=== PATIENT | male | born 1950 | race Caucasian/White ===

== ENCOUNTER → 2019-09-14 | Outpatient (CLI) | payer MEDICARE, OTHER ==
--- NOTE | 2019-09-16 21:44 | PE ---
EXAMINATION TYPE: PET CT fusion skull to thigh DATE OF EXAM: 09/14/2019 COMPARISON: Outside chest CT September 04, 2019. HISTORY: Solitary pulmonary nodule, abnormal CT. TECHNIQUE: Following the intravenous administration of 10.38 mCi of F-18 FDG, whole body images are performed from the skull base to the midthigh. Images are reviewed on the computer in the coronal, a xial, and sagittal planes. Reconstructed rotating images are created on independent workstation and reviewed on the computer. A noncontrast CT is performed in conjunction with the PET scan. SCAN: Initial Scan FINDINGS: SKULL BASE AND NECK: No areas of suspicious hypermetabolic uptake. CHEST, MEDIASTINUM, AND HILAR REGION: Background moderate emphysematous change with moderate biapical pleural/parenchymal scarring is redemonstrated. Mild to moderate left greater than right bibasilar a telectasis and/or scarring. Slightly more nodular appearance right lung base axial image 115 is less prominent versus outside CT. No areas of hypermetabolic uptake are noted. Prominent mediastinal lymph nodes including the largest anterior to ascending aorta axial image 85 measuring 14 x 8 mm are all r edemonstrated. No hypermetabolic adenopathy clearly seen. ABDOMEN AND PELVIS: Normal excretion. No adrenal masses. No suspicious hypermetabolic uptake. OSSEOUS STRUCTURES: No suspicious hypermetabolic uptake. OTHER CT: Mild calcified plaque bilateral carotid bulb level. Coronary artery calcifications redemonstrated. Some calcified thoracic lymph nodes again seen. Small degree of subareolar gynecomastia redemonstrated. Mild/moderate calcified plaque abdominal aorta extending into iliac branch vessels. Enlarged prostate gland consistent with BPH. Left-sided inguinal hernia. Moderate narrowing of both hip joints. Facet arthropathy lower lumbar levels. IMPRESSION: No areas of suspicious hypermetabolic uptake to suggest malignancy.
== END | disposition home or self-care (01) ==
LOC: RADPETMAIN 14:54
PROVIDERS: ATTEND Family Medicine
DX: R91.8 Other nonspecific abnormal finding of lung field (principal)
CPT/HCPCS: 78815; A9552

== ENCOUNTER 2023-12-22 11:13 | Inpatient (IN) | payer MEDICARE, OTHER ==
[2023-12-22] MEDS: ONDANSETRON 4 MG/2 ML VIAL IVP STA (12:22)
[2023-12-22] MEDS: SODIUM CHLORIDE 0.9% 1,000 ML IV STA ×3 (12:23→14:44)
[2023-12-22 12:40] LABS: Anisocytosis Slight; HCT 33.5 % (39.0-53.0); HGB 10.3 gm/dL (13.0-17.5); Hypochromasia Slight; MCH 25.6 pg (25.0-35.0); MCHC 30.7 g/dL (31.0-37.0); MCV 83.5 fL (80.0-100.0); Mean Platelet Volume 7.8; Platelet Count 222 k/uL (150-450); RBC 4.01 m/uL (4.30-5.90); RDW 19.2 % (11.5-15.5); WBC 11.6 k/uL (3.8-10.6)
--- NOTE | 2023-12-22 12:41 | XR ---
EXAMINATION TYPE: XR chest 2V DATE OF EXAM: 12/22/2023 COMPARISON: 12/03/2023 HISTORY: 73-year-old male with weakness TECHNIQUE: PA and lateral views FINDINGS: Left heart margin obscured by adjacent pleural parenchymal opacity. Moderate left pleural effusion barnett s developed. Right apical pleural-parenchymal scarring. Trace effusion on the right on the lateral vi ew. Mild interstitial prominence persists. IMPRESSION: Development of a moderate left pleural effusion with adjacent atelectasis and/or consolidation. Trace effusion on the right. Right apical pleural parenchymal scarring. Refer to recommendation on CT 12/06/2023. Known underlying adenopathy not well appreciated radiographically.
--- NOTE | 2023-12-22 12:50 | ED ---
Weakness HPI - General Chief complaint: Weakness Stated complaint: Weakness Time Seen by Provider: 12/22/23 11:26 Source: patient, RN notes reviewed Mode of arrival: wheelchair Limitations: no limitations - History of Present Illness Initial comments: This is a 73-year-old male who presents to the emergency department for generalized weakness. Patient was discharged from the hospital 2 weeks ago, during which time he was diagnosed with lymphoma. He did well at the point of discharge, however over the last week his states that he has been going downhill. He has been very weak and struggling to get around. He has also had nausea and is not wanting to eat. Patient reports minor shortness of breath. Denies any chest pain. He does have a prescription for Zofran, which has helped occasionally with the nausea. He has an appointment with Dr. Candelario next month to discuss treatment options. MD Complaint: generalized weakness - Related Data Home Medications Medication Instructions Recorded Confirmed Cetirizine HCl [Zyrtec] 10 mg PO DAILY 12/02/23 12/22/23 Cholecalciferol (Vitamin D3) 125 mcg PO DAILY@1200 12/02/23 12/22/23 [Vitamin D3 (125 MCG = 5,000 IU)] Enalapril [Vasotec] 10 mg PO DAILY@1200 PRN 12/02/23 12/22/23 Multivitamins, Thera [Multivitamin 1 tab PO DAILY@1200 12/02/23 12/22/23 (formulary)] Simvastatin [Zocor] 20 mg PO DAILY@1200 12/02/23 12/22/23 Aspirin EC [Ecotrin Low Dose] 81 mg PO DAILY 12/22/23 12/22/23 Ondansetron Odt [Zofran Odt] 4 mg PO Q6H PRN 12/22/23 12/22/23 Allergies Allergy/AdvReac Type Severity Reaction Status Date / Time No Known Allergies Allergy Verified 12/22/23 13:37 Review of Systems ROS Statement: Those systems with pertinent positive or pertinent negative responses have been documented in the HPI. ROS Other: All systems not noted in ROS Statement are negative. Past Medical History Past Medical History: Cancer, Hyperlipidemia, Hypertension History of Any Multi-Drug Resistant Organisms: None Reported Past Surgical History: Hernia Repair Past Psychological History: No Psychological Hx Reported Smoking Status: Current every day smoker Past Alcohol Use History: Occasional Past Drug Use History: None Reported General Exam Limitations: no limitations General appearance: alert, in no apparent distress Head exam: Present: atraumatic, normocephalic, normal inspection Respiratory exam: Present: normal lung sounds bilaterally. Absent: respiratory distress, wheezes, rales, rhonchi, stridor Cardiovascular Exam: Present: regular rate, normal rhythm, normal heart sounds. Absent: systolic murmur, diastolic murmur, rubs, gallop, clicks GI/Abdominal exam: Present: soft, normal bowel sounds. Absent: distended, tenderness, guarding, rebound, rigid Neurological exam: Present: alert, oriented X3, CN II-XII intact Psychiatric exam: Present: normal affect, normal mood Skin exam: Present: warm, dry, intact, normal color. Absent: rash Course Vital Signs 12/22/23 12/22/23 12/22/23 11:19 12:16 14:44 Temperature 97.4 F L Pulse Rate 93 96 94 Respiratory 16 18 22 Rate Blood Pressure 106/75 91/69 88/71 O2 Sat by Pulse 95 95 94 L Oximetry Medical Decision Making - Medical Decision Making This is a 73 year old male who presents to the emergency department for weakness. Was pt. sent in by a medical professional or institution? @ -No Did you speak to anyone other than the patient for history? @ -His provided the majority of the information. Did you review nursing and triage notes? @ -Yes, and I agree, it is accurate with regards to the patient's symptoms. Were old charts reviewed? @ -No Differential Diagnosis? @ -Differential Weakness: Hypoglycemia, shock, sepsis, hyponatremia, anemia, infection, HI, ETOH, adverse medicine reaction, overdose, stroke, this is not meant to be an all-inclusive list. EKG interpreted by me (3pts min.)? @ -EKG interpreted by me demonstrating the following: Sinus rhythm. Ventricular rate 93 bpm, PA interval 152 ms, QRS duration 77 ms, QTc 370 ms. X-rays interpreted by me (1pt min.)? @ -Chest x-ray obtained. My interpretation identifies a left-sided pleural effusion. CT interpreted by me (1pt min.)? @ -Not obtained U/S interpreted by me (1pt. min.)? @ -Not obtained What testing was considered but not performed? (CT, X-rays, U/S, labs)? Why? @ -None What meds were considered but not given? Why? @ -None Did you discuss the management of the patient with other professionals? @ -Yes, Dr. Kerr, who accepts the patient for admission. Did you reconcile home meds? @ -Yes Was smoking cessation discussed for >3mins.? @ -No Was critical care preformed (if so, how long)? @ -No Were there social determinants of health that impacted care today? How? (Homelessness, low income, unemployed, alcoholism, drug addiction, transportation, low edu. Level, literacy, decrease access to med. care, intermediate, rehab)? @ -No Was there de-escalation of care discussed even if they declined? (Discuss DNR or withdrawal of care, Hospice)? @ -No What co-morbidities impacted this encounter? (DM, HTN, Smoking, COPD, CAD, Cancer, CVA, Hep., AIDS, mental health diagnosis, sleep apnea, morbid obesity)? @ -Lymphoma, HTN, HLD Was patient admitted / discharged? @ -Admitted. Lab work demonstrates leukocytosis with a white blood cell count of 11.6. Patient is hyponatremic with a sodium of 129. Patient is also in acute renal failure with a creatinine of 3.62 and GFR of 16. Potassium elevated at 6.4 without hemolysis. Chest x-ray demonstrates development of a moderate left pleural effusion with adjacent atelectasis and/or consolidation. There is a trace effusion on the right. Hyperkalemia cocktail administered consisting of calcium gluconate, Lokelma, and insulin. It is not entirely clear if there are signs of pneumonia on the chest x-ray. Procalcitonin ordered with results pending at time of admission. Patient admitted to medicine for hyperkalemia, acute renal failure, and weakness. Consult placed for nephrology. Undiagnosed new problem with uncertain prognosis? @ -None Drug Therapy requiring intensive monitoring for toxicity (Heparin, Nitro, Insulin, Cardizem)? @ -None Were any procedures done? @ -None Diagnosis/symptom? @ -Acute renal failure, hyperkalemia, weakness Acute, or Chronic, or Acute on Chronic? @ -Acute Uncomplicated (without systemic symptoms) or Complicated (systemic symptoms)? @ -Complicated Side effects of treatment? @ -None Exacerbation, Progression, or Severe Exacerbation] @ -Not applicable Poses a threat to life or bodily function? @ Yes This case was discussed in detail with the attending ED physician, Dr. Davila. Presentation, findings, and treatment plan discussed in detail as well. - Lab Data Result diagrams: 12/22/23 12:27 12/22/23 12:27 Lab Results 12/22/23 12/22/23 12/22/23 Range/Units 12:27 12:27 12:27 WBC 11.6 H (3.8-10.6) k/uL RBC 4.01 L (4.30-5.90) m/uL Hgb 10.3 L (13.0-17.5) gm/dL Hct 33.5 L (39.0-53.0) % MCV 83.5 (80.0-100.0) fL MCH 25.6 (25.0-35.0) pg MCHC 30.7 L (31.0-37.0) g/dL RDW 19.2 H (11.5-15.5) % Plt Count 222 (150-450) k/uL MPV 7.8 Neutrophils % (Manual) 67 % Lymphocytes % (Manual) 20 % Monocytes % (Manual) 13 % Eosinophils % (Manual) 1 % Neutrophils # (Manual) 7.77 H (1.3-7.7) k/uL Lymphocytes # (Manual) 2.32 (1.0-4.8) k/uL Monocytes # (Manual) 1.51 H (0-1.0) k/uL Eosinophils # (Manual) 0.12 (0-0.7) k/uL Nucleated RBCs 0 (0-0) /100 WBC Manual Slide Review Performed Hypochromasia Slight Anisocytosis Slight PT 11.5 (10.0-12.5) sec INR 1.1 (<1.2) APTT 23.3 (22.0-30.0) sec Sodium 129 L (137-145) mmol/L Potassium 6.4 H* (3.5-5.1) mmol/L Chloride 101 (98-107) mmol/L Carbon Dioxide 20 L (22-30) mmol/L Anion Gap 8 mmol/L BUN 90 H (9-20) mg/dL Creatinine 3.62 H (0.66-1.25) mg/dL Est GFR (CKD-EPI)AfAm 18 (>60 ml/min/1.73 sqM) Est GFR (CKD-EPI)NonAf 16 (>60 ml/min/1.73 sqM) Glucose 110 H (74-99) mg/dL Plasma Lactic Acid Curtis (0.7-2.0) mmol/L Calcium 10.0 (8.4-10.2) mg/dL Phosphorus 6.7 H (2.5-4.5) mg/dL Magnesium 2.8 H (1.6-2.3) mg/dL Total Bilirubin 0.4 (0.2-1.3) mg/dL AST 23 (17-59) U/L ALT 17 (4-49) U/L Alkaline Phosphatase 113 (38-126) U/L Troponin I (0.000-0.034) ng/mL NT-Pro-B Natriuret Pep pg/mL Total Protein 6.2 L (6.3-8.2) g/dL Albumin 3.8 (3.5-5.0) g/dL Influenza Type A (PCR) (Not Detectd) Influenza Type B (PCR) (Not Detectd) RSV (PCR) (Not Detectd) SARS-CoV-2 (PCR) (Not Detectd) 12/22/23 12/22/23 12/22/23 Range/Units 12:27 12:27 12:27 WBC (3.8-10.6) k/uL RBC (4.30-5.90) m/uL Hgb (13.0-17.5) gm/dL Hct (39.0-53.0) % MCV (80.0-100.0) fL MCH (25.0-35.0) pg MCHC (31.0-37.0) g/dL RDW (11.5-15.5) % Plt Count (150-450) k/uL MPV Neutrophils % (Manual) % Lymphocytes % (Manual) % Monocytes % (Manual) % Eosinophils % (Manual) % Neutrophils # (Manual) (1.3-7.7) k/uL Lymphocytes # (Manual) (1.0-4.8) k/uL Monocytes # (Manual) (0-1.0) k/uL Eosinophils # (Manual) (0-0.7) k/uL Nucleated RBCs (0-0) /100 WBC Manual Slide Review Hypochromasia Anisocytosis PT (10.0-12.5) sec INR (<1.2) APTT (22.0-30.0) sec Sodium (137-145) mmol/L Potassium (3.5-5.1) mmol/L Chloride (98-107) mmol/L Carbon Dioxide (22-30) mmol/L Anion Gap mmol/L BUN (9-20) mg/dL Creatinine (0.66-1.25) mg/dL Est GFR (CKD-EPI)AfAm (>60 ml/min/1.73 sqM) Est GFR (CKD-EPI)NonAf (>60 ml/min/1.73 sqM) Glucose (74-99) mg/dL Plasma Lactic Acid Curtis 1.7 (0.7-2.0) mmol/L Calcium (8.4-10.2) mg/dL Phosphorus (2.5-4.5) mg/dL Magnesium (1.6-2.3) mg/dL Total Bilirubin (0.2-1.3) mg/dL AST (17-59) U/L ALT (4-49) U/L Alkaline Phosphatase (38-126) U/L Troponin I <0.012 (0.000-0.034) ng/mL NT-Pro-B Natriuret Pep pg/mL Total Protein (6.3-8.2) g/dL Albumin (3.5-5.0) g/dL Influenza Type A (PCR) Not Detected (Not Detectd) Influenza Type B (PCR) Not Detected (Not Detectd) RSV (PCR) Not Detected (Not Detectd) SARS-CoV-2 (PCR) Not Detected (Not Detectd) 12/22/23 Range/Units 13:11 WBC (3.8-10.6) k/uL RBC (4.30-5.90) m/uL Hgb (13.0-17.5) gm/dL Hct (39.0-53.0) % MCV (80.0-100.0) fL MCH (25.0-35.0) pg MCHC (31.0-37.0) g/dL RDW (11.5-15.5) % Plt Count (150-450) k/uL MPV Neutrophils % (Manual) % Lymphocytes % (Manual) % Monocytes % (Manual) % Eosinophils % (Manual) % Neutrophils # (Manual) (1.3-7.7) k/uL Lymphocytes # (Manual) (1.0-4.8) k/uL Monocytes # (Manual) (0-1.0) k/uL Eosinophils # (Manual) (0-0.7) k/uL Nucleated RBCs (0-0) /100 WBC Manual Slide Review Hypochromasia Anisocytosis PT (10.0-12.5) sec INR (<1.2) APTT (22.0-30.0) sec Sodium (137-145) mmol/L Potassium (3.5-5.1) mmol/L Chloride (98-107) mmol/L Carbon Dioxide (22-30) mmol/L Anion Gap mmol/L BUN (9-20) mg/dL Creatinine (0.66-1.25) mg/dL Est GFR (CKD-EPI)AfAm (>60 ml/min/1.73 sqM) Est GFR (CKD-EPI)NonAf (>60 ml/min/1.73 sqM) Glucose (74-99) mg/dL Plasma Lactic Acid Curtis (0.7-2.0) mmol/L Calcium (8.4-10.2) mg/dL Phosphorus (2.5-4.5) mg/dL Magnesium (1.6-2.3) mg/dL Total Bilirubin (0.2-1.3) mg/dL AST (17-59) U/L ALT (4-49) U/L Alkaline Phosphatase (38-126) U/L Troponin I (0.000-0.034) ng/mL NT-Pro-B Natriuret Pep 937 pg/mL Total Protein (6.3-8.2) g/dL Albumin (3.5-5.0) g/dL Influenza Type A (PCR) (Not Detectd) Influenza Type B (PCR) (Not Detectd) RSV (PCR) (Not Detectd) SARS-CoV-2 (PCR) (Not Detectd) - Radiology Data Radiology results: report reviewed, image reviewed Disposition Clinical Impression: Hyperkalemia, Renal failure, Weakness Disposition: ADMITTED IP TO THIS HOSP
[2023-12-22 12:51] LABS: INR 1.1 (<1.2); Partial Thromboplastin Time 23.3 sec (22.0-30.0); Prothrombin Time 11.5 sec (10.0-12.5)
[2023-12-22 13:02] LABS: ALT 17 U/L (4-49); AST 23 U/L (17-59); African American GFR (CKD) 18 (>60 ml/min/1.73 sqM); Albumin 3.8 g/dL (3.5-5.0); Alkaline Phosphatase 113 U/L (38-126); Anion Gap 8 mmol/L; Blood Urea Nitrogen 90 mg/dL (9-20); Carbon Dioxide 20 mmol/L (22-30); Chloride 101 mmol/L (98-107); Glucose 110 mg/dL (74-99); Magnesium 2.8 mg/dL (1.6-2.3); Non-African American GFR(CKD) 16 (>60 ml/min/1.73 sqM); Phosphorus 6.7 mg/dL (2.5-4.5); Sodium 129 mmol/L (137-145); Total Bilirubin 0.4 mg/dL (0.2-1.3); Total Protein 6.2 g/dL (6.3-8.2)
[2023-12-22 13:06] LABS: Potassium 6.4 mmol/L (3.5-5.1)
[2023-12-22] MEDS ORDERED: NALOXONE 0.4 MG/ML 1 ML VIAL IV PRN (13:30)
[2023-12-22] MEDS ORDERED: MORPHINE SULFATE 4 MG/ML SYRINGE IV PRN (13:30)
[2023-12-22 13:33] LABS: Eosinophils # (M) 0.12 k/uL (0-0.7); Lymphocytes # (M) 2.32 k/uL (1.0-4.8); Monocytes # (M) 1.51 k/uL (0-1.0); Neutrophils # (M) 7.77 k/uL (1.3-7.7); Neutrophils % (M) 67 %; Nucleated Red Blood Cells 0 /100 WBC (0-0); Total Cells Counted 200
[2023-12-22] MEDS: DEXTROSE 50% SYRINGE 50 ML IVP ONE (14:31)
[2023-12-22] MEDS: INSULIN REGULAR 100 UNIT/ML VIAL (IV) IV ONE (14:35)
[2023-12-22] MEDS: SODIUM ZIRCONIUM CYCLOSILICATE 10 GM PACKET PO ONE (14:46)
[2023-12-22] MEDS: CALCIUM GLUCONATE IN NACL 1 GM in SALINE 1 100ML.BAG IVPB ONE (14:48)
--- NOTE | 2023-12-22 16:55 | US ---
EXAMINATION TYPE: US kidneys/renal and bladder DATE OF EXAM: 12/22/2023 COMPARISON: NONE CLINICAL INDICATION: Male, 73 years old with history of acute renal failure; EXAM MEASUREMENTS: Right Kidney: 9.2 x 4.6 x 4.8 cm Left Kidney: 10.1 x 5.1 x 4.5 cm Right Kidney: wnl Left Kidney: wnl Bladder: wnl Bilateral Jets seen: right jet seen, left jet not seen Abdominal ascites Spleen: 20.2cm, enlarged Bilateral pleural effusion IMPRESSION: 1. No suspicious ultrasound abnormality of the kidneys. 2. Marked Splenomegaly. 3. Some mild ascites is present. Small bilateral pleural effusions are present
[2023-12-22 17:29] LABS: Appearance,Urine Clear (Clear); Bilirubin,Urine Negative (Negative); Blood,Urine Negative (Negative); Color,Urine Yellow; Glucose,Urine (UA) Negative (Negative); Ketones,Urine Negative (Negative); Leukocyte Esterase,Urine Negative (Negative); Nitrite,Urine Negative (Negative); Protein,Urine Trace (Negative); Urobilinogen,Urine <2.0 mg/dL (<2.0)
[2023-12-23] MEDS: ONDANSETRON 4 MG/2 ML VIAL IVP PRN (03:22)
[2023-12-23] MEDS: ENOXAPARIN 30 MG/0.3 ML SYRINGE SQ SCH (07:53)
[2023-12-23] MEDS: ASPIRIN 81 MG PO SCH (07:53)
[2023-12-23] MEDS: LORATADINE 10 MG TAB PO SCH (07:53)
--- NOTE | 2023-12-23 10:09 | P.HPIM ---
History of Present Illness H&P Date: 12/22/23 Rahul Cruz, Is a 57-year-old male patient who presented to the ER with concerns of increased weakness over the past few days. Patient was discharged from the hospital 2 weeks ago after diagnosed with lymphoma patient reports that he was doing well for couple days but then began not feeling well not wanting to eat over the past few days patient has past medical history of hyperlipidemia hypertension and nicotine dependence.Chest x-ray completed showing development of a moderate left pleural effusion with adjacent atelectasis or consolidation trace effusion on the right. Abdominal ultrasound completed showing no suspicious ultrasound abnormality some mild ascites is present marked splen omegaly small bilateral pleural effusions are present.Patient white blood cell elevated at 11.6, hemoglobin 10.3, sodium 129, potassium 6.4, creatinine 3.6-190 magnesium 2.8 ALT 17 AST 23. Troponin negative. UA negative. Influenza RSV and COVID-19 negative.At this time patient has been started on IV fluid nephrology and cardiology services have been consulted. Repeat labs have been ordered. Current vital signs temp 97.5, heart rate 100, respiratory rate 18, blood pressure 115/78 with a pulse ox of 95% on 2 L Review of Systems Please refer to HPI otherwise unremarkable Past Medical History Past Medical History: Cancer, Hyperlipidemia, Hypertension History of Any Multi-Drug Resistant Organisms: None Reported Past Surgical History: Hernia Repair Past Psychological History: No Psychological Hx Reported Smoking Status: Current every day smoker Past Alcohol Use History: Occasional Past Drug Use History: None Reported Medications and Allergies Home Medications Medication Instructions Recorded Confirmed Type Cetirizine HCl [Zyrtec] 10 mg PO DAILY 12/02/23 12/22/23 History Cholecalciferol (Vitamin D3) 125 mcg PO DAILY@1200 12/02/23 12/22/23 History [Vitamin D3 (125 MCG = 5,000 IU)] Enalapril [Vasotec] 10 mg PO DAILY@1200 PRN 12/02/23 12/22/23 History Multivitamins, Thera [Multivitamin 1 tab PO DAILY@1200 12/02/23 12/22/23 History (formulary)] Simvastatin [Zocor] 20 mg PO DAILY@1200 12/02/23 12/22/23 History Aspirin EC [Ecotrin Low Dose] 81 mg PO DAILY 05/30/24 05/30/24 History Ondansetron Odt [Zofran Odt] 4 mg PO Q6H PRN 12/22/23 12/22/23 History Allergies Allergy/AdvReac Type Severity Reaction Status Date / Time No Known Allergies Allergy Verified 12/22/23 13:37 Physical Exam Vitals: Vital Signs Temp Pulse Resp BP Pulse Ox 12/22/23 15:27 98 18 116/97 96 12/22/23 14:44 94 22 88/71 94 L 12/22/23 12:16 96 18 91/69 95 12/22/23 11:19 97.4 F L 93 16 106/75 95 Intake and Output 12/22/23 12/22/23 12/22/23 06:59 14:59 22:59 Other: Weight 70.307 kg Head normocephalic Neck supple Lungs clear to auscultation bilaterally no wheezing or crackles Heart regular rate and rhythm S1-S2, no rub or gallop Abdomen is soft nontender nondistended positive bowel sounds no hepatosplenomegaly Extremities no edema Neuro alert and orientated to 3 Results CBC & Chem 7: 12/22/23 12:27 12/22/23 16:53 Labs: Abnormal Lab Results - Last 24 Hours (Table) 12/22/23 12/22/23 Range/Units 12:27 12:27 WBC 11.6 H (3.8-10.6) k/uL RBC 4.01 L (4.30-5.90) m/uL Hgb 10.3 L (13.0-17.5) gm/dL Hct 33.5 L (39.0-53.0) % MCHC 30.7 L (31.0-37.0) g/dL RDW 19.2 H (11.5-15.5) % Neutrophils # (Manual) 7.77 H (1.3-7.7) k/uL Monocytes # (Manual) 1.51 H (0-1.0) k/uL Sodium 129 L (137-145) mmol/L Potassium 6.4 H* (3.5-5.1) mmol/L Carbon Dioxide 20 L (22-30) mmol/L BUN 90 H (9-20) mg/dL Creatinine 3.62 H (0.66-1.25) mg/dL Glucose 110 H (74-99) mg/dL Phosphorus 6.7 H (2.5-4.5) mg/dL Magnesium 2.8 H (1.6-2.3) mg/dL Total Protein 6.2 L (6.3-8.2) g/dL Assessment and Plan Assessment: 1. Increased weakness and general malaise. 2. Recent diagnosis of lymphoma with splenomegaly and extensive lymphadenopathy 3. History of essential hypertension 4. History of hyperlipidemia DVT prophylaxis Lovenox. GI prophylaxis Protonix Patient maintained on IV fluid Nephrology and oncology service is consulted Repeat labs ordered Time with Patient: Greater than 30 (Greater than 60% of the total time spent in counseling and coordination of care)
--- NOTE | 2023-12-23 10:10 | P.PN ---
Subjective Progress Note Date: 12/23/23 Rahul Cruz, Is a 57-year-old male patient who presented to the ER with concerns of increased weakness over the past few days. Patient was discharged from the hospital 2 weeks ago after diagnosed with lymphoma patient reports that he was doing well for couple days but then began not feeling well not wanting to eat over the past few days patient has past medical history of hyperlipidemia hypertension and nicotine dependence.Chest x-ray completed showing development of a moderate left pleural effusion with adjacent atelectasis or consolidation trace effusion on the right. Abdominal ultrasound completed showing no suspicious ultrasound abnormality some mild ascites is present marked splenomegaly small bilateral pleural effusions are present.Patient white blood cell elevated at 11.6, hemoglobin 10.3, sodium 129, potassium 6.4, creatinine 3.6-190 magnesium 2.8 ALT 17 AST 23. Troponin negative. UA negative. Influenza RSV and COVID-19 negative.At this time patient has been started on IV fluid nephrology and cardiology services have been consulted. Repeat labs have been ordered. Current vital signs temp 97.5, heart rate 100, respiratory rate 18, blood pressure 115/78 with a pulse ox of 95% on 2 L On 12/23/2023 patient is alert and oriented 3. Patient reports slight improvement. Family at bedside. Awaiting nephrology and oncology input. Patient denies chest pain or shortness of breath. Patient denies any urinary burning or frequency. Repeat labs pending Objective - Vital Signs Vital signs: Vital Signs Temp 97.5 F L 12/23/23 08:00 Pulse 100 12/23/23 08:00 Resp 18 12/23/23 08:00 BP 115/78 12/23/23 08:00 Pulse Ox 95 12/23/23 08:00 FiO2 Intake & Output 12/22/23 12/23/23 12/23/23 18:59 06:59 18:59 Intake Total 930 Balance 930 Weight 70.307 kg Intake: Intake, IV Titration 900 Amount Sodium Chloride 0.9% 1, 900 000 ml @ 75 mls/hr IV . [id number] STA Rx#:[id number] Oral 30 Other: Voiding Method Toilet # Voids 3 # Bowel Movements 1 - Exam Head normocephalic Neck supple Lungs clear to auscultation bilaterally no wheezing or crackles Heart regular rate and rhythm S1-S2, no rub or gallop Abdomen is soft nontender nondistended positive bowel sounds no he patosplenomegaly Extremities no edema Neuro alert and orientated to 3 - Labs CBC & Chem 7: 12/22/23 12:27 12/22/23 16:53 Labs: Abnormal Lab Results - Last 24 Hours (Table) 12/22/23 12/22/23 12/22/23 Range/Units 12:27 12:27 12:27 WBC 11.6 H (3.8-10.6) k/uL RBC 4.01 L (4.30-5.90) m/uL Hgb 10.3 L (13.0-17.5) gm/dL Hct 33.5 L (39.0-53.0) % MCHC 30.7 L (31.0-37.0) g/dL RDW 19.2 H (11.5-15.5) % Neutrophils # (Manual) 7.77 H (1.3-7.7) k/uL Monocytes # (Manual) 1.51 H (0-1.0) k/uL Sodium 129 L (137-145) mmol/L Potassium 6.4 H* (3.5-5.1) mmol/L Carbon Dioxide 20 L (22-30) mmol/L BUN 90 H (9-20) mg/dL Creatinine 3.62 H (0.66-1.25) mg/dL Glucose 110 H (74-99) mg/dL Phosphorus 6.7 H (2.5-4.5) mg/dL Magnesium 2.8 H (1.6-2.3) mg/dL Total Protein 6.2 L (6.3-8.2) g/dL Procalcitonin 0.19 H (0.02-0.09) ng/mL Urine Protein (Negative) 12/22/23 12/22/23 Range/Units 16:53 17:20 WBC (3.8-10.6) k/uL RBC (4.30-5.90) m/uL Hgb (13.0-17.5) gm/dL Hct (39.0-53.0) % MCHC (31.0-37.0) g/dL RDW (11.5-15.5) % Neutrophils # (Manual) (1.3-7.7) k/uL Monocytes # (Manual) (0-1.0) k/uL Sodium (137-145) mmol/L Potassium 5.6 H (3.5-5.1) mmol/L Carbon Dioxide (22-30) mmol/L BUN (9-20) mg/dL Creatinine (0.66-1.25) mg/dL Glucose (74-99) mg/dL Phosphorus (2.5-4.5) mg/dL Magnesium (1.6-2.3) mg/dL Total Protein (6.3-8.2) g/dL Procalcitonin (0.02-0.09) ng/mL Urine Protein Trace H (Negative) Assessment and Plan Assessment: 1. Increased weakness and general malaise. 2. Recent diagnosis of lymphoma with splenomegaly and extensive lymphadenopathy 3. History of essential hypertension 4. History of hyperlipidemia DVT prophylaxis Lovenox. GI prophylaxis Protonix Patient maintained on IV fluid Nephrology and oncology service is consulted Repeat labs ordered
--- NOTE | 2023-12-23 10:11 | P.NPCON ---
History of Present Illness - Reason for Consult acute renal failure - History of Present Illness patient is a 73-year-old male with history of hypertension, hyperlipidemia and recent diagnosis of Mantle cell lymphoma. Patient is admitted to the hospital with complaints of increased shortness of breath and leg swelling over the past 2-3 days. labs reveals serum creatinine at 3.6 mg/dL. previous creatinine was 0.9 on 12/08/2023. Patient admits to taking Motrin 2 tablets 3-4 times a day for about 2 weeks now due to back pain. Patient was also maintained on HOWARD inhibitor's. Blood pressure has been low with systolic noted in the 80s. patient has been voiding. Review of Systems as per HPI Past Medical History Past Medical History: Cancer, Hyperlipidemia, Hypertension History of Any Multi-Drug Resistant Organisms: None Reported Past Surgical History: Hernia Repair Past Psychological History: No Psychological Hx Reported Smoking Status: Current every day smoker Past Alcohol Use History: Occasional Past Drug Use History: None Reported Medications and Allergies Home Medications Medication Instructions Recorded Confirmed Type Cetirizine HCl [Zyrtec] 10 mg PO DAILY 12/02/23 12/22/23 History Cholecalciferol (Vitamin D3) 125 mcg PO DAILY@1200 12/02/23 12/22/23 History [Vitamin D3 (125 MCG = 5,000 IU)] Enalapril [Vasotec] 10 mg PO DAILY@1200 PRN 12/02/23 12/22/23 History Multivitamins, Thera [Multivitamin 1 tab PO DAILY@1200 12/02/23 12/22/23 History (formulary)] Simvastatin [Zocor] 20 mg PO DAILY@1200 12/02/23 12/22/23 History Aspirin EC [Ecotrin Low Dose] 81 mg PO DAILY 12/22/23 12/22/23 History Ondansetron Odt [Zofran Odt] 4 mg PO Q6H PRN 12/22/23 12/22/23 History Allergies Allergy/AdvReac Type Severity Reaction Status Date / Time No Known Allergies Allergy Verified 12/22/23 13:37 Physical Exam Vitals: Vital Signs Temp Pulse Pulse Resp BP BP Pulse Ox 12/23/23 08:00 97.5 F L 100 18 115/78 95 12/23/23 02:00 98 F 101 H 16 118/80 97 12/22/23 21:00 97.4 F L 103 H 16 114/77 96 12/22/23 20:10 101 H 18 108/88 94 L 12/22/23 15:27 98 18 116/97 96 12/22/23 14:44 94 22 88/71 94 L 12/22/23 12:16 96 18 91/69 95 12/22/23 11:19 97.4 F L 93 16 106/75 95 Intake and Output 12/22/23 12/23/23 12/23/23 22:59 06:59 14:59 Intake Total 30 900 Balance 30 900 Intake: Intake, IV Titration 900 Amount Sodium Chloride 0.9% 1, 900 000 ml @ 75 mls/hr IV . [id number] STA Rx#:[id number] Oral 30 Other: Voiding Method Toilet # Voids 3 # Bowel Movements 1 Weight 70.307 kg patient is awake, comfortable, no acute distress. Alert oriented 3 Examination of the heart S1 and S2 Examination of the lungs bilateral breath sounds are heard Abdomen is soft nontender Examination of lower extremity shows edema 2+ bilaterally [facility] exam grossly intact Results - Lab Results Most recent lab results Calcium 10.0 mg/dL (8.4-10.2) 12/22/23 12:27 Phosphorus 6.7 mg/dL (2.5-4.5) H 12/22/23 12:27 Magnesium 2.8 mg/dL (1.6-2.3) H 12/22/23 12:27 12/22/23 12:27 12/22/23 16:53 Assessment and Plan Assessment: 1. Acute kidney injury, ATN currently nonoliguric secondary to hypotension and the setting of use of howard inhibitors and NSAIDs. No evidence of obstruction noted on ultrasound. UA is quite benign. Currently maintained on IV fluids. 2. Volume overload and lower extremity edema most likely associated with recent use of NSAIDs. No significant proteinuria noted to account for the edema. 3. Recent diagnosis of mantle cell lymphoma 4. hyperkalemia associated with acute kidney injury and use of NSAIDs and HOWARD inhibitor's Plan: hold IV fluids as patient is hypervolemic. IV Lasix 1 Check accurate I's and O's Avoid any further use of NSAIDs Continue to hold HOWARD inhibitor's Repeat labs today and in a.m. thank you for the consultation. We will continue to follow the patient with you during his hospitalization.
[2023-12-23] MEDS: MULTIVITAMINS, THERA 1 EACH TAB PO SCH (11:22)
[2023-12-23] MEDS: ATORVASTATIN 10 MG TAB PO SCH (11:22)
[2023-12-23] MEDS: CHOLECALCIFEROL 125 MCG (5000 IU) TABLET PO SCH (11:22)
[2023-12-23 11:28] LABS: ALT 15 U/L (10-49); AST 18 U/L (14-35); Albumin 3.4 g/dL (3.8-4.9); Alkaline Phosphatase 98 U/L (41-126); BUN/Creat Ratio 23.74 Ratio (12.00-20.00); Blood Urea Nitrogen 80.7 mg/dL (9.0-27.0); Calcium 8.6 mg/dL (8.7-10.3); Carbon Dioxide 14.7 mmol/L (21.6-31.8); Chloride 102 mmol/L (96-109); Glucose 103 mg/dL (70-110); Potassium 5.8 mmol/L (3.5-5.5); Sodium 132 mmol/L (135-145); Total Bilirubin 0.3 mg/dL (0.3-1.2); Total Protein 5.4 g/dL (6.2-8.2)
[2023-12-23 11:53] LABS: Basophils # (M) 0 X 10*3/uL (0.00-0.10); Eosinophils # (M) 0.14 X 10*3/uL (0.04-0.35); HCT 31.1 % (39.6-50.0); HGB 9.5 g/dL (13.0-17.0); MCH 26.1 pg (27.0-32.0); MCHC 30.5 g/dL (32.0-37.0); MCV 85.4 FL (80.0-97.0); Mean Platelet Volume 10.8 FL (9.5-12.2); Monocytes # (M) 1.52 X 10*3/uL (0.20-1.00); NRBC Per 100 WBC 0.02 X 10*3/uL (0.00-0.01); Neutrophils # (M) 8.14 X 10*3/uL (1.80-7.70); Neutrophils % (M) 59 %; Platelet Count 224 X 10*3/uL (140-440); RBC 3.64 X 10*6/uL (4.40-5.60); RDW 21.1 % (11.5-14.5)
[2023-12-23] MEDS: ALPRAZolam 0.25 MG TAB PO PRN (13:26)
[2023-12-23 16:09] LABS: Phosphorus 6.2 mg/dL (2.4-5.1); Uric Acid 12.6 mg/dL (3.7-8.7)
[2023-12-23] MEDS: SODIUM POLYSTYRENE SULFONATE 15 GM/60 ML BOTTLE PO ONE (16:49)
[2023-12-23] MEDS: RASBURICASE 6 MG in SODIUM CHLORIDE 0.9% 46 ML IV ONE (17:39)
[2023-12-23] MEDS: ACETAMINOPHEN TAB 325 MG TAB PO PRN (20:12)
--- NOTE | 2023-12-24 00:04 | P.CONS ---
History of Present Illness - Reason for Consult Consult date: 12/23/23 hx lymphoma Requesting physician: Maribel Castillo - Chief Complaint weakness - History of Present Illness Patient is a 73-year-old male witha history of recently diganosed mantle cell lymphoma. He initially presented to [facility] with complaints of persisting abdominal pain, he was subsequently transferred to [facility] for further management, after abnormal CT findings. Consult was placed for CT findings of extensive intra abdominal/pelvic lymphadenopathy. Patient reports he began having left lower back pain approximately 1 month ago that began to radiate to l eft lower quadrant and midline and to left groin. Also reports intermittent nausea and constipation. Denies diarrhea and vomiting. He states for the the week prior he had been noticing black stools. Of note patient had tooth extraction 1 month ago and was using Motrin frequently for 10 days. Patient is on no blood thinners. He denies personal and family history of cancer. Has had a approximate 15 pound weight loss over the last [address] abdomen pelvis with oral and IV contrast was obtained at [facility], scan revealed extensive intra-abdominal/pelvic lymphadenopathy. Massive splenomegaly measuring 20 cm. With small perisplenic fluid collection. May be subcapsular or related to splenic injury or infarction measuring 3.2 cm. Small pericardial and left pleural effusion. Diverticulosis with wall thickening, underlying mucosal lesion not excluded. Bladder wall enhances and is thickened, correlate for cystitis. Prostate gland enlarged. Patient underwent biopsy of right axillary lymph node and was subsequently discharged home. 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 PET/CT was scheduled for 12/23 with clinic follow-up with Dr. Adam Candelario on 01/02. Patient presented to the emergency room with progressing weakness and decreased oral intake over the last 2 to 3 days. On admission chest x-ray revealed development of moderate left pleural effusion with adjacent atelectasis and or consolidation and trace effusion on the right. Patient was also noted to be in acute renal failure with creatinine 3.6, GFR 16. Potassium 6.4, sodium 129. Calcium 10.0, phosphorus 6.7. Troponin was negative. BNP 937. CBC revealed WBC 13.8, hemoglobin 9.5, platelets 224,000. Coags WNL. Bilirubin and LFTs WNL. Patient did receive 2 L normal saline bolus upon admission. Nephrology consulted. US KUB obtained showing no abnormality of the kidneys, marked splenomegaly and mild ascites. At today's visit patient is reporting persisting weakness. Denies nausea vomiting diarrhea and abdominal pain. Denies fever and chills. Review of Systems 10 point ROS is negative except as stated in the HPI Past Medical History Past Medical History: Cancer, Hyperlipidemia, Hypertension History of Any Multi-Drug Resistant Organisms: None Reported Past Surgical History: Hernia Repair Past Psychological History: No Psychological Hx Reported Smoking Status: Current every day smoker Past Alcohol Use History: Occasional Past Drug Use History: None Reported Medications and Allergies Home Medications Medication Instructions Recorded Confirmed Type Cetirizine HCl [Zyrtec] 10 mg PO DAILY 12/02/23 12/22/23 History Cholecalciferol (Vitamin D3) 125 mcg PO DAILY@1200 12/02/23 12/22/23 History [Vitamin D3 (125 MCG = 5,000 IU)] Enalapril [Vasotec] 10 mg PO DAILY@1200 PRN 12/02/23 12/22/23 History Multivitamins, Thera [Multivitamin 1 tab PO DAILY@1200 12/02/23 12/22/23 History (formulary)] Simvastatin [Zocor] 20 mg PO DAILY@1200 12/02/23 12/22/23 History Aspirin EC [Ecotrin Low Dose] 81 mg PO DAILY 12/22/23 12/22/23 History Ondansetron Odt [Zofran Odt] 4 mg PO Q6H PRN 12/22/23 12/22/23 History Allergies Allergy/AdvReac Type Severity Reaction Status Date / Time No Known Allergies Allergy Verified 12/22/23 13:37 Physical Exam Vitals: Vital Signs Temp Pulse Pulse Resp BP BP Pulse Ox 12/23/23 08:00 97.5 F L 100 18 115/78 95 12/23/23 02:00 98 F 101 H 16 118/80 97 12/22/23 21:00 97.4 F L 103 H 16 114/77 96 12/22/23 20:10 101 H 18 108/88 94 L 12/22/23 15:27 98 18 116/97 96 12/22/23 14:44 94 22 88/71 94 L Intake and Output 12/22/23 12/23/23 12/23/23 22:59 06:59 14:59 Intake Total 30 900 Balance 30 900 Intake: Intake, IV Titration 900 Amount Sodium Chloride 0.9% 1, 900 000 ml @ 75 mls/hr IV . [id number] STA Rx#:[id number] Oral 30 Other: Voiding Method Toilet # Voids 3 # Bowel Movements 1 Weight 70.307 kg 70.307 kg - Constitutional General appearance: average body habitus, no acute distress - EENT Eyes: anicteric sclerae, EOMI ENT: hearing grossly normal - Respiratory Respiratory: bilateral: CTA - Cardiovascular Rhythm: regular Heart sounds: normal: S1, S2 - Gastrointestinal General gastrointestinal: soft, no tenderness - Integumentary Integumentary: no cyanotic - Musculoskeletal Musculoskeletal: generalized weakness - Psychiatric Psychiatric: A&O x's 3 Results CBC & Chem 7: 12/23/23 06:47 12/23/23 06:47 Labs: Abnormal Lab Results - Last 24 Hours (Table) 12/22/23 12/22/23 12/22/23 Range/Units 12:27 12:27 12:27 WBC 11.6 H (3.8-10.6) k/uL RBC 4.01 L (4.30-5.90) m/uL Hgb 10.3 L (13.0-17.5) gm/dL Hct 33.5 L (39.0-53.0) % MCH (27.0-32.0) pg MCHC 30.7 L (31.0-37.0) g/dL RDW 19.2 H (11.5-15.5) % Neutrophils # (Manual) 7.77 H (1.3-7.7) k/uL Monocytes # (Manual) 1.51 H (0-1.0) k/uL NRBC/100 WBC Diff (0.00-0.01) X 10*3/uL Sodium 129 L (137-145) mmol/L Potassium 6.4 H* (3.5-5.1) mmol/L Carbon Dioxide 20 L (22-30) mmol/L Anion Gap (4.00-12.00) mmol/L BUN 90 H (9-20) mg/dL Creatinine 3.62 H (0.66-1.25) mg/dL Est GFR (CKD-EPI) (>=60) BUN/Creatinine Ratio (12.00-20.00) Ratio Glucose 110 H (74-99) mg/dL Calcium (8.7-10.3) mg/dL Phosphorus 6.7 H (2.5-4.5) mg/dL Magnesium 2.8 H (1.6-2.3) mg/dL Total Protein 6.2 L (6.3-8.2) g/dL Albumin (3.8-4.9) g/dL Procalcitonin 0.19 H (0.02-0.09) ng/mL Urine Protein (Negative) 12/22/23 12/22/23 12/23/23 Range/Units 16:53 17:20 06:47 WBC 13.80 H (3.8-10.6) k/uL RBC 3.64 L (4.30-5.90) m/uL Hgb 9.5 L (13.0-17.5) gm/dL Hct 31.1 L (39.0-53.0) % MCH 26.1 L (27.0-32.0) pg MCHC 30.5 L (31.0-37.0) g/dL RDW 21.1 H (11.5-15.5) % Neutrophils # (Manual) 8.14 H (1.3-7.7) k/uL Monocytes # (Manual) 1.52 H (0-1.0) k/uL NRBC/100 WBC Diff 0.02 H (0.00-0.01) X 10*3/uL Sodium (137-145) mmol/L Potassium 5.6 H (3.5-5.1) mmol/L Carbon Dioxide (22-30) mmol/L Anion Gap (4.00-12.00) mmol/L BUN (9-20) mg/dL Creatinine (0.66-1.25) mg/dL Est GFR (CKD-EPI) (>=60) BUN/Creatinine Ratio (12.00-20.00) Ratio Glucose (74-99) mg/dL Calcium (8.7-10.3) mg/dL Phosphorus (2.5-4.5) mg/dL Magnesium (1.6-2.3) mg/dL Total Protein (6.3-8.2) g/dL Albumin (3.8-4.9) g/dL Procalcitonin (0.02-0.09) ng/mL Urine Protein Trace H (Negative) 12/23/23 Range/Units 06:47 WBC (3.8-10.6) k/uL RBC (4.30-5.90) m/uL Hgb (13.0-17.5) gm/dL Hct (39.0-53.0) % MCH (27.0-32.0) pg MCHC (31.0-37.0) g/dL RDW (11.5-15.5) % Neutrophils # (Manual) (1.3-7.7) k/uL Monocytes # (Manual) (0-1.0) k/uL NRBC/100 WBC Diff (0.00-0.01) X 10*3/uL Sodium 132 L (137-145) mmol/L Potassium 5.8 H (3.5-5.1) mmol/L Carbon Dioxide 14.7 L (22-30) mmol/L Anion Gap 15.30 H (4.00-12.00) mmol/L BUN 80.7 H (9-20) mg/dL Creatinine 3.4 H (0.66-1.25) mg/dL Est GFR (CKD-EPI) 18 L (>=60) BUN/Creatinine Ratio 23.74 H (12.00-20.00) Ratio Glucose (74-99) mg/dL Calcium 8.6 L (8.7-10.3) mg/dL Phosphorus (2.5-4.5) mg/dL Magnesium (1.6-2.3) mg/dL Total Protein 5.4 L (6.3-8.2) g/dL Albumin 3.4 L (3.8-4.9) g/dL Procalcitonin (0.02-0.09) ng/mL Urine Protein (Negative) US - abdomen: report reviewed Assessment and Plan (1) Mantle cell lymphoma Current Visit: Yes Status: Acute Priority: High Code(s): C83.10 - MANTLE CELL LYMPHOMA, UNSPECIFIED SITE SNOMED Code(s): 873554478 (2) Hyperkalemia Current Visit: Yes Status: Acute Priority: High Code(s): E87.5 - HYPER KALEMIA SNOMED Code(s): 63017647 (3) Renal failure Current Visit: Yes Status: Acute Priority: High Code(s): N19 - UNSPECIFIED KIDNEY FAILURE SNOMED Code(s): 50611522 (4) Weakness Current Visit: Yes Status: Acute Priority: High Code(s): R53.1 - WEAKNESS SNOMED Code(s): 87502951 Plan: Weakness, ARF: Presented with progressing weakness and decreased oral intake over the last 3 days -On admission chest x-ray revealed development of moderate left pleural effusion with adjacent atelectasis and or consolidation and trace effusion on the right. -Patient was also noted to be in acute renal failure with creatinine 3.6, GFR 16. Potassium 6.4, sodium 129. Calcium 10.0, phosphorus 6.7. Troponin was negative. BNP 937. CBC revealed WBC 13.8, hemoglobin 9.5, platelets 224,000. Bilirubin and LFTs WNL. Patient did receive 2 L normal saline bolus upon admission. -Nephrology consulted. US KUB obtained showing no abnormality of the kidneys, marked splenomegaly and mild ascites. -Concern for TLS. STAT uric acid and phospurus ordered. If uric acid greater than 8 will give dose of Elitek. -Continue to closely monitor CBC and TLS labs Mantle cell lymphoma: -Full history in HPI -Recently diagnosed with mantle cell lymphoma, has not started systemic treatment yet -PET CT scheduled for 12/23, with subsequent clinic f/u on 01/02 -Will reschedule PET CT upon discharge -If pt remains symptomatic will consider starting pulse dose dexamethsone Doctor attests: I performed a history and physical examination of this patient, developed impression and plan of care. Discussed with dictator. I agree with dictators note, documented as a scribe.
[2023-12-24] MEDS: PANTOPRAZOLE 40 MG TABLET PO SCH (08:21)
[2023-12-24 09:36] LABS: Phosphorus 7.6 mg/dL (2.4-5.1)
[2023-12-24 10:44] LABS: ALT 21 U/L (10-49); AST 22 U/L (14-35); Albumin 3.6 g/dL (3.8-4.9); Alkaline Phosphatase 117 U/L (41-126); BUN/Creat Ratio 24.92 Ratio (12.00-20.00); Blood Urea Nitrogen 92.2 mg/dL (9.0-27.0); Calcium 8.7 mg/dL (8.7-10.3); Carbon Dioxide 14.8 mmol/L (21.6-31.8); Chloride 99 mmol/L (96-109); Glucose 110 mg/dL (70-110); Potassium 6.3 mmol/L (3.5-5.5); Sodium 131 mmol/L (135-145); Total Bilirubin 0.3 mg/dL (0.3-1.2); Total Protein 5.6 g/dL (6.2-8.2); Uric Acid 5.5 mg/dL (3.7-8.7)
[2023-12-24 10:45] LABS: Basophils # (A) 0.04 X 10*3/uL (0.00-0.10); Basophils % (A) 0.3 %; Eosinophils # (A) 0.04 X 10*3/uL (0.04-0.35); Eosinophils % (A) 0.3 %; HCT 30.1 % (39.6-50.0); HGB 8.9 g/dL (13.0-17.0); Lymphocytes # (A) 4.54 X 10*3/uL (0.90-5.00); Lymphocytes % (A) 35.1 %; MCH 25.4 pg (27.0-32.0); MCHC 29.6 g/dL (32.0-37.0); MCV 85.8 FL (80.0-97.0); Mean Platelet Volume 10.5 FL (9.5-12.2); Monocytes # (A) 1.47 X 10*3/uL (0.20-1.00); Monocytes % (A) 11.4 %; NRBC Per 100 WBC 0.04 X 10*3/uL (0.00-0.01); Neutrophils # (A) 6.79 X 10*3/uL (1.80-7.70); Neutrophils % (A) 52.4 %; Platelet Count 210 X 10*3/uL (140-440); RBC 3.51 X 10*6/uL (4.40-5.60); RDW 21.5 % (11.5-14.5); WBC 12.95 X 10*3/uL (4.50-10.00)
--- NOTE | 2023-12-24 11:36 | P.PN ---
Subjective Progress Note Date: 12/24/23 Rahul Cruz, Is a 57-year-old male patient who presented to the ER with concerns of increased weakness over the past few days. Patient was discharged from the hospital 2 weeks ago after diagnosed with lymphoma patient reports that he was doing well for couple days but then began not feeling well not wanting to eat over the past few days patient has past medical history of hyperlipidemia hypertension and nicotine dependence.Chest x-ray completed showing development of a moderate left pleural effusion with adjacent atelectasis or consolidation trace effusion on the right. Abdominal ultrasound completed showing no suspicious ultrasound abnormality some mild ascites is present marked splenomegaly small bilateral pleural effusions are present.Patient white blood cell elevated at 11.6, hemoglobin 10.3, sodium 129, potassium 6.4, creatinine 3.6-190 magnesium 2.8 ALT 17 AST 23. Troponin negative. UA negative. Influenza RSV and COVID-19 negative.At this time patient has been started on IV fluid nephrology and cardiology services have been consulted. Repeat labs have been ordered. Current vital signs temp 97.5, heart rate 100, respiratory rate 18, blood pressure 115/78 with a pulse ox of 95% on 2 L On 12/23/2023 patient is alert and oriented 3. Patient reports slight improvement. Family at bedside. Awaiting nephrology and oncology input. Patient denies chest pain or shortness of breath. Patient denies any urinary burning or frequency. Repeat labs pending On 12/24/2023 patient was seen and examined on the medical floor with, he is alert and oriented x 3 in no apparent distress, he is complaining of generalized fatigue and weakness, otherwise he denies any complaints, there is no fever or chills no headache or dizziness no chest pain, no shortness of breath no cough no nausea or vomiting no abdominal pain no diarrhea and no urinary symptoms. Potassium is elevated today at 6.3, he will be given Kayexalate BUN is 92.2 creatinine 3.7 Objective - Vital Signs Vital signs: Vital Signs Temp 96.1 F L 12/24/23 07:01 Pulse 96 12/24/23 07:01 Resp 17 12/24/23 07:01 BP 132/84 12/24/23 07:01 Pulse Ox 96 12/24/23 07:01 FiO2 Intake & Output 12/23/23 12/24/23 12/24/23 18:59 06:59 18:59 Intake Total 900 Output Total 170 125 150 Balance 730 -125 -150 Weight 70.307 kg Intake: Intake, IV Titration 900 Amount Sodium Chloride 0.9% 1, 900 000 ml @ 75 mls/hr IV . [id number] STA Rx#:[id number] Output: Urine 170 125 150 Other: Voiding Method Toilet Toilet # Voids 1 - Exam Head normocephalic Neck supple Lungs clear to auscultation bilaterally no wheezing or crackles Heart regular rate and rhythm S1-S2, no rub or gallop Abdomen is soft nontender nondistended positive bowel sounds no hepatosplenomegaly Extremities no edema Neuro alert and orientated to 3 - Labs CBC & Chem 7: 12/24/23 04:05 12/24/23 04:05 Labs: Abnormal Lab Results - Last 24 Hours (Table) 12/23/23 12/23/23 12/23/23 Range/Units 06:47 06:47 06:47 WBC 13.80 H (4.50-10.00) X 10*3/uL RBC 3.64 L (4.40-5.60) X 10*6/uL Hgb 9.5 L (13.0-17.0) g/dL Hct 31.1 L (39.6-50.0) % MCH 26.1 L (27.0-32.0) pg MCHC 30.5 L (32.0-37.0) g/dL RDW 21.1 H (11.5-14.5) % Immature Gran # (0.00-0.04) X 10*3/uL Neutrophils # (Manual) 8.14 H (1.80-7.70) X 10*3/uL Monocytes # (0.20-1.00) X 10*3/uL Monocytes # (Manual) 1.52 H (0.20-1.00) X 10*3/uL NRBC/100 WBC Diff 0.02 H (0.00-0.01) X 10*3/uL Sodium 132 L (135-145) mmol/L Potassium 5.8 H (3.5-5.5) mmol/L Carbon Dioxide 14.7 L (21.6-31.8) mmol/L Anion Gap 15.30 H (4.00-12.00) mmol/L BUN 80.7 H (9.0-27.0) mg/dL Creatinine 3.4 H (0.6-1.5) mg/dL Est GFR (CKD-EPI) 18 L (>=60) BUN/Creatinine Ratio 23.74 H (12.00-20.00) Ratio Uric Acid 12.6 H (3.7-8.7) mg/dL Calcium 8.6 L (8.7-10.3) mg/dL Phosphorus 6.2 H (2.4-5.1) mg/dL Lactate Dehydrogenase 266 H (120-246) U/L Total Protein 5.4 L (6.2-8.2) g/dL Albumin 3.4 L (3.8-4.9) g/dL 12/24/23 12/24/23 Range/Units 04:05 04:05 WBC 12.95 H (4.50-10.00) X 10*3/uL RBC 3.51 L (4.40-5.60) X 10*6/uL Hgb 8.9 L (13.0-17.0) g/dL Hct 30.1 L (39.6-50.0) % MCH 25.4 L (27.0-32.0) pg MCHC 29.6 L (32.0-37.0) g/dL RDW 21.5 H (11.5-14.5) % Immature Gran # 0.07 H (0.00-0.04) X 10*3/uL Neutrophils # (Manual) (1.80-7.70) X 10*3/uL Monocytes # 1.47 H (0.20-1.00) X 10*3/uL Monocytes # (Manual) (0.20-1.00) X 10*3/uL NRBC/100 WBC Diff 0.04 H (0.00-0.01) X 10*3/uL Sodium 131 L (135-145) mmol/L Potassium 6.3 A* (3.5-5.5) mmol/L Carbon Dioxide 14.8 L (21.6-31.8) mmol/L Anion Gap 17.20 H (4.00-12.00) mmol/L BUN 92.2 H (9.0-27.0) mg/dL Creatinine 3.7 H (0.6-1.5) mg/dL Est GFR (CKD-EPI) 17 L (>=60) BUN/Creatinine Ratio 24.92 H (12.00-20.00) Ratio Uric Acid (3.7-8.7) mg/dL Calcium (8.7-10.3) mg/dL Phosphorus 7.6 H (2.4-5.1) mg/dL Lactate Dehydrogenase (120-246) U/L Total Protein 5.6 L (6.2-8.2) g/dL Albumin 3.6 L (3.8-4.9) g/dL Assessment and Plan Assessment: 1. Acute kidney failure 2. Recent diagnosis of lymphoma with splenomegaly and extensive lymphadenopathy 3. History of essential hypertension 4. History of hyperlipidemia 5. Increased weakness and general malaise. 6. Electrolyte imbalance with hyperkalemia DVT prophylaxis Lovenox. GI prophylaxis Protonix Patient maintained on IV fluid Nephrology and oncology service is consulted Repeat labs ordered
[2023-12-24] MEDS: DEXTROSE 50% SYRINGE 50 ML IVP ONE (12:25)
[2023-12-24] MEDS: SODIUM ZIRCONIUM CYCLOSILICATE 10 GM PACKET PO ONE (12:26)
[2023-12-24] MEDS: INSULIN REGULAR 100 UNIT/ML VIAL (IV) IV ONE (12:26)
[2023-12-24] MEDS: SODIUM BICARB 8.4% 50 ML SYR (1 MEQ/ML) IV ONE (12:26)
[2023-12-24] MEDS: SODIUM POLYSTYRENE SULFONATE 15 GM/60 ML BOTTLE PO STA (12:52)
[2023-12-24] MEDS: SODIUM CHLORIDE 0.9% 1,000 ML IV STA (12:53)
--- NOTE | 2023-12-24 13:52 | P.PN ---
Subjective patient is seen for follow-up for acute kidney injury. serum creatinine has increased to 3.7 today. Patient has been voiding. Potassium was also elevated at 6.3 today. There is concern for possible tumor lysis syndrome. uricase has been started by oncology. Serum uric acid is pending. Objective - Vital Signs Vital signs: Vital Signs Temp 97.4 F L 12/24/23 12:46 Pulse 107 H 12/24/23 12:46 Resp 24 12/24/23 12:46 BP 129/69 12/24/23 12:46 Pulse Ox 94 L 12/24/23 12:46 FiO2 Intake & Output 12/23/23 12/24/23 12/24/23 18:59 06:59 18:59 Intake Total 900 Output Total 170 125 150 Balance 730 -125 -150 Weight 70.307 kg Intake: Intake, IV Titration 900 Amount Sodium Chloride 0.9% 1, 900 000 ml @ 75 mls/hr IV . [id number] STA Rx#:[id number] Output: Urine 170 125 150 Other: Voiding Method Toilet Toilet # Voids 1 - Exam patient is awake, comfortable, no acute distress. Alert oriented 3 Examination of the heart S1 and S2 Examination of the lungs bilateral breath sounds are heard Abdomen is soft nontender Examination of lower extremity shows edema 2+ bilaterally [employer] exam grossly intact - Labs CBC & Chem 7: 12/24/23 04:05 12/24/23 04:05 Labs: Abnormal Lab Results - Last 24 Hours (Table) 12/23/23 12/24/23 12/24/23 Range/Units 06:47 04:05 04:05 WBC 12.95 H (4.50-10.00) X 10*3/uL RBC 3.51 L (4.40-5.60) X 10*6/uL Hgb 8.9 L (13.0-17.0) g/dL Hct 30.1 L (39.6-50.0) % MCH 25.4 L (27.0-32.0) pg MCHC 29.6 L (32.0-37.0) g/dL RDW 21.5 H (11.5-14.5) % Immature Gran # 0.07 H (0.00-0.04) X 10*3/uL Monocytes # 1.47 H (0.20-1.00) X 10*3/uL NRBC/100 WBC Diff 0.04 H (0.00-0.01) X 10*3/uL Sodium 131 L (135-145) mmol/L Potassium 6.3 A* (3.5-5.5) mmol/L Carbon Dioxide 14.8 L (21.6-31.8) mmol/L Anion Gap 17.20 H (4.00-12.00) mmol/L BUN 92.2 H (9.0-27.0) mg/dL Creatinine 3.7 H (0.6-1.5) mg/dL Est GFR (CKD-EPI) 17 L (>=60) BUN/Creatinine Ratio 24.92 H (12.00-20.00) Ratio Uric Acid 12.6 H (3.7-8.7) mg/dL Phosphorus 6.2 H 7.6 H (2.4-5.1) mg/dL Lactate Dehydrogenase 266 H (120-246) U/L Total Protein 5.6 L (6.2-8.2) g/dL Albumin 3.6 L (3.8-4.9) g/dL Assessment and Plan Assessment: 1. Acute kidney injury, ATN currently nonoliguric secondary to hypotension and the setting of use of howard inhibitors and NSAIDs. Rule out tumor lysis syndrome. No evidence of obstruction noted on ultrasound. UA is quite benign. Currently maintained on IV fluids. 2. Volume overload and lower extremity edema most likely associated with recent use of NSAIDs. No significant proteinuria noted to account for the edema. 3. Recent diagnosis of mantle cell lymphoma 4. hyperkalemia associated with acute kidney injury and use of NSAIDs and HOWARD inhibitor's 5. anion gap metabolic acidosis associated with acute kidney injury and possibly related to tumor lysis syndrome is present 6. Hyperphosphatemia associated with acute kidney injury and secondary to tumor lysis syndrome if present. Uric acid level is pending Plan: add IV bicarb IV treatment for hyperkalemia Check bladder scan rule out urine retention Follow-up on uric acid levels Add phosphate binders Repeat labs in a.m.
--- NOTE | 2023-12-24 14:10 | P.PN ---
Subjective Progress Note Date: 12/24/23 The patient continues to complain of generalized weakness, decreased appetite, and poor endurance. Objective - Vital Signs Vital signs: Vital Signs Temp 97.4 F L 12/24/23 12:46 Pulse 107 H 12/24/23 12:46 Resp 24 12/24/23 12:46 BP 129/69 12/24/23 12:46 Pulse Ox 94 L 12/24/23 12:46 FiO2 Intake & Output 12/23/23 12/24/23 12/24/23 18:59 06:59 18:59 Intake Total 900 Output Total 170 125 150 Balance 730 -125 -150 Weight 70.307 kg Intake: Intake, IV Titration 900 Amount Sodium Chloride 0.9% 1, 900 000 ml @ 75 mls/hr IV . [id number] Rx#:[id number] Output: Urine 170 125 150 Other: Voiding Method Toilet Toilet # Voids 1 - Constitutional General appearance: Present: no acute distress - EENT Eyes: Present: EOMI ENT: Present: hearing grossly normal, normal oropharynx - Respiratory Respiratory: bilateral: diminished - Cardiovascular Rhythm: regular Heart sounds: normal: S1, S2 - Gastrointestinal General gastrointestinal: Present: distended - Integumentary Integumentary: Present: normal - Neurologic Neurologic: Present: CNII-XII intact - Musculoskeletal Musculoskeletal Comment(s): Bilateral 2+ lower extremity edema Musculoskeletal: Present: generalized weakness, strength equal bilaterally - Psychiatric Psychiatric: Present: A&O x's 3, appropriate affect - Labs CBC & Chem 7: 12/24/23 04:05 12/24/23 04:05 Labs: Abnormal Lab Results - Last 24 Hours (Table) 12/23/23 12/24/23 12/24/23 Range/Units 06:47 04:05 04:05 WBC 12.95 H (4.50-10.00) X 10*3/uL RBC 3.51 L (4.40-5.60) X 10*6/uL Hgb 8.9 L (13.0-17.0) g/dL Hct 30.1 L (39.6-50.0) % MCH 25.4 L (27.0-32.0) pg MCHC 29.6 L (32.0-37.0) g/dL RDW 21.5 H (11.5-14.5) % Immature Gran # 0.07 H (0.00-0.04) X 10*3/uL Monocytes # 1.47 H (0.20-1.00) X 10*3/uL NRBC/100 WBC Diff 0.04 H (0.00-0.01) X 10*3/uL Sodium 131 L (135-145) mmol/L Potassium 6.3 A* (3.5-5.5) mmol/L Carbon Dioxide 14.8 L (21.6-31.8) mmol/L Anion Gap 17.20 H (4.00-12.00) mmol/L BUN 92.2 H (9.0-27.0) mg/dL Creatinine 3.7 H (0.6-1.5) mg/dL Est GFR (CKD-EPI) 17 L (>=60) BUN/Creatinine Ratio 24.92 H (12.00-20.00) Ratio Uric Acid 12.6 H (3.7-8.7) mg/dL Phosphorus 6.2 H 7.6 H (2.4-5.1) mg/dL Lactate Dehydrogenase 266 H (120-246) U/L Total Protein 5.6 L (6.2-8.2) g/dL Albumin 3.6 L (3.8-4.9) g/dL Assessment and Plan (1) Renal failure Narrative/Plan: The etiology include spontaneous tumor lysis and/or CLINTON due to medication effect. The patient's uric acid was elevated, due to which rasburicase was given for possible tumor lysis. Uric acid is improved to 5.5. However cr eatinine was 3.7 was 3.47 and potassium and phosphorus remained elevated. -Uric acid level is less than 8, which is the threshold per hospital guidelines for rasburicase dosing -Management for other causes of CLINTON ongoing per nephrology. Current Visit: Yes Status: Acute Priority: High Code(s): N19 - UNSPECIFIED KIDNEY FAILURE SNOMED Code(s): 53998135 (2) Mantle cell lymphoma Narrative/Plan: As noted previously, there is a definite possibility of spontaneous tumor lysis, due to progression of his underlying lymphoma. The patient has not yet had his PET scan. Ideally we would like to begin any treatment after the PET scan is completed, since even short-term and lower intensity treatment can affect the results. His uric acid was improved. Creatinine was mildly higher than yesterday, but overall in the same range compared to 2 days ago. Therefore at this time we will continue to monitor closely, with ongoing additional management with nephrology. If there is further worsening of his biochemical parameters and/or symptoms, despite ongoing aggressive management, then he would definitely need to consider starting some treatment for the mantle cell lymphoma. It was discussed with the patient and his family however, that treatment for the same does have the potential to worsen tumor lysis, at least temporarily. Prognosis is therefore guarded Current Visit: Yes Status: Acute Priority: High Code(s): C83.10 - MANTLE CELL LYMPHOMA, UNSPECIFIED SITE SNOMED Code(s): 245453122 Plan: D/W Nephrology
[2023-12-24] MEDS: DEXTROSE 5% IN WATER 1,000 ML with SODIUM BICARB (1 MEQ/ML) 150 ML IV SCH (14:49)
[2023-12-24] MEDS: CALCIUM ACETATE 667 MG TAB PO SCH (17:50)
[2023-12-24] MEDS: ALBUTEROL NEBULIZED 2.5 MG/3 ML INHALATION PRN (18:14)
[2023-12-25 08:57] LABS: Anisocytosis Moderate; HCT 30.9 % (39.0-53.0); HGB 9.6 gm/dL (13.0-17.5); Hypochromasia Slight; MCH 25.8 pg (25.0-35.0); MCHC 31.1 g/dL (31.0-37.0); Mean Platelet Volume 8.1; Platelet Count 237 k/uL (150-450); Poikilocytosis Slight; RBC 3.72 m/uL (4.30-5.90); RDW 20.1 % (11.5-15.5)
[2023-12-25 09:10] LABS: ALT 62 U/L (4-49); AST 81 U/L (17-59); African American GFR (CKD) 17 (>60 ml/min/1.73 sqM); Albumin 3.3 g/dL (3.5-5.0); Albumin/Globulin Ratio 1.5; Alkaline Phosphatase 142 U/L (38-126); Anion Gap 11 mmol/L; Calcium 8.6 mg/dL (8.4-10.2); Carbon Dioxide 17 mmol/L (22-30); Chloride 99 mmol/L (98-107); Globulin 2.2 g/dL; Glucose 118 mg/dL (74-99); Non-African American GFR(CKD) 15 (>60 ml/min/1.73 sqM); Phosphorus 8.1 mg/dL (2.5-4.5); Potassium 5.6 mmol/L (3.5-5.1); Sodium 127 mmol/L (137-145); Total Bilirubin 0.9 mg/dL (0.2-1.3); Total Protein 5.5 g/dL (6.3-8.2); Uric Acid 4.6 mg/dL (3.5-8.5)
[2023-12-25 09:24] LABS: Blood Urea Nitrogen 105 mg/dL (9-20)
[2023-12-25 09:32] LABS: Lymphocytes # (M) 3.77 k/uL (1.0-4.8); Monocytes # (M) 1.56 k/uL (0-1.0); Neutrophils % (M) 60 %; Nucleated Red Blood Cells 0 /100 WBC (0-0); Total Cells Counted 200
--- NOTE | 2023-12-25 09:52 | P.PN ---
Subjective Progress Note Date: 12/25/23 Rahul Cruz, Is a 57-year-old male patient who presented to the ER with concerns of increased weakness over the past few days. Patient was discharged from the hospital 2 weeks ago after diagnosed with lymphoma patient reports that he was doing well for couple days but then began not feeling well not wanting to eat over the past few days patient has past medical history of hyperlipidemia hypertension and nicotine dependence.Chest x-ray completed showing development of a moderate left pleural effusion with adjacent atelectasis or consolidation trace effusion on the right. Abdominal ultrasound completed showing no suspicious ultrasound abnormality some mild ascites is present marked splenomegaly small bilateral pleural effusions are present.Patient white blood cell elevated at 11.6, hemoglobin 10.3, sodium 129, potassium 6.4, creatinine 3.6-190 magnesium 2.8 ALT 17 AST 23. Troponin negative. UA negative. Influenza RSV and COVID-19 negative.At this time patient has been started on IV fluid nephrology and cardiology services have been consulted. Repeat labs have been ordered. Current vital signs temp 97.5, heart rate 100, respiratory rate 18, blood pressure 115/78 with a pulse ox of 95% on 2 L On 12/23/2023 patient is alert and oriented 3. Patient reports slight improvement. Family at bedside. Awaiting nephrology and oncology input. Patient denies chest pain or shortness of breath. Patient denies any urinary burning or frequency. Repeat labs pending On 12/24/2023 patient was seen and examined on the medical floor with, he is alert and oriented x 3 in no apparent distress, he is complaining of generalized fatigue and weakness, otherwise he denies any complaints, there is no fever or chills no headache or dizziness no chest pain, no shortness of breath no cough no nausea or vomiting no abdominal pain no diarrhea and no urinary symptoms. Potassium is elevated today at 6.3, he will be given Kayexalate BUN is 92.2 creatinine 3.7 on 62 slides 54 patient's alert and oriented 3. Patient still complain of generalized fatigue and weakness. Per oncology services possible tumor lysis syndrome awaiting repeat labs today for further plan. Nephrology services [facility] [place]. Current vital signs temp 97.4, heart rate 103, respiratory rate 16, blood pressure 121/82 with a pulse ox of 97% on 2 L. Patient remains on sodium bicarbonate drip Objective - Vital Signs Vital signs: Vital Signs Temp 97.4 F L 12/25/23 07:35 Pulse 103 H 12/25/23 07:35 Resp 16 12/25/23 07:35 BP 121/82 12/25/23 07:35 Pulse Ox 97 12/25/23 07:35 FiO2 Intake & Output 12/24/23 12/25/23 12/25/23 18:59 06:59 18:59 Intake Total 800 Output Total 552 350 50 Balance -552 450 -50 Intake: Intake, IV Titration 600 Amount Dextrose 5% in Water 1, 600 000 ml @ 60 mls/hr IV . [id number] MIKAELA with Sodium Bicarb (1 Meq/ml) 150 ml Rx#:[id number] Oral 200 Output: Urine 250 350 50 Post Void Residual 302 Other: Voiding Method Toilet # Voids 1 - Exam Head normocephalic Neck supple Lungs clear to auscultation bilaterally no wheezing or crackles Heart regular rate and rhythm S1-S2, no rub or gallop Abdomen is soft nontender nondistended positive bowel sounds no hepato splenomegaly Extremities no edema Neuro alert and orientated to 3 - Labs CBC & Chem 7: 12/25/23 08:43 12/25/23 08:43 Labs: Abnormal Lab Results - Last 24 Hours (Table) 12/24/23 12/24/23 12/24/23 Range/Units 04:05 04:05 17:58 WBC 12.95 H (4.50-10.00) X 10*3/uL RBC 3.51 L (4.40-5.60) X 10*6/uL Hgb 8.9 L (13.0-17.0) g/dL Hct 30.1 L (39.6-50.0) % MCH 25.4 L (27.0-32.0) pg MCHC 29.6 L (32.0-37.0) g/dL RDW 21.5 H (11.5-14.5) % Immature Gran # 0.07 H (0.00-0.04) X 10*3/uL Neutrophils # (Manual) (1.3-7.7) k/uL Monocytes # 1.47 H (0.20-1.00) X 10*3/uL Monocytes # (Manual) (0-1.0) k/uL NRBC/100 WBC Diff 0.04 H (0.00-0.01) X 10*3/uL Sodium 131 L (135-145) mmol/L Potassium 6.3 A* 5.5 H (3.5-5.5) mmol/L Carbon Dioxide 14.8 L (21.6-31.8) mmol/L Anion Gap 17.20 H (4.00-12.00) mmol/L BUN 92.2 H (9.0-27.0) mg/dL Creatinine 3.7 H (0.6-1.5) mg/dL Est GFR (CKD-EPI) 17 L (>=60) BUN/Creatinine Ratio 24.92 H (12.00-20.00) Ratio Glucose (74-99) mg/dL Phosphorus (2.5-4.5) mg/dL AST (17-59) U/L ALT (4-49) U/L Alkaline Phosphatase (38-126) U/L Total Protein 5.6 L (6.2-8.2) g/dL Albumin 3.6 L (3.8-4.9) g/dL 12/25/23 12/25/23 Range/Units 08:43 08:43 WBC 13.0 H (4.50-10.00) X 10*3/uL RBC 3.72 L (4.40-5.60) X 10*6/uL Hgb 9.6 L (13.0-17.0) g/dL Hct 30.9 L (39.6-50.0) % MCH (27.0-32.0) pg MCHC (32.0-37.0) g/dL RDW 20.1 H (11.5-14.5) % Immature Gran # (0.00-0.04) X 10*3/uL Neutrophils # (Manual) 7.80 H (1.3-7.7) k/uL Monocytes # (0.20-1.00) X 10*3/uL Monocytes # (Manual) 1.56 H (0-1.0) k/uL NRBC/100 WBC Diff (0.00-0.01) X 10*3/uL Sodium 127 L (135-145) mmol/L Potassium 5.6 H (3.5-5.5) mmol/L Carbon Dioxide 17 L (21.6-31.8) mmol/L Anion Gap (4.00-12.00) mmol/L BUN 105 H* (9.0-27.0) mg/dL Creatinine 3.77 H (0.6-1.5) mg/dL Est GFR (CKD-EPI) (>=60) BUN/Creatinine Ratio (12.00-20.00) Ratio Glucose 118 H (74-99) mg/dL Phosphorus 8.1 H (2.5-4.5) mg/dL AST 81 H (17-59) U/L ALT 62 H (4-49) U/L Alkaline Phosphatase 142 H (38-126) U/L Total Protein 5.5 L (6.2-8.2) g/dL Albumin 3.3 L (3.8-4.9) g/dL Assessment and Plan Assessment: 1. Acute kidney failure 2. Recent diagnosis of lymphoma with splenomegaly and extensive lymphadenopathy 3. History of essential hypertension 4. History of hyperlipidemia 5. Increased weakness and general malaise. 6. Electrolyte imbalance with hyperkalemia DVT prophylaxis Lovenox. GI prophylaxis Protonix Patient maintained on IV fluid Nephrology and oncology service is consulted Repeat labs ordered
--- NOTE | 2023-12-25 14:27 | P.PN ---
Subjective Progress Note Date: 12/25/23 The patient continues to have persistent symptoms of mild generalized weakness, poor appetite, and lethargy. He is somewhat short of breath at rest, although stable on 2 L of oxygen. He is not an uric, and urine output is stable. Objective - Vital Signs Vital signs: Vital Signs Temp 97.4 F L 12/25/23 07:35 Pulse 103 H 12/25/23 07:35 Resp 16 12/25/23 07:35 BP 121/82 12/25/23 07:35 Pulse Ox 97 12/25/23 07:35 FiO2 Intake & Output 12/24/23 12/25/23 12/25/23 18:59 06:59 18:59 Intake Total 800 Output Total 552 350 50 Balance -552 450 -50 Intake: Intake, IV Titration 600 Amount Dextrose 5% in Water 1, 600 000 ml @ 60 mls/hr IV . [id number] MIKAELA with Sodium Bicarb (1 Meq/ml) 150 ml Rx#:[id number] Oral 200 Output: Urine 250 350 50 Post Void Residual 302 Other: Voiding Method Toilet Toilet # Voids 1 - Constitutional Constitutional Comment(s): Marked generalized weakness, and lethargy - EENT Eyes: Present: EOMI ENT: Present: hearing grossly normal, normal oropharynx - Respiratory Respiratory: bilateral: diminished - Cardiovascular Rhythm: regular Heart sounds: normal: S1, S2 - Gastrointestinal General gastrointestinal: Present: decreased bowel sounds, distended - Integumentary Integumentary: Present: normal - Neurologic Neurologic: Present: CNII-XII intact - Musculoskeletal Musculoskeletal Comment(s): Bilateral 2+ lower extremity edema Musculoskeletal: Present: generalized weakness, strength equal bilaterally - Psychiatric Psychiatric: Present: A&O x's 3 - Labs CBC & Chem 7: 12/25/23 08:43 12/25/23 08:43 Labs: Abnormal Lab Results - Last 24 Hours (Table) 12/24/23 12/25/23 12/25/23 Range/Units 17:58 08:43 08:43 WBC 13.0 H (3.8-10.6) k/uL RBC 3.72 L (4.30-5.90) m/uL Hgb 9.6 L (13.0-17.5) gm/dL Hct 30.9 L (39.0-53.0) % RDW 20.1 H (11.5-15.5) % Neutrophils # (Manual) 7.80 H (1.3-7.7) k/uL Monocytes # (Manual) 1.56 H (0-1.0) k/uL Sodium 127 L (137-145) mmol/L Potassium 5.5 H 5.6 H (3.5-5.1) mmol/L Carbon Dioxide 17 L (22-30) mmol/L BUN 105 H* (9-20) mg/dL Creatinine 3.77 H (0.66-1.25) mg/dL Glucose 118 H (74-99) mg/dL Phosphorus 8.1 H (2.5-4.5) mg/dL AST 81 H (17-59) U/L ALT 62 H (4-49) U/L Alkaline Phosphatase 142 H (38-126) U/L Total Protein 5.5 L (6.3-8.2) g/dL Albumin 3.3 L (3.5-5.0) g/dL Assessment and Plan (1) Renal failure Narrative/Plan: Creatinine was 3.77 today, versus 3.7. Urine output is stable. He continues to have lower extremity edema, as well as some neck vein congestion, although no crackles on exam. Potassium is improved with treatment. Uric acid is further diminished, but phosphorus level has increased. - Therefore there does not appear to be any significant improvement so far. Case was discussed in detail with nephrology. At this time it was decided that if renal issues worsen, then dialysis may need to be considered. From the oncology standpoint, he would be appropriate for the same given that his underlying condition is expected to be treatable and responsive. Current Visit: Yes Status: Acute Priority: High Code(s): N19 - UNSPECIFIED KIDNEY FAILURE SNOMED Code(s): 91586668 (2) Mantle cell lymphoma Narrative/Plan: His current clinical situation was discussed in detail with him and his . They were advised that the patient does not appear to be showing clinical improvement. there is likely some worsening in terms of weakness and lethargy. As noted above, there is no improvement in his renal parameters, despite aggressive supportive treatment. Therefore, at this time, in my opinion, the patient is unlikely to improve without treatment of the underlying mantle cell lymphoma. There were advised that starting treatment at this time is not ideal, given that his staging workup is not complete in the desired manner. A PET scan cannot be done while the patient is inpatient, and it does not appear to be likely that his condition will improve without treating the underlying lymphoma, where he can be discharged and have the PET scan subsequently. We also discussed that treatment will carry increased risk of complications, such as progressive tumor lysis, infection etc. at least in the short-term even if it is effective, that could definitely compromise the patient's prognosis. They expressed understanding of the same, and the rationale for starting provisional treatment with high-dose steroids at this time. They were agreeable to proceed. -CT with oral contrast will be ordered for abdominal staging -Start high-dose bolus Decadron, with plan to transition to more specific regimen subsequently. -Continue to monitor closely for worsening of tumor lysis with additional treatment as needed. The patient is already on aggressive fluids, and bicarb drip per nephrology. Rasburicase will be repeated if uric acid increases again to greater than 8 Current Visit: Yes Status: Acute Priority: High Code(s): C83.10 - MANTLE CELL LYMPHOMA, UNSPECIFIED SITE SNOMED Code(s): 881000492
[2023-12-25] MEDS: IOPAMIDOL CONTRAST (ORAL USE) VIAL PO PRN (14:31)
[2023-12-25] MEDS: DEXAMETHASONE SOD PHOS (MDV) 40 MG in DEXTROSE 5% IN WATER 50 ML IVPB SCH (15:32)
--- NOTE | 2023-12-25 16:39 | CT ---
EXAMINATION TYPE: CT abdomen pelvis wo con CT DLP: 645.9 mGycm, Automated exposure control for dose reduction was used. DATE OF EXAM: 12/25/2023 4:09 PM COMPARISON: CT abdomen pelvis most recent from 12/02/2023. CLINICAL INDICATION:Male, 73 years old with history of abd adenopathy, lymphoma, CLINTON; abd adenopathy, lymphoma, CLINTON TECHNIQUE: Axial CT abdomen pelvis wo con;Sagittal and coronal reformats were created on a separate workstation. Contrast used: mL of , (none if empty) Oral contrast used: with Oral Contrast (none if empty) FINDINGS: LOWER CHEST: Moderate left and small right pleural effusion. There is pericardial effusion present. ABDOMEN LIVER: Unremarkable GALLBLADDER AND BILE DUCTS: Unremarkable. PANCREAS: Unremarkable. SPLEEN: Wedge-shaped areas of decreased attenuation within the spleen.. ADRENAL GLANDS: Unremarkable. KIDNEYS AND URETERS: Nonobstructing right 2 mm calculus. No left renal calculi. There is mild dilatio n of the left collecting system possibly due to lymphadenopathy in the retroperitoneum. PELVIS BLADDER: Unremarkable REPRODUCTIVE: Hydroceles bilaterally. ABDOMEN & PELVIS STOMACH AND BOWEL: No evidence of bowel obstruction. Scattered colonic diverticula. PERITONEUM/RETROPERITONEUM: No evidence of pneumoperitoneum, ,small to moderate amount of free fluid in the abdomen. VASCULATURE: Mild atherosclerotic calcifications are present throughout the abdominal aorta and its b ranches. No evidence of aortic aneurysm. MUSCULOSKELETAL: No acute osseous abnormalities LYMPH NODES: Retroperitoneal lymph nodes present. The largest measuring up to 53 x 40 mm extending up to 9.2 cm in length. Gastrohepatic ligament lymph nodes are also present measuring up to 19 mm in sh ort axis.e external iliac lymph nodes on the left measuring up to 14 mm in short axis. SOFT TISSUE/ABDOMINAL WALL: Diffuse anasarca of the soft tissues. IMPRESSION: 1. Moderate pericardial effusion. Correlate for signs and symptoms of cardiac tamponade. 2. Mild left hydronephrosis possibly from mass effect from the retroperitoneal lymphadenopathy. 3. Abdominal lymphadenopathy compatible with history of lymphoma. 4. Low-density areas within the spleen some of them might be wedge-shaped. Could represent lymphoma versus infarct change. 5. Third spacing of fluid with Moderate left and small right pleural fusion, Small to moderate ascit es. And Diffuse anasarca of the soft tissues. 6. Colonic diverticulosis. 7. Bilateral hydroceles.
--- NOTE | 2023-12-25 18:34 | P.PN ---
Subjective patient is seen for follow-up for acute kidney injury. Recently diagnosed with mantle cell lymphoma. Has not had chemotherapy yet. serum creatinine at 3.7 today. Patient has been voiding. No urine retention. Potassium improved to 5.6 There is concern for possible tumor lysis syndrome. Patient is maintained on uricase. Objective - Vital Signs Vital signs: Vital Signs Temp 97.6 F 12/25/23 14:05 Pulse 103 H 12/25/23 17:50 Resp 18 12/25/23 14:05 BP 116/87 12/25/23 17:50 Pulse Ox 94 L 12/25/23 17:50 FiO2 Intake & Output 12/24/23 12/25/23 12/25/23 18:59 06:59 18:59 Intake Total 800 Output Total 552 350 50 Balance -552 450 -50 Intake: Intake, IV Titration 600 Amount Dextrose 5% in Water 1, 600 000 ml @ 60 mls/hr IV . [id number] MIKAELA with Sodium Bicarb (1 Meq/ml) 150 ml Rx#:[id number] Oral 200 Output: Urine 250 350 50 Post Void Residual 302 Other: Voiding Method Toilet Toilet # Voids 1 - Exam patient is awake, comfortable, no acute distress. Alert oriented 3 Examination of the heart S1 and S2 Examination of the lungs bilateral breath sounds are heard Abdomen is soft nontender Examination of lower extremity shows edema 2+ bilaterally HANGAR [employer]ENDANT exam grossly intact - Labs CBC & Chem 7: 12/25/23 08:43 12/25/23 08:43 Labs: Abnormal Lab Results - Last 24 Hours (Table) 12/24/23 12/25/23 12/25/23 Range/Units 17:58 08:43 08:43 WBC 13.0 H (3.8-10.6) k/uL RBC 3.72 L (4.30-5.90) m/uL Hgb 9.6 L (13.0-17.5) gm/dL Hct 30.9 L (39.0-53.0) % RDW 20.1 H (11.5-15.5) % Neutrophils # (Manual) 7.80 H (1.3-7.7) k/uL Monocytes # (Manual) 1.56 H (0-1.0) k/uL Sodium 127 L (137-145) mmol/L Potassium 5.5 H 5.6 H (3.5-5.1) mmol/L Carbon Dioxide 17 L (22-30) mmol/L BUN 105 H* (9-20) mg/dL Creatinine 3.77 H (0.66-1.25) mg/dL Glucose 118 H (74-99) mg/dL Phosphorus 8.1 H (2.5-4.5) mg/dL AST 81 H (17-59) U/L ALT 62 H (4-49) U/L Alkaline Phosphatase 142 H (38-126) U/L Total Protein 5.5 L (6.3-8.2) g/dL Albumin 3.3 L (3.5-5.0) g/dL Assessment and Plan Assessment: 1. Acute kidney injury, ATN currently nonoliguric secondary to hypotension and the setting of use of howard inhibitors and NSAIDs. Rule out tumor lysis syndrome. No evidence of obstruction noted on ultrasound. UA is quite benign. Currently maintained on IV fluids. 2. Volume overload and lower extremity edema most likely associated with recent use of NSAIDs. Respiratory status is stable. No significant proteinuria noted to account for the edema. 3. Recent diagnosis of mantle cell lymphoma 4. hyperkalemia associated with acute kidney injury and use of NSAIDs and HOWARD inhibitor's 5. anion gap metabolic acidosis associated with acute kidney injury and possibly related to tumor lysis syndrome if present 6. Hyperphosphatemia associated with acute kidney injury and secondary to tumor lysis syndrome if present. Plan: Continue IV bicarb Continue with phosphate binder Discussed with patient's regarding need for renal replacement therapy if renal function continues to deteriorate. No indication for hemodialysis at this time. We will reevaluate in a.m. Repeat labs in a.m.
[2023-12-25] MEDS: FUROSEMIDE 10 MG/ML 4 ML VIAL IV STA (19:43)
[2023-12-25] MEDS: SODIUM BICARBONATE TAB 650 MG TAB PO SCH (20:34)
[2023-12-26] MEDS: ONDANSETRON ODT 4 MG TAB PO PRN (07:55)
[2023-12-26 09:26] LABS: ALT 93 U/L (4-49); AST 82 U/L (17-59); African American GFR (CKD) 15 (>60 ml/min/1.73 sqM); Albumin 3.4 g/dL (3.5-5.0); Albumin/Globulin Ratio 1.6; Alkaline Phosphatase 169 U/L (38-126); Anion Gap 13 mmol/L; Calcium 8.4 mg/dL (8.4-10.2); Carbon Dioxide 16 mmol/L (22-30); Chloride 97 mmol/L (98-107); Globulin 2.1 g/dL; Glucose 141 mg/dL (74-99); Non-African American GFR(CKD) 13 (>60 ml/min/1.73 sqM); Sodium 126 mmol/L (137-145); Total Bilirubin 0.8 mg/dL (0.2-1.3); Total Protein 5.5 g/dL (6.3-8.2); Uric Acid 9.7 mg/dL (3.5-8.5)
[2023-12-26 09:49] LABS: Blood Urea Nitrogen 117 mg/dL (9-20); Phosphorus 11.6 mg/dL (2.5-4.5)
[2023-12-26 09:50] LABS: Potassium 6.6 mmol/L (3.5-5.1)
[2023-12-26] MEDS: SODIUM POLYSTYRENE SULFONATE 15 GM/60 ML BOTTLE PO STA (10:32)
[2023-12-26] MEDS: SODIUM ZIRCONIUM CYCLOSILICATE 10 GM PACKET PO ONE ×2 (10:42→14:26)
[2023-12-26] MEDS: DEXTROSE 50% SYRINGE 50 ML IVP STA (10:43)
[2023-12-26] MEDS: CALCIUM GLUCONATE IN NACL 1 GM in SALINE 1 100ML.BAG IVPB ONE ×2 (10:43→14:26)
[2023-12-26] MEDS: INSULIN REGULAR 100 UNIT/ML VIAL (IV) IV ONE ×2 (10:43→14:27)
[2023-12-26] MEDS: SODIUM BICARB 8.4% 50 ML SYR (1 MEQ/ML) IV STA (10:43)
--- NOTE | 2023-12-26 10:47 | P.PN ---
Subjective Progress Note Date: 12/26/23 Rahul Cruz, Is a 57-year-old male patient who presented to the ER with concerns of increased weakness over the past few days. Patient was discharged from the hospital 2 weeks ago after diagnosed with lymphoma patient reports that he was doing well for couple days but then began not feeling well not wanting to eat over the past few days patient has past medical history of hyperlipidemia hypertension and nicotine dependence.Chest x-ray completed showing development of a moderate left pleural effusion with adjacent atelectasis or consolidation trace effusion on the right. Abdominal ultrasound completed showing no suspicious ultrasound abnormality some mild ascites is present marked splenomegaly small bilateral pleural effusions are present.Patient white blood cell elevated at 11.6, hemoglobin 10.3, sodium 129, potassium 6.4, creatinine 3.6-190 magnesium 2.8 ALT 17 AST 23. Troponin negative. UA negative. Influenza RSV and COVID-19 negative.At this time patient has been started on IV fluid nephrology and cardiology services have been consulted. Repeat labs have been ordered. Current vital signs temp 97.5, heart rate 100, respiratory rate 18, blood pressure 115/78 with a pulse ox of 95% on 2 L On 12/23/2023 patient is alert and oriented 3. Patient reports slight improvement. Family at bedside. Awaiting nephrology and oncology input. Patient denies chest pain or shortness of breath. Patient denies any urinary burning or frequency. Repeat labs pending On 12/24/2023 patient was seen and examined on the medical floor with, he is alert and oriented x 3 in no apparent distress, he is complaining of generalized fatigue and weakness, otherwise he denies any complaints, there is no fever or chills no headache or dizziness no chest pain, no shortness of breath no cough no nausea or vomiting no abdominal pain no diarrhea and no urinary symptoms. Potassium is elevated today at 6.3, he will be given Kayexalate BUN is 92.2 creatinine 3.7 on 12/25/2023 patient's alert and oriented 3. Patient still complain of generalized fatigue and weakness. Per oncology services possible tumor lysis syndrome awaiting repeat labs today for further plan. Nephrology services following. Current vital signs temp 97.4, heart rate 103, respiratory rate 16, blood pressure 121/82 with a pulse ox of 97% on 2 L. Patient remains on sodium bicarbonate drip On 12/26/2023 patient was seen and examined on the telemetry floor, he is alert and oriented x 3 in no apparent distress, he is complaining of generalized weakness, otherwise he denies any complaints at this time, there is no fever or chills no headache or dizziness no chest pain no shortness of breath, no cough no nausea or vomiting no abdominal pain no diarrhea no urinary symptoms. CT scan yesterday revealed evidence of pericardial effusion, patient was transferred to telemetry floor, echocardiogram ordered and cardiology consult requested. Potassium is elevated Kayexalate was ordered. Objective - Vital Signs Vital signs: Vital Signs Temp 97.9 F 12/26/23 08:00 Pulse 94 12/26/23 08:05 Resp 18 12/26/23 08:05 BP 119/65 12/26/23 08:00 Pulse Ox 96 12/26/23 08:00 FiO2 Intake & Output 12/25/23 12/26/23 12/26/23 18:59 06:59 18:59 Intake Total 100 Output Total 150 100 Balance -150 0 Intake: Oral 100 Output: Urine 150 100 Other: Voiding Method Toilet Toilet Toilet # Voids 1 # Bowel Movements 1 - Exam Head normocephalic Neck supple Lungs clear to auscultation bilaterally no wheezing or crackles Heart regular rate and rhythm S1-S2, no rub or gallop Abdomen is soft nontender nondistended positive bowel sounds no hepatosplenomega ly Extremities no edema Neuro alert and orientated to 3 - Labs CBC & Chem 7: 12/25/23 08:43 12/26/23 08:46 Labs: Abnormal Lab Results - Last 24 Hours (Table) 12/26/23 Range/Units 08:46 Sodium 126 L (137-145) mmol/L Potassium 6.6 H* (3.5-5.1) mmol/L Chloride 97 L (98-107) mmol/L Carbon Dioxide 16 L (22-30) mmol/L BUN 117 H* (9-20) mg/dL Creatinine 4.27 H (0.66-1.25) mg/dL Glucose 141 H (74-99) mg/dL Uric Acid 9.7 H (3.5-8.5) mg/dL Phosphorus 11.6 H* (2.5-4.5) mg/dL AST 82 H (17-59) U/L ALT 93 H (4-49) U/L Alkaline Phosphatase 169 H (38-126) U/L Total Protein 5.5 L (6.3-8.2) g/dL Albumin 3.4 L (3.5-5.0) g/dL Assessment and Plan Assessment: 1. Acute kidney failure 2. Recent diagnosis of lymphoma with splenomegaly and extensive lymphadenopathy 3. History of essential hypertension 4. History of hyperlipidemia 5. Increased weakness and general malaise. 6. Electrolyte imbalance with hyperkalemia DVT prophylaxis Lovenox. GI prophylaxis Protonix Patient maintained on IV fluid Nephrology and oncology service is consulted Repeat labs ordered
[2023-12-26] MEDS: SODIUM BICARB 8.4% 50 ML SYR (1 MEQ/ML) ONE ×2 (10:58→15:02)
--- NOTE | 2023-12-26 11:14 | P.PN ---
Subjective Patient is seen in follow-up for acute kidney injury. Renal function worsening. Creatinine 4.27 and potassium level 6.6 this morning. Has been voiding. Denies chest pain or shortness of breath. present at bedside. Vital signs are stable. General: No acute distress. HEENT: Head exam is unremarkable. On nasal cannula. LUNGS: No audible rhonchi or wheezes. HEART: Rate and Rhythm are regular. ABDOMEN: Nontender. EXTREMITITES: 2+ edema. Objective - Vital Signs Vital signs: Vital Signs Temp 97.9 F 12/26/23 08:00 Pulse 94 12/26/23 08:05 Resp 18 12/26/23 08:05 BP 119/65 12/26/23 08:00 Pulse Ox 96 12/26/23 08:00 FiO2 Intake & Output 12/25/23 12/26/23 12/26/23 18:59 06:59 18:59 Intake Total 100 360 Output Total 150 100 Balance -150 0 360 Intake: Oral 100 360 Output: Urine 150 100 Other: Voiding Method Toilet Toilet Toilet # Voids 1 # Bowel Movements 1 - Labs CBC & Chem 7: 12/25/23 08:43 12/26/23 08:46 Labs: Abnormal Lab Results - Last 24 Hours (Table) 12/26/23 Range/Units 08:46 Sodium 126 L (137-145) mmol/L Potassium 6.6 H* (3.5-5.1) mmol/L Chloride 97 L (98-107) mmol/L Carbon Dioxide 16 L (22-30) mmol/L BUN 117 H* (9-20) mg/dL Creatinine 4.27 H (0.66-1.25) mg/dL Glucose 141 H (74-99) mg/dL Uric Acid 9.7 H (3.5-8.5) mg/dL Phosphorus 11.6 H* (2.5-4.5) mg/dL AST 82 H (17-59) U/L ALT 93 H (4-49) U/L Alkaline Phosphatase 169 H (38-126) U/L Total Protein 5.5 L (6.3-8.2) g/dL Albumin 3.4 L (3.5-5.0) g/dL Assessment and Plan Plan: Assessment: 1. Acute kidney injury secondary to ATN secondary to tumor lysis syndrome. Baseline creatinine near 1 and up to 4.27 today. Mild left hydronephrosis noted on kidney ultrasound. 2. Volume overload. 3. Pericardial effusion. 4. Mantle cell lymphoma. Oncology following. Started on Decadron. 5. Hyperkalemia secondary to acute kidney injury, acidosis and tumor lysis. 6. Hypervolemic hyponatremia. 7. Metabolic acidosis secondary to acute kidney injury. 8. Hyperphosphatemia secondary to acute kidney injury and tumor lysis. 9. Hyperuricemia secondary to tumor lysis status post rasburicase. Plan: Add IV Lasix 80 mg twice daily. 1 g IV calcium gluconate, 10 units IV regular insulin with amp of D50, 2 A of sodium bicarb IV push and 10 g Lokelma given once. Consult vascular surgery for temporary dialysis catheter placement. Plan for first treatment of hemodialysis today and second treatment tomorrow. Follow-up echocardiogram. Follow-up repeat potassium level. Case discussed with patient and his present at bedside. Both in agreement.
[2023-12-26 12:48] LABS: Anisocytosis Moderate; HCT 30.2 % (39.0-53.0); HGB 9.6 gm/dL (13.0-17.5); Hypochromasia Slight; MCH 26.2 pg (25.0-35.0); MCHC 31.9 g/dL (31.0-37.0); MCV 82.1 fL (80.0-100.0); Microcytosis Slight; Platelet Count 241 k/uL (150-450); Poikilocytosis Slight; RBC 3.67 m/uL (4.30-5.90); RDW 20.4 % (11.5-15.5); WBC 17.2 k/uL (3.8-10.6)
[2023-12-26] MEDS ORDERED: SODIUM BICARB 8.4% 50 ML SYR (1 MEQ/ML) ONE (13:00)
[2023-12-26] MEDS ORDERED: FUROSEMIDE 10 MG/ML 10 ML VIAL ONE (13:00)
[2023-12-26] MEDS ORDERED: SODIUM ZIRCONIUM CYCLOSILICATE 10 GM PACKET ONE (13:00)
[2023-12-26] MEDS ORDERED: DEXTROSE 50% SYRINGE 50 ML IVP ONE (13:00)
[2023-12-26] MEDS: RASBURICASE 6 MG in SODIUM CHLORIDE 0.9% 46 ML IV ONE (13:00)
[2023-12-26 13:49] LABS: Nucleated Red Blood Cells 0 /100 WBC (0-0)
--- NOTE | 2023-12-26 14:24 | P.PN ---
Subjective Progress Note Date: 12/26/23 The patient continues to have persistent symptoms of generalized weakness, poor appetite, and lethargy. Pulse dose dex started. He is still voiding. Creatinine worsening today, 4.27. Nephrology plans to start dialysis today. Uric acid 9.7, K 6.6, phosphorus 11.6, will order additional dose Elitek Objective - Vital Signs Vital signs: Vital Signs Temp 97.9 F 12/26/23 08:00 Pulse 94 12/26/23 08:05 Resp 18 12/26/23 08:05 BP 119/65 12/26/23 08:00 Pulse Ox 96 12/26/23 08:00 FiO2 Intake & Output 12/25/23 12/26/23 12/26/23 18:59 06:59 18:59 Intake Total 100 360 Output Total 150 100 Balance -150 0 360 Intake: Oral 100 360 Output: Urine 150 100 Other: Voiding Method Toilet Toilet Toilet # Voids 1 # Bowel Movements 1 - Constitutional General appearance: Present: average body habitus, no acute distress - EENT Eyes: Present: anicteric sclerae, EOMI ENT: Present: hearing grossly normal - Respiratory Details: breathing even and unlabored - Cardiovascular Details: skin warm and dry - Integumentary Integumentary: Absent: cyanotic - Neurologic Neurologic Comment(s): no focal deficits - Musculoskeletal Musculoskeletal: Present: generalized weakness - Psychiatric Psychiatric: Present: A&O x's 3 - Labs CBC & Chem 7: 12/26/23 12:22 12/26/23 12:22 Labs: Abnormal Lab Results - Last 24 Hours (Table) 12/26/23 Range/Units 08:46 Sodium 126 L (137-145) mmol/L Potassium 6.6 H* (3.5-5.1) mmol/L Chloride 97 L (98-107) mmol/L Carbon Dioxide 16 L (22-30) mmol/L BUN 117 H* (9-20) mg/dL Creatinine 4.27 H (0.66-1.25) mg/dL Glucose 141 H (74-99) mg/dL Uric Acid 9.7 H (3.5-8.5) mg/dL Phosphorus 11.6 H* (2.5-4.5) mg/dL AST 82 H (17-59) U/L ALT 93 H (4-49) U/L Alkaline Phosphatase 169 H (38-126) U/L Total Protein 5.5 L (6.3-8.2) g/dL Albumin 3.4 L (3.5-5.0) g/dL - Imaging and Cardiology CT scan - abdomen: report reviewed CT scan - pelvis: report reviewed Assessment and Plan (1) Mantle cell lymphoma Current Visit: Yes Status: Acute Priority: High Code(s): C83.10 - MANTLE CELL LYMPHOMA, UNSPECIFIED SITE SNOMED Code(s): 068078956 (2) Hyperkalemia Current Visit: Yes Status: Acute Priority: High Code(s): E87.5 - HYPERKALEMIA SNOMED Code(s): 68903364 (3) Renal failure Current Visit: Yes Status: Acute Priority: High Code(s): N19 - UNSPECIFIED KIDNEY FAILURE SNOMED Code(s): 44513030 (4) Weakness Current Visit: Yes Status: Acute Priority: High Code(s): R53.1 - WEAKNESS SNOMED Code(s): 70153639 Plan: Renal failure: -Creatinine increasing, 4.27 today. Nephrology plans to start dialysis today. Vascular consulted for dialysis port placement -Uric acid increased today at 9.7, K 6.6, phosphorus 11.6. Will order additional dose Elitek -Continue to monitor TLS labs daily Mantle cell lymphoma: His current clinical situation was discussed in detail with him and his . They were advised that the patient does not appear to be showing clinical improvement. there is likely some worsening in terms of weakness and lethargy. As noted above, there is no improvement in his renal parameters, despite aggressive supportive treatment. Therefore, at this time, in my opinion, the patient is unlikely to improve without treatment of the underlying mantle cell lymphoma. There were advised that starting treatment at this time is not ideal, given that his staging workup is not complete in the desired manner. A PET scan cannot be done while the patient is inpatient, and it does not appear to be likely that his condition will improve without treating the underlying lymphoma, where he can be discharged and have the PET scan subsequently. We also discussed that treatment will carry increased risk of complications, such as progressive tumor lysis, infection etc. at least in the short-term even if it is effective, that could definitely compromise the patient's prognosis. They expressed understanding of the same, and the rationale for starting provisional treatment with high-dose steroids at this time. They were agreeable to proceed. -CT AP with oral contrast ordered for abdominal staging, revealing moderate pericardial effusion. Mild left hydronephrosis. Abdominal lymphadenopathy. Low-density areas within the spleen, could represent lymphoma versus infarct change. Third spacing of fluid with moderate left and small right pleural effusion and small to moderate ascites with diffuse anasarca of the soft tissues. -Cardiology consulted for noted pericardial effusion, echocardiogram ordered -High-dose bolus Decadron started, with plan to transition to more specific regimen subsequently. -Continue to monitor closely for worsening of tumor lysis with additional treatment as needed. The patient is already on aggressive fluids, and bicarb drip per nephrology.
--- NOTE | 2023-12-26 14:24 | P.GSCN ---
History of Present Illness History of present illness: 73-year-old gentleman consulted for placement of a dialysis catheter. Patient creatinine is 4.7 potassium is 6.6 patient has history of mental cell lymphoma under care of oncology discussed with the patient and the family will place dialysis catheter Patient was seen in his room patient on nasal cannula chest had crackles bilateral. Second sound present Abdomen nontender Femoral 1+ Femoral is 6.6 creatinine is 4.[address] dialysis catheter risk and complication discussed Past Medical History Past Medical History: Cancer, Hyperlipidemia, Hypertension History of Any Multi-Drug Resistant Organisms: None Reported Past Surgical History: Hernia Repair Past Psychological History: No Psychological Hx Reported Smoking Status: Current every day smoker Past Alcohol Use History: Occasional Past Drug Use History: None Reported Medications and Allergies Home Medications Medication Instructions Recorded Confirmed Type Cetirizine HCl [Zyrtec] 10 mg PO DAILY 12/02/23 12/22/23 History Cholecalciferol (Vitamin D3) 125 mcg PO DAILY@1200 12/02/23 12/22/23 History [Vitamin D3 (125 MCG = 5,000 IU)] Enalapril [Vasotec] 10 mg PO DAILY@1200 PRN 12/02/23 12/22/23 History Multivitamins, Thera [Multivitamin 1 tab PO DAILY@1200 12/02/23 12/22/23 History (formulary)] Simvastatin [Zocor] 20 mg PO DAILY@1200 12/02/23 12/22/23 History Aspirin EC [Ecotrin Low Dose] 81 mg PO DAILY 12/22/23 12/22/23 History Ondansetron Odt [Zofran Odt] 4 mg PO Q6H PRN 12/22/23 12/22/23 History Allergies Allergy/AdvReac Type Severity Reaction Status Date / Time No Known Allergies Allergy Verified 12/22/23 13:37 Surgical - Exam Vital Signs Temp Pulse Resp BP Pulse Ox 97.4 F L 93 16 106/75 95 12/22/23 11:19 12/22/23 11:19 12/22/23 11:19 12/22/23 11:19 12/22/23 11:19 Results - Labs 12/26/23 12:22 12/26/23 12:22 Abnormal Lab Results - Last 24 Hours (Table) 06/03/24 06/03/24 06/03/24 Range/Units 08:46 12:22 12:22 WBC 17.2 H (3.8-10.6) k/uL RBC 3.67 L (4.30-5.90) m/uL Hgb 9.6 L (13.0-17.5) gm/dL Hct 30.2 L (39.0-53.0) % RDW 20.4 H (11.5-15.5) % Sodium 126 L (137-145) mmol/L Potassium 6.6 H* 6.4 H* (3.5-5.1) mmol/L Chloride 97 L (98-107) mmol/L Carbon Dioxide 16 L (22-30) mmol/L BUN 117 H* (9-20) mg/dL Creatinine 4.27 H (0.66-1.25) mg/dL Glucose 141 H (74-99) mg/dL Uric Acid 9.7 H (3.5-8.5) mg/dL Phosphorus 11.6 H* (2.5-4.5) mg/dL AST 82 H (17-59) U/L ALT 93 H (4-49) U/L Alkaline Phosphatase 169 H (38-126) U/L Total Protein 5.5 L (6.3-8.2) g/dL Albumin 3.4 L (3.5-5.0) g/dL Diabetes panel 12/26/23 12/26/23 Range/Units 08:46 12:22 Sodium 126 L (137-145) mmol/L Potassium 6.6 H* 6.4 H* (3.5-5.1) mmol/L Chloride 97 L (98-107) mmol/L Carbon Dioxide 16 L (22-30) mmol/L BUN 117 H* (9-20) mg/dL Creatinine 4.27 H (0.66-1.25) mg/dL Glucose 141 H (74-99) mg/dL Calcium 8.4 (8.4-10.2) mg/dL AST 82 H (17-59) U/L ALT 93 H (4-49) U/L Alkaline Phosphatase 169 H (38-126) U/L Total Protein 5.5 L (6.3-8.2) g/dL Albumin 3.4 L (3.5-5.0) g/dL Calcium panel 12/26/23 Range/Units 08:46 Calcium 8.4 (8.4-10.2) mg/dL Phosphorus 11.6 H* (2.5-4.5) mg/dL Albumin 3.4 L (3.5-5.0) g/dL Pituitary panel 12/26/23 12/26/23 Range/Units 08:46 12:22 Sodium 126 L (137-145) mmol/L Potassium 6.6 H* 6.4 H* (3.5-5.1) mmol/L Chloride 97 L (98-107) mmol/L Carbon Dioxide 16 L (22-30) mmol/L BUN 117 H* (9-20) mg/dL Creatinine 4.27 H (0.66-1.25) mg/dL Glucose 141 H (74-99) mg/dL Calcium 8.4 (8.4-10.2) mg/dL Adrenal panel 12/26/23 12/26/23 Range/Units 08:46 12:22 Sodium 126 L (137-145) mmol/L Potassium 6.6 H* 6.4 H* (3.5-5.1) mmol/L Chloride 97 L (98-107) mmol/L Carbon Dioxide 16 L (22-30) mmol/L BUN 117 H* (9-20) mg/dL Creatinine 4.27 H (0.66-1.25) mg/dL Glucose 141 H (74-99) mg/dL Calcium 8.4 (8.4-10.2) mg/dL Total Bilirubin 0.8 (0.2-1.3) mg/dL AST 82 H (17-59) U/L ALT 93 H (4-49) U/L Alkaline Phosphatase 169 H (38-126) U/L Total Protein 5.5 L (6.3-8.2) g/dL Albumin 3.4 L (3.5-5.0) g/dL
[2023-12-26] MEDS: SODIUM BICARB 8.4% 50 ML SYR (1 MEQ/ML) IV ONE (14:27)
[2023-12-26] MEDS: DEXTROSE 50% SYRINGE 50 ML IVP ONE ×2 (14:27→15:01)
[2023-12-26] MEDS: FUROSEMIDE 10 MG/ML 10 ML VIAL IV SCH (14:27)
[2023-12-26 14:54] LABS: Lymphocytes # (M) 3.78 k/uL (1.0-4.8); Monocytes # (M) 0.52 k/uL (0-1.0); Neutrophils # (M) 13.07 k/uL (1.3-7.7); Neutrophils % (M) 76 %; Total Cells Counted 200
[2023-12-26] MEDS: SODIUM CHLORIDE 0.9% 250 ML IV ONE (15:00)
[2023-12-26] MEDS: MIDAZOLAM 2 MG/2 ML VIAL IVP ONE (15:01)
[2023-12-26] MEDS: LIDOCAINE 1% INJ 10MG/ML (20 ML MDV) SQ ONE (15:02)
[2023-12-26] MEDS: FUROSEMIDE 10 MG/ML 10 ML VIAL ONE (15:02)
--- NOTE | 2023-12-26 15:27 | P.PCN ---
Description of Procedure: Preop diagnosis is acute kidney injury with a high potassium Postop same Procedure ultrasound-guided 20 cm dialysis catheter placed right femoral approach patient was brought to the Social Welfare Administrator right groin was prepped and draped in Prestel manner. 1% lidocaine were in for infected right groin area. Ultrasound-guided micropuncture introduced right femoral vein micropuncture guide was passed. 4 point dilator advanced over the guidewire. Then we passed the regular guidewire and then we passed the dilator on the top of guidewire t hen we placed 20 cm dialysis catheter on the top of the guidewire guidewire was removed flushed with heparin saline hep-locked secured with 3-0 nylon patient tarted the procedure well
--- NOTE | 2023-12-26 16:02 | IR ---
EXAMINATION TYPE: IR cvc insert non tunneled Intraoperative/procedural fluoroscopic services were pro vided. CLINICAL INDICATION:Male, 73 years old with history of hemodialysis catheter insertion, 0.2min fluoro , [id number]; , [facility] Total fluoroscopy time is 0.2 min. DAP: 40.9 uGym2 Please see the operative/procedural note for further details.
--- NOTE | 2023-12-26 17:51 | P.CRDCN ---
History of Present Illness Consult date: 12/26/23 Chief complaint: Shortness of breath History of present illness: The patient is a 73-year-old gentleman who never seen by the cardiology service before with a past medical history significant for hypertension and dyslipidemia and presented diagnosis of mantle cell lymphoma presented to the hospital not feeling well. He presented with progressive generalized weakness over the last several days. Beside that and according to his family he has been experiencing progressive shortness of breath with exertion and progressive bilateral lower extremities edema. He underwent further investigation including blood work and that showed renal failure. Beside that his potassium has been severely elevated. His hemoglobin was also low. The patient underwent a CT scan of the abdomen and pelvis and that showed moderate pericardial effusion. Subsequently he underwent an echocardiogram earlier today and that showed large pericardial effusion with concerning tamponade physiology. His pressure has been marginal. Currently he is on Lasix. I am going to stop the Lasix. He underwent a dialysis catheter. He is in process of having dialysis later on today. I had a discussion about his case with the nephrology service and the plan to undergo gentle dialysis later on today with no significant amount of fluid to be taken out and he is also in agreement about stopping the Lasix at this point. He is not on any blood pressure medications at this point. The patient will be transferred to the intensive care unit. He would be seen by the surgical team for the evaluation of pericardial window. The patient currently is not having any chest pain or chest discomfort but on examination he does have severe bilateral lower extremities edema. He does not have any symptoms of any fever or chills or any other cardiac symptoms beside the shortness of breath and the progressive lower extremities edema. No dizziness or lightheadedness and no presyncope or syncope. The examination is remarkable for relatively stable vital signs with marginally low blood pressure and regular rate and rhythm with a soft systolic murmur and diminished breathing sounds bilaterally and severe bilateral lower extremities edema Assessment Recent diagnosis of mantle cell lymphoma Renal failure Heart failure Multiple comorbid conditions including hypertension and dyslipidemia Electrolytes imbalance Anemia Plan DC Lasix The patient will be transferred to the intensive care unit Dialysis to be addressed by the nephrology service Avoid aggressive blood pressure lowering Consult surgery for the evaluation of pericardial window Follow-up with the patient Past Medical History Past Medical History: Cancer, Hyperlipidemia, Hypertension History of Any Multi-Drug Resistant Organisms: None Reported Past Surgical History: Hernia Repair Past Psychological History: No Psychological Hx Reported Smoking Status: Current every day smoker Past Alcohol Use History: Occasional Past Drug Use History: None Reported Medications and Allergies Home Medications Medication Instructions Recorded Confirmed Type Cetirizine HCl [Zyrtec] 10 mg PO DAILY 12/02/23 12/22/23 History Cholecalciferol (Vitamin D3) 125 mcg PO DAILY@1200 12/02/23 12/22/23 History [Vitamin D3 (125 MCG = 5,000 IU)] Enalapril [Vasotec] 10 mg PO DAILY@1200 PRN 12/02/23 12/22/23 History Multivitamins, Thera [Multivitamin 1 tab PO DAILY@1200 12/02/23 12/22/23 History (formulary)] Simvastatin [Zocor] 20 mg PO DAILY@1200 12/02/23 12/22/23 History Aspirin EC [Ecotrin Low Dose] 81 mg PO DAILY 12/22/23 12/22/23 History Ondansetron Odt [Zofran Odt] 4 mg PO Q6H PRN 12/22/23 12/22/23 History Allergies Allergy/AdvReac Type Severity Reaction Status Date / Time No Known Allergies Allergy Verified 12/22/23 13:37 Physical Exam Vitals: Vital Signs Temp Pulse Pulse Resp BP Pulse Ox 12/26/23 15:58 98.1 F 93 18 119/80 93 L 12/26/23 12:00 98 18 116/63 95 12/26/23 08:05 94 18 12/26/23 08:00 97.9 F 90 20 119/65 96 12/26/23 07:57 96 18 95 12/26/23 03:38 97.1 F L 91 18 123/75 12/26/23 00:04 98.3 F 90 18 123/68 94 L 12/25/23 20:53 103 H 12/25/23 20:42 100 12/25/23 20:00 18 12/25/23 18:50 97.6 F 101 H 18 111/72 92 L 12/25/23 17:50 103 H 116/87 94 L Intake and Output 12/26/23 12/26/23 12/26/23 06:59 14:59 22:59 Intake Total 100 900 590 Output Total 100 275 325 Balance 0 625 265 Intake: IV 50 Oral 100 900 540 Output: Urine 100 275 325 Other: Voiding Method Indwelling Catheter # Voids 1 # Bowel Movements 1 1 Results 12/26/23 12:22 12/26/23 12:22 Cardiac Enzymes 12/26/23 Range/Units 08:46 AST 82 H (17-59) U/L CBC 12/26/23 Range/Units 12:22 WBC 17.2 H (3.8-10.6) k/uL RBC 3.67 L (4.30-5.90) m/uL Hgb 9.6 L (13.0-17.5) gm/dL Hct 30.2 L (39.0-53.0) % Plt Count 241 (150-450) k/uL Comprehensive Metabolic Panel 12/26/23 12/26/23 Range/Units 08:46 12:22 Sodium 126 L (137-145) mmol/L Potassium 6.6 H* 6.4 H* (3.5-5.1) mmol/L Chloride 97 L (98-107) mmol/L Carbon Dioxide 16 L (22-30) mmol/L BUN 117 H* (9-20) mg/dL Creatinine 4.27 H (0.66-1.25) mg/dL Glucose 141 H (74-99) mg/dL Calcium 8.4 (8.4-10.2) mg/dL AST 82 H (17-59) U/L ALT 93 H (4-49) U/L Alkaline Phosphatase 169 H (38-126) U/L Total Protein 5.5 L (6.3-8.2) g/dL Albumin 3.4 L (3.5-5.0) g/dL Current Medications Generic Name Dose Route Start Last Admin Trade Name Freq PRN Reason Stop Dose Admin Acetaminophen 650 mg 12/22/23 13:30 12/26/23 06:17 Acetaminophen Tab 325 Mg Tab PO 650 mg Q6HR PRN Administration Mild Pain or Fever > 100.5 Hydrocodone Bitart/Acetaminophen 1 each 12/22/23 13:30 Hydrocodone/Apap 5-325mg 1 Each Tab PO Q4HR PRN Moderate Pain (Scale 4 to 6) Albuterol Sulfate 2.5 mg 12/22/23 22:06 12/26/23 07:55 Albuterol Nebulized 2.5 Mg/3 Ml INHALATION 2.5 mg RT-Q4H PRN Administration Shortness Of Breath Or Wheezing Alprazolam 0.25 mg 12/23/23 12:45 12/26/23 07:50 Alprazolam 0.25 Mg Tab PO 0.25 mg QID PRN Administration Anxiety Aspirin 81 mg 12/23/23 09:00 12/26/23 07:50 Aspirin 81 Mg PO 81 mg DAILY MIKAELA Administration Atorvastatin Calcium 10 mg 12/23/23 12:00 12/26/23 11:31 Atorvastatin 10 Mg Tab PO 10 mg DAILY@1200 MIKAELA Administration Calcium Acetate 667 mg 12/24/23 17:30 12/26/23 17:09 Calcium Acetate 667 Mg Tab PO 667 mg BID-W/MEALS MIKAELA Administration Cholecalciferol 125 mcg 12/23/23 12:00 12/26/23 11:31 Cholecalciferol 125 Mcg (5000 Iu) Tablet PO 125 mcg DAILY@1200 [facility] Administration Enoxaparin Sodium 30 mg 12/23/23 09:00 12/26/23 07:50 Enoxaparin 30 Mg/0.3 Ml Syringe SQ 30 mg DAILY MIKAELA Administration Dexamethasone Sodium Phosphate 54 mls @ 100 mls/hr 12/25/23 15:00 12/26/23 10:04 40 mg/ Dextrose/Water IVPB 12/28/23 09:33 100 mls/hr DAILY [facility] Administration Loratadine 10 mg 12/23/23 09:00 12/26/23 07:50 Loratadine 10 Mg Tab PO 10 mg DAILY MIKAELA Administration Morphine Sulfate 4 mg 12/22/23 13:30 Morphine Sulfate 4 Mg/Ml Syringe IV Q4HR PRN Severe Pain (Scale 7 to 10) Multivitamins 1 each 12/23/23 12:00 12/26/23 11:31 Multivitamins, Thera 1 Each Tab PO 1 each DAILY@1200 [facility] Administration Naloxone HCl 0.2 mg 12/22/23 13:30 Naloxone 0.4 Mg/Ml 1 Ml Vial IV Q2M PRN Opioid Reversal Ondansetron HCl 4 mg 12/22/23 13:30 12/25/23 13:56 Ondansetron 4 Mg/2 Ml Vial IVP 4 mg Q8HR PRN Administration Nausea And Vomiting Ondansetron HCl 4 mg 12/22/23 13:42 12/26/23 07:55 Ondansetron Odt 4 Mg Tab PO 4 mg Q6H PRN Administration Nausea Pantoprazole Sodium 40 mg 12/24/23 07:30 12/26/23 06:17 Pantoprazole 40 Mg Tablet PO 40 mg [id number] MIKAELA Administration Sodium Bicarbonate 650 mg 12/25/23 21:00 12/26/23 07:50 Sodium Bicarbonate Tab 650 Mg Tab PO 650 mg BID MIKAELA Administration Intake and Output 12/26/23 12/26/23 12/26/23 06:59 14:59 22:59 Intake Total 100 900 590 Output Total 100 275 325 Balance 0 625 265 Intake: IV 50 Oral 100 900 540 Output: Urine 100 275 325 Other: Voiding Method Indwelling Catheter # Voids 1 # Bowel Movements 1 1 12/26/23 12:22 12/26/23 12:22
[2023-12-26 18:34] LABS: Glucose,Whole Blood 325 mg/dL (70-110)
[2023-12-26] MEDS: NOREPINEPHRINE 4 MG in SODIUM CHLORIDE 0.9% 250 ML IV SCH (20:37)
[2023-12-26 22:28] LABS: Hepatitis B Surface Antigen Nonreactive (Nonreactive)
[2023-12-26 23:48] LABS: Hepatitis B Surface AB- Quant 3.5 mIU/mL
[2023-12-27 00:29] LABS: African American GFR (CKD) 18 (>60 ml/min/1.73 sqM); Anion Gap 10 mmol/L; Blood Urea Nitrogen 92 mg/dL (9-20); Calcium 8.3 mg/dL (8.4-10.2); Carbon Dioxide 24 mmol/L (22-30); Chloride 95 mmol/L (98-107); Glucose 159 mg/dL (74-99); Non-African American GFR(CKD) 16 (>60 ml/min/1.73 sqM); Potassium 4.4 mmol/L (3.5-5.1); Sodium 129 mmol/L (137-145)
--- NOTE | 2023-12-27 02:36 | P.CNPUL ---
History of Present Illness Consult date: 12/27/23 Requesting physician: Brian Rodriguez Reason for consult: obstructive sleep apnea, other (ICU management) Chief complaint: Severe generalized weakness History of present illness: Patient is a 73-year-old white male with past medical history significant for recent diagnosis of lymphoma. Patient reportedly was noted to have some splenomegaly outpatient, had follow-up CAT scan which showed abdominal lymphadenopathy. Patient did have a lymph node biopsy of the right axilla on 12/07/2023, this was positive for mantle cell lymphoma. He is reportedly recently become established with Dr. Sidhu, not currently undergoing any treatments.. Patient reportedly was scheduled for a PET scan on 12/24/2023, however, he did not make it to his appointment. On December 21 his called 911, as the patient has been progressively more weak. This is a generalized weakness. He can no longer walk without assistance. He has been noted to have a reduced appetite. No significant nausea or vomiting, diarrhea, or abdominal pain. He has been very swollen all over. He has been mildly short of breath, especially with any kind of exertion. Chest x-rays from admission, showing a moderate left pleural effusion with likely adjacent atelectasis, trace right pleural effusion, and right apical pleural parenchymal scarring. While in the emergency room, he was noted to have acute kidney injury. He was hyperkalemic with a potassium as of 6.4. Tumor lysis syndrome is suspected. Ultrasound of the kidneys, renals, bladder did not show any suspicious abnormalities within the kidneys. There was marked splenomegaly. A follow-up CT of the abdomen and pelvis identified a moderate size pericardial effusion. There was also mild left hydronephrosis, possibly from mass effect of the retroperitoneal lymphadenopathy. There was marked abdominal lymphadenopathy compatible with the patient's history of lymphoma. There were low-density areas within the spleen, which could represent the patient's lymphoma versus infarct change. Third spacing of fluid with moderate left and small right pleural effusion. Small to moderate ascites. Diffuse anasarca noted. And other incidental findings. Patient continues to experience worsening renal function and hyperkalemia. He has received multiple treatments for his hyperkalemia. Also receiving Elitek. Most recent uric acid level 9.7. There was recommendations for hemodialysis. Patient did have a hemodialysis catheter placed by vascular service, and underwent hemodialysis yesterday. No fluid was removed. Patient does have a moderate to large sized pericardial effusion. An echocardiogram is pending. There is a consult to cardiothoracic service, patient may have to undergo a pericardial window. He was evaluated by cardiology, who requested transfer to the intensive care unit. I am seeing this patient in room 262. He appears very debilitated and generally weak. There is gross anasarca. He is just received hemodialysis. No fluid was removed. Blood pressure remains normotensive at this time. Not requiring any vasopressors. Currently normal sinus rhythm, without any significant tachycardia. There is mild JVD. Continues to make urine, chester roximately 40 MLS per hour. On 4 L/min nasal cannula, in no acute respiratory distress. Patient denies any infectious symptoms such as fever, cough, sputum production, chest pain. No reportable recent viral illnesses/symptoms of URI. Denies chest pain, lightheadedness, syncopal events. Most recent labs include a WBC count 17.2, hemoglobin 9.6, hematocrit 30.2, platelets 241. BMP following hemodialysis includes: Sodium 129, potassium 4.4, chloride 95, serum bicarb 24, BUN 92, creatinine 3.59, glucose 159. He is being monitored in the intensive care unit. Review of Systems REVIEW OF SYSTEMS: CONSTITUTIONAL: Admits 15 pound weight loss over the last couple months, however, more recently severe generalized swelling and weight gain. Denies fevers. Does endorse generalized weakness and malaise. EYES: Denies change in vision. EARS, NOSE, MOUTH, THROAT: Denies headaches, denies sore throat. CARDIOVASCULAR: see HPI RESPIRATORY: See HPI GASTROINTESTINAL: Denies abdominal pain, nausea and vomiting, or diarrhea. Admits reduced appetite. GENITOURINARY: Denies hematuria, denies infections. MUSKULOSKELETAL: Denies pain, denies swelling. INTEGUMENTARY: Denies rash, denies eczema. NEUROLOGICAL: Denies recent memory loss, no recent seizure activity. PSYCHIATRIC: Denies anxiety, denies depression. HEMATOLOGIC/LYMPHATIC: Denies anemia. Past Medical History Past Medical History: Cancer, Hyperlipidemia, Hypertension History of Any Multi-Drug Resistant Organisms: None Reported Past Surgical History: Hernia Repair Past Psychological History: No Psychological Hx Reported Smoking Status: Current every day smoker Past Alcohol Use History: Occasional Past Drug Use History: None Reported Medications and Allergies Home Medications Medication Instructions Recorded Confirmed Type Cetirizine HCl [Zyrtec] 10 mg PO DAILY 12/02/23 12/22/23 History Cholecalciferol (Vitamin D3) 125 mcg PO DAILY@1200 12/02/23 12/22/23 History [Vitamin D3 (125 MCG = 5,000 IU)] Enalapril [Vasotec] 10 mg PO DAILY@1200 PRN 12/02/23 12/22/23 History Multivitamins, Thera [Multivitamin 1 tab PO DAILY@1200 12/02/23 12/22/23 History (formulary)] Simvastatin [Zocor] 20 mg PO DAILY@1200 12/02/23 12/22/23 History Aspirin EC [Ecotrin Low Dose] 81 mg PO DAILY 12/22/23 12/22/23 History Ondansetron Odt [Zofran Odt] 4 mg PO Q6H PRN 12/22/23 12/22/23 History Allergies Allergy/AdvReac Type Severity Reaction Status Date / Time No Known Allergies Allergy Verified 12/22/23 13:37 Physical Exam Vitals: Vital Signs Temp Pulse Pulse Resp BP BP Pulse Ox 12/26/23 23:00 96 14 104/56 91 L 12/26/23 22:00 98 14 120/72 90 L 12/26/23 21:54 97.6 F 98 12 121/70 12/26/23 21:00 93 13 107/60 89 L 12/26/23 20:00 98.7 F 97 14 116/63 89 L 12/26/23 19:00 95.4 F L 93 18 123/68 90 L 12/26/23 18:31 36 H 12/26/23 18:01 90 18 12/26/23 17:50 92 18 12/26/23 15:58 98.1 F 93 18 119/80 93 L 12/26/23 12:00 98 18 116/63 95 12/26/23 08:05 94 18 12/26/23 08:00 97.9 F 90 20 119/65 96 12/26/23 07:57 96 18 95 12/26/23 03:38 97.1 F L 91 18 123/75 Intake and Output 12/26/23 12/26/23 12/27/23 14:59 22:59 06:59 Intake Total 900 1463.795 250 Output Total 275 1440 50 Balance 625 23.795 200 Intake: IV 50 Intake, IV Titration 13.795 Amount Norepinephrine 4 mg In 13.795 Sodium Chloride 0.9% 250 ml @ 0.03 MCG/KG/MIN 8. 036 mls/hr IV .Q24H [facility] Rx#:[id number] Oral 900 900 250 Hemodialysis 500 Output: Urine 275 940 50 Hemodialysis 500 Other: Voiding Method Indwelling Catheter Indwelling Catheter # Bowel Movements 1 GENERAL EXAM: Alert, 73-year-old male, debilitated and anasarcic, fairly comfortable in no apparent distress. HEAD: Normocephalic and atraumatic EYES: Normal reaction of pupils, equal size. NOSE: Clear with pink turbinates. THROAT: No erythema or exudates. NECK:Cervical lymphadenopathy noted. Mild JVD. CHEST: No chest wall deformity. LUNGS: Equal air entry with diminished bibasilar lung sounds. On 4 L/min nasal cannula. No conversational dyspnea or accessory muscle use while at rest. CVS: S1 and S2 normal with soft grade 1 systolic murmur, regular rhythm. No other extra heart sounds. ABDOMEN: No appreciable hepatosplenomegaly, active bowel sounds, no guarding or rigidity. SPINE: No scoliosis or deformity SKIN: No rashes CENTRAL NERVOUS SYSTEM: No focal deficits, tone is normal in all 4 extremities. EXTREMITIES: There is gross anasarca. No clubbing, or cyanosis. Peripheral pulses are intact. Results - Laboratory Findings CBC and BMP: 12/26/23 12:22 12/26/23 23:43 PT/INR, D-dimer PT 11.5 sec (10.0-12.5) 12/22/23 12:27 INR 1.1 (<1.2) 12/22/23 12:27 Abnormal lab findings: Abnormal Labs 12/22/23 12/22/23 12/22/23 12:27 12:27 12:27 WBC 11.6 H RBC 4.01 L Hgb 10.3 L Hct 33.5 L MCH MCHC 30.7 L RDW 19.2 H Immature Gran # Neutrophils # (Manual) 7.77 H Monocytes # Monocytes # (Manual) 1.51 H NRBC/100 WBC Diff Sodium 129 L Potassium 6.4 H* Chloride Carbon Dioxide 20 L Anion Gap BUN 90 H Creatinine 3.62 H Est GFR (CKD-EPI) BUN/Creatinine Ratio Glucose 110 H POC Glucose (mg/dL) Uric Acid Calcium Phosphorus 6.7 H Magnesium 2.8 H AST ALT Alkaline Phosphatase Lactate Dehydrogenase Total Protein 6.2 L Albumin Procalcitonin 0.19 H Urine Protein 12/22/23 12/22/23 12/23/23 16:53 17:20 06:47 WBC 13.80 H RBC 3.64 L Hgb 9.5 L Hct 31.1 L MCH 26.1 L MCHC 30.5 L RDW 21.1 H Immature Gran # Neutrophils # (Manual) 8.14 H Monocytes # Monocytes # (Manual) 1.52 H NRBC/100 WBC Diff 0.02 H Sodium Potassium 5.6 H Chloride Carbon Dioxide Anion Gap BUN Creatinine Est GFR (CKD-EPI) BUN/Creatinine Ratio Glucose POC Glucose (mg/dL) Uric Acid Calcium Phosphorus Magnesium AST ALT Alkaline Phosphatase Lactate Dehydrogenase Total Protein Albumin Procalcitonin Urine Protein Trace H 12/23/23 12/23/23 12/24/23 06:47 06:47 04:05 WBC RBC Hgb Hct MCH MCHC RDW Immature Gran # Neutrophils # (Manual) Monocytes # Monocytes # (Manual) NRBC/100 WBC Diff Sodium 132 L 131 L Potassium 5.8 H 6.3 A* Chloride Carbon Dioxide 14.7 L 14.8 L Anion Gap 15.30 H 17.20 H BUN 80.7 H 92.2 H Creatinine 3.4 H 3.7 H Est GFR (CKD-EPI) 18 L 17 L BUN/Creatinine Ratio 23.74 H 24.92 H Glucose POC Glucose (mg/dL) Uric Acid 12.6 H Calcium 8.6 L Phosphorus 6.2 H 7.6 H Magnesium AST ALT Alkaline Phosphatase Lactate Dehydrogenase 266 H Total Protein 5.4 L 5.6 L Albumin 3.4 L 3.6 L Procalcitonin Urine Protein 12/24/23 12/24/23 12/25/23 04:05 17:58 08:43 WBC 12.95 H 13.0 H RBC 3.51 L 3.72 L Hgb 8.9 L 9.6 L Hct 30.1 L 30.9 L MCH 25.4 L MCHC 29.6 L RDW 21.5 H 20.1 H Immature Gran # 0.07 H Neutrophils # (Manual) 7.80 H Monocytes # 1.47 H Monocytes # (Manual) 1.56 H NRBC/100 WBC Diff 0.04 H Sodium Potassium 5.5 H Chloride Carbon Dioxide Anion Gap BUN Creatinine Est GFR (CKD-EPI) BUN/Creatinine Ratio Glucose POC Glucose (mg/dL) Uric Acid Calcium Phosphorus Magnesium AST ALT Alkaline Phosphatase Lactate Dehydrogenase Total Protein Albumin Procalcitonin Urine Protein 12/25/23 12/26/23 12/26/23 08:43 08:46 12:22 WBC RBC Hgb Hct MCH MCHC RDW Immature Gran # Neutrophils # (Manual) Monocytes # Monocytes # (Manual) NRBC/100 WBC Diff Sodium 127 L 126 L Potassium 5.6 H 6.6 H* 6.4 H* Chloride 97 L Carbon Dioxide 17 L 16 L Anion Gap BUN 105 H* 117 H* Creatinine 3.77 H 4.27 H Est GFR (CKD-EPI) BUN/Creatinine Ratio Glucose 118 H 141 H POC Glucose (mg/dL) Uric Acid 9.7 H Calcium Phosphorus 8.1 H 11.6 H* Magnesium AST 81 H 82 H ALT 62 H 93 H Alkaline Phosphatase 142 H 169 H Lactate Dehydrogenase Total Protein 5.5 L 5.5 L Albumin 3.3 L 3.4 L Procalcitonin Urine Protein 12/26/23 12/26/23 12/26/23 12:22 17:55 18:32 WBC 17.2 H RBC 3.67 L Hgb 9.6 L Hct 30.2 L MCH MCHC RDW 20.4 H Immature Gran # Neutrophils # (Manual) 13.07 H Monocytes # Monocytes # (Manual) NRBC/100 WBC Diff Sodium Potassium 5.8 H Chloride Carbon Dioxide Anion Gap BUN Creatinine Est GFR (CKD-EPI) BUN/Creatinine Ratio Glucose POC Glucose (mg/dL) 325 H Uric Acid Calcium Phosphorus Magnesium AST ALT Alkaline Phosphatase Lactate Dehydrogenase Total Protein Albumin Procalcitonin Urine Protein 12/26/23 23:43 WBC RBC Hgb Hct MCH MCHC RDW Immature Gran # Neutrophils # (Manual) Monocytes # Monocytes # (Manual) NRBC/100 WBC Diff Sodium 129 L Potassium Chloride 95 L Carbon Dioxide Anion Gap BUN 92 H Creatinine 3.59 H Est GFR (CKD-EPI) BUN/Creatinine Ratio Glucose 159 H POC Glucose (mg/dL) Uric Acid Calcium 8.3 L Phosphorus Magnesium AST ALT Alkaline Phosphatase Lactate Dehydrogenase Total Protein Albumin Procalcitonin Urine Protein - Diagnostic Findings Chest x-ray: image reviewed Assessment and Plan Assessment: Mantle cell lymphoma, diagnosed with excisional lymph node biopsy of the the right axilla on 12/07/2023. Recently established with oncologist, not currently undergoing any treatment. PET scan is going to be rescheduled. Moderate to large size pericardial effusion, as noted on CT of the abdomen and pelvis, follow-up echocardiogram is pending, being evaluated by cardiothoracic surgery for possible pericardial window. Acute kidney injury and suspected tumor lysis syndrome, uric acid level as high as 12.6 and down to 9.7, receiving doses of Elitek. Patient did have an hemodialysis catheter placed yesterday, and and received emergent hemodialysis. No fluid was removed. Filtered only. Severe hyperkalemia, improved after hemodialysis Hypervolemic hyponatremia Hyperphosphatemia Gross anasarca and fluid overload Acute hypoxemic respiratory failure, secondary to fluid overload, chest x-ray on admission showing a moderate left pleural effusion with likely adjacent atelectasis, trace right pleural effusion, and right apical pleural parenchymal scarring. Normocytic normochromic anemia, no overt signs of acute blood loss Mild transaminitis History of hyperlipidemia History of hypertension Former tobacco smoker, quitting approximately 4 weeks ago Plan: Patient's medications, labs, imaging were reviewed Patient has been transferred to the intensive care unit. There is moderate to large pericardial effusion. Possible tamponade features. Echocardiogram is pending. Cardiothoracic surgery has been asked to evaluate this patient for possible intervention. Currently no profound hypotension or need for vasopressors. Fluid status is being managed judiciously. Patient is status/post hemodialysis, no fluid was removed Continue to monitor multiple electrolyte abnormalities, including hyperkalemia, which is currently improved. Patient is being followed by multiple specialties including oncology, nephrology, cardiology. Will continue to follow the patient in the intensive care unit I have personally seen and examined the patient, performed the documentation and the assessment and plan as written. Number of minutes spent on the visit:20 Time with Patient: Greater than 30
[2023-12-27 05:52] LABS: Glucose,Whole Blood 145 mg/dL (70-110)
[2023-12-27] MEDS: INSULIN ASPART (NovoLOG) 100 UNIT/ML VIAL SQ SCH (06:13)
[2023-12-27 06:48] LABS: Anisocytosis Moderate; HCT 27.7 % (39.0-53.0); HGB 8.7 gm/dL (13.0-17.5); Hypochromasia Slight; MCH 25.9 pg (25.0-35.0); MCHC 31.3 g/dL (31.0-37.0); MCV 82.7 fL (80.0-100.0); Mean Platelet Volume 8.1; Platelet Count 230 k/uL (150-450); Poikilocytosis Slight; RBC 3.35 m/uL (4.30-5.90); RDW 20.2 % (11.5-15.5)
[2023-12-27 07:03] LABS: ALT 76 U/L (4-49); AST 54 U/L (17-59); African American GFR (CKD) 18 (>60 ml/min/1.73 sqM); Albumin 3.1 g/dL (3.5-5.0); Alkaline Phosphatase 136 U/L (38-126); Anion Gap 9 mmol/L; Blood Urea Nitrogen 100 mg/dL (9-20); Carbon Dioxide 23 mmol/L (22-30); Chloride 97 mmol/L (98-107); Glucose 123 mg/dL (74-99); Non-African American GFR(CKD) 16 (>60 ml/min/1.73 sqM); Potassium 4.7 mmol/L (3.5-5.1); Sodium 129 mmol/L (137-145); Total Bilirubin 0.8 mg/dL (0.2-1.3); Total Protein 5.2 g/dL (6.3-8.2); Uric Acid 5.4 mg/dL (3.5-8.5)
[2023-12-27 07:06] LABS: Phosphorus 10.8 mg/dL (2.5-4.5)
--- NOTE | 2023-12-27 08:47 | XR ---
EXAMINATION TYPE: XR chest 1V portable DATE OF EXAM: 12/27/2023 Comparison: 12/22/2023 Clinical History: 73-year-old male acute hypoxemic respiratory failure Findings: Heart upper limits of normal in size. Hyperinflation. Hazy minimal lower lung opacities, left greater than right along with a meniscus at the left base indicating pleural effusion. Impression: COPD. Small left pleural effusion with but with extensive adjacent retrocardiac opacity. The overall size of the effusion has decreased from 12/22/2023. New hazy densities at the right base now as well.
--- NOTE | 2023-12-27 09:09 | P.PN ---
Subjective Patient is seen in follow-up for acute kidney injury. Started on hemodialysis December 26, 2023. Potassium level normal today. Urine output 35 to 40 cc an hour. Denies chest pain or shortness of breath. Scheduled for pericardial window today. present at bedside. Vital signs are stable. General: No acute distress. HEENT: Head exam is unremarkable. On nasal cannula. LUNGS: No audible rhonchi or wheezes. HEART: Rate and Rhythm are regular. ABDOMEN: Nontender. EXTREMITITES: 2+ edema. Objective - Vital Signs Vital signs: Vital Signs Temp 97.9 F 12/27/23 08:00 Pulse 85 12/27/23 09:00 Resp 14 12/27/23 09:00 BP 108/70 12/27/23 09:00 Pulse Ox 94 L 12/27/23 09:00 FiO2 Intake & Output 12/26/23 12/27/23 12/27/23 18:59 06:59 18:59 Intake Total 1850 763.795 46.787 Output Total 950 1125 160 Balance 900 -361.205 -113.213 Weight 86.8 kg Intake: IV 50 Intake, IV Titration 13.795 46.787 Amount Norepinephrine 4 mg In 13.795 46.787 Sodium Chloride 0.9% 250 ml @ 0.03 MCG/KG/MIN 8. 036 mls/hr IV .Q24H PENDING SALE TO [facility] Rx#:[id number] Oral 1800 250 Hemodialysis 500 Output: Urine 950 625 160 Hemodialysis 500 Other: Voiding Method Indwelling Catheter Indwelling Catheter Indwelling Catheter # Bowel Movements 1 - Labs CBC & Chem 7: 12/27/23 06:10 12/27/23 06:10 Labs: Abnormal Lab Results - Last 24 Hours (Table) 12/26/23 12/26/23 12/26/23 Range/Units 08:46 12:22 12:22 WBC 17.2 H (3.8-10.6) k/uL RBC 3.67 L (4.30-5.90) m/uL Hgb 9.6 L (13.0-17.5) gm/dL Hct 30.2 L (39.0-53.0) % RDW 20.4 H (11.5-15.5) % Neutrophils # (Manual) 13.07 H (1.3-7.7) k/uL Sodium 126 L (137-145) mmol/L Potassium 6.6 H* 6.4 H* (3.5-5.1) mmol/L Chloride 97 L (98-107) mmol/L Carbon Dioxide 16 L (22-30) mmol/L BUN 117 H* (9-20) mg/dL Creatinine 4.27 H (0.66-1.25) mg/dL Glucose 141 H (74-99) mg/dL POC Glucose (mg/dL) (70-110) mg/dL Uric Acid 9.7 H (3.5-8.5) mg/dL Calcium (8.4-10.2) mg/dL Phosphorus 11.6 H* (2.5-4.5) mg/dL AST 82 H (17-59) U/L ALT 93 H (4-49) U/L Alkaline Phosphatase 169 H (38-126) U/L Total Protein 5.5 L (6.3-8.2) g/dL Albumin 3.4 L (3.5-5.0) g/dL 12/26/23 12/26/23 12/26/23 Range/Units 17:55 18:32 23:43 WBC (3.8-10.6) k/uL RBC (4.30-5.90) m/uL Hgb (13.0-17.5) gm/dL Hct (39.0-53.0) % RDW (11.5-15.5) % Neutrophils # (Manual) (1.3-7.7) k/uL Sodium 129 L (137-145) mmol/L Potassium 5.8 H (3.5-5.1) mmol/L Chloride 95 L (98-107) mmol/L Carbon Dioxide (22-30) mmol/L BUN 92 H (9-20) mg/dL Creatinine 3.59 H (0.66-1.25) mg/dL Glucose 159 H (74-99) mg/dL POC Glucose (mg/dL) 325 H (70-110) mg/dL Uric Acid (3.5-8.5) mg/dL Calcium 8.3 L (8.4-10.2) mg/dL Phosphorus (2.5-4.5) mg/dL AST (17-59) U/L ALT (4-49) U/L Alkaline Phosphatase (38-126) U/L Total Protein (6.3-8.2) g/dL Albumin (3.5-5.0) g/dL 12/27/23 12/27/23 12/27/23 Range/Units 05:51 06:10 06:10 WBC 12.0 H (3.8-10.6) k/uL RBC 3.35 L (4.30-5.90) m/uL Hgb 8.7 L (13.0-17.5) gm/dL Hct 27.7 L (39.0-53.0) % RDW 20.2 H (11.5-15.5) % Neutrophils # (Manual) (1.3-7.7) k/uL Sodium 129 L (137-145) mmol/L Potassium (3.5-5.1) mmol/L Chloride 97 L (98-107) mmol/L Carbon Dioxide (22-30) mmol/L BUN 100 H (9-20) mg/dL Creatinine 3.60 H (0.66-1.25) mg/dL Glucose 123 H (74-99) mg/dL POC Glucose (mg/dL) 145 H (70-110) mg/dL Uric Acid (3.5-8.5) mg/dL Calcium 8.0 L (8.4-10.2) mg/dL Phosphorus 10.8 H* (2.5-4.5) mg/dL AST (17-59) U/L ALT 76 H (4-49) U/L Alkaline Phosphatase 136 H (38-126) U/L Total Protein 5.2 L (6.3-8.2) g/dL Albumin 3.1 L (3.5-5.0) g/dL Assessment and Plan Plan: Assessment: 1. Acute kidney injury secondary to ATN secondary to tumor lysis syndrome. Baseline creatinine near 1 and up to 4.27 dated December 26, 2023. Started on hemodialysis December 26, 2023. Has temporary dialysis catheter. Mild left hydronephrosis noted on kidney ultrasound. 2. Volume overload. 3. Pericardial effusion. Scheduled for pericardial window today. 4. Mantle cell lymphoma. Oncology following. On Decadron. 5. Hyperkalemia secondary to acute kidney injury, acidosis and tumor lysis. Improved. 6. Hypervolemic hyponatremia. Stable. 7. Metabolic acidosis secondary to acute kidney injury. Improved. 8. Hyperphosphatemia secondary to acute kidney injury and tumor lysis. On PhosLo. 9. Hyperuricemia secondary to tumor lysis status post rasburicase. Improved. Plan: Second treatment of hemodialysis today after pericardial window done. Third treatment tomorrow. Lasix discontinued per cardiology recommendations due to concern for hypotension. Follow-up echocardiogram. Avoid nephrotoxins. Continue to monitor renal function and urine output.
[2023-12-27 09:23] LABS: Lymphocytes # (M) 1.44 k/uL (1.0-4.8); Monocytes # (M) 0.48 k/uL (0-1.0); Neutrophils % (M) 85 %; Nucleated Red Blood Cells 0 /100 WBC (0-0); Total Cells Counted 200
--- NOTE | 2023-12-27 09:34 | P.GSCN ---
History of Present Illness Consult date: 12/27/23 Reason for Consult: Pericardial effusion, evaluate for pericardial window Requesting physician: Brian Rodriguez History of present illness: This is a 73-year-old gentleman who follows on an outpatient basis with Dr. Maria Del Carmen Fitzgerald for his his primary care. He has a past medical history significant for hypertension, recently hypotensive, hyperlipidemia, chronic ongoing tobacco dependence, quit smoking 3 weeks ago, tuberculosis at age 18, kidney stones, and a recent dose of mantle cell lymphoma 2 to 3 weeks ago. The patient presented to the emergency department here at [facility] on December 22, 2023 with complaints of generalized weakness, weight loss of 15 pounds in a 1 month period, shortness of breath with activity, bilateral lower extremity swelling, episodes of nausea and poor appetite. The patient reports that he has been feeling quite weak for the past 2 to 3 weeks. The patient denies any recent fever, chills, vomiting, chest pain/chest pressure, hemoptysis, hematemesis, constipation, diarrhea, headache, lightheadedness, presyncope or syncope. Due to the patient's presenting symptoms and recent diagnosis of mantle cell lymphoma he was admitted to the hospital for further evaluation and treatment recommendations. The patient does report that he has had some abdominal discomfort over the past 1 month and was seen at [facility] and underwent a CT scan of the abdomen/pelvis. According to the patient and family members present at his bedside there was some findings of sw ollen lymph nodes and enlarged spleen. A chest x-ray was completed on admission which showed a development of a moderate left pleural effusion with adjacent atelectasis and/or consolidation, and right apical pleural parenchymal scarring. On December 25, 20[address] the patient underwent a CT scan of the abdomen/pelvis without contrast which revealed a moderate pericardial effusion, mild left hydronephrosis possibly from mass effect from the retroperitoneal lymphadenopathy, abdominal lymphadenopathy compatible with a history of lymphoma, low-density areas within the spleen some of them might be wedge-shaped could represent lymphoma versus infarct change, third spacing of fluid with moderate left and small right pleural effusion, small to moderate ascites, diffuse anasarca, colonic diverticulosis and bilateral hydroceles. Initial laboratory results showed a WBC count of 11.6, hemoglobin 10.3, hematocrit 33.5, platelet count 222, PT 11.5, INR 1.1, PTT 23.3, sodium 129, potassium 6.4, CO2 20, BUN 90, creatinine 3.62, glucose 110, plasmic lactic acid venous 1.7, phosphorus 6.7, magnesium 2.8, proBNP 937, and troponin less than 0.012. Subsequently, due to the findings of a moderate pericardial effusion on the CT scan of the abdomen/pelvis the patient underwent an echocardiogram which revealed a large pericardial effusion with concerns for tamponade physiology. Due to the findings of the large pericardial effusion a consult was placed to cardiothoracic surgery for further evaluation and treatment recommendations including pericardial window. Review of Systems A review of systems was completed and was negative except as mentioned in the HPI. Past Medical History Past Medical History: Cancer (Recent diagnosis of mantle cell lymphoma), Hyperlipidemia, Hypertension Additional Past Medical History / Comment(s): History of tuberculosis at age 18, history of kidney stones History of Any Multi-Drug Resistant Organisms: None Reported Past Surgical History: Hernia Repair (Right inguinal hernia repair), Tonsillectomy Additional Past Surgical History / Comment(s): Axillary lymph node biopsy right side on December 07, 2023 Past Anesthesia/Blood Transfusion Reactions: No Reported Reaction Past Psychological History: No Psychological Hx Reported Smoking Status: Current every day smoker (Quit smoking 3 weeks ago) Past Alcohol Use History: None Reported Past Drug Use History: None Reported - Past Family History Mother Family Medical History: Coronary Artery Disease (CAD) Additional Family Medical History / Comment(s): History of CABG Father Additional Family Medical History / Comment(s): History of permanent pacemaker placement Medications and Allergies Home Medications Medication Instructions Recorded Confirmed Type Cetirizine HCl [Zyrtec] 10 mg PO DAILY 12/02/23 12/22/23 History Cholecalciferol (Vitamin D3) 125 mcg PO DAILY@119912/02/23 12/22/23 History [Vitamin D3 (125 MCG = 5,000 IU)] Enalapril [Vasotec] 10 mg PO DAILY@1200 PRN 12/02/23 12/22/23 History Multivitamins, Thera [Multivitamin 1 tab PO DAILY@1200 12/02/23 12/22/23 History (formulary)] Simvastatin [Zocor] 20 mg PO DAILY@1200 12/02/23 12/22/23 History Aspirin EC [Ecotrin Low Dose] 81 mg PO DAILY 12/22/23 12/22/23 History Ondansetron Odt [Zofran Odt] 4 mg PO Q6H PRN 12/22/23 12/22/23 History Allergies Allergy/AdvReac Type Severity Reaction Status Date / Time No Known Allergies Allergy Verified 12/22/23 13:37 Surgical - Exam Vital Signs Temp Pulse Resp BP Pulse Ox 97.4 F L 93 16 106/75 95 12/22/23 11:19 12/22/23 11:19 12/22/23 11:19 12/22/23 11:19 12/22/23 11:19 - General This is a 73-year-old gentleman who is alert, anasarcic, medically debilitated, and is in no acute apparent distress chronically ill - Eyes PERRL, normal ocular movement, no pale, no icteric - ENT normal pinna, normal nares, normal mucosa, no hearing loss, no congestion, poor care home - Neck Submandibular lymphadenopathy on the left, bilateral JVD no bruits, trachea midline - Respiratory Lung sounds essentially clear throughout, diminished to his bilateral bases left greater than right. No wheezes, rhonchi or crackles. Respirations are symmetrical and nonlabored. Oxygen saturations 94% on 5 L nasal cannula. - Cardiovascular Regular rhythm and rate. S1 and S2 present, negative for S3 or gallop. Soft systolic murmur. Generalized anasarca - Abdomen Abdomen is soft, mild tenderness, nondistended, no organomegaly appreciated. No guarding or rigidity. Active bowel sounds present all 4 abdominal quadrants. - Genitourinary Deferred. Hemodialysis catheter present to his right groin. - Rectum Deferred - Integumentary Skin is warm and dry. No clubbing or cyanosis is present. no rash, no growths, no abnormal pigmentation - Neurologic No focal deficits. - Musculoskeletal Moves all 4 extremities with equal strength bilateral. Generalized weakness. - Psychiatric oriented to time, oriented to person, oriented to place, speech is normal, memory intact Results - Labs 12/27/23 06:10 12/27/23 06:10 Abnormal Lab Results - Last 24 Hours (Table) 12/26/23 12/26/23 12/26/23 Range/Units 08:46 12:22 12:22 WBC 17.2 H (3.8-10.6) k/uL RBC 3.67 L (4.30-5.90) m/uL Hgb 9.6 L (13.0-17.5) gm/dL Hct 30.2 L (39.0-53.0) % RDW 20.4 H (11.5-15.5) % Neutrophils # (Manual) 13.07 H (1.3-7.7) k/uL Sodium 126 L (137-145) mmol/L Potassium 6.6 H* 6.4 H* (3.5-5.1) mmol/L Chloride 97 L (98-107) mmol/L Carbon Dioxide 16 L (22-30) mmol/L BUN 117 H* (9-20) mg/dL Creatinine 4.27 H (0.66-1.25) mg/dL Glucose 141 H (74-99) mg/dL POC Glucose (mg/dL) (70-110) mg/dL Uric Acid 9.7 H (3.5-8.5) mg/dL Calcium (8.4-10.2) mg/dL Phosphorus 11.6 H* (2.5-4.5) mg/dL AST 82 H (17-59) U/L ALT 93 H (4-49) U/L Alkaline Phosphatase 169 H (38-126) U/L Total Protein 5.5 L (6.3-8.2) g/dL Albumin 3.4 L (3.5-5.0) g/dL 12/26/23 12/26/23 12/26/23 Range/Units 17:55 18:32 23:43 WBC (3.8-10.6) k/uL RBC (4.30-5.90) m/uL Hgb (13.0-17.5) gm/dL Hct (39.0-53.0) % RDW (11.5-15.5) % Neutrophils # (Manual) (1.3-7.7) k/uL Sodium 129 L (137-145) mmol/L Potassium 5.8 H (3.5-5.1) mmol/L Chloride 95 L (98-107) mmol/L Carbon Dioxide (22-30) mmol/L BUN 92 H (9-20) mg/dL Creatinine 3.59 H (0.66-1.25) mg/dL Glucose 159 H (74-99) mg/dL POC Glucose (mg/dL) 325 H (70-110) mg/dL Uric Acid (3.5-8.5) mg/dL Calcium 8.3 L (8.4-10.2) mg/dL Phosphorus (2.5-4.5) mg/dL AST (17-59) U/L ALT (4-49) U/L Alkaline Phosphatase (38-126) U/L Total Protein (6.3-8.2) g/dL Albumin (3.5-5.0) g/dL 12/27/23 12/27/23 12/27/23 Range/Units 05:51 06:10 06:10 WBC 12.0 H (3.8-10.6) k/uL RBC 3.35 L (4.30-5.90) m/uL Hgb 8.7 L (13.0-17.5) gm/dL Hct 27.7 L (39.0-53.0) % RDW 20.2 H (11.5-15.5) % Neutrophils # (Manual) (1.3-7.7) k/uL Sodium 129 L (137-145) mmol/L Potassium (3.5-5.1) mmol/L Chloride 97 L (98-107) mmol/L Carbon Dioxide (22-30) mmol/L BUN 100 H (9-20) mg/dL Creatinine 3.60 H (0.66-1.25) mg/dL Glucose 123 H (74-99) mg/dL POC Glucose (mg/dL) 145 H (70-110) mg/dL Uric Acid (3.5-8.5) mg/dL Calcium 8.0 L (8.4-10.2) mg/dL Phosphorus 10.8 H* (2.5-4.5) mg/dL AST (17-59) U/L ALT 76 H (4-49) U/L Alkaline Phosphatase 136 H (38-126) U/L Total Protein 5.2 L (6.3-8.2) g/dL Albumin 3.1 L (3.5-5.0) g/dL Diabetes panel 12/26/23 12/26/23 12/26/23 Range/Units 08:46 12:22 17:55 Sodium 126 L (137-145) mmol/L Potassium 6.6 H* 6.4 H* 5.8 H (3.5-5.1) mmol/L Chloride 97 L (98-107) mmol/L Carbon Dioxide 16 L (22-30) mmol/L BUN 117 H* (9-20) mg/dL Creatinine 4.27 H (0.66-1.25) mg/dL Glucose 141 H (74-99) mg/dL Calcium 8.4 (8.4-10.2) mg/dL AST 82 H (17-59) U/L ALT 93 H (4-49) U/L Alkaline Phosphatase 169 H (38-126) U/L Total Protein 5.5 L (6.3-8.2) g/dL Albumin 3.4 L (3.5-5.0) g/dL 12/26/23 12/27/23 Range/Units 23:43 06:10 Sodium 129 L 129 L (137-145) mmol/L Potassium 4.4 4.7 (3.5-5.1) mmol/L Chloride 95 L 97 L (98-107) mmol/L Carbon Dioxide 24 23 (22-30) mmol/L BUN 92 H 100 H (9-20) mg/dL Creatinine 3.59 H 3.60 H (0.66-1.25) mg/dL Glucose 159 H 123 H (74-99) mg/dL Calcium 8.3 L 8.0 L (8.4-10.2) mg/dL AST 54 (17-59) U/L ALT 76 H (4-49) U/L Alkaline Phosphatase 136 H (38-126) U/L Total Protein 5.2 L (6.3-8.2) g/dL Albumin 3.1 L (3.5-5.0) g/dL Calcium panel 12/26/23 12/26/23 12/27/23 Range/Units 08:46 23:43 06:10 Calcium 8.4 8.3 L 8.0 L (8.4-10.2) mg/dL Phosphorus 11.6 H* 10.8 H* (2.5-4.5) mg/dL Albumin 3.4 L 3.1 L (3.5-5.0) g/dL Pituitary panel 12/26/23 12/26/2312/25/24 Range/Units 08:46 12:22 17:55 Sodium 126 L (137-145) mmol/L Potassium 6.6 H* 6.4 H* 5.8 H (3.5-5.1) mmol/L Chloride 97 L (98-107) mmol/L Carbon Dioxide 16 L (22-30) mmol/L BUN 117 H* (9-20) mg/dL Creatinine 4.27 H (0.66-1.25) mg/dL Glucose 141 H (74-99) mg/dL Calcium 8.4 (8.4-10.2) mg/dL 12/26/23 12/27/23 Range/Units 23:43 06:10 Sodium 129 L 129 L (137-145) mmol/L Potassium 4.4 4.7 (3.5-5.1) mmol/L Chloride 95 L 97 L (98-107) mmol/L Carbon Dioxide 24 23 (22-30) mmol/L BUN 92 H 100 H (9-20) mg/dL Creatinine 3.59 H 3.60 H (0.66-1.25) mg/dL Glucose 159 H 123 H (74-99) mg/dL Calcium 8.3 L 8.0 L (8.4-10.2) mg/dL Adrenal panel 12/26/23 12/26/23 12/26/23 Range/Units 08:46 12:22 17:55 Sodium 126 L (137-145) mmol/L Potassium 6.6 H* 6.4 H* 5.8 H (3.5-5.1) mmol/L Chloride 97 L (98-107) mmol/L Carbon Dioxide 16 L (22-30) mmol/L BUN 117 H* (9-20) mg/dL Creatinine 4.27 H (0.66-1.25) mg/dL Glucose 141 H (74-99) mg/dL Calcium 8.4 (8.4-10.2) mg/dL Total Bilirubin 0.8 (0.2-1.3) mg/dL AST 82 H (17-59) U/L ALT 93 H (4-49) U/L Alkaline Phosphatase 169 H (38-126) U/L Total Protein 5.5 L (6.3-8.2) g/dL Albumin 3.4 L (3.5-5.0) g/dL 12/26/23 12/27/23 Range/Units 23:43 06:10 Sodium 129 L 129 L (137-145) mmol/L Potassium 4.4 4.7 (3.5-5.1) mmol/L Chloride 95 L 97 L (98-107) mmol/L Carbon Dioxide 24 23 (22-30) mmol/L BUN 92 H 100 H (9-20) mg/dL Creatinine 3.59 H 3.60 H (0.66-1.25) mg/dL Glucose 159 H 123 H (74-99) mg/dL Calcium 8.3 L 8.0 L (8.4-10.2) mg/dL Total Bilirubin 0.8 (0.2-1.3) mg/dL AST 54 (17-59) U/L ALT 76 H (4-49) U/L Alkaline Phosphatase 136 H (38-126) U/L Total Protein 5.2 L (6.3-8.2) g/dL Albumin 3.1 L (3.5-5.0) g/dL - Imaging CT scan - abdomen: report reviewed CT scan - pelvis: report reviewed Assessment and Plan Assessment: Large pericardial effusion on transthoracic 2D echocardiogram Recent diagnosis of mantle cell lymphoma, status post axillary lymph node biopsy right side on December 07, 2023, followed by Dr. Sidhu Acute kidney injury, hemodialysis has been initiated Gross anasarca, likely secondary to above Acute hypoxic respiratory failure, currently on 5 L nasal cannula History of hypertension History of hyperlipidemia Chronic ongoing tobacco dependence, quit smoking 3 weeks ago Recent weight loss of 15+ pounds over a 1 to 2 months. Medical debility Plan: The patient was seen and examined at his bedside in the intensive care unit. Family members are currently present at his bedside. The patient was also seen by Dr. Rufino Llamas from cardiothoracic surgery who reviewed his echocardiogram films with Dr. Rodriguez. Dr. Llamas discussed treatment options with the patient and his family present at his bedside, recommendations to proceed with pericardial window today December 27, 2023. Risks and benefits of surgery were discussed with the patient and knowing and understanding the risks the patient wished to proceed with the surgical option. The patient was made n.p.o. after midnight and is scheduled for a pericardial window today December 27, 2023 at 1 PM to be performed by Dr. Wilfred Johnson. Type and screen have been sent. Medical management other comorbidities per primary care and other consultants. More recommendations to follow based on patient's clinical course. Thank you Dr. Rodriguez for this consult and we look forward to working with you in the care of this patient. I have personally seen and examined the patient, performed the documentation and the assessment and plan as written. Number of minutes spent on the visit: 30. NETTA Cifuentes Time with Patient: Greater than 30
--- NOTE | 2023-12-27 10:22 | CA ---
Transthoracic Echo Report Name: Rahul Cruz Age: 73 Gender: M : 1950 Exam Date: 12/26/2023 10:13 Exam Location: [facility] Ht (in): 67 Wt (lb): 155 Ordering Physician: Miko Lui MD ([id number]) Attending/Referring Phys: [employer] Paloma Damon RDCS Procedure CPT: Indications: pericardial effusion Cardiac Hx: Technical Quality: Fair Contrast 1: Total Dose (mL): Contrast 2: Total Dose (mL): MEASUREMENTS (Male / Female) Normal Values 2D ECHO LV Diastolic Diameter PLAX 3.4 cm 4.2 - 5.9 / 3.9 - 5.3 cm LV Systolic Diameter PLAX 2.6 cm IVS Diastolic Thickness 0.7 cm 0.6 - 1.0 / 0.6 - 0.9 cm LVPW Diastolic Thickness 0.6 cm 0.6 - 1.0 / 0.6 - 0.9 cm LV Relative Wall Thickness 0.4 RV Internal Dim ED PLAX 2.9 cm LVOT Diameter 1.9 cm LA Volume 29.8 cm??? 18 - 58 / 22 - 52 cm??? LA Volume Index 16.3 cm???/m??? 16 - 28 cm???/m??? DOPPLER AV Peak Velocity 148.1 cm/s AV Peak Gradient 8.8 mmHg AV Mean Velocity 93.5 cm/s AV Mean Gradient 4.0 mmHg AV Velocity Time Integral 24.8 cm LVOT Peak Velocity 99.6 cm/s LVOT Peak Gradient 4.0 mmHg LVOT Velocity Time Integral 17.4 cm LVOT Stroke Volume 51.8 cm??? LVOT Stroke Volume Index 28.5 ml/m??? LVOT Cardiac Index 2544.9 cm???/min???m??? AV Area Cont Eq vti 2.1 cm??? AV Area Cont Eq pk 2.0 cm??? TR Peak Velocity 254.9 cm/s TR Peak Gradient 26.0 mmHg Right Atrial Pressure 20.0 mmHg Pulmonary Artery Systolic Pressu 46.0 mmHg Right Ventricular Systolic Press 46.0 mmHg PV Peak Velocity 109.0 cm/s PV Peak Gradient 4.8 mmHg FINDINGS Left Ventricle Left ventricular ejection fraction is estimated at 55-60 %. Left ventricular cavity size normal. Left ventricular wall thickness normal. No obvious regional wall motion abnormalities. Right Ventricle Normal right ventricular size with right ventricular collapse. Mild to moderately elevated right ventricular systolic pressure. Right Atrium Right atrium not well visualized. Left Atrium Normal left atrial size. Left atrium collapse. Mitral Valve Structurally normal mitral valve. No evidence for mitral valve prolapse. No mitral stenosis. No mitral regurgitation. Aortic Valve Trileaflet aortic valve. No aortic valve stenosis or regurgitation. Tricuspid Valve Structurally normal tricuspid valve. No tricuspid stenosis. Trace tricuspid regurgitation. Pulmonic Valve Structurally normal pulmonic valve. No pulmonic stenosis. No pulmonic regurgitation. Pericardium Large pericardial effusion. Right ventricular diastolic collapse compatible with a hemodynamically significant pericardial effusion. Left atrial diastolic collapse. Doppler findings suggest a hemodynamically significant pericardial effusion. Respiratory variation of mitral flow. Pleural effusion with blood clot formation. Aorta Aortic root and proximal ascending aorta not well visualized. CONCLUSIONS Large pericardial effusion with evidence of tamponade Previewed by: Dr. Daniel Barnes MD (Electronically Signed) Final Date: 26 December 2023 18:00
--- NOTE | 2023-12-27 10:44 | P.PN ---
Subjective Progress Note Date: 12/27/23 Rahul Cruz, Is a 57-year-old male patient who presented to the ER with concerns of increased weakness over the past few days. Patient was discharged from the hospital 2 weeks ago after diagnosed with lymphoma patient reports that he was doing well for couple days but then began not feeling well not wanting to eat over the past few days patient has past medical history of hyperlipidemia hypertension and nicotine dependence.Chest x-ray completed showing development of a moderate left pleural effusion with adjacent atelectasis or consolidation trace effusion on the right. Abdominal ultrasound completed showing no suspicious ultrasound abnormality some mild ascites is present marked splenomegaly small bilateral pleural effusions are present.Patient white blood cell elevated at 11.6, hemoglobin 10.3, sodium 129, potassium 6.4, creatinine 3.6-190 magnesium 2.8 ALT 17 AST 23. Troponin negative. UA negative. Influenza RSV and COVID-19 negative.At this time patient has been started on IV fluid nephrology and cardiology services have been consulted. Repeat labs have been ordered. Current vital signs temp 97.5, heart rate 100, respiratory rate 18, blood pressure 115/78 with a pulse ox of 95% on 2 L On 12/23/2023 patient is alert and oriented 3. Patient reports slight improvement. Family at bedside. Awaiting nephrology and oncology input. Patient denies chest pain or shortness of breath. Patient denies any urinary burning or frequency. Repeat labs pending On 12/24/2023 patient was seen and examined on the medical floor with, he is alert and oriented x 3 in no apparent distress, he is complaining of generalized fatigue and weakness, otherwise he denies any complaints, there is no fever or chills no headache or dizziness no chest pain, no shortness of breath no cough no nausea or vomiting no abdominal pain no diarrhea and no urinary symptoms. Potassium is elevated today at 6.3, he will be given Kayexalate BUN is 92.2 creatinine 3.7 on 12/25/2023 patient's alert and oriented 3. Patient still complain of generalized fatigue and weakness. Per oncology services possible tumor lysis syndrome awaiting repeat labs today for further plan. Nephrology services following. Current vital signs temp 97.4, heart rate 103, respiratory rate 16, blood pressure 121/82 with a pulse ox of 97% on 2 L. Patient remains on sodium bicarbonate drip On 12/26/2023 patient was seen and examined on the telemetry floor, he is alert and oriented x 3 in no apparent distress, he is complaining of generalized weakness, otherwise he denies any complaints at this time, there is no fever or chills no headache or dizziness no chest pain no shortness of breath, no cough no nausea or vomiting no abdominal pain no diarrhea no urinary symptoms. CT scan yesterday revealed evidence of pericardial effusion, patient was transferred to telemetry floor, echocardiogram ordered and cardiology consult requested. Potassium is elevated Kayexalate was ordered. On 12/27/2023 patient remains in the intensive care unit alert and oriented 3. Plans today for pericardial window. Patient did get hemodialysis yesterday no fluid was removed. Plans after pericardial window to receive hemodialysis again. Patient currently not on any vasopressors. Current vital signs temp 97.9, heart rate 86, respiratory rate 18, blood pressure 112/66 with pulse ox 95% on 5 L. Patient also started on dexamethasone per oncology services. Patient seen on sodium bicarb drip Objective - Vital Signs Vital signs: Vital Signs Temp 97.9 F 12/27/23 08:00 Pulse 81 12/27/23 10:00 Resp 14 12/27/23 10:00 BP 114/63 12/27/23 10:00 Pulse Ox 95 12/27/23 10:00 FiO2 Intake & Output 12/26/23 12/27/23 12/27/23 18:59 06:59 18:59 Intake Total 1850 763.795 46.787 Output Total 950 1125 160 Balance 900 -361.205 -113.213 Weight 86.8 kg Intake: IV 50 Intake, IV Titration 13.795 46.787 Amount Norepinephrine 4 mg In 13.795 46.787 Sodium Chloride 0.9% 250 ml @ 0.03 MCG/KG/MIN 8. 036 mls/hr IV .Q24H MIKAELA Rx#:[id number] Oral 1800 250 Hemodialysis 500 Output: Urine 950 625 160 Hemodialysis 500 Other: Voiding Method Indwelling Catheter Indwelling Catheter Indwelling Catheter # Bowel Movements 1 - Exam Head normocephalic Neck supple Lungs clear to auscultation bilaterally no wheezing or crackles Heart regular rate and rhythm S1-S2, no rub or gallop Abdomen is soft nontender nondistended positive bowel sounds no hepatosplenomegaly Extremities no edema Neuro alert and orientated to 3 - Labs CBC & Chem 7: 12/27/23 06:10 12/27/23 06:10 Labs: Abnormal Lab Results - Last 24 Hours (Table) 12/26/23 12/26/23 12/26/23 Range/Units 12:22 12:22 17:55 WBC 17.2 H (3.8-10.6) k/uL RBC 3.67 L (4.30-5.90) m/uL Hgb 9.6 L (13.0-17.5) gm/dL Hct 30.2 L (39.0-53.0) % RDW 20.4 H (11.5-15.5) % Neutrophils # (Manual) 13.07 H (1.3-7.7) k/uL Sodium (137-145) mmol/L Potassium 6.4 H* 5.8 H (3.5-5.1) mmol/L Chloride (98-107) mmol/L BUN (9-20) mg/dL Creatinine (0.66-1.25) mg/dL Glucose (74-99) mg/dL POC Glucose (mg/dL) (70-110) mg/dL Calcium (8.4-10.2) mg/dL Phosphorus (2.5-4.5) mg/dL ALT (4-49) U/L Alkaline Phosphatase (38-126) U/L Total Protein (6.3-8.2) g/dL Albumin (3.5-5.0) g/dL 12/26/23 12/26/23 12/27/23 Range/Units 18:32 23:43 05:51 WBC (3.8-10.6) k/uL RBC (4.30-5.90) m/uL Hgb (13.0-17.5) gm/dL Hct (39.0-53.0) % RDW (11.5-15.5) % Neutrophils # (Manual) (1.3-7.7) k/uL Sodium 129 L (137-145) mmol/L Potassium (3.5-5.1) mmol/L Chloride 95 L (98-107) mmol/L BUN 92 H (9-20) mg/dL Creatinine 3.59 H (0.66-1.25) mg/dL Glucose 159 H (74-99) mg/dL POC Glucose (mg/dL) 325 H 145 H (70-110) mg/dL Calcium 8.3 L (8.4-10.2) mg/dL Phosphorus (2.5-4.5) mg/dL ALT (4-49) U/L Alkaline Phosphatase (38-126) U/L Total Protein (6.3-8.2) g/dL Albumin (3.5-5.0) g/dL 12/27/23 12/27/23 Range/Units 06:10 06:10 WBC 12.0 H (3.8-10.6) k/uL RBC 3.35 L (4.30-5.90) m/uL Hgb 8.7 L (13.0-17.5) gm/dL Hct 27.7 L (39.0-53.0) % RDW 20.2 H (11.5-15.5) % Neutrophils # (Manual) 10.20 H (1.3-7.7) k/uL Sodium 129 L (137-145) mmol/L Potassium (3.5-5.1) mmol/L Chloride 97 L (98-107) mmol/L BUN 100 H (9-20) mg/dL Creatinine 3.60 H (0.66-1.25) mg/dL Glucose 123 H (74-99) mg/dL POC Glucose (mg/dL) (70-110) mg/dL Calcium 8.0 L (8.4-10.2) mg/dL Phosphorus 10.8 H* (2.5-4.5) mg/dL ALT 76 H (4-49) U/L Alkaline Phosphatase 136 H (38-126) U/L Total Protein 5.2 L (6.3-8.2) g/dL Albumin 3.1 L (3.5-5.0) g/dL Assessment and Plan Assessment: 1. Acute kidney failureLikely secondary to tumor lysis syndrome. Requiring hemodialysis 2. Recent diagnosis of lymphoma with splenomegaly and extensive lymphadenopathy 3. History of essential hypertension 4. History of hyperlipidemia 5. Increased weakness and general malaise. 6. Electrolyte imbalance with hyperkalemia 7. Moderate to large size pericardial effusion. Her cardiolipin no scheduled for 12/27/2023 DVT prophylaxis Lovenox. GI prophylaxis Protonix Nephrology, oncology, cardiology and critical care services are following Patient has been transferred to the ICU Patient started on hemodialysis 12/26/2023 Pericardial window scheduled for 12/27/2023 Patient started on IV steroids per oncology service is Maintained on sodium bicarb drip
[2023-12-27 11:08] LABS: Glucose,Whole Blood 193 mg/dL (70-110)
--- NOTE | 2023-12-27 13:22 | P.PN ---
Subjective Progress Note Date: 12/27/23 Principal diagnosis: Pericardial effusion The patient is a 73-year-old gentleman who never seen by the cardiology service before with a past medical history significant for hypertension and dyslipidemia and presented diagnosis of mantle cell lymphoma presented to the hospital not feeling well. He presented with progressive generalized weakness over the last several days. Beside that and according to his family he has been experiencing progressive shortness of breath with exertion and progressive bilateral lower extremities edema. He underwent further investigation including blood work and that showed renal failure. Beside that his potassium has been severely elevated . His hemoglobin was also low. The patient underwent a CT scan of the abdomen and pelvis and that showed moderate pericardial effusion. Subsequently he underwent an echocardiogram earlier today and that showed large pericardial effusion with concerning tamponade physiology. His pressure has been marginal. Currently he is on Lasix. I am going to stop the Lasix. He underwent a dialysis catheter. He is in process of having dialysis later on today. I had a discussion about his case with the nephrology service and the plan to undergo gentle dialysis later on today with no significant amount of fluid to be taken out and he is also in agreement about stopping the Lasix at this point. He is not on any blood pressure medications at this point. The patient will be transferred to the intensive care unit. He would be seen by the surgical team for the evaluation of pericardial window. The patient currently is not having any chest pain or chest discomfort but on examination he does have severe bilateral lower extremities edema. He does not have any symptoms of any fever or chills or any other cardiac symptoms beside the shortness of breath and the progressive lower extremities edema. No dizziness or lightheadedness and no presyncope or syncope. The examination is remarkable for relatively stable vital signs with marginally low blood pressure and regular rate and rhythm with a soft systolic murmur and diminished breathing sounds bilaterally and severe bilateral lower extremities edema December 27, 2023 The patient was seen and evaluated this morning. He is going to undergo pe ricardial window later on today. He is overall stable. Currently he is not on any hypertension medication and the Lasix was stopped yesterday. The examination is remarkable for regular rhythm with a distant heart sounds and diminished breathing sounds bilaterally and bilateral lower extremities edema noted. Assessment Recent diagnosis of mantle cell lymphoma Renal failure Heart failure Multiple comorbid conditions including hypertension and dyslipidemia Electrolytes imbalance Anemia Plan Avoid any blood pressure lowering agents Pericardial window to be done in the next few hours Follow-up with the patient Objective - Vital Signs Vital signs: Vital Signs Temp 97.7 F 12/27/23 12:00 Pulse 87 12/27/23 13:00 Resp 12 12/27/23 13:00 BP 104/64 12/27/23 13:00 Pulse Ox 94 L 12/27/23 13:00 FiO2 Intake & Output 12/26/23 12/27/23 12/27/23 18:59 06:59 18:59 Intake Total 1850 763.795 46.787 Output Total 950 1125 380 Balance 900 -361.205 -333.213 Weight 86.8 kg Intake: IV 50 Intake, IV Titration 13.795 46.787 Amount Norepinephrine 4 mg In 13.795 46.787 Sodium Chloride 0.9% 250 ml @ 0.03 MCG/KG/MIN 8. 036 mls/hr IV .Q24H [facility]KAELA Rx#:[id number] Oral 1800 250 Hemodialysis 500 Output: Urine 950 625 380 Hemodialysis 500 Other: Voiding Method Indwelling Catheter Indwelling Catheter Indwelling Catheter # Bowel Movements 1 - Labs CBC & Chem 7: 12/27/23 06:10 12/27/23 06:10 Labs: Abnormal Lab Results - Last 24 Hours (Table) 12/26/23 12/26/23 12/26/23 Range/Units 12:22 12:22 17:55 WBC (3.8-10.6) k/uL RBC (4.30-5.90) m/uL Hgb (13.0-17.5) gm/dL Hct (39.0-53.0) % RDW (11.5-15.5) % Neutrophils # (Manual) 13.07 H (1.3-7.7) k/uL Sodium (137-145) mmol/L Potassium 6.4 H* 5.8 H (3.5-5.1) mmol/L Chloride (98-107) mmol/L BUN (9-20) mg/dL Creatinine (0.66-1.25) mg/dL Glucose (74-99) mg/dL POC Glucose (mg/dL) (70-110) mg/dL Calcium (8.4-10.2) mg/dL Phosphorus (2.5-4.5) mg/dL ALT (4-49) U/L Alkaline Phosphatase (38-126) U/L Total Protein (6.3-8.2) g/dL Albumin (3.5-5.0) g/dL 12/26/23 12/26/23 12/27/23 Range/Units 18:32 23:43 05:51 WBC (3.8-10.6) k/uL RBC (4.30-5.90) m/uL Hgb (13.0-17.5) gm/dL Hct (39.0-53.0) % RDW (11.5-15.5) % Neutrophils # (Manual) (1.3-7.7) k/uL Sodium 129 L (137-145) mmol/L Potassium (3.5-5.1) mmol/L Chloride 95 L (98-107) mmol/L BUN 92 H (9-20) mg/dL Creatinine 3.59 H (0.66-1.25) mg/dL Glucose 159 H (74-99) mg/dL POC Glucose (mg/dL) 325 H 145 H (70-110) mg/dL Calcium 8.3 L (8.4-10.2) mg/dL Phosphorus (2.5-4.5) mg/dL ALT (4-49) U/L Alkaline Phosphatase (38-126) U/L Total Protein (6.3-8.2) g/dL Albumin (3.5-5.0) g/dL 12/27/23 12/27/23 12/27/23 Range/Units 06:10 06:10 11:07 WBC 12.0 H (3.8-10.6) k/uL RBC 3.35 L (4.30-5.90) m/uL Hgb 8.7 L (13.0-17.5) gm/dL Hct 27.7 L (39.0-53.0) % RDW 20.2 H (11.5-15.5) % Neutrophils # (Manual) 10.20 H (1.3-7.7) k/uL Sodium 129 L (137-145) mmol/L Potassium (3.5-5.1) mmol/L Chloride 97 L (98-107) mmol/L BUN 100 H (9-20) mg/dL Creatinine 3.60 H (0.66-1.25) mg/dL Glucose 123 H (74-99) mg/dL POC Glucose (mg/dL) 193 H (70-110) mg/dL Calcium 8.0 L (8.4-10.2) mg/dL Phosphorus 10.8 H* (2.5-4.5) mg/dL ALT 76 H (4-49) U/L Alkaline Phosphatase 136 H (38-126) U/L Total Protein 5.2 L (6.3-8.2) g/dL Albumin 3.1 L (3.5-5.0) g/dL
[2023-12-27] MEDS ORDERED: PROPOFOL 10 MG/ML 20 ML VIAL IV ONE (13:25)
[2023-12-27] MEDS ORDERED: ALBUTEROL HFA INHALER INHALATION ONE (13:25)
[2023-12-27] MEDS ORDERED: ONDANSETRON 4 MG/2 ML VIAL ONE (13:25)
[2023-12-27] MEDS ORDERED: LIDOCAINE 1% INJ 10MG/ML (20 ML MDV) ONE (13:25)
[2023-12-27] MEDS ORDERED: SUCCINYLCHOLINE CHLORIDE 200 MG/10 ML VIAL IV ONE (13:25)
[2023-12-27] MEDS ORDERED: ROCURONIUM 10 MG/ML (5 ML VIAL) IV ONE (13:25)
[2023-12-27] MEDS ORDERED: fentaNYL (PF) 50 MCG/ML 2 ML AMP ONE (13:25)
[2023-12-27] MEDS: LACTATED RINGERS 1,000 ML IV ONE (14:26)
--- NOTE | 2023-12-27 15:10 | XR ---
EXAMINATION TYPE: XR chest 1V portable DATE OF EXAM: 12/27/2023 Comparison: 12/27/2023 Clinical History: 73-year-old male Postoperative pericardial window Findings: Pericardial catheter noted. Heart size stable, upper limits of normal. Increased, now small to modera te left neural effusion. Similarly the density of the right base could represent small effusion here as well. Impression: Pericardial catheter noted. Increasing [id number] left pleural effusion with adjacent atelecta sis and/or consolidation. Suspect small effusion on the right as well.
[2023-12-27] MEDS: HYDROcodone/APAP 5-325MG 1 EACH TAB PO PRN (16:36)
[2023-12-27 17:01] LABS: Glucose,Whole Blood 128 mg/dL (70-110)
[2023-12-27 20:25] LABS: Glucose,Whole Blood 118 mg/dL (70-110)
--- NOTE | 2023-12-27 21:00 | P.PN ---
Subjective Progress Note Date: 12/27/23 Principal diagnosis: TLS, ARF. Mantle cell lymphoma/Lymphoplasmitic lymphoma In f/u pt is seen in ICU, being prepped for pericardial window. Reports he started dialysis yesterday, tolerated that ok. He is SOB with any activity, has generalized swelling, denies chest pain, fevers, no bleeding reported Objective - Vital Signs Vital signs: Vital Signs Temp 97.2 F L 12/27/23 14:26 Pulse 88 12/27/23 15:26 Resp 16 12/27/23 15:26 BP 118/61 12/27/23 15:26 Pulse Ox 96 12/27/23 15:26 FiO2 Intake & Output 12/26/23 12/27/23 12/27/23 18:59 06:59 18:59 Intake Total 1850 763.795 646.787 Output Total 950 1125 955 Balance 900 -361.205 -308.213 Weight 86.8 kg 86.8 kg Intake: IV 50 600 Intake, IV Titration 13.795 46.787 Amount Norepinephrine 4 mg In 13.795 46.787 Sodium Chloride 0.9% 250 ml @ 0.03 MCG/KG/MIN 8. 036 mls/hr IV .Q24H [facility]KAELA Rx#:[id number] Oral 1800 250 Hemodialysis 500 Output: Urine 950 625 905 Hemodialysis 500 Estimated Blood Loss 50 Other: Voiding Method Indwelling Catheter Indwelling Catheter Indwelling Catheter # Bowel Movements 1 - Constitutional Constitutional Comment(s): Pt has changed dramatically since being seen just 2.5 weeks ago. Additional wt. loss, emaciated looking, resp are shallow and rapid, pitting swelling of the extremities, generalized anasarca. General appearance: Present: cooperative - EENT Eyes: Present: EOMI ENT: Present: hearing grossly normal - Respiratory Details: Respirations mildly labored at rest - Cardiovascular Details: anasarca - Integumentary Integumentary: Present: pale - Neurologic Neurologic: Present: CNII-XII intact - Musculoskeletal Musculoskeletal: Present: generalized weakness - Psychiatric Psychiatric: Present: A&O x's 3, appropriate affect, intact judgment & insight - Labs CBC & Chem 7: 12/27/23 06:10 12/27/23 06:10 Labs: Abnormal Lab Results - Last 24 Hours (Table) 12/26/23 12/26/2324 Range/Units 17:55 18:32 23:43 WBC (3.8-10.6) k/uL RBC (4.30-5.90) m/uL Hgb (13.0-17.5) gm/dL Hct (39.0-53.0) % RDW (11.5-15.5) % Neutrophils # (Manual) (1.3-7.7) k/uL Sodium 129 L (137-145) mmol/L Potassium 5.8 H (3.5-5.1) mmol/L Chloride 95 L (98-107) mmol/L BUN 92 H (9-20) mg/dL Creatinine 3.59 H (0.66-1.25) mg/dL Glucose 159 H (74-99) mg/dL POC Glucose (mg/dL) 325 H (70-110) mg/dL Calcium 8.3 L (8.4-10.2) mg/dL Phosphorus (2.5-4.5) mg/dL ALT (4-49) U/L Alkaline Phosphatase (38-126) U/L Total Protein (6.3-8.2) g/dL Albumin (3.5-5.0) g/dL 12/27/23 12/27/23 12/27/23 Range/Units 05:51 06:10 06:10 WBC 12.0 H (3.8-10.6) k/uL RBC 3.35 L (4.30-5.90) m/uL Hgb 8.7 L (13.0-17.5) gm/dL Hct 27.7 L (39.0-53.0) % RDW 20.2 H (11.5-15.5) % Neutrophils # (Manual) 10.20 H (1.3-7.7) k/uL Sodium 129 L (137-145) mmol/L Potassium (3.5-5.1) mmol/L Chloride 97 L (98-107) mmol/L BUN 100 H (9-20) mg/dL Creatinine 3.60 H (0.66-1.25) mg/dL Glucose 123 H (74-99) mg/dL POC Glucose (mg/dL) 145 H (70-110) mg/dL Calcium 8.0 L (8.4-10.2) mg/dL Phosphorus 10.8 H* (2.5-4.5) mg/dL ALT 76 H (4-49) U/L Alkaline Phosphatase 136 H (38-126) U/L Total Protein 5.2 L (6.3-8.2) g/dL Albumin 3.1 L (3.5-5.0) g/dL 12/27/23 Range/Units 11:07 WBC (3.8-10.6) k/uL RBC (4.30-5.90) m/uL Hgb (13.0-17.5) gm/dL Hct (39.0-53.0) % RDW (11.5-15.5) % Neutrophils # (Manual) (1.3-7.7) k/uL Sodium (137-145) mmol/L Potassium (3.5-5.1) mmol/L Chloride (98-107) mmol/L BUN (9-20) mg/dL Creatinine (0.66-1.25) mg/dL Glucose (74-99) mg/dL POC Glucose (mg/dL) 193 H (70-110) mg/dL Calcium (8.4-10.2) mg/dL Phosphorus (2.5-4.5) mg/dL ALT (4-49) U/L Alkaline Phosphatase (38-126) U/L Total Protein (6.3-8.2) g/dL Albumin (3.5-5.0) g/dL Assessment and Plan (1) Tumor lysis syndrome Current Visit: Yes Status: Acute Priority: High Code(s): E88.3 - TUMOR LYSIS SYNDROME SNOMED Code(s): 902913280 (2) Renal failure Current Visit: Yes Status: Acute Priority: High Code(s): N19 - UNSPECIFIED KIDNEY FAILURE SNOMED Code(s): 48816608 (3) Mantle cell lymphoma Current Visit: Yes Status: Acute Priority: High Code(s): C83.10 - MANTLE CELL LYMPHOMA, UNSPECIFIED SITE SNOMED Code(s): 734063309 (4) Iron (Fe) deficiency anemia Current Visit: No Status: Acute Priority: Medium Code(s): D50.9 - IRON DEFICIENCY ANEMIA, UNSPECIFIED SNOMED Code(s): 52766644 Plan: ARF and TLS -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 They did verbalize understanding. Orders will be sent to begin [facility]. Hopefully patient will be stable enough to transfer to [address] [place] [address] for treatment. No plans for prophylactic intrathecal chemotherapy at this time. -Finish pulse dose dex tomorrow -Elitek x 2, uric acid normal today at 5.4 -Continue dialysis per nephrology. BUN 106 creatinine 3.6 today, phosphorus 10.8. -Labs daily Iron deficient anemia -Patient received 4 doses of parenteral iron around 12/03/2023 -Hemoglobin is currently stable at 8.7 -Anemia is multifactorial including disease process, renal failure. -Transfuse for hemoglobin less than 7 or if patient is symptomatic. Currently, patient is fluid overloaded so, conservative transfusion recommended.
--- NOTE | 2023-12-27 21:24 | OP ---
OPERATIVE REPORT DATE OF SERVICE : 12/27/2023 ASSIST: Naga Salguero NP PREOPERATIVE DIAGNOSES: 1. Large pericardial effusion. 2. History of lymphoma. 3. Early pericardial tamponade. POSTOPERATIVE DIAGNOSES: 1. Large pericardial effusion. 2. History of lymphoma. 3. Early pericardial tamponade. PROCEDURE: Subxiphoid pericardial window. ANESTHESIA: General. BLOOD LOSS: About 50 cc. SUMMARY: The patient brought to the operating room, placed in the supine position. From rastafarian of a general endotracheal anesthetic, placement of a BRAN probe, adequate IV access, arterial line, the chest and abdomen were prepped and draped in a normal sterile fashion using chlorhexidine, paint, and sterile towels. A 3 cm incision was made over the distal xiphoid vertically. The linea alba was divided vertically. Dissection was carried in the subxiphoid space to the pericardium. At this point, an opening in the pericardium was made. About 450 cc of a bloody pericardial effusion nonclotting was removed under BRAN guidance. The fluid and a piece of pericardium were sent to pathology for full studies including cell count and cytology. Once the fluid was drained, a #32 straight chest tube was placed intrapericardial through via separate stab incision. The incision was then closed in 3 layers of 0 Vicryl, 2-0, and 3-0 Vicryl sutures. Steri-Strips or skin glue was applied. No complications. The patient tolerated procedure well. Postoperative echo showed excellent resolution of the pericardial fluid. The patient was then transported back to the cardiovascular intensive care unit in critical but stable condition. MMODL / IJN: [id number] /
[2023-12-28] MEDS: CALCIUM CARBONATE 500 MG CHEWABLE PO PRN (04:21)
[2023-12-28 05:20] LABS: ALT 66 U/L (4-49); AST 40 U/L (17-59); African American GFR (CKD) 30 (>60 ml/min/1.73 sqM); Albumin 2.9 g/dL (3.5-5.0); Alkaline Phosphatase 110 U/L (38-126); Anion Gap 8 mmol/L; Blood Urea Nitrogen 67 mg/dL (9-20); Calcium 7.6 mg/dL (8.4-10.2); Carbon Dioxide 28 mmol/L (22-30); Chloride 97 mmol/L (98-107); Glucose 107 mg/dL (74-99); Non-African American GFR(CKD) 26 (>60 ml/min/1.73 sqM); Phosphorus 7.4 mg/dL (2.5-4.5); Sodium 133 mmol/L (137-145); Total Bilirubin 0.7 mg/dL (0.2-1.3); Total Protein 4.9 g/dL (6.3-8.2); Uric Acid 3.7 mg/dL (3.5-8.5)
[2023-12-28 05:33] LABS: Anisocytosis Moderate; HCT 25.5 % (39.0-53.0); HGB 7.9 gm/dL (13.0-17.5); Hypochromasia Slight; MCH 25.5 pg (25.0-35.0); MCHC 30.9 g/dL (31.0-37.0); MCV 82.3 fL (80.0-100.0); Mean Platelet Volume 8.5; Platelet Count 161 k/uL (150-450); Poikilocytosis Slight; RBC 3.09 m/uL (4.30-5.90); RDW 20.2 % (11.5-15.5)
[2023-12-28 07:17] LABS: Lymphocytes # (M) 0.66 k/uL (1.0-4.8); Monocytes # (M) 0.15 k/uL (0-1.0); Neutrophils # (M) 6.57 k/uL (1.3-7.7); Neutrophils % (M) 90 %; Nucleated Red Blood Cells 1 /100 WBC (0-0); Total Cells Counted 200; WBC 7.3 k/uL (3.8-10.6)
--- NOTE | 2023-12-28 07:18 | P.PN ---
Subjective Progress Note Date: 12/28/23 Principal diagnosis: Pericardial effusion The patient is a 73-year-old gentleman who never seen by the cardiology service before with a past medical history significant for hypertension and dyslipidemia and presented diagnosis of mantle cell lymphoma presented to the hospital not feeling well. He presented with progressive generalized weakness over the last several days. Beside that and according to his family he has been experiencing progressive shortness of breath with exertion and progressive bilateral lower extremities edema. He underwent further investigation including blood work and that showed renal failure. Beside that his potassium has been severely elevated . His hemoglobin was also low. The patient underwent a CT scan of the abdomen and pelvis and that showed moderate pericardial effusion. Subsequently he underwent an echocardiogram earlier today and that showed large pericardial effusion with concerning tamponade physiology. His pressure has been marginal. Currently he is on Lasix. I am going to stop the Lasix. He underwent a dialysis catheter. He is in process of having dialysis later on today. I had a discussion about his case with the nephrology service and the plan to undergo gentle dialysis later on today with no significant amount of fluid to be taken out and he is also in agreement about stopping the Lasix at this point. He is not on any blood pressure medications at this point. The patient will be transferred to the intensive care unit. He would be seen by the surgical team for the evaluation of pericardial window. The patient currently is not having any chest pain or chest discomfort but on examination he does have severe bilateral lower extremities edema. He does not have any symptoms of any fever or chills or any other cardiac symptoms beside the shortness of breath and the progressive lower extremities edema. No dizziness or lightheadedness and no presyncope or syncope. The examination is remarkable for relatively stable vital signs with marginally low blood pressure and regular rate and rhythm with a soft systolic murmur and diminished breathing sounds bilaterally and severe bilateral lower extremities edema December 27, 2023 The patient was seen and evaluated this morning. He is going to undergo pe ricardial window later on today. He is overall stable. Currently he is not on any hypertension medication and the Lasix was stopped yesterday. The examination is remarkable for regular rhythm with a distant heart sounds and diminished breathing sounds bilaterally and bilateral lower extremities edema noted. December 28, 2023 The patient was seen and evaluated this morning. He underwent pericardial window yesterday with removal of around 450 cc of bloody fluid from the pericardium. The patient was seen this morning. He does have a mild change in mental status but he is able to answer my questions. He is experiencing discomfort in the chest related to the pericardium tube with that being said and with the pericardial effusion I am going to start him on colchicine at 0.6 mg p.o. twice daily. Beside that the kidney function has been trending slightly better but he continues to be on dialysis. Hemoglobin is stable and above 8. We will consider repeating the echo or getting a limited echo on him tomorrow to assess the size of the pericardial effusion. Assessment Large pericardial effusion status post pericardial window Recent diagnosis of mantle cell lymphoma Renal failure Heart failure Multiple comorbid conditions including hypertension and dyslipidemia Electrolytes imbalance Anemia Plan Continue the current medical regimen Add colchicine to the current medical regimen Follow-up with the patient Objective - Vital Signs Vital signs: Vital Signs Temp 97.9 F 12/28/23 04:00 Pulse 82 12/28/23 07:00 Resp 18 12/28/23 07:00 BP 113/56 12/28/23 07:00 Pulse Ox 93 L 12/28/23 07:00 FiO2 Intake & Output 12/27/23 12/28/23 12/28/23 18:59 06:59 18:59 Intake Total 1646.787 885 10 Output Total 1800 2260 45 Balance -153.213 -1375 -35 Weight 86.8 kg 84.1 kg Intake: IV 1600 110 10 KVO .9 110 10 Lactated Ringers 1,000 ml 1000 @ 0 mls/hr IV .[facility] Rx#:[id number] Intake, IV Titration 46.787 Amount Norepinephrine 4 mg In 46.787 Sodium Chloride 0.9% 250 ml @ 0.03 MCG/KG/MIN 8. 036 mls/hr IV .Q24H [facility] Rx#:[id number] Oral 75 Hemodialysis 700 Output: Drainage 0 Anterior Medial Chest 0 Urine 1750 710 45 Hemodialysis 1550 Estimated Blood Loss 50 Other: Voiding Method Indwelling Catheter Indwelling Catheter # Bowel Movements 0 ABP, PAP, CO, CI - Last Documented Arterial Blood Pressure 141/56 - Labs CBC & Chem 7: 12/28/23 05:00 12/28/23 05:00 Labs: Abnormal Lab Results - Last 24 Hours (Table) 12/27/23 12/27/23 12/27/23 Range/Units 06:10 11:07 17:00 RBC (4.30-5.90) m/uL Hgb (13.0-17.5) gm/dL Hct (39.0-53.0) % MCHC (31.0-37.0) g/dL RDW (11.5-15.5) % Neutrophils # (Manual) 10.20 H (1.3-7.7) k/uL Sodium (137-145) mmol/L Chloride (98-107) mmol/L BUN (9-20) mg/dL Creatinine (0.66-1.25) mg/dL Glucose (74-99) mg/dL POC Glucose (mg/dL) 193 H 128 H (70-110) mg/dL Calcium (8.4-10.2) mg/dL Phosphorus (2.5-4.5) mg/dL ALT (4-49) U/L Total Protein (6.3-8.2) g/dL Albumin (3.5-5.0) g/dL 12/27/23 12/28/23 12/28/23 Range/Units 20:23 05:00 05:00 RBC 3.09 L (4.30-5.90) m/uL Hgb 7.9 L (13.0-17.5) gm/dL Hct 25.5 L (39.0-53.0) % MCHC 30.9 L (31.0-37.0) g/dL RDW 20.2 H (11.5-15.5) % Neutrophils # (Manual) (1.3-7.7) k/uL Sodium 133 L (137-145) mmol/L Chloride 97 L (98-107) mmol/L BUN 67 H (9-20) mg/dL Creatinine 2.40 H (0.66-1.25) mg/dL Glucose 107 H (74-99) mg/dL POC Glucose (mg/dL) 118 H (70-110) mg/dL Calcium 7.6 L (8.4-10.2) mg/dL Phosphorus 7.4 H (2.5-4.5) mg/dL ALT 66 H (4-49) U/L Total Protein 4.9 L (6.3-8.2) g/dL Albumin 2.9 L (3.5-5.0) g/dL
[2023-12-28 07:23] LABS: Polychromasia Present
--- NOTE | 2023-12-28 08:00 | XR ---
EXAMINATION TYPE: XR chest 1V portable DATE OF EXAM: 12/28/2023 Comparison: 12/27/2023 Clinical History: 73-year-old male pleural effusion, fluid overload, hypoxia Findings: Left heart margin obscured by adjacent pleural parenchymal opacity. Worsening mid and lower lung opac ities suggesting increasing effusions. Right apical pleural-parenchymal scarring is similar. Impression: Worsening moderate left greater than right pleural effusions with adjacent atelectasis and/or consoli dation.
[2023-12-28] MEDS: COLCHICINE 0.6 MG EACH PO SCH (08:22)
--- NOTE | 2023-12-28 09:19 | P.PN ---
Subjective Progress Note Date: 12/28/23 Principal diagnosis: Large pericardial effusion with early pericardial tamponade, acute kidney injury with initiation of hemodialysis, acute hypoxic respiratory failure. Recent new diagnosis of mantle cell lymphoma, status post right sided axillary lymph node biopsy 12/06/23, hypertension, hyperlipidemia, chronic ongoing tobacco dependence with recent cessation, recent unintentional weight loss of 15+ pounds over 1-2 months, medical debility POD #1 subxiphoid pericardial window with removal of 450 mL bloody fluid The patient was seen and examined sitting up in bed in the ICU with family present. Denies significant pain, shortness of breath, only complaint is of being very tired. Remains in sinus rhythm, hemodynamically stable. Mediastinal chest tube present to continuous wall suction, 350 mL drainage since surgery yesterday. Received hemodialysis yesterday. No other new concerns. Objective - Vital Signs Vital signs: Vital Signs Temp 97.7 F 12/28/23 08:00 Pulse 85 12/28/23 08:00 Resp 12 12/28/23 08:00 BP 120/60 12/28/23 08:00 Pulse Ox 93 L 12/28/23 08:00 FiO2 Intake & Output 12/27/23 12/28/23 12/28/23 18:59 06:59 18:59 Intake Total 1646.787 885 20 Output Total 1800 2260 155 Balance -153.213 -1375 -135 Weight 86.8 kg 84.1 kg Intake: IV 1600 110 20 KVO .9 110 20 Lactated Ringers 1,000 ml 1000 @ 0 mls/hr IV .[facility] Rx#:[id number] Intake, IV Titration 46.787 Amount Norepinephrine 4 mg In 46.787 Sodium Chloride 0.9% 250 ml @ 0.03 MCG/KG/MIN 8. 036 mls/hr IV .Q24H [facility] Rx#:[id number] Oral 75 Hemodialysis 700 Output: Chest Tube Drainage 10 Chest Tube Mediastinal 10 Drainage 0 Anterior Medial Chest 0 Urine 1750 710 145 Hemodialysis 1550 Estimated Blood Loss 50 Other: Voiding Method Indwelling Catheter Indwelling Catheter # Bowel Movements 0 ABP, PAP, CO, CI - Last Documented Arterial Blood Pressure 138/58 - Exam CONSTITUTIONAL: Appears comfortable, cooperative, no acute distress RESPIRATORY: Lungs sounds diminished bilaterally. Respirations even, nonlabored. Currently on 5 L nasal cannula with oxygen saturation 97%. Strong cough. CARDIOVASCULAR: S1, S2 present. Regular rate and rhythm, sinus rhythm on telemetry. Palpable peripheral pulses bilaterally. No edema present. No calf pain or tenderness noted GASTROINTESTINAL: Abdomen soft, nontender, nondistended. Active bowel sounds present 4 quadrants GENITOURINARY: Alvarez present draining clear, yellow urine. Output overnight 50-100 mL per hour, 2460 mL in the last 24 hours INTEGUMENTARY: Skin is warm and dry NEUROLOGIC: Cranial nerves II through XII intact MUSKULOSKELETAL: Able to move all extremities, strength equal bilaterally PSYCHIATRIC: Alert and oriented to person place and time, appropriate affect, intact judgment and insight INVASIVE LINES AND TUBES: Mediastinal chest tube present and connected to wall suction, no air leaks present, no drainage overnight, 350 mL since surgery. Left radial arterial line, right femoral temporary dialysis catheter present. - Allied health notes Allied health notes reviewed: nursing - Labs CBC & Chem 7: 12/28/23 05:00 12/28/23 05:00 Labs: Abnormal Lab Results - Last 24 Hours (Table) 12/27/23 12/27/23 12/27/23 Range/Units 06:10 11:07 17:00 RBC (4.30-5.90) m/uL Hgb (13.0-17.5) gm/dL Hct (39.0-53.0) % MCHC (31.0-37.0) g/dL RDW (11.5-15.5) % Neutrophils # (Manual) 10.20 H (1.3-7.7) k/uL Lymphocytes # (Manual) (1.0-4.8) k/uL Nucleated RBCs (0-0) /100 WBC Sodium (137-145) mmol/L Chloride (98-107) mmol/L BUN (9-20) mg/dL Creatinine (0.66-1.25) mg/dL Glucose (74-99) mg/dL POC Glucose (mg/dL) 193 H 128 H (70-110) mg/dL Calcium (8.4-10.2) mg/dL Phosphorus (2.5-4.5) mg/dL ALT (4-49) U/L Total Protein (6.3-8.2) g/dL Albumin (3.5-5.0) g/dL 12/27/23 12/28/23 12/28/23 Range/Units 20:23 05:00 05:00 RBC 3.09 L (4.30-5.90) m/uL Hgb 7.9 L (13.0-17.5) gm/dL Hct 25.5 L (39.0-53.0) % MCHC 30.9 L (31.0-37.0) g/dL RDW 20.2 H (11.5-15.5) % Neutrophils # (Manual) (1.3-7.7) k/uL Lymphocytes # (Manual) 0.66 L (1.0-4.8) k/uL Nucleated RBCs 1 H (0-0) /100 WBC Sodium 133 L (137-145) mmol/L Chloride 97 L (98-107) mmol/L BUN 67 H (9-20) mg/dL Creatinine 2.40 H (0.66-1.25) mg/dL Glucose 107 H (74-99) mg/dL POC Glucose (mg/dL) 118 H (70-110) mg/dL Calcium 7.6 L (8.4-10.2) mg/dL Phosphorus 7.4 H (2.5-4.5) mg/dL ALT 66 H (4-49) U/L Total Protein 4.9 L (6.3-8.2) g/dL Albumin 2.9 L (3.5-5.0) g/dL - Imaging and Cardiology Chest x-ray: report reviewed, image reviewed Assessment and Plan Assessment: Large pericardial effusion with early pericardial tamponade, status post subxiphoid pericardial window Acute kidney injury, hemodialysis has been initiated Gross anasarca, likely secondary to above Acute hypoxic respiratory failure, currently on 5 L nasal cannula Recent diagnosis of mantle cell lymphoma, status post axillary lymph node biopsy right side on December 07, 2023, followed by Dr. Sidhu History of hypertension History of hyperlipidemia Chronic ongoing tobacco dependence, quit smoking 3 weeks ago Recent weight loss of 15+ pounds over a 1 to 2 months. Medical debility Plan: Continue mediastinal chest tube for another 24 hours, placed to waterseal, monitor output Increase activity as tolerated Wean O2 as tolerated. Incentive spirometry ordered and should be encouraged Continue current medication regimen, colchicine started by cardiology Hemodialysis per nephrology GI/DVT prophylaxis Medical management of other comorbidities per internal medicine and other consultants Patient does not need to stay in the intensive care unit from our standpoint, may transfer to 3 S. when okay with other services More recommendations to follow
[2023-12-28 10:15] LABS: Glucose, Body Fluid 8 mg/dL; Total Protein, Body Fluid >3600 mg/dL
[2023-12-28] MEDS: LORazepam 1 MG/0.5 ML VIAL IV STA (10:23)
--- NOTE | 2023-12-28 10:47 | P.PN ---
Subjective Patient is seen in follow-up for acute kidney injury. Started on hemodialysis December 26, 2023. Urine output 60-100 cc an hour. Denies chest pain or shortness of breath. Status post pericardial window December 27, 2023. Daughter present at bedside. Vital signs are stable. General: No acute distress. HEENT: Head exam is unremarkable. On nasal cannula. LUNGS: No audible rhonchi or wheezes. HEART: Rate and Rhythm are regular. ABDOMEN: Nontender. EXTREMITITES: 2+ edema. Objective - Vital Signs Vital signs: Vital Signs Temp 97.7 F 12/28/23 08:00 Pulse 93 12/28/23 10:00 Resp 14 12/28/23 10:00 BP 106/63 12/28/23 09:00 Pulse Ox 94 L 12/28/23 10:00 FiO2 Intake & Output 12/27/23 12/28/23 12/28/23 18:59 06:59 18:59 Intake Total 1646.787 885 40 Output Total 1800 2260 300 Balance -153.213 -1375 -260 Weight 86.8 kg 84.1 kg Intake: IV 1600 110 40 KVO .9 110 40 Lactated Ringers 1,000 ml 1000 @ 0 mls/hr IV .[facility] Rx#:[id number] Intake, IV Titration 46.787 Amount Norepinephrine 4 mg In 46.787 Sodium Chloride 0.9% 250 ml @ 0.03 MCG/KG/MIN 8. 036 mls/hr IV .Q24H [facility] Rx#:[id number] Oral 75 Hemodialysis 700 Output: Chest Tube Drainage 20 Chest Tube Mediastinal 20 Drainage 0 Anterior Medial Chest 0 Urine 1750 710 280 Hemodialysis 1550 Estimated Blood Loss 50 Other: Voiding Method Indwelling Catheter Indwelling Catheter Indwelling Catheter # Bowel Movements 0 ABP, PAP, CO, CI - Last Documented Arterial Blood Pressure 161/69 - Labs CBC & Chem 7: 12/28/23 05:00 12/28/23 05:00 Labs: Abnormal Lab Results - Last 24 Hours (Table) 12/27/23 12/27/23 12/27/23 Range/Units 11:07 17:00 20:23 RBC (4.30-5.90) m/uL Hgb (13.0-17.5) gm/dL Hct (39.0-53.0) % MCHC (31.0-37.0) g/dL RDW (11.5-15.5) % Lymphocytes # (Manual) (1.0-4.8) k/uL Nucleated RBCs (0-0) /100 WBC Sodium (137-145) mmol/L Chloride (98-107) mmol/L BUN (9-20) mg/dL Creatinine (0.66-1.25) mg/dL Glucose (74-99) mg/dL POC Glucose (mg/dL) 193 H 128 H 118 H (70-110) mg/dL Calcium (8.4-10.2) mg/dL Phosphorus (2.5-4.5) mg/dL ALT (4-49) U/L Total Protein (6.3-8.2) g/dL Albumin (3.5-5.0) g/dL 12/28/23 12/28/23 Range/Units 05:00 05:00 RBC 3.09 L (4.30-5.90) m/uL Hgb 7.9 L (13.0-17.5) gm/dL Hct 25.5 L (39.0-53.0) % MCHC 30.9 L (31.0-37.0) g/dL RDW 20.2 H (11.5-15.5) % Lymphocytes # (Manual) 0.66 L (1.0-4.8) k/uL Nucleated RBCs 1 H (0-0) /100 WBC Sodium 133 L (137-145) mmol/L Chloride 97 L (98-107) mmol/L BUN 67 H (9-20) mg/dL Creatinine 2.40 H (0.66-1.25) mg/dL Glucose 107 H (74-99) mg/dL POC Glucose (mg/dL) (70-110) mg/dL Calcium 7.6 L (8.4-10.2) mg/dL Phosphorus 7.4 H (2.5-4.5) mg/dL ALT 66 H (4-49) U/L Total Protein 4.9 L (6.3-8.2) g/dL Albumin 2.9 L (3.5-5.0) g/dL Assessment and Plan Plan: Assessment: 1. Acute kidney injury secondary to ATN secondary to tumor lysis syndrome. Baseline creatinine near 1 and up to 4.27 dated December 26, 2023. Started on hemodialysis December 26, 2023. Has temporary dialysis catheter. Mild left hydronephrosis noted on kidney ultrasound. 2. Volume overload. 3. Pericardial effusion. Status post pericardial window December 27, 2023. 4. Mantle cell lymphoma. Oncology following. 5. Hyperkalemia secondary to acute kidney injury, acidosis and tumor lysis. Improved. 6. Hypervolemic hyponatremia. Better. 7. Metabolic acidosis secondary to acute kidney injury. Improved. 8. Hyperphosphatemia secondary to acute kidney injury and tumor lysis. On PhosLo. 9. Hyperuricemia secondary to tumor lysis status post rasburicase. Improved. Plan: Third treatment of hemodialysis today. Plan to hold dialysis tomorrow and continue to assess on daily basis. Lasix discontinued per cardiology recommendations due to concern for hypotension. Preserved EF noted on echo. Avoid nephrotoxins. Continue to monitor renal function and urine output.
--- NOTE | 2023-12-28 11:05 | P.PN ---
Subjective Progress Note Date: 12/28/23 Rahul Cruz, Is a 57-year-old male patient who presented to the ER with concerns of increased weakness over the past few days. Patient was discharged from the hospital 2 weeks ago after diagnosed with lymphoma patient reports that he was doing well for couple days but then began not feeling well not wanting to eat over the past few days patient has past medical history of hyperlipidemia hypertension and nicotine dependence.Chest x-ray completed showing development of a moderate left pleural effusion with adjacent atelectasis or consolidation trace effusion on the right. Abdominal ultrasound completed showing no suspicious ultrasound abnormality some mild ascites is present marked splenomegaly small bilateral pleural effusions are present.Patient white blood cell elevated at 11.6, hemoglobin 10.3, sodium 129, potassium 6.4, creatinine 3.6-190 magnesium 2.8 ALT 17 AST 23. Troponin negative. UA negative. Influenza RSV and COVID-19 negative.At this time patient has been started on IV fluid nephrology and cardiology services have been consulted. Repeat labs have been ordered. Current vital signs temp 97.5, heart rate 100, respiratory rate 18, blood pressure 115/78 with a pulse ox of 95% on 2 L On 12/23/2023 patient is alert and oriented 3. Patient reports slight improvement. Family at bedside. Awaiting nephrology and oncology input. Patient denies chest pain or shortness of breath. Patient denies any urinary burning or frequency. Repeat labs pending On 12/24/2023 patient was seen and examined on the medical floor with, he is alert and oriented x 3 in no apparent distress, he is complaining of generalized fatigue and weakness, otherwise he denies any complaints, there is no fever or chills no headache or dizziness no chest pain, no shortness of breath no cough no nausea or vomiting no abdominal pain no diarrhea and no urinary symptoms. Potassium is elevated today at 6.3, he will be given Kayexalate BUN is 92.2 creatinine 3.7 on 12/25/2023 patient's alert and oriented 3. Patient still complain of generalized fatigue and weakness. Per oncology services possible tumor lysis syndrome awaiting repeat labs today for further plan. Nephrology services following. Current vital signs temp 97.4, heart rate 103, respiratory rate 16, blood pressure 121/82 with a pulse ox of 97% on 2 L. Patient remains on sodium bicarbonate drip On 12/26/2023 patient was seen and examined on the telemetry floor, he is alert and oriented x 3 in no apparent distress, he is complaining of generalized weakness, otherwise he denies any complaints at this time, there is no fever or chills no headache or dizziness no chest pain no shortness of breath, no cough no nausea or vomiting no abdominal pain no diarrhea no urinary symptoms. CT scan yesterday revealed evidence of pericardial effusion, patient was transferred to telemetry floor, echocardiogram ordered and cardiology consult requested. Potassium is elevated Kayexalate was ordered. On 12/27/2023 patient remains in the intensive care unit alert and oriented 3. Plans today for pericardial window. Patient did get hemodialysis yesterday no fluid was removed. Plans after pericardial window to receive hemodialysis again. Patient currently not on any vasopressors. Current vital signs temp 97.9, heart rate 86, respiratory rate 18, blood pressure 112/66 with pulse ox 95% on 5 L. Patient also started on dexamethasone per oncology services. Patient seen on sodium bicarb drip On 12/28/2023 patient remains in the intensive care unit alert and oriented 3. Patient having episodes of nausea and vomiting. Will order abdominal x-ray. Discussed case with oncology service is at bedside. Patient underwent per icardial window yesterday. Plans for hemodialysis today.Current vital signs temp 97.7, heart rate 85, respiratory rate 12, blood pressure 120/60 with pulse ox 94% on 5 L Objective - Vital Signs Vital signs: Vital Signs Temp 97.7 F 12/28/23 08:00 Pulse 93 12/28/23 10:00 Resp 14 12/28/23 10:00 BP 106/63 12/28/23 09:00 Pulse Ox 94 L 12/28/23 10:00 FiO2 Intake & Output 12/27/23 12/28/23 12/28/23 18:59 06:59 18:59 Intake Total 1646.787 885 40 Output Total 1800 2260 300 Balance -153.213 -1375 -260 Weight 86.8 kg 84.1 kg Intake: IV 1600 110 40 KVO .9 110 40 Lactated Ringers 1,000 ml 1000 @ 0 mls/hr IV .[facility] Rx#:[id number] Intake, IV Titration 46.787 Amount Norepinephrine 4 mg In 46.787 Sodium Chloride 0.9% 250 ml @ 0.03 MCG/KG/MIN 8. 036 mls/hr IV .Q24H [facility] Rx#:[id number] Oral 75 Hemodialysis 700 Output: Chest Tube Drainage 20 Chest Tube Mediastinal 20 Drainage 0 Anterior Medial Chest 0 Urine 1750 710 280 Hemodialysis 1550 Estimated Blood Loss 50 Other: Voiding Method Indwelling Catheter Indwelling Catheter Indwelling Catheter # Bowel Movements 0 ABP, PAP, CO, CI - Last Documented Arterial Blood Pressure 161/69 - Exam Head normocephalic Neck supple Lungs clear to auscultation bilaterally no wheezing or crackles Heart regular rate and rhythm S1-S2, no rub or gallop Abdomen is soft nontender nondistended positive bowel sounds no hepatosplenomegaly Extremities no edema Neuro alert and orientated to 3 - Labs CBC & Chem 7: 12/28/23 05:00 12/28/23 05:00 Labs: Abnormal Lab Results - Last 24 Hours (Table) 12/27/23 12/27/23 12/27/23 Range/Units 11:07 17:00 20:23 RBC (4.30-5.90) m/uL Hgb (13.0-17.5) gm/dL Hct (39.0-53.0) % MCHC (31.0-37.0) g/dL RDW (11.5-15.5) % Lymphocytes # (Manual) (1.0-4.8) k/uL Nucleated RBCs (0-0) /100 WBC Sodium (137-145) mmol/L Chloride (98-107) mmol/L BUN (9-20) mg/dL Creatinine (0.66-1.25) mg/dL Glucose (74-99) mg/dL POC Glucose (mg/dL) 193 H 128 H 118 H (70-110) mg/dL Calcium (8.4-10.2) mg/dL Phosphorus (2.5-4.5) mg/dL ALT (4-49) U/L Total Protein (6.3-8.2) g/dL Albumin (3.5-5.0) g/dL 12/28/23 12/28/23 Range/Units 05:00 05:00 RBC 3.09 L (4.30-5.90) m/uL Hgb 7.9 L (13.0-17.5) gm/dL Hct 25.5 L (39.0-53.0) % MCHC 30.9 L (31.0-37.0) g/dL RDW 20.2 H (11.5-15.5) % Lymphocytes # (Manual) 0.66 L (1.0-4.8) k/uL Nucleated RBCs 1 H (0-0) /100 WBC Sodium 133 L (137-145) mmol/L Chloride 97 L (98-107) mmol/L BUN 67 H (9-20) mg/dL Creatinine 2.40 H (0.66-1.25) mg/dL Glucose 107 H (74-99) mg/dL POC Glucose (mg/dL) (70-110) mg/dL Calcium 7.6 L (8.4-10.2) mg/dL Phosphorus 7.4 H (2.5-4.5) mg/dL ALT 66 H (4-49) U/L Total Protein 4.9 L (6.3-8.2) g/dL Albumin 2.9 L (3.5-5.0) g/dL Assessment and Plan Assessment: 1. Acute kidney failureLikely secondary to tumor lysis syndrome. Requiring hemodialysis 2. Recent diagnosis of lymphoma with splenomegaly and extensive lymphadenopathy 3. History of essential hypertension 4. History of hyperlipidemia 5. Increased weakness and general malaise. 6. Electrolyte imbalance with hyperkalemia 7. Moderate to large size pericardial effusion. s/p pericardial window on 12/27/2023 DVT prophylaxis Lovenox. GI prophylaxis Protonix Nephrology, oncology, cardiology and critical care services are following Patient has been transferred to the ICU Patient started on hemodialysis 12/26/2023 Pericardial window scheduled for 12/27/2023 Patient started on IV steroids per oncology service is Maintained on sodium bicarb drip
[2023-12-28 11:30] LABS: Glucose,Whole Blood 118 mg/dL (70-110)
--- NOTE | 2023-12-28 11:38 | XR ---
EXAMINATION TYPE: XR abdomen 1V DATE OF EXAM: 12/28/2023 11:28 AM CLINICAL INDICATION:Male, 73 years old with history of nausea vomiting; [facility] COMPARISON: 12/25/2023 TECHNIQUE: One radiographic view of the abdomen was obtained. FINDINGS: High-density contrast in the colon. Right inferior approach central venous catheter tip pro jecting near the left aspect of L5 vertebrae. The bowel gas pattern is nonspecific without dilated lo ops of small or large bowel. There is no evidence for organomegaly or pneumoperitoneum. The osseous structures are intact. No abnormal calcifications are present. Fecal material and gas are demonstrat ed throughout the colon and rectum. IMPRESSION: Nonspecific bowel gas pattern without radiographic evidence for acute process.
--- NOTE | 2023-12-28 11:44 | P.PN ---
Subjective Progress Note Date: 12/28/23 Patient is a 73-year-old white male with past medical history significant for recent diagnosis of lymphoma. Patient reportedly was noted to have some splenomegaly outpatient, had follow-up CAT scan which showed abdominal lymphadenopathy. Patient did have a lymph node biopsy of the right axilla on 12/07/2023, this was positive for mantle cell lymphoma. He is reportedly recently become established with Dr. Sidhu, not currently undergoing any treatments.. Patient reportedly was scheduled for a PET scan on 12/24/2023, however, he did not make it to his appointment. On December 21 his called 911, as the patient has been progressively more weak. This is a generalized weakness. He can no longer walk without assistance. He has been noted to have a reduced appetite. No significant nausea or vomiting, diarrhea, or abdominal pain. He has been very swollen all over. He has been mildly short of breath, especially with any kind of exertion. Chest x-rays from admission, showing a moderate left pleural effusion with likely adjacent atelectasis, trace right pleural effusion, and right apical pleural parenchymal scarring. While in the emergency room, he was noted to have acute kidney injury. He was hyperkalemic with a potassium as of 6.4. Tumor lysis syndrome is suspected. Ultrasound of t he kidneys, renals, bladder did not show any suspicious abnormalities within the kidneys. There was marked splenomegaly. A follow-up CT of the abdomen and pelvis identified a moderate size pericardial effusion. There was also mild left hydronephrosis, possibly from mass effect of the retroperitoneal lymphadenopathy. There was marked abdominal lymphadenopathy compatible with the patient's history of lymphoma. There were low-density areas within the spleen, which could represent the patient's lymphoma versus infarct change. Third spacing of fluid with moderate left and small right pleural effusion. Small to moderate ascites. Diffuse anasarca noted. And other incidental findings. Tosin ent continues to experience worsening renal function and hyperkalemia. He has received multiple treatments for his hyperkalemia. Also receiving Elitek. Most recent uric acid level 9.7. There was recommendations for hemodialysis. Patient did have a hemodialysis catheter placed by vascular service, and underwent hemodialysis yesterday. No fluid was removed. Patient does have a moderate to large sized pericardial effusion. An echocardiogram is pending. There is a consult to cardiothoracic service, patient may have to undergo a pericardial window. He was evaluated by cardiology, who requested transfer to the intensive care unit. I am seeing this patient in room 262. He appears very debilitated and generally weak. There is gross anasarca. He is just received hemodialysis. No fluid was removed. Blood pressure remains normotensive at this time. Not requiring any vasopressors. Currently normal sinus rhythm, without any significant tachycardia. There is mild JVD. Continues to make urine, approximately 40 MLS per hour. On 4 L/min nasal cannula, in no acute respiratory distress. Patient denies any infectious symptoms such as fever, cough, sputum production, chest pain. No reportable recent viral illnesses/symptoms of URI. Denies chest pain, lightheadedness, syncopal events. Most recent labs include a WBC count 17.2, hemoglobin 9.6, hematocrit 30.2, platelets 241. BMP following hemodialysis includes: Sodium 129, potassium 4.4, chloride 95, serum bicarb 24, BUN 92, creatinine 3.59, glucose 159. He is being monitored in the intensive care unit. The patient is seen today December 28, 2023 in follow-up in the intensive care unit. He did undergo a subxiphoid pericardial window for the large pericardial effusion and early pericardial tamponade. 450 mL of bloody fluid was returned. Postoperative day #1. Mediastinal chest tube remains in place to wall suction. An additional 350 mL out since yesterday. He is currently sitting up in bed. Awake and alert in no acute distress. He is having some issues with nausea and vomiting. He is requiring oxygen at 5 L/min per nasal cannula. He has normal saline at KVO. X-ray reveals worsening moderate left greater than right pleural effusions with adjacent atelectasis. White count 7.3. Hemoglobin 7.9. Platelets 161. Sodium 133. Potassium 4.0. Bicarb 28. BUN 67. Creatinine 2.40. Glucose 107. He remains on Lovenox for DVT prophylaxis. Continued on Colcrys. Objective - Vital Signs Vital signs: Vital Signs Temp 97.7 F 12/28/23 08:00 Pulse 83 12/28/23 11:00 Resp 12 12/28/23 11:00 BP 106/63 12/28/23 09:00 Pulse Ox 97 12/28/23 11:00 FiO2 Intake & Output 12/27/23 12/28/23 12/28/23 18:59 06:59 18:59 Intake Total 1646.787 885 50 Output Total 1800 2260 370 Balance -153.213 -1375 -320 Weight 86.8 kg 84.1 kg Intake: IV 1600 110 50 KVO .9 110 50 Lactated Ringers 1,000 ml 1000 @ 0 mls/hr IV .[facility] Rx#:[id number] Intake, IV Titration 46.787 Amount Norepinephrine 4 mg In 46.787 Sodium Chloride 0.9% 250 ml @ 0.03 MCG/KG/MIN 8. 036 mls/hr IV .Q24H [facility] Rx#:[id number] Oral 75 Hemodialysis 700 Output: Chest Tube Drainage 30 Chest Tube Mediastinal 30 Drainage 0 Anterior Medial Chest 0 Urine 1750 710 340 Hemodialysis 1550 Estimated Blood Loss 50 Other: Voiding Method Indwelling Catheter Indwelling Catheter Indwelling Catheter # Bowel Movements 0 ABP, PAP, CO, CI - Last Documented Arterial Blood Pressure 126/59 - Exam GENERAL EXAM: Alert, debilitated, 73-year-old male, currently on 5 L nasal cannula, fairly comfortable in no apparent distress. HEAD: Normocephalic and atraumatic EYES: Normal reaction of pupils, equal size. NOSE: Clear with pink turbinates. THROAT: No erythema or exudates. NECK:Cervical lymphadenopathy noted. Mild JVD. CHEST: No chest wall deformity. Mediastinal chest tube remains in place to wall suction. LUNGS: Equal air entry with diminished bibasilar lung sounds. No conversational dyspnea. CVS: S1 and S2 normal with soft grade 1 systolic murmur, regular rhythm. No other extra heart sounds. ABDOMEN: No appreciable hepatosplenomegaly, active bowel sounds, no guarding or rigidity. SPINE: No scoliosis or deformity SKIN: No rashes CENTRAL NERVOUS SYSTEM: No focal deficits, tone is normal in all 4 extremities. EXTREMITIES: There is gross anasarca. No clubbing, or cyanosis. Peripheral pulses are intact. - Labs CBC & Chem 7: 12/28/23 05:00 12/28/23 05:00 Labs: Abnormal Lab Results - Last 24 Hours (Table) 12/27/23 12/27/23 12/28/23 Range/Units 17:00 20:23 05:00 RBC 3.09 L (4.30-5.90) m/uL Hgb 7.9 L (13.0-17.5) gm/dL Hct 25.5 L (39.0-53.0) % MCHC 30.9 L (31.0-37.0) g/dL RDW 20.2 H (11.5-15.5) % Lymphocytes # (Manual) 0.66 L (1.0-4.8) k/uL Nucleated RBCs 1 H (0-0) /100 WBC Sodium (137-145) mmol/L Chloride (98-107) mmol/L BUN (9-20) mg/dL Creatinine (0.66-1.25) mg/dL Glucose (74-99) mg/dL POC Glucose (mg/dL) 128 H 118 H (70-110) mg/dL Calcium (8.4-10.2) mg/dL Phosphorus (2.5-4.5) mg/dL ALT (4-49) U/L Total Protein (6.3-8.2) g/dL Albumin (3.5-5.0) g/dL 12/28/23 Range/Units 05:00 RBC (4.30-5.90) m/uL Hgb (13.0-17.5) gm/dL Hct (39.0-53.0) % MCHC (31.0-37.0) g/dL RDW (11.5-15.5) % Lymphocytes # (Manual) (1.0-4.8) k/uL Nucleated RBCs (0-0) /100 WBC Sodium 133 L (137-145) mmol/L Chloride 97 L (98-107) mmol/L BUN 67 H (9-20) mg/dL Creatinine 2.40 H (0.66-1.25) mg/dL Glucose 107 H (74-99) mg/dL POC Glucose (mg/dL) (70-110) mg/dL Calcium 7.6 L (8.4-10.2) mg/dL Phosphorus 7.4 H (2.5-4.5) mg/dL ALT 66 H (4-49) U/L Total Protein 4.9 L (6.3-8.2) g/dL Albumin 2.9 L (3.5-5.0) g/dL Assessment and Plan Assessment: Mantle cell lymphoma, diagnosed with excisional lymph node biopsy of the the right axilla on 12/07/2023. Recently established with oncologist, not currently undergoing any treatment. PET scan is going to be rescheduled. Moderate to large size pericardial effusion, status post subxiphoid pericardial window with mediastinal chest tube remaining in place. Initial 450 mL of bloody fluid returned. Pathology pending Acute kidney injury and suspected tumor lysis syndrome, uric acid level as high as 12.6 and down to 9.7, receiving doses of Elitek. Patient did have an hemodialysis catheter placed, and and received emergent hemodialysis 12/26/2023 Severe hyperkalemia, improved after hemodialysis Hypervolemic hyponatremia Hyperphosphatemia Gross anasarca and fluid overload Acute hypoxemic respiratory failure, secondary to fluid overload, chest x-ray on admission showing a moderate left pleural effusion with likely adjacent atelectasis, trace right pleural effusion, and right apical pleural parenchymal scarring. Normocytic normochromic anemia, no overt signs of acute blood loss Mild transaminitis History of hyperlipidemia History of hypertension Former tobacco smoker, quitting approximately 4 weeks ago Plan: The patient was seen and evaluated Chest x-ray, labs and medications reviewed Will give a dose of Lasix 40 mg IVP x 1 Titrate the FiO2 as tolerated Plan is for hemodialysis again today Increase use of the incentive spirometer We will continue to follow I have personally seen and examined the patient, performed the documentation and the assessment and plan as written. Number of minutes spent on the visit: 10.
[2023-12-28] MEDS: FUROSEMIDE 10 MG/ML 4 ML VIAL IV STA (12:55)
[2023-12-28 13:47] LABS: Appearance,BF Bloody (Clear)
--- NOTE | 2023-12-28 15:29 | XR ---
EXAMINATION TYPE: XR chest 1V DATE OF EXAM: 12/28/2023 COMPARISON: Earlier today HISTORY: 73-year-old male for placement of PICC line TECHNIQUE: Single frontal view of the chest is obtained. FINDINGS: Patient is obliqued towards the left. Right PICC tip seen to the mid to lower SVC level. P ericardial drain noted with a trace pneumomediastinum/pneumopericardium. Small to moderate left and s mall right pleural effusions with prominent mid and lower lung opacities. This appears slightly impro ivania. IMPRESSION: 1. Right PICC tip to the mid to lower SVC. 2. Pericardial drain with trace pneumomediastinum/pneumopericardium. 3. Small to moderate left and small right pleural effusions with prominent adjacent atelectasis and/o r consolidation at the mid and lower lungs show slight improvement.
[2023-12-28 16:48] LABS: Glucose,Whole Blood 114 mg/dL (70-110)
--- NOTE | 2023-12-28 17:00 | P.PN ---
Subjective Progress Note Date: 12/28/23 Principal diagnosis: TLS, ARF. Mantle cell lymphoma In f/u today patient respiratory status is significantly improved compared to yesterday. He does have tube draining for the pericardial window, there is a large amount of sanguinous drainage in the collection device. Patient is complaining of nausea, this started yesterday after procedure, he has vomited a few times today, not able to keep meds down. He is not reporting chest pain, new cough, he is tolerating dialysis, his fluid overload status is certainly improved today, extremities are less edematous. No fevers or bleeding to report. He is not reporting any other unusual or new pain today. He is overall feeling exhausted. Objective - Vital Signs Vital signs: Vital Signs Temp 97.4 F L 12/28/23 16:00 Pulse 85 12/28/23 16:00 Resp 12 12/28/23 16:00 BP 119/70 12/28/23 13:00 Pulse Ox 95 12/28/23 16:00 FiO2 Intake & Output 12/27/23 12/28/23 12/28/23 18:59 06:59 18:59 Intake Total 1646.787 885 100 Output Total 1800 2260 1025 Balance -153.213 -1375 -925 Weight 86.8 kg 84.1 kg Intake: IV 1600 110 100 KVO .9 110 100 Lactated Ringers 1,000 ml 1000 @ 0 mls/hr IV .[facility] Rx#:[id number] Intake, IV Titration 46.787 Amount Norepinephrine 4 mg In 46.787 Sodium Chloride 0.9% 250 ml @ 0.03 MCG/KG/MIN 8. 036 mls/hr IV .Q24H [facility] Rx#:[id number] Oral 75 Hemodialysis 700 Output: Chest Tube Drainage 50 Chest Tube Mediastinal 50 Drainage 0 Anterior Medial Chest 0 Urine 1750 710 975 Hemodialysis 1550 Estimated Blood Loss 50 Other: Voiding Method Indwelling Catheter Indwelling Catheter Indwelling Catheter # Bowel Movements 0 ABP, PAP, CO, CI - Last Documented Arterial Blood Pressure 140/54 - Constitutional General appearance: Present: average body habitus, cooperative, no acute distress - EENT Eyes: Present: anicteric sclerae, EOMI ENT: Present: hearing grossly normal - Respiratory Respiratory: bilateral: diminished - Cardiovascular Details: anasarca, better then yesterday Rhythm: regular Heart sounds: normal: S1, S2 - Peripheral edema leg Peripheral Edema: bilateral: 1+ - Gastrointestinal General gastrointestinal: Present: soft - Neurologic Neurologic: Present: CNII-XII intact - Musculoskeletal Musculoskeletal: Present: generalized weakness - Psychiatric Psychiatric: Present: A&O x's 3, appropriate affect, intact judgment & insight - Labs CBC & Chem 7: 12/28/23 05:00 12/28/23 05:00 Labs: Abnormal Lab Results - Last 24 Hours (Table) 12/27/23 12/27/23 12/27/23 Range/Units 14:00 17:00 20:23 RBC (4.30-5.90) m/uL Hgb (13.0-17.5) gm/dL Hct (39.0-53.0) % MCHC (31.0-37.0) g/dL RDW (11.5-15.5) % Lymphocytes # (Manual) (1.0-4.8) k/uL Nucleated RBCs (0-0) /100 WBC Sodium (137-145) mmol/L Chloride (98-107) mmol/L BUN (9-20) mg/dL Creatinine (0.66-1.25) mg/dL Glucose (74-99) mg/dL POC Glucose (mg/dL) 128 H 118 H (70-110) mg/dL Calcium (8.4-10.2) mg/dL Phosphorus (2.5-4.5) mg/dL ALT (4-49) U/L Total Protein (6.3-8.2) g/dL Albumin (3.5-5.0) g/dL Fluid Appearance Bloody A (Clear) 12/28/23 12/28/23 12/28/23 Range/Units 05:00 05:00 11:29 RBC 3.09 L (4.30-5.90) m/uL Hgb 7.9 L (13.0-17.5) gm/dL Hct 25.5 L (39.0-53.0) % MCHC 30.9 L (31.0-37.0) g/dL RDW 20.2 H (11.5-15.5) % Lymphocytes # (Manual) 0.66 L (1.0-4.8) k/uL Nucleated RBCs 1 H (0-0) /100 WBC Sodium 133 L (137-145) mmol/L Chloride 97 L (98-107) mmol/L BUN 67 H (9-20) mg/dL Creatinine 2.40 H (0.66-1.25) mg/dL Glucose 107 H (74-99) mg/dL POC Glucose (mg/dL) 118 H (70-110) mg/dL Calcium 7.6 L (8.4-10.2) mg/dL Phosphorus 7.4 H (2.5-4.5) mg/dL ALT 66 H (4-49) U/L Total Protein 4.9 L (6.3-8.2) g/dL Albumin 2.9 L (3.5-5.0) g/dL Fluid Appearance (Clear) Microbiology - Last 24 Hours (Table) 12/27/23 14:00 Gram Stain - Preliminary Pericardial Fluid - Imaging and Cardiology Chest x-ray: report reviewed Abdominal x-ray: report reviewed Assessment and Plan (1) Nausea & vomiting Current Visit: Yes Status: Acute Priority: High Code(s): R11.2 - NAUSEA WITH VOMITING, UNSPECIFIED SNOMED Code(s): 88177538 (2) Tumor lysis syndrome Current Visit: Yes Status: Acute Priority: High Code(s): E88.3 - TUMOR LYSIS SYNDROME SNOMED Code(s): 197034037 (3) Renal failure Current Visit: Yes Status: Acute Priority: High Code(s): N19 - UNSPECIFIED KIDNEY FAILURE SNOMED Code(s): 18745534 (4) Mantle cell lymphoma Current Visit: Yes Status: Acute Priority: High Code(s): C83.10 - MANTLE CELL LYMPHOMA, UNSPECIFIED SITE SNOMED Code(s): 141499278 (5) Iron (Fe) deficiency anemia Current Visit: No Status: Acute Priority: Medium Code(s): D50.9 - IRON DEFICIENCY ANEMIA, UNSPECIFIED SNOMED Code(s): 73344302 Plan: Nausea and vomiting -New onset. Post pericardial window -Ativan prescribed -Case discussed with attending INSURANCE ACCOUNT REPRESENTATIVE. Abdominal x-ray ordered for assessment. -Nursing will report any persistent symptoms. -Continue to monitor. -Due to patient's recent high-dose steroids will add Carafate for now. ARF and TLS -secondary to Mantle cell lymphoma (pt DOES NOT HAVE lymphoplasmacytic lymphoma- error in documentation) -Plans to start chemo as soon as pt is stable enough to proceed-off pressors, little better renal function. -The risk versus benefits of starting treatment while patient is acutely ill were reviewed with him and his daughter. Risks of side effects and complications are obviously increased during acute illness but, cause of acute illness is lymphoma so, without treatment, patient's condition is not going to improve. Doing treatment is going to be the best option to try and achieve any improvements in pt condition. Patient and family verbalized understanding. They agree with starting treatment. -ECHO was done -PICC line placed today -Orders will be sent to begin [facility]. Hopefully patient will be stable enough to transfer to [address] [place] [address] for treatment. No plans for prophylactic intrathecal chemotherapy at this time. -Finish pulse dose dex today -Elitek x 2, uric acid normal today at 3.7 -Continue dialysis per nephrology. BUN 67 creatinine 2.4 today, phosphorus 7.4. -Labs daily Iron deficient anemia -Patient received 4 doses of parenteral iron around 12/03/2023 -Hemoglobin 7.9 today -Anemia is multifactorial including disease process, renal failure, pericardial fluid is blood looking. -Transfuse for hemoglobin less than 7 or if patient is symptomatic. Currently, patient is fluid overloaded so, conservative transfusion recommended. Doctor attests: I performed a history and physical examination of this patient, developed impression and plan of care. Discussed with dictator. I agree with dictators note, documented as a scribe.
[2023-12-28] MEDS: LORazepam 1 MG/0.5 ML VIAL IV PRN (17:01)
[2023-12-28] MEDS: ONDANSETRON 4 MG/2 ML VIAL IVP PRN (17:02)
[2023-12-28] MEDS: SUCRALFATE 1 GM TAB PO SCH (18:20)
--- NOTE | 2023-12-28 19:29 | P.ANPRN ---
Procedure Note - Anesthesia - BRAN Intraop Pre Bypass BRAN Intraop - Anesthesia Indication: Pericardial effusion Date of Procedure: 12/27/23 Pre-operative Diagnosis: Moderate pericardial effusion Post-operative Diagnosis: Moderate pericardial effusion status post drainage Surgeon: Wilfred Jhonson Left Ventricle: Ejection fraction 55-60% Ejection Fraction: Normal Regional Wall Motion Abnormalities: None Left Ventricle Hypertrophy: No R. Ventricle Function: Normal Anatomy: Trileaflet Aortic Stenosis: None Aortic Regurgitation: None Other Findings: Moderate pericardial effusion noted. After the pericardial window procedure the effusion was completely drained. Mitral Stenosis: None Mitral Regurgitation: Trace Tricuspid Stenosis: None Tricuspid Regurgitation: Trace Pulmonic Stenosis: None R. Atrial Dilation: No R. Atrial PFO: No L. Atrial Dilation: No Aortic Dissection: No
[2023-12-28 20:15] LABS: Glucose,Whole Blood 105 mg/dL (70-110)
[2023-12-29 04:24] LABS: Anisocytosis Slight; HGB 7.9 gm/dL (13.0-17.5); Hypochromasia Moderate; MCH 25.1 pg (25.0-35.0); MCHC 30.4 g/dL (31.0-37.0); MCV 82.6 fL (80.0-100.0); Mean Platelet Volume 8.9; Platelet Count 139 k/uL (150-450); Poikilocytosis Slight; RBC 3.15 m/uL (4.30-5.90); RDW 19.6 % (11.5-15.5); WBC 7.1 k/uL (3.8-10.6)
[2023-12-29 04:38] LABS: ALT 52 U/L (4-49); AST 38 U/L (17-59); African American GFR (CKD) 47 (>60 ml/min/1.73 sqM); Albumin 2.7 g/dL (3.5-5.0); Alkaline Phosphatase 91 U/L (38-126); Anion Gap 4 mmol/L; Blood Urea Nitrogen 47 mg/dL (9-20); Calcium 7.4 mg/dL (8.4-10.2); Carbon Dioxide 30 mmol/L (22-30); Chloride 97 mmol/L (98-107); Glucose 113 mg/dL (74-99); Non-African American GFR(CKD) 41 (>60 ml/min/1.73 sqM); Phosphorus 4.9 mg/dL (2.5-4.5); Potassium 3.8 mmol/L (3.5-5.1); Sodium 131 mmol/L (137-145); Total Bilirubin 0.6 mg/dL (0.2-1.3); Total Protein 4.6 g/dL (6.3-8.2); Uric Acid 3.6 mg/dL (3.5-8.5)
[2023-12-29] MEDS ORDERED: Potassium Replacement Protocol 1 EACH MISC MISCELLANE PRN (04:46)
[2023-12-29 04:57] LABS: Band Neutrophils % 3 %; Lymphocytes # (M) 0.78 k/uL (1.0-4.8); Neutrophils % (M) 79 %; Nucleated Red Blood Cells 0 /100 WBC (0-0); Total Cells Counted 100
[2023-12-29 04:58] LABS: Anisocytosis (M) Present; Poikilocytosis (M) Present
[2023-12-29] MEDS: POTASSIUM BICARBONATE/CIT AC 20 MEQ TABLET.EFF NG-TUBE SCH (05:15)
--- NOTE | 2023-12-29 07:16 | P.PN ---
Subjective Progress Note Date: 12/29/23 Principal diagnosis: Pericardial effusion The patient is a 73-year-old gentleman who never seen by the cardiology service before with a past medical history significant for hypertension and dyslipidemia and presented diagnosis of mantle cell lymphoma presented to the hospital not feeling well. He presented with progressive generalized weakness over the last several days. Beside that and according to his family he has been experiencing progressive shortness of breath with exertion and progressive bilateral lower extremities edema. He underwent further investigation including blood work and that showed renal failure. Beside that his potassium has been severely elevated . His hemoglobin was also low. The patient underwent a CT scan of the abdomen and pelvis and that showed moderate pericardial effusion. Subsequently he underwent an echocardiogram earlier today and that showed large pericardial effusion with concerning tamponade physiology. His pressure has been marginal. Currently he is on Lasix. I am going to stop the Lasix. He underwent a dialysis catheter. He is in process of having dialysis later on today. I had a discussion about his case with the nephrology service and the plan to undergo gentle dialysis later on today with no significant amount of fluid to be taken out and he is also in agreement about stopping the Lasix at this point. He is not on any blood pressure medications at this point. The patient will be transferred to the intensive care unit. He would be seen by the surgical team for the evaluation of pericardial window. The patient currently is not having any chest pain or chest discomfort but on examination he does have severe bilateral lower extremities edema. He does not have any symptoms of any fever or chills or any other cardiac symptoms beside the shortness of breath and the progressive lower extremities edema. No dizziness or lightheadedness and no presyncope or syncope. The examination is remarkable for relatively stable vital signs with marginally low blood pressure and regular rate and rhythm with a soft systolic murmur and diminished breathing sounds bilaterally and severe bilateral lower extremities edema December 27, 2023 The patient was seen and evaluated this morning. He is going to undergo pe ricardial window later on today. He is overall stable. Currently he is not on any hypertension medication and the Lasix was stopped yesterday. The examination is remarkable for regular rhythm with a distant heart sounds and diminished breathing sounds bilaterally and bilateral lower extremities edema noted. December 28, 2023 The patient was seen and evaluated this morning. He underwent pericardial window yesterday with removal of around 450 cc of bloody fluid from the pericardium. The patient was seen this morning. He does have a mild change in mental status but he is able to answer my questions. He is experiencing discomfort in the chest related to the pericardium tube with that being said and with the pericardial effusion I am going to start him on colchicine at 0.6 mg p.o. twice daily. Beside that the kidney function has been trending slightly better but he continues to be on dialysis. Hemoglobin is stable and above 8. We will consider repeating the echo or getting a limited echo on him tomorrow to assess the size of the pericardial effusion. December 29, 2023 The patient was seen and evaluated this morning. He is doing better. The pressure has been better. Creatinine is improving as well. Drainage from the pericardial tube is less. I am going to obtain a limited echo to assess for any residual pericardial effusion meanwhile continue the current medical regimen including the current dose of colchicine. Follow-up with the patient. The examination is remarkable for stable vital signs with regular rate and rhythm and diminished breathing sounds bilaterally. Assessment Large pericardial effusion status post pericardial window Recent diagnosis of mantle cell lymphoma Renal failure Heart failure Multiple comorbid conditions including hypertension and dyslipidemia Electrolytes imbalance Anemia Plan Continue the current medical regimen limited echo to assess for any residual pericardial effusion Follow-up with the patient Objective - Vital Signs Vital signs: Vital Signs Temp 98.4 F 12/29/23 04:00 Pulse 96 12/29/23 04:00 Resp 18 12/29/23 04:00 BP 100/57 12/29/23 00:00 Pulse Ox 92 L 12/29/23 04:00 FiO2 Intake & Output 12/28/23 12/29/23 12/29/23 18:59 06:59 18:59 Intake Total 520 120 Output Total 2525 375 Balance -2004 Weight 81.6 kg Intake: IV 120 120 KVO .9 120 120 Hemodialysis 400 Output: Chest Tube Drainage 50 40 Chest Tube Mediastinal 50 40 Urine 1075 335 Hemodialysis 1400 Other: Voiding Method Indwelling Catheter Indwelling Catheter ABP, PAP, CO, CI - Last Documented Arterial Blood Pressure 106/42 - Labs CBC & Chem 7: 12/29/23 04:00 12/29/23 04:00 Labs: Abnormal Lab Results - Last 24 Hours (Table) 12/27/23 12/28/23 12/28/23 Range/Units 14:00 05:00 11:29 RBC (4.30-5.90) m/uL Hgb (13.0-17.5) gm/dL Hct (39.0-53.0) % MCHC (31.0-37.0) g/dL RDW (11.5-15.5) % Plt Count (150-450) k/uL Lymphocytes # (Manual) 0.66 L (1.0-4.8) k/uL Nucleated RBCs 1 H (0-0) /100 WBC Sodium (137-145) mmol/L Chloride (98-107) mmol/L BUN (9-20) mg/dL Creatinine (0.66-1.25) mg/dL Glucose (74-99) mg/dL POC Glucose (mg/dL) 118 H (70-110) mg/dL Calcium (8.4-10.2) mg/dL Phosphorus (2.5-4.5) mg/dL ALT (4-49) U/L Total Protein (6.3-8.2) g/dL Albumin (3.5-5.0) g/dL Fluid Appearance Bloody A (Clear) 12/28/23 12/29/23 12/29/23 Range/Units 16:47 04:00 04:00 RBC 3.15 L (4.30-5.90) m/uL Hgb 7.9 L (13.0-17.5) gm/dL Hct 26.0 L (39.0-53.0) % MCHC 30.4 L (31.0-37.0) g/dL RDW 19.6 H (11.5-15.5) % Plt Count 139 L (150-450) k/uL Lymphocytes # (Manual) 0.78 L (1.0-4.8) k/uL Nucleated RBCs (0-0) /100 WBC Sodium 131 L (137-145) mmol/L Chloride 97 L (98-107) mmol/L BUN 47 H (9-20) mg/dL Creatinine 1.64 H (0.66-1.25) mg/dL Glucose 113 H (74-99) mg/dL POC Glucose (mg/dL) 114 H (70-110) mg/dL Calcium 7.4 L (8.4-10.2) mg/dL Phosphorus 4.9 H (2.5-4.5) mg/dL ALT 52 H (4-49) U/L Total Protein 4.6 L (6.3-8.2) g/dL Albumin 2.7 L (3.5-5.0) g/dL Fluid Appearance (Clear) Microbiology - Last 24 Hours (Table) 12/27/23 14:00 Gram Stain - Preliminary Pericardial Fluid
--- NOTE | 2023-12-29 07:38 | XR ---
EXAMINATION TYPE: XR chest 1V portable DATE OF EXAM: 12/29/2023 Comparison: 12/28/2023 Clinical History: 73-year-old male pericardial effusion status post window with media Findings: Heart normal size. Pericardial drain remains. Moderate left and small right effusions persist. The pr evious pneumomediastinum/pneumopericardium shows improvement. Right PICC tip mid SVC. Right apical pl eural-parenchymal scarring. Impression: Pericardial drain in place. The previous pneumomediastinum/pneumopericardium shows improvement. Ongoi ng moderate left and small right pleural effusions with adjacent atelectasis and/or consolidation.
--- NOTE | 2023-12-29 08:50 | P.PN ---
Subjective Progress Note Date: 12/29/23 Principal diagnosis: Large pericardial effusion with early pericardial tamponade, acute kidney injury with initiation of hemodialysis, acute hypoxic respiratory failure. Recent new diagnosis of mantle cell lymphoma, status post right sided axillary lymph node biopsy 12/06/23, hypertension, hyperlipidemia, chronic ongoing tobacco dependence with recent cessation, recent unintentional weight loss of 15+ pounds over 1-2 months, medical debility POD #2 subxiphoid pericardial window with removal of 450 mL bloody fluid The patient was seen and examined with Dr. Llamas sitting up in bed in the ICU with present. Denies significant pain, shortness of breath, states he feel s much better today. Remains in sinus rhythm, hemodynamically stable. Mediastinal chest tube present to waterseal, 100 mL drainage in the last 24 hours. Received hemodialysis yesterday. Colchicine was started yesterday by cardiology. No other new concerns. Objective - Vital Signs Vital signs: Vital Signs Temp 98.4 F 12/29/23 04:00 Pulse 96 12/29/23 04:00 Resp 18 12/29/23 04:00 BP 100/57 12/29/23 00:00 Pulse Ox 92 L 12/29/23 04:00 FiO2 Intake & Output 12/28/23 12/29/23 12/29/23 18:59 06:59 18:59 Intake Total 520 120 Output Total 2525 375 Balance -2004 Weight 81.6 kg Intake: IV 120 120 KVO .9 120 120 Hemodialysis 400 Output: Chest Tube Drainage 50 40 Chest Tube Mediastinal 50 40 Urine 1075 335 Hemodialysis 1400 Other: Voiding Method Indwelling Catheter Indwelling Catheter ABP, PAP, CO, CI - Last Documented Arterial Blood Pressure 106/42 - Exam CONSTITUTIONAL: Appears comfortable, cooperative, no acute distress RESPIRATORY: Lungs sounds diminished bilaterally. Respirations even, n onlabored. Currently on 5 L nasal cannula with oxygen saturation 92%. Strong cough. Able to achieve 2000 mL on his incentive spirometry CARDIOVASCULAR: S1, S2 present. Regular rate and rhythm, sinus rhythm on telemetry. Palpable peripheral pulses bilaterally. No edema present. No calf pain or tenderness noted GASTROINTESTINAL: Abdomen soft, nontender, nondistended. Active bowel sounds present 4 quadrants GENITOURINARY: Alvarez present draining clear, yellow urine. Output overnight 1410 mL in the last 24 hours INTEGUMENTARY: Skin is warm and dry NEUROLOGIC: Cranial nerves II through XII intact MUSKULOSKELETAL: Able to move all extremities, strength equal bilaterally PSYCHIATRIC: Alert and oriented to person place and time, appropriate affect, intact judgment and insight INVASIVE LINES AND TUBES: Mediastinal chest tube present to waterseal, no air leaks present, 100 mL in the last 24 hours. Left radial arterial line, right upper extremity PICC, right femoral temporary dialysis catheter present. - Allied health notes Allied health notes reviewed: nursing - Labs CBC & Chem 7: 12/29/23 04:00 12/29/23 04:00 Labs: Abnormal Lab Results - Last 24 Hours (Table) 12/27/23 12/28/23 12/28/23 Range/Units 14:00 11:29 16:47 RBC (4.30-5.90) m/uL Hgb (13.0-17.5) gm/dL Hct (39.0-53.0) % MCHC (31.0-37.0) g/dL RDW (11.5-15.5) % Plt Count (150-450) k/uL Lymphocytes # (Manual) (1.0-4.8) k/uL Sodium (137-145) mmol/L Chloride (98-107) mmol/L BUN (9-20) mg/dL Creatinine (0.66-1.25) mg/dL Glucose (74-99) mg/dL POC Glucose (mg/dL) 118 H 114 H (70-110) mg/dL Calcium (8.4-10.2) mg/dL Phosphorus (2.5-4.5) mg/dL ALT (4-49) U/L Total Protein (6.3-8.2) g/dL Albumin (3.5-5.0) g/dL Fluid Appearance Bloody A (Clear) 12/29/23 12/29/23 Range/Units 04:00 04:00 RBC 3.15 L (4.30-5.90) m/uL Hgb 7.9 L (13.0-17.5) gm/dL Hct 26.0 L (39.0-53.0) % MCHC 30.4 L (31.0-37.0) g/dL RDW 19.6 H (11.5-15.5) % Plt Count 139 L (150-450) k/uL Lymphocytes # (Manual) 0.78 L (1.0-4.8) k/uL Sodium 131 L (137-145) mmol/L Chloride 97 L (98-107) mmol/L BUN 47 H (9-20) mg/dL Creatinine 1.64 H (0.66-1.25) mg/dL Glucose 113 H (74-99) mg/dL POC Glucose (mg/dL) (70-110) mg/dL Calcium 7.4 L (8.4-10.2) mg/dL Phosphorus 4.9 H (2.5-4.5) mg/dL ALT 52 H (4-49) U/L Total Protein 4.6 L (6.3-8.2) g/dL Albumin 2.7 L (3.5-5.0) g/dL Fluid Appearance (Clear) Microbiology - Last 24 Hours (Table) 12/27/23 14:00 Gram Stain - Preliminary Pericardial Fluid - Imaging and Cardiology Chest x-ray: report reviewed, image reviewed Assessment and Plan Assessment: Large pericardial effusion with early pericardial tamponade, status post s ubxiphoid pericardial window Acute kidney injury, hemodialysis has been initiated Gross anasarca, likely secondary to above Acute hypoxic respiratory failure, currently on 5 L nasal cannula Recent diagnosis of mantle cell lymphoma, status post axillary lymph node biopsy right side on December 07, 2023, followed by Dr. Sidhu History of hypertension History of hyperlipidemia Chronic ongoing tobacco dependence, quit smoking 3 weeks ago Recent weight loss of 15+ pounds over a 1 to 2 months. Medical debility Plan: Continue mediastinal chest tube for another 24 hours, monitor output Increase activity as tolerated Wean O2 as tolerated. Incentive spirometry ordered and should be encouraged Continue current medication regimen, colchicine started by cardiology Hemodialysis per nephrology GI/DVT prophylaxis Medical management of other comorbidities per internal medicine and other consultants Patient does not need to stay in the intensive care unit from our standpoint, may transfer when okay with other services More recommendations to follow
[2023-12-29] MEDS: FUROSEMIDE 10 MG/ML 4 ML VIAL IV STA (10:36)
--- NOTE | 2023-12-29 10:40 | P.PN ---
Subjective Patient is seen in follow-up for acute kidney injury. Started on hemodialysis December 26, 2023. Nonoliguric. Denies chest pain or shortness of breath. Status post pericardial window December 27, 2023. Family present at bedside. Vital signs are stable. General: No acute distress. HEENT: Head exam is unremarkable. On nasal cannula. LUNGS: No audible rhonchi or wheezes. HEART: Rate and Rhythm are regular. ABDOMEN: Nontender. EXTREMITITES: 2+ edema. Objective - Vital Signs Vital signs: Vital Signs Temp 98.4 F 12/29/23 04:00 Pulse 96 12/29/23 04:00 Resp 18 12/29/23 04:00 BP 100/57 12/29/23 00:00 Pulse Ox 92 L 12/29/23 04:00 FiO2 Intake & Output 12/28/23 12/29/23 12/29/23 18:59 06:59 18:59 Intake Total 520 120 Output Total 2525 375 Balance -2004 Weight 81.6 kg Intake: IV 120 120 KVO .9 120 120 Hemodialysis 400 Output: Chest Tube Drainage 50 40 Chest Tube Mediastinal 50 40 Urine 1075 335 Hemodialysis 1400 Other: Voiding Method Indwelling Catheter Indwelling Catheter ABP, PAP, CO, CI - Last Documented Arterial Blood Pressure 106/42 - Labs CBC & Chem 7: 12/29/23 04:00 12/29/23 04:00 Labs: Abnormal Lab Results - Last 24 Hours (Table) 12/27/23 12/28/23 12/28/23 Range/Units 14:00 11:29 16:47 RBC (4.30-5.90) m/uL Hgb (13.0-17.5) gm/dL Hct (39.0-53.0) % MCHC (31.0-37.0) g/dL RDW (11.5-15.5) % Plt Count (150-450) k/uL Lymphocytes # (Manual) (1.0-4.8) k/uL Sodium (137-145) mmol/L Chloride (98-107) mmol/L BUN (9-20) mg/dL Creatinine (0.66-1.25) mg/dL Glucose (74-99) mg/dL POC Glucose (mg/dL) 118 H 114 H (70-110) mg/dL Calcium (8.4-10.2) mg/dL Phosphorus (2.5-4.5) mg/dL ALT (4-49) U/L Total Protein (6.3-8.2) g/dL Albumin (3.5-5.0) g/dL Fluid Appearance Bloody A (Clear) 12/29/23 12/29/23 Range/Units 04:00 04:00 RBC 3.15 L (4.30-5.90) m/uL Hgb 7.9 L (13.0-17.5) gm/dL Hct 26.0 L (39.0-53.0) % MCHC 30.4 L (31.0-37.0) g/dL RDW 19.6 H (11.5-15.5) % Plt Count 139 L (150-450) k/uL Lymphocytes # (Manual) 0.78 L (1.0-4.8) k/uL Sodium 131 L (137-145) mmol/L Chloride 97 L (98-107) mmol/L BUN 47 H (9-20) mg/dL Creatinine 1.64 H (0.66-1.25) mg/dL Glucose 113 H (74-99) mg/dL POC Glucose (mg/dL) (70-110) mg/dL Calcium 7.4 L (8.4-10.2) mg/dL Phosphorus 4.9 H (2.5-4.5) mg/dL ALT 52 H (4-49) U/L Total Protein 4.6 L (6.3-8.2) g/dL Albumin 2.7 L (3.5-5.0) g/dL Fluid Appearance (Clear) Microbiology - Last 24 Hours (Table) 12/27/23 14:00 Gram Stain - Preliminary Pericardial Fluid Body Fluid Culture - Preliminary Assessment and Plan Plan: Assessment: 1. Acute kidney injury secondary to ATN secondary to tumor lysis syndrome. Baseline creatinine near 1 and up to 4.27 dated December 26, 2023. Started on hemodialysis December 26, 2023. Has temporary dialysis catheter. Mild left hydronephrosis noted on kidney ultrasound. 2. Volume overload. 3. Pericardial effusion. Status post pericardial window December 27, 2023. 4. Mantle cell lymphoma. Oncology following. 5. Hyperkalemia secondary to acute kidney injury, acidosis and tumor lysis. Improved. 6. Hypervolemic hyponatremia. 7. Metabolic acidosis secondary to acute kidney injury. Improved. 8. Hyperphosphatemia secondary to acute kidney injury and tumor lysis. On PhosLo. 9. Hyperuricemia secondary to tumor lysis status post rasburicase. Improved. Plan: Hold off on hemodialysis today. Continue to assess on daily basis. Status post IV Lasix given yesterday and again this morning. Preserved EF noted on echo. Avoid nephrotoxins. Continue to monitor renal function and urine output.
--- NOTE | 2023-12-29 11:17 | P.PN ---
Subjective Progress Note Date: 12/29/23 Patient is a 73-year-old white male with past medical history significant for recent diagnosis of lymphoma. Patient reportedly was noted to have some splenomegaly outpatient, had follow-up CAT scan which showed abdominal lymphadenopathy. Patient did have a lymph node biopsy of the right axilla on 12/07/2023, this was positive for mantle cell lymphoma. He is reportedly recently become established with Dr. Sidhu, not currently undergoing any treatments.. Patient reportedly was scheduled for a PET scan on 12/24/2023, however, he did not make it to his appointment. On December 21 his called 911, as the patient has been progressively more weak. This is a generalized weakness. He can no longer walk without assistance. He has been noted to have a reduced appetite. No significant nausea or vomiting, diarrhea, or abdominal pain. He has been very swollen all over. He has been mildly short of breath, especially with any kind of exertion. Chest x-rays from admission, showing a moderate left pleural effusion with likely adjacent atelectasis, trace right pleural effusion, and right apical pleural parenchymal scarring. While in the emergency room, he was noted to have acute kidney injury. He was hyperkalemic with a potassium as of 6.4. Tumor lysis syndrome is suspected. Ultrasound of t he kidneys, renals, bladder did not show any suspicious abnormalities within the kidneys. There was marked splenomegaly. A follow-up CT of the abdomen and pelvis identified a moderate size pericardial effusion. There was also mild left hydronephrosis, possibly from mass effect of the retroperitoneal lymphadenopathy. There was marked abdominal lymphadenopathy compatible with the patient's history of lymphoma. There were low-density areas within the spleen, which could represent the patient's lymphoma versus infarct change. Third spacing of fluid with moderate left and small right pleural effusion. Small to moderate ascites. Diffuse anasarca noted. And other incidental findings. Tosin ent continues to experience worsening renal function and hyperkalemia. He has received multiple treatments for his hyperkalemia. Also receiving Elitek. Most recent uric acid level 9.7. There was recommendations for hemodialysis. Patient did have a hemodialysis catheter placed by vascular service, and underwent hemodialysis yesterday. No fluid was removed. Patient does have a moderate to large sized pericardial effusion. An echocardiogram is pending. There is a consult to cardiothoracic service, patient may have to undergo a pericardial window. He was evaluated by cardiology, who requested transfer to the intensive care unit. I am seeing this patient in room 262. He appears very debilitated and generally weak. There is gross anasarca. He is just received hemodialysis. No fluid was removed. Blood pressure remains normotensive at this time. Not requiring any vasopressors. Currently normal sinus rhythm, without any significant tachycardia. There is mild JVD. Continues to make urine, approximately 40 MLS per hour. On 4 L/min nasal cannula, in no acute respiratory distress. Patient denies any infectious symptoms such as fever, cough, sputum production, chest pain. No reportable recent viral illnesses/symptoms of URI. Denies chest pain, lightheadedness, syncopal events. Most recent labs include a WBC count 17.2, hemoglobin 9.6, hematocrit 30.2, platelets 241. BMP following hemodialysis includes: Sodium 129, potassium 4.4, chloride 95, serum bicarb 24, BUN 92, creatinine 3.59, glucose 159. He is being monitored in the intensive care unit. The patient is seen today December 28, 2023 in follow-up in the intensive care unit. He did undergo a subxiphoid pericardial window for the large pericardial effusion and early pericardial tamponade. 450 mL of bloody fluid was returned. Postoperative day #1. Mediastinal chest tube remains in place to wall suction. An additional 350 mL out since yesterday. He is currently sitting up in bed. Awake and alert in no acute distress. He is having some issues with nausea and vomiting. He is requiring oxygen at 5 L/min per nasal cannula. He has normal saline at KVO. X-ray reveals worsening moderate left greater than right pleural effusions with adjacent atelectasis. White count 7.3. Hemoglobin 7.9. Platelets 161. Sodium 133. Potassium 4.0. Bicarb 28. BUN 67. Creatinine 2.40. Glucose 107. He remains on Lovenox for DVT prophylaxis. Continued on Colcrys. The patient is seen today December 29, 2023 in follow-up in the intensive care unit. He is sitting up in bed. Awake and alert in no acute distress. He denies any worsening shortness of breath, cough or congestion. Maintaining O2 saturations in the 90s on 5 L/min per nasal cannula. Chest x-ray shows pericardial drain in place. Previous pneumomediastinum/pneumopericardium shows improvement. Ongoing moderate left and small right pleural effusions with adjacent atelectasis. Right PICC line in place. Follow-up echocardiogram pending. The pericardial tube drained about 100 mL of fluid in the past 24 hours. He is postoperative day #2 of pericardial window. White count 7.1. Hemoglobin 7.9. Platelets 139. Sodium 131. Potassium 3.8. Bicarb 30. BUN 47. Creatinine 1.64. Glucose 113. The plan is to begin R-CHOP today for his mantle cell lymphoma. No plans for hemodialysis today. He received additional Lasix. Objective - Vital Signs Vital signs: Vital Signs Temp 98.4 F 12/29/23 04:00 Pulse 96 12/29/23 04:00 Resp 18 12/29/23 04:00 BP 100/57 12/29/23 00:00 Pulse Ox 92 L 12/29/23 04:00 FiO2 Intake & Output 12/28/23 12/29/23 12/29/23 18:59 06:59 18:59 Intake Total 520 120 Output Total 2525 375 Balance -2004 Weight 81.6 kg Intake: IV 120 120 KVO .9 120 120 Hemodialysis 400 Output: Chest Tube Drainage 50 40 Chest Tube Mediastinal 50 40 Urine 1075 335 Hemodialysis 1400 Other: Voiding Method Indwelling Catheter Indwelling Catheter ABP, PAP, CO, CI - Last Documented Arterial Blood Pressure 106/42 - Exam GENERAL EXAM: Alert, 73-year-old male, resting in bed, on 5 L nasal cannula, comfortable in no apparent distress. HEAD: Normocephalic and atraumatic EYES: Normal reaction of pupils, equal size. NOSE: Clear with pink turbinates. THROAT: No erythema or exudates. NECK:Cervical lymphadenopathy noted. Mild JVD. CHEST: No chest wall deformity. Mediastinal chest tube remains in place to wall suction. LUNGS: Equal air entry with diminished bibasilar lung sounds. No conversational dyspnea. CVS: S1 and S2 normal with soft grade 1 systolic murmur, regular rhythm. No other extra heart sounds. ABDOMEN: No appreciable hepatosplenomegaly, active bowel sounds, no guarding or rigidity. SPINE: No scoliosis or deformity SKIN: No rashes CENTRAL NERVOUS SYSTEM: No focal deficits, tone is normal in all 4 extremities. EXTREMITIES: There is gross anasarca. No clubbing, or cyanosis. Peripheral pulses are intact. - Labs CBC & Chem 7: 12/29/23 04:00 12/29/23 04:00 Labs: Abnormal Lab Results - Last 24 Hours (Table) 12/27/23 12/28/23 12/28/23 Range/Units 14:00 11:29 16:47 RBC (4.30-5.90) m/uL Hgb (13.0-17.5) gm/dL Hct (39.0-53.0) % MCHC (31.0-37.0) g/dL RDW (11.5-15.5) % Plt Count (150-450) k/uL Lymphocytes # (Manual) (1.0-4.8) k/uL Sodium (137-145) mmol/L Chloride (98-107) mmol/L BUN (9-20) mg/dL Creatinine (0.66-1.25) mg/dL Glucose (74-99) mg/dL POC Glucose (mg/dL) 118 H 114 H (70-110) mg/dL Calcium (8.4-10.2) mg/dL Phosphorus (2.5-4.5) mg/dL ALT (4-49) U/L Total Protein (6.3-8.2) g/dL Albumin (3.5-5.0) g/dL Fluid Appearance Bloody A (Clear) 12/29/23 12/29/23 Range/Units 04:00 04:00 RBC 3.15 L (4.30-5.90) m/uL Hgb 7.9 L (13.0-17.5) gm/dL Hct 26.0 L (39.0-53.0) % MCHC 30.4 L (31.0-37.0) g/dL RDW 19.6 H (11.5-15.5) % Plt Count 139 L (150-450) k/uL Lymphocytes # (Manual) 0.78 L (1.0-4.8) k/uL Sodium 131 L (137-145) mmol/L Chloride 97 L (98-107) mmol/L BUN 47 H (9-20) mg/dL Creatinine 1.64 H (0.66-1.25) mg/dL Glucose 113 H (74-99) mg/dL POC Glucose (mg/dL) (70-110) mg/dL Calcium 7.4 L (8.4-10.2) mg/dL Phosphorus 4.9 H (2.5-4.5) mg/dL ALT 52 H (4-49) U/L Total Protein 4.6 L (6.3-8.2) g/dL Albumin 2.7 L (3.5-5.0) g/dL Fluid Appearance (Clear) Microbiology - Last 24 Hours (Table) 12/27/23 14:00 Gram Stain - Preliminary Pericardial Fluid Body Fluid Culture - Preliminary Assessment and Plan Assessment: Mantle cell lymphoma, diagnosed with excisional lymph node biopsy of the the right axilla on 12/07/2023. Plan is for R-CHOP to begin today. Moderate to large size pericardial effusion, status post subxiphoid pericardial window December 27, 2023 with mediastinal chest tube remaining in place. Initial 450 mL of bloody fluid returned. Pathology pending Acute kidney injury and suspected tumor lysis syndrome, uric acid level as high as 12.6 and down to 9.7, receiving doses of Elitek. Patient did have an hemodialysis catheter placed, and and received emergent hemodialysis 12/26/2023 Severe hyperkalemia, improved after hemodialysis Hypervolemic hyponatremia Hyperphosphatemia Gross anasarca and fluid overload Acute hypoxemic respiratory failure, secondary to fluid overload, chest x-ray on admission showing a moderate left pleural effusion with likely adjacent atelectasis, trace right pleural effusion, and right apical pleural parenchymal scarring. Normocytic normochromic anemia, no overt signs of acute blood loss Mild transaminitis History of hyperlipidemia History of hypertension Former tobacco smoker, quitting approximately 4 weeks ago Plan: The patient was seen and evaluated Chest x-ray, labs and medications reviewed No plans for hemodialysis today Received Lasix again today To be initiated on R-CHOP today Titrate the FiO2 as tolerated Increase use of the incentive spirometer We will continue to follow I have personally seen and examined the patient, performed the documentation and the assessment and plan as written. Number of minutes spent on the visit: 10.
[2023-12-29 11:38] LABS: Glucose,Whole Blood 109 mg/dL (70-110)
--- NOTE | 2023-12-29 12:24 | CA ---
Transthoracic Echo Report Name: Rahul Cruz Age: 73 Gender: M : 1950 Exam Date: 12/29/2023 08:13 Exam Location: [facility] Ht (in): 67 Wt (lb): 179 Ordering Physician: Brian Rodriguez MD ([id number]) Attending/Referring Phys: Hall Tender Paloma Damon RDCS Procedure CPT: Indications: evaluate pericardial fluid Cardiac Hx: Technical Quality: Poor Contrast 1: Total Dose (mL): Contrast 2: Total Dose (mL): MEASUREMENTS (Male / Female) Normal Values FINDINGS Left Ventricle Left ventricular ejection fraction is estimated at 55-60 %. Right Ventricle Normal right ventricular size by visual. Right Atrium Right atrium not well visualized. Left Atrium Left atrium not well visualized. Mitral Valve Structurally normal mitral valve. Aortic Valve Aortic valve not well visualized. Tricuspid Valve Structurally normal tricuspid valve. Pulmonic Valve Pulmonic valve not well visualized. Pericardium No pericardial effusion. Left pleural effusion. Ascites. Aorta Aortic root and proximal ascending aorta not well visualized. CONCLUSIONS Normal LV function No pericardial effusion Pleural effusion noted Previewed by: Dr. Daniel Barnes MD (Electronically Signed) Final Date: 29 December 2023 12:23
[2023-12-29] MEDS: ONDANSETRON 16 MG in SODIUM CHLORIDE 0.9% 50 ML IVPB ONE (12:41)
[2023-12-29] MEDS: FAMOTIDINE 20 MG/2 ML VIAL IVP ONE (12:41)
[2023-12-29] MEDS: diphenhydrAMINE 50 MG/ML 1 ML VIAL IVP ONE (12:45)
[2023-12-29] MEDS: methylPREDNISolone SOD SUCCI 125 MG/2 ML VIAL IVP ONE (12:48)
[2023-12-29] MEDS ORDERED: ONDANSETRON 4 MG/2 ML VIAL IVP PRN (13:00)
[2023-12-29] MEDS: predniSONE 50 MG TAB PO SCH (13:06)
[2023-12-29] MEDS: FOSAPREPITANT DIMEGLUMINE 150 MG in SODIUM CHLORIDE 0.9% 145 ML IV ONE (13:25)
[2023-12-29] MEDS: DOXORUBICIN HCL IV ONE (14:19)
--- NOTE | 2023-12-29 14:51 | P.PN ---
Subjective Progress Note Date: 12/29/23 Principal diagnosis: TLS, ARF. Mantle cell lymphoma In f/u today patient doing well, labs look better, nausea controlled, he is tolerating some oral intake, no fevers, bleeding or pain. Swelling is improved except for LUE. Family at bedside. Plan is to start chemo today. Objective - Vital Signs Vital signs: Vital Signs Temp 98.2 F 12/29/23 13:59 Pulse 83 12/29/23 14:24 Resp 16 12/29/23 14:24 BP 102/49 12/29/23 14:24 Pulse Ox 97 12/29/23 14:24 FiO2 Intake & Output 12/28/23 12/29/23 12/29/23 18:59 06:59 18:59 Intake Total 520 120 50 Output Total 2525 375 220 Balance -2004 Weight 81.6 kg Intake: IV 120 120 50 KVO .9 120 120 50 Hemodialysis 400 Output: Chest Tube Drainage 50 40 10 Chest Tube Mediastinal 50 40 10 Urine 1075 335 210 Hemodialysis 1400 Other: Voiding Method Indwelling Catheter Indwelling Catheter Indwelling Catheter ABP, PAP, CO, CI - Last Documented Arterial Blood Pressure 138/54 - Constitutional General appearance: Present: average body habitus, cooperative, no acute distress - EENT Eyes: Present: anicteric sclerae, EOMI ENT: Present: hearing grossly normal - Respiratory Respiratory: bilateral: CTA - Cardiovascular Rhythm: regular Heart sounds: normal: S1, S2 Abnormal Heart Sounds: Absent: systolic murmur, diastolic murmur, rub, S3 Gallop, S4 Gallop, click, other - Peripheral edema leg Peripheral Edema: bilateral: Trace - Gastrointestinal General gastrointestinal: Present: soft - Neurologic Neurologic: Present: CNII-XII intact - Musculoskeletal Musculoskeletal: Present: generalized weakness, strength equal bilaterally - Psychiatric Psychiatric: Present: A&O x's 3, appropriate affect, intact judgment & insight - Labs CBC & Chem 7: 12/29/23 04:00 12/29/23 04:00 Labs: Abnormal Lab Results - Last 24 Hours (Table) 12/28/23 12/29/23 12/29/23 Range/Units 16:47 04:00 04:00 RBC 3.15 L (4.30-5.90) m/uL Hgb 7.9 L (13.0-17.5) gm/dL Hct 26.0 L (39.0-53.0) % MCHC 30.4 L (31.0-37.0) g/dL RDW 19.6 H (11.5-15.5) % Plt Count 139 L (150-450) k/uL Lymphocytes # (Manual) 0.78 L (1.0-4.8) k/uL Sodium 131 L (137-145) mmol/L Chloride 97 L (98-107) mmol/L BUN 47 H (9-20) mg/dL Creatinine 1.64 H (0.66-1.25) mg/dL Glucose 113 H (74-99) mg/dL POC Glucose (mg/dL) 114 H (70-110) mg/dL Calcium 7.4 L (8.4-10.2) mg/dL Phosphorus 4.9 H (2.5-4.5) mg/dL ALT 52 H (4-49) U/L Total Protein 4.6 L (6.3-8.2) g/dL Albumin 2.7 L (3.5-5.0) g/dL Microbiology - Last 24 Hours (Table) 12/27/23 14:00 Gram Stain - Preliminary Pericardial Fluid Body Fluid Culture - Preliminary Assessment and Plan (1) Nausea & vomiting Current Visit: Yes Status: Acute Priority: High Code(s): R11.2 - NAUSEA WITH VOMITING, UNSPECIFIED SNOMED Code(s): 76508525 (2) Tumor lysis syndrome Current Visit: Yes Status: Acute Priority: High Code(s): E88.3 - TUMOR LYSIS SYNDROME SNOMED Code(s): 040677675 (3) Renal failure Current Visit: Yes Status: Acute Priority: High Code(s): N19 - UNSPECIFIED KIDNEY FAILURE SNOMED Code(s): 86463951 (4) Mantle cell lymphoma Current Visit: Yes Status: Acute Priority: High Code(s): C83.10 - MANTLE CELL LYMPHOMA, UNSPECIFIED SITE SNOMED Code(s): 637601656 (5) Iron (Fe) deficiency anemia Current Visit: No Status: Acute Priority: Medium Code(s): D50.9 - IRON DE FICIENCY ANEMIA, UNSPECIFIED SNOMED Code(s): 66422917 Plan: Nausea and vomiting -managed, resolved at this time -cont supportive meds as sched and PRN ARF and TLS -secondary to Mantle cell lymphoma (pt DOES NOT HAVE lymphoplasmacytic lymphoma- error in documentation) -Chemo start today. Pt and family aware that TLS could occur at the start of treatment. Pt and labs will be monitored closely for several days. They verbalized understanding -The risk versus benefits of starting treatment while patient is acutely ill were reviewed with pt, and daughter again. Patient and family verbalized understanding. They agree with starting treatment. -ECHO done -PICC line placed -Orders for RCHOP reviewed. Chemo edu provided to pt and family along with written materials by [employer]. Oncology for treatment. No plans for prophylactic int rathecal chemotherapy at this time. -Finish pulse dose dex was completed 12/27 -Elitek x 2, uric acid normal today at 3.6 -Continue dialysis per Nephrology. BUN 47 creatinine 1.64 today -TLS, CMP, CBC Labs daily Iron deficient anemia -Patient received 4 doses of parenteral iron around 12/03/2023 -Hemoglobin 7.9 today-stable -Anemia is multifactorial including disease process, renal failure, pericardial fluid is bloody looking but, stable -Transfuse for hemoglobin less than 7 or if patient is symptomatic. Currently, patient is fluid overloaded so, conservative transfusion recommended. Doctor attests: I performed a history and physical examination of this patient, developed impression and plan of care. Discussed with dictator. I agree with dictators note, documented as a scribe. Time with Patient: Greater than 30 (>90 min spent counseling and coordinating care)
[2023-12-29 16:27] LABS: Glucose,Whole Blood 104 mg/dL (70-110)
[2023-12-29] MEDS: SODIUM CHLORIDE 0.9% 1,000 ML IV SCH (16:45)
[2023-12-29] MEDS: SODIUM CHLORIDE 0.9% IV ONE (17:30)
[2023-12-29] MEDS: RITUXIMAB ABBS IV ONE (17:30)
--- NOTE | 2023-12-29 17:48 | P.PN ---
Subjective Progress Note Date: 12/29/23 Rahul Cruz, Is a 57-year-old male patient who presented to the ER with concerns of increased weakness over the past few days. Patient was discharged from the hospital 2 weeks ago after diagnosed with lymphoma patient reports that he was doing well for couple days but then began not feeling well not wanting to eat over the past few days patient has past medical history of hyperlipidemia hypertension and nicotine dependence.Chest x-ray completed showing development of a moderate left pleural effusion with adjacent atelectasis or consolidation trace effusion on the right. Abdominal ultrasound completed showing no suspicious ultrasound abnormality some mild ascites is present marked splenomegaly small bilateral pleural effusions are present.Patient white blood cell elevated at 11.6, hemoglobin 10.3, sodium 129, potassium 6.4, creatinine 3.6-190 magnesium 2.8 ALT 17 AST 23. Troponin negative. UA negative. Influenza RSV and COVID-19 negative.At this time patient has been started on IV fluid nephrology and cardiology services have been consulted. Repeat labs have been ordered. Current vital signs temp 97.5, heart rate 100, respiratory rate 18, blood pressure 115/78 with a pulse ox of 95% on 2 L On 12/23/2023 patient is alert and oriented 3. Patient reports slight improvement. Family at bedside. Awaiting nephrology and oncology input. Patient denies chest pain or shortness of breath. Patient denies any urinary burning or frequency. Repeat labs pending On 12/24/2023 patient was seen and examined on the medical floor with, he is alert and oriented x 3 in no apparent distress, he is complaining of generalized fatigue and weakness, otherwise he denies any complaints, there is no fever or chills no headache or dizziness no chest pain, no shortness of breath no cough no nausea or vomiting no abdominal pain no diarrhea and no urinary symptoms. Potassium is elevated today at 6.3, he will be given Kayexalate BUN is 92.2 creatinine 3.7 on 12/25/2023 patient's alert and oriented 3. Patient still complain of generalized fatigue and weakness. Per oncology services possible tumor lysis syndrome awaiting repeat labs today for further plan. Nephrology services following. Current vital signs temp 97.4, heart rate 103, respiratory rate 16, blood pressure 121/82 with a pulse ox of 97% on 2 L. Patient remains on sodium bicarbonate drip On 12/26/2023 patient was seen and examined on the telemetry floor, he is alert and oriented x 3 in no apparent distress, he is complaining of generalized weakness, otherwise he denies any complaints at this time, there is no fever or chills no headache or dizziness no chest pain no shortness of breath, no cough no nausea or vomiting no abdominal pain no diarrhea no urinary symptoms. CT scan yesterday revealed evidence of pericardial effusion, patient was transferred to telemetry floor, echocardiogram ordered and cardiology consult requested. Potassium is elevated Kayexalate was ordered. On 12/27/2023 patient remains in the intensive care unit alert and oriented 3. Plans today for pericardial window. Patient did get hemodialysis yesterday no fluid was removed. Plans after pericardial window to receive hemodialysis again. Patient currently not on any vasopressors. Current vital signs temp 97.9, heart rate 86, respiratory rate 18, blood pressure 112/66 with pulse ox 95% on 5 L. Patient also started on dexamethasone per oncology services. Patient seen on sodium bicarb drip On 12/28/2023 patient remains in the intensive care unit alert and oriented 3. Patient having episodes of nausea and vomiting. Will order abdominal x-ray. Discussed case with oncology service is at bedside. Patient underwent per icardial window yesterday. Plans for hemodialysis today.Current vital signs temp 97.7, heart rate 85, respiratory rate 12, blood pressure 120/60 with pulse ox 94% on 5 L On 12/29/2023 patient was seen and examined in the ICU he is alert and oriented x 3 in no apparent distress he is feeling well and denies any complaints at this time there is no fever or chills no headache or dizziness no chest pain no shortness of breath no cough no nausea or vomiting no abdominal pain no diarrhea no urinary symptoms. He was started on chemotherapy today, will continue to follow closely. Objective - Vital Signs Vital signs: Vital Signs Temp 98.4 F 12/29/23 04:00 Pulse 96 12/29/23 04:00 Resp 18 12/29/23 04:00 BP 100/57 12/29/23 00:00 Pulse Ox 92 L 12/29/23 04:00 FiO2 Intake & Output 12/28/23 12/29/23 12/29/23 18:59 06:59 18:59 Intake Total 520 120 Output Total 2525 375 Balance -2004 Weight 81.6 kg Intake: IV 120 120 KVO .9 120 120 Hemodialysis 400 Output: Chest Tube Drainage 50 40 Chest Tube Mediastinal 50 40 Urine 1075 335 Hemodialysis 1400 Other: Voiding Method Indwelling Catheter Indwelling Catheter ABP, PAP, CO, CI - Last Documented Arterial Blood Pressure 106/42 - Exam Head normocephalic Neck supple Lungs clear to auscultation bilaterally no wheezing or crackles Heart regular rate and rhythm S1-S2, no rub or gallop Abdomen is soft nontender nondistended positive bowel sounds no hepato splenomegaly Extremities no edema Neuro alert and orientated to 3 - Labs CBC & Chem 7: 12/29/23 04:00 12/29/23 04:00 Labs: Abnormal Lab Results - Last 24 Hours (Table) 12/27/23 12/28/23 12/28/23 Range/Units 14:00 11:29 16:47 RBC (4.30-5.90) m/uL Hgb (13.0-17.5) gm/dL Hct (39.0-53.0) % MCHC (31.0-37.0) g/dL RDW (11.5-15.5) % Plt Count (150-450) k/uL Lymphocytes # (Manual) (1.0-4.8) k/uL Sodium (137-145) mmol/L Chloride (98-107) mmol/L BUN (9-20) mg/dL Creatinine (0.66-1.25) mg/dL Glucose (74-99) mg/dL POC Glucose (mg/dL) 118 H 114 H (70-110) mg/dL Calcium (8.4-10.2) mg/dL Phosphorus (2.5-4.5) mg/dL ALT (4-49) U/L Total Protein (6.3-8.2) g/dL Albumin (3.5-5.0) g/dL Fluid Appearance Bloody A (Clear) 12/29/23 12/29/23 Range/Units 04:00 04:00 RBC 3.15 L (4.30-5.90) m/uL Hgb 7.9 L (13.0-17.5) gm/dL Hct 26.0 L (39.0-53.0) % MCHC 30.4 L (31.0-37.0) g/dL RDW 19.6 H (11.5-15.5) % Plt Count 139 L (150-450) k/uL Lymphocytes # (Manual) 0.78 L (1.0-4.8) k/uL Sodium 131 L (137-145) mmol/L Chloride 97 L (98-107) mmol/L BUN 47 H (9-20) mg/dL Creatinine 1.64 H (0.66-1.25) mg/dL Glucose 113 H (74-99) mg/dL POC Glucose (mg/dL) (70-110) mg/dL Calcium 7.4 L (8.4-10.2) mg/dL Phosphorus 4.9 H (2.5-4.5) mg/dL ALT 52 H (4-49) U/L Total Protein 4.6 L (6.3-8.2) g/dL Albumin 2.7 L (3.5-5.0) g/dL Fluid Appearance (Clear) Microbiology - Last 24 Hours (Table) 12/27/23 14:00 Gram Stain - Preliminary Pericardial Fluid Body Fluid Culture - Preliminary Assessment and Plan Assessment: 1. Acute kidney failureLikely secondary to tumor lysis syndrome. Requiring hemodialysis 2. Recent diagnosis of lymphoma with splenomegaly and extensive lymphadenopathy 3. History of essential hypertension 4. History of hyperlipidemia 5. Increased weakness and general malaise. 6. Electrolyte imbalance with hyperkalemia 7. Moderate to large size pericardial effusion. s/p pericardial window on 12/27/2023 DVT prophylaxis Lovenox. GI prophylaxis Protonix Nephrology, oncology, cardiology and critical care services are following Patient has been transferred to the ICU Patient started on hemodialysis 12/26/2023 Pericardial window scheduled for 12/27/2023 Patient started on IV steroids per oncology service is Maintained on sodium bicarb drip
[2023-12-29 21:54] LABS: Glucose,Whole Blood 121 mg/dL (70-110)
[2023-12-30 06:26] LABS: Glucose,Whole Blood 113 mg/dL (70-110)
[2023-12-30] MEDS: FUROSEMIDE 10 MG/ML 4 ML VIAL IV STA ×2 (08:50→11:18)
--- NOTE | 2023-12-30 09:11 | P.PN ---
Subjective Progress Note Date: 12/30/23 Principal diagnosis: Large pericardial effusion with early pericardial tamponade, acute kidney injury with initiation of hemodialysis, acute hypoxic respiratory failure. Recent new diagnosis of mantle cell lymphoma, status post right sided axillary lymph node biopsy 12/06/23, hypertension, hyperlipidemia, chronic ongoing tobacco dependence with recent cessation, recent unintentional weight loss of 15+ pounds over 1-2 months, medical debility POD #3 subxiphoid pericardial window with removal of 450 mL bloody fluid The patient was seen and examined sitting up in bed on the cardiac stepdown unit with present, eating breakfast. Denies significant pain, shortness of br eath, states he feels better today. Remains in sinus rhythm, hemodynamically stable. Mediastinal chest tube present to [facility], 60 mL drainage in the last 24 hours. Limited echo completed yesterday demonstrated no pericardial effusion. No other new concerns. Objective - Vital Signs Vital signs: Vital Signs Temp 97.7 F 12/30/23 08:00 Pulse 90 12/30/23 08:00 Resp 18 12/30/23 08:00 BP 113/69 12/30/23 08:00 Pulse Ox 94 L 12/30/23 08:18 FiO2 Intake & Output 12/29/23 12/30/23 12/30/23 18:59 06:59 18:59 Intake Total 50 Output Total 570 590 Balance -520 -590 Intake: IV 50 KVO .9 50 Output: Chest Tube Drainage 10 40 Chest Tube Mediastinal 10 40 Urine 560 550 Other: Voiding Method Indwelling Catheter Indwelling Catheter # Bowel Movements 0 ABP, PAP, CO, CI - Last Documented Arterial Blood Pressure 138/54 - Exam CONSTITUTIONAL: Appears comfortable, cooperative, no acute distress RESPIRATORY: Lungs sounds diminished bilaterally. Respirations even, nonlabored. Currently on 4 L nasal cannula with oxygen saturation 94%. Strong cough. Able to achieve 2000 mL on his incentive spirometry CARDIOVASCULAR: S1, S2 present. Regular rate and rhythm, sinus rhythm on telemetry. Palpable peripheral pulses bilaterally. No edema present. No calf pain or tenderness noted GASTROINTESTINAL: Abdomen soft, nontender, nondistended. Active bowel sounds present 4 quadrants GENITOURINARY: Alvarez present draining clear, yellow urine. Output overnight 1110 mL in the last 24 hours INTEGUMENTARY: Skin is warm and dry NEUROLOGIC: Cranial nerves II through XII intact MUSKULOSKELETAL: Able to move all extremities, strength equal bilaterally PSYCHIATRIC: Alert and oriented to person place and time, appropriate affect, intact judgment and insight INVASIVE LINES AND TUBES: Mediastinal chest tube present to waterseal, no air leaks present, 60 mL in the last 24 hours. Right upper extremity PICC, right femoral temporary dialysis catheter present. - Allied health notes Allied health notes reviewed: nursing - Labs CBC & Chem 7: 12/29/23 04:00 12/29/23 04:00 Labs: Abnormal Lab Results - Last 24 Hours (Table) 12/29/23 12/30/23 Range/Units 21:53 06:24 POC Glucose (mg/dL) 121 H 113 H (70-110) mg/dL Microbiology - Last 24 Hours (Table) 12/27/23 14:00 Gram Stain - Preliminary Pericardial Fluid Body Fluid Culture - Preliminary Assessment and Plan Assessment: Large pericardial effusion with early pericardial tamponade, status post subxiphoid pericardial window Acute kidney injury, hemodialysis has been initiated Gross anasarca, likely secondary to above Acute hypoxic respiratory failure, currently on 5 L nasal cannula Recent diagnosis of mantle cell lymphoma, status post axillary lymph node biopsy right side on December 07, 2023, followed by Dr. Sidhu History of hypertension History of hyperlipidemia Chronic ongoing tobacco dependence, quit smoking 3 weeks ago Recent weight loss of 15+ pounds over a 1 to 2 months. Medical debility Plan: Likely will discontinue mediastinal chest tube Increase activity as tolerated Wean O2 as tolerated. Incentive spirometry ordered and should be encouraged Continue current medication regimen, colchicine started by cardiology Hemodialysis per nephrology GI/DVT prophylaxis Medical management of other comorbidities per internal medicine and other consultants If we discontinue mediastinal chest tube will sign off on patient and see again as needed. Discussed with the patient and his that after discharge he can come to see us in the office for incision check Once chest tube discontinued patient is stable for discharge from cardiothoracic surgery standpoint when okay with other services
--- NOTE | 2023-12-30 11:03 | P.PN ---
Subjective Patient is seen in follow-up for acute kidney injury. Started on hemodialysis December 26, 2023. Nonoliguric. Denies chest pain or shortness of breath. Status post pericardial window December 27, 2023. Family present at bedside. Vital signs are stable. General: No acute distress. HEENT: Head exam is unremarkable. On nasal cannula. LUNGS: No audible rhonchi or wheezes. HEART: Rate and Rhythm are regular. ABDOMEN: Nontender. EXTREMITITES: 2+ edema. Objective - Vital Signs Vital signs: Vital Signs Temp 97.7 F 12/30/23 08:00 Pulse 90 12/30/23 08:00 Resp 18 12/30/23 08:00 BP 113/69 12/30/23 08:00 Pulse Ox 94 L 12/30/23 08:18 FiO2 Intake & Output 12/29/23 12/30/23 12/30/23 18:59 06:59 18:59 Intake Total 50 Output Total 570 590 Balance -520 -590 Intake: IV 50 KVO .9 50 Output: Chest Tube Drainage 10 40 Chest Tube Mediastinal 10 40 Urine 560 550 Other: Voiding Method Indwelling Catheter Indwelling Catheter Indwelling Catheter # Bowel Movements 0 ABP, PAP, CO, CI - Last Documented Arterial Blood Pressure 138/54 - Labs CBC & Chem 7: 12/29/23 04:00 12/29/23 04:00 Labs: Abnormal Lab Results - Last 24 Hours (Table) 12/29/23 12/30/23 Range/Units 21:53 06:24 POC Glucose (mg/dL) 121 H 113 H (70-110) mg/dL Microbiology - Last 24 Hours (Table) 12/27/23 14:00 Gram Stain - Preliminary Pericardial Fluid Body Fluid Culture - Preliminary Assessment and Plan Plan: Assessment: 1. Acute kidney injury secondary to ATN secondary to tumor lysis syndrome. Baseline creatinine near 1 and up to 4.27 dated December 26, 2023. Started on hemodialysis December 26, 2023. Has temporary dialysis catheter. Mild left hydronephrosis noted on kidney ultrasound. Last dialysis December 28, 2023. 2. Volume overload. 3. Pericardial effusion. Status post pericardial window December 27, 2023. 4. Mantle cell lymphoma. Oncology following. Started on chemotherapy. 5. Hyperkalemia secondary to acute kidney injury, acidosis and tumor lysis. Improved. 6. Hypervolemic hyponatremia. 7. Metabolic acidosis secondary to acute kidney injury. Improved. 8. Hyperphosphatemia secondary to acute kidney injury and tumor lysis. On PhosLo. 9. Hyperuricemia secondary to tumor lysis status post rasburicase. Improved. Plan: Hemodialysis today mostly for volume overload. Repeat IV Lasix 40 mg today. Preserved EF noted on echo. Avoid nephrotoxins. Continue to monitor renal function and urine output. Continue to assess need for hemodialysis on daily basis.
[2023-12-30 11:26] LABS: Glucose,Whole Blood 115 mg/dL (70-110)
[2023-12-30 11:36] LABS: Anisocytosis Slight; Basophils % (A) 0 %; Eosinophils % (A) 0 %; HCT 26.7 % (39.0-53.0); HGB 8.3 gm/dL (13.0-17.5); Hypochromasia Moderate; Lymphocytes # (A) 0.1 k/uL (1.0-4.8); Lymphocytes % (A) 1 %; MCH 26.3 pg (25.0-35.0); MCHC 30.9 g/dL (31.0-37.0); MCV 84.9 fL (80.0-100.0); Mean Platelet Volume 7.9; Monocytes # (A) 0.2 k/uL (0-1.0); Monocytes % (A) 3 %; Neutrophils # (A) 5.6 k/uL (1.3-7.7); Neutrophils % (A) 95 %; RBC 3.14 m/uL (4.30-5.90); RDW 18.9 % (11.5-15.5); WBC 5.9 k/uL (3.8-10.6)
[2023-12-30 11:52] LABS: ALT 38 U/L (4-49); AST 49 U/L (17-59); African American GFR (CKD) 55 (>60 ml/min/1.73 sqM); Albumin 2.6 g/dL (3.5-5.0); Alkaline Phosphatase 79 U/L (38-126); Anion Gap 4 mmol/L; Blood Urea Nitrogen 53 mg/dL (9-20); Calcium 6.7 mg/dL (8.4-10.2); Carbon Dioxide 29 mmol/L (22-30); Chloride 103 mmol/L (98-107); Glucose 101 mg/dL (74-99); Non-African American GFR(CKD) 47 (>60 ml/min/1.73 sqM); Phosphorus 4.3 mg/dL (2.5-4.5); Potassium 3.3 mmol/L (3.5-5.1); Sodium 136 mmol/L (137-145); Total Bilirubin 0.6 mg/dL (0.2-1.3); Total Protein 4.5 g/dL (6.3-8.2); Uric Acid 8.8 mg/dL (3.5-8.5)
--- NOTE | 2023-12-30 12:57 | P.PN ---
Subjective Progress Note Date: 12/30/23 Rahul Cruz, Is a 57-year-old male patient who presented to the ER with concerns of increased weakness over the past few days. Patient was discharged from the hospital 2 weeks ago after diagnosed with lymphoma patient reports that he was doing well for couple days but then began not feeling well not wanting to eat over the past few days patient has past medical history of hyperlipidemia hypertension and nicotine dependence.Chest x-ray completed showing development of a moderate left pleural effusion with adjacent atelectasis or consolidation trace effusion on the right. Abdominal ultrasound completed showing no suspicious ultrasound abnormality some mild ascites is present marked splenomegaly small bilateral pleural effusions are present.Patient white blood cell elevated at 11.6, hemoglobin 10.3, sodium 129, potassium 6.4, creatinine 3.6-190 magnesium 2.8 ALT 17 AST 23. Troponin negative. UA negative. Influenza RSV and COVID-19 negative.At this time patient has been started on IV fluid nephrology and cardiology services have been consulted. Repeat labs have been ordered. Current vital signs temp 97.5, heart rate 100, respiratory rate 18, blood pressure 115/78 with a pulse ox of 95% on 2 L On 12/23/2023 patient is alert and oriented 3. Patient reports slight improvement. Family at bedside. Awaiting nephrology and oncology input. Patient denies chest pain or shortness of breath. Patient denies any urinary burning or frequency. Repeat labs pending On 12/24/2023 patient was seen and examined on the medical floor with, he is alert and oriented x 3 in no apparent distress, he is complaining of generalized fatigue and weakness, otherwise he denies any complaints, there is no fever or chills no headache or dizziness no chest pain, no shortness of breath no cough no nausea or vomiting no abdominal pain no diarrhea and no urinary symptoms. Potassium is elevated today at 6.3, he will be given Kayexalate BUN is 92.2 creatinine 3.7 on 12/25/2023 patient's alert and oriented 3. Patient still complain of generalized fatigue and weakness. Per oncology services possible tumor lysis syndrome awaiting repeat labs today for further plan. Nephrology services following. Current vital signs temp 97.4, heart rate 103, respiratory rate 16, blood pressure 121/82 with a pulse ox of 97% on 2 L. Patient remains on sodium bicarbonate drip On 12/26/2023 patient was seen and examined on the telemetry floor, he is alert and oriented x 3 in no apparent distress, he is complaining of generalized weakness, otherwise he denies any complaints at this time, there is no fever or chills no headache or dizziness no chest pain no shortness of breath, no cough no nausea or vomiting no abdominal pain no diarrhea no urinary symptoms. CT scan yesterday revealed evidence of pericardial effusion, patient was transferred to telemetry floor, echocardiogram ordered and cardiology consult requested. Potassium is elevated Kayexalate was ordered. On 12/27/2023 patient remains in the intensive care unit alert and oriented 3. Plans today for pericardial window. Patient did get hemodialysis yesterday no fluid was removed. Plans after pericardial window to receive hemodialysis again. Patient currently not on any vasopressors. Current vital signs temp 97.9, heart rate 86, respiratory rate 18, blood pressure 112/66 with pulse ox 95% on 5 L. Patient also started on dexamethasone per oncology services. Patient seen on sodium bicarb drip On 12/28/2023 patient remains in the intensive care unit alert and oriented 3. Patient having episodes of nausea and vomiting. Will order abdominal x-ray. Discussed case with oncology service is at bedside. Patient underwent per icardial window yesterday. Plans for hemodialysis today.Current vital signs temp 97.7, heart rate 85, respiratory rate 12, blood pressure 120/60 with pulse ox 94% on 5 L On 12/29/2023 patient was seen and examined in the ICU he is alert and oriented x 3 in no apparent distress he is feeling well and denies any complaints at this time there is no fever or chills no headache or dizziness no chest pain no shortness of breath no cough no nausea or vomiting no abdominal pain no diarrhea no urinary symptoms. He was started on chemotherapy today, will continue to follow closely. On 12/30/2023 patient was seen and examined on the medical floor he is alert and oriented x 3 in no apparent distress he is complaining of generalized fatigue otherwise he denies any complaints there is no fever or chills no headache or dizziness no chest pain no shortness of breath or cough no nausea or vomiting no abdominal pain no diarrhea no urinary symptoms, he has very poor appetite, he was started on chemotherapy yesterday. Vital exam today revealed a temperature of 97.7 pulse 90 respiration 18 blood pressure 113/69 pulse ox 98% on 4 L nasal cannula, white blood count 5.9 hemoglobin 8.3 sodium 136 potassium 3.3 BUN 53 creatinine 1.45 patient was started on hemodialysis on December 25, he had pericardial window on December 26 , nephrology, cardiothoracic surgery, oncology and pulmonary are following. Objective - Vital Signs Vital signs: Vital Signs Temp 97.7 F 12/30/23 08:00 Pulse 90 12/30/23 08:00 Resp 18 12/30/23 08:00 BP 113/69 12/30/23 08:00 Pulse Ox 94 L 12/30/23 08:18 FiO2 Intake & Output 12/29/23 12/30/23 12/30/23 18:59 06:59 18:59 Intake Total 50 Output Total 570 590 Balance -520 -590 Intake: IV 50 KVO .9 50 Output: Chest Tube Drainage 10 40 Chest Tube Mediastinal 10 40 Urine 560 550 Other: Voiding Method Indwelling Catheter Indwelling Catheter Indwelling Catheter # Bowel Movements 0 ABP, PAP, CO, CI - Last Documented Arterial Blood Pressure 138/54 - Exam Head normocephalic Neck supple Lungs clear to auscultation bilaterally no wheezing or crackles Heart regular rate and rhythm S1-S2, no rub or gallop Abdomen is soft nontender nondistended positive bowel sounds no hepatosplenomegaly Extremities no edema Neuro alert and orientated to 3 - Labs CBC & Chem 7: 12/30/23 10:44 12/30/23 10:44 Labs: Abnormal Lab Results - Last 24 Hours (Table) 12/29/23 12/30/23 Range/Units 21:53 06:24 POC Glucose (mg/dL) 121 H 113 H (70-110) mg/dL Microbiology - Last 24 Hours (Table) 12/27/23 14:00 Gram Stain - Preliminary Pericardial Fluid Body Fluid Culture - Preliminary Assessment and Plan Assessment: 1. Acute kidney failureLikely secondary to tumor lysis syndrome. Requiring hemodialysis 2. Recent diagnosis of lymphoma with splenomegaly and extensive lymphadenopathy 3. History of essential hypertension 4. History of hyperlipidemia 5. Increased weakness and general malaise. 6. Electrolyte imbalance with hyperkalemia 7. Moderate to large size pericardial effusion. s/p pericardial window on 12/27/2023 DVT prophylaxis Lovenox. GI prophylaxis Protonix Nephrology, oncology, cardiology and critical care services are following Patient has been transferred to the ICU Patient started on hemodialysis 12/26/2023 Pericardial window scheduled for 12/27/2023 Patient started on IV steroids per oncology service is Maintained on sodium bicarb drip
--- NOTE | 2023-12-30 13:21 | P.PN ---
Subjective Progress Note Date: 12/30/23 Pericardial effusion The patient is a 73-year-old gentleman who never seen by the cardiology service before with a past medical history significant for hypertension and dyslipidemia and presented diagnosis of mantle cell lymphoma presented to the hospital not feeling well. He presented with progressive generalized weakness over the last several days. Beside that and according to his family he has been experiencing progressive shortness of breath with exertion and progressive bilateral lower extremities edema. He underwent further investigation including blood work and that showed renal failure. Beside that his potassium has been severely elevated. His hemoglobin was also low. The patient underwent a CT scan of the abdomen and pelvis and that showed moderate pericardial effusion. Subsequently he underwent an echocardiogram earlier today and that showed large pericardial effusion with concerning tamponade physiology. His pressure has been marginal. Currently he is on Lasix. I am going to stop the Lasix. He underwent a dialysis catheter. He is in process of having dialysis later on today. I had a discussion about his case with the nephrology service and the plan to undergo gentle dialysis later on today with no significant amount of fluid to be taken out and he is also in agreement about stopping the Lasix at this point. He is not on any blood pressure medications at this point. The patient will be transferred to the intensive care unit. He would be seen by the surgical team for the evaluation of pericardial window. The patient currently is not having any chest pain or chest discomfort but on examination he does have severe bilateral lower extremities edema. He does not have any symptoms of any fever or chills or any other cardiac symptoms beside the shortness of breath and the progressive lower extremities edema. No dizziness or lightheadedness and no presyncope or syncope. The examination is remarkable for relatively stable vital signs with marginally low blood pressure and regular rate and rhythm with a soft systolic murmur and diminished breathing sounds bilaterally and severe bilateral lower extremities edema December 27, 2023 The patient was seen and evaluated this morning. He is going to undergo pericardial window later on today. He is overall stable. Currently he is not on any hypertension medication and the Lasix was stopped yesterday. The examination is remarkable for regular rhythm with a distant heart sounds and diminished breathing sounds bilaterally and bilateral lower extremities edema noted. December 28, 2023 The patient was seen and evaluated this morning. He underwent pericardial window yesterday with removal of around 450 cc of bloody fluid from the pericardium. The patient was seen this morning. He does have a mild change in mental status but he is able to answer my questions. He is experiencing discomfort in the chest related to the pericardium tube with that being said and with the pericardial effusion I am going to start him on colchicine at 0.6 mg p.o. twice daily. Beside that the kidney function has been trending slightly better but he continues to be on dialysis. Hemoglobin is stable and above 8. We will consider repeating the echo or getting a limited echo on him tomorrow to assess the size of the pericardial effusion. December 29, 2023 The patient was seen and evaluated this morning. He is doing better. The pressure has been better. Creatinine is improving as well. Drainage from the pericardial tube is less. I am going to obtain a limited echo to assess for any residual pericardial effusion meanwhile continue the current medical regimen including the current dose of colchicine. Follow-up with the patient. The examination is remarkable for stable vital signs with regular rate and rhythm and diminished breathing sounds bilaterally. 12/29 Patient is seen today on the cardiac stepdown unit as he has been transferred out of the intensive care unit. Yesterday, patient received 1 dose of IV Lasix by nephrology. He has a negative fluid balance and documented weight loss. Blood pressure is 113/69, heart rate 90s, pulse ox 98% on 4 L nasal cannula. Repeat blood work reveals hemoglobin of 8.3, BUN 53, creatinine 1.45 and potassium 3.3. Potassium has been replaced. The examination is remarkable for stable vital signs with regular rate and rhythm and diminished breathing sounds bilaterally. Limited echocardiogram reveals normal LV function, no pericardial effusion, pleural effusion noted. Echocardiogram result reviewed with the patient. Assessment Large pericardial effusion status post pericardial window Recent diagnosis of mantle cell lymphoma Renal failure Heart failure Multiple comorbid conditions including hypertension and dyslipidemia Electrolytes imbalance Anemia Plan Continue the current medical regimen 1 dose of IV Lasix 40 mg ordered Follow-up with the patient Nurse practitioner note has been reviewed, I agree with documented findings and plan of care. Patient was seen and examined. Objective - Vital Signs Vital signs: Vital Signs Temp 97.5 F L 12/30/23 04:30 Pulse 96 12/30/23 04:30 Resp 18 12/30/23 04:30 BP 130/64 12/30/23 04:30 Pulse Ox 94 L 12/30/23 08:18 FiO2 Intake & Output 12/29/23 12/30/2324 18:59 06:59 18:59 Intake Total 50 Output Total 570 590 Balance -520 -590 Intake: IV 50 KVO .9 50 Output: Chest Tube Drainage 10 40 Chest Tube Mediastinal 10 40 Urine 560 550 Other: Voiding Method Indwelling Catheter Indwelling Catheter # Bowel Movements 0 ABP, PAP, CO, CI - Last Documented Arterial Blood Pressure 138/54 - Labs CBC & Chem 7: 12/30/23 10:44 12/30/23 10:44 Labs: Abnormal Lab Results - Last 24 Hours (Table) 12/29/23 12/30/23 Range/Units 21:53 06:24 POC Glucose (mg/dL) 121 H 113 H (70-110) mg/dL Microbiology - Last 24 Hours (Table) 12/27/23 14:00 Gram Stain - Preliminary Pericardial Fluid Body Fluid Culture - Preliminary
--- NOTE | 2023-12-30 13:26 | P.PN ---
Subjective Progress Note Date: 12/30/23 Principal diagnosis: Pericardial effusion. Patient is a 73-year-old white male with past medical history significant for recent diagnosis of lymphoma. Patient reportedly was noted to have some splenomegaly outpatient, had follow-up CAT scan which showed abdominal lymphadenopathy. Patient did have a lymph node biopsy of the right axilla on 12/07/2023, this was positive for mantle cell lymphoma. He is reportedly recently become established with Dr. Sidhu, not currently undergoing any treatments.. Patient reportedly was scheduled for a PET scan on 12/24/2023, however, he did not make it to his appointment. On December 21 his called 911, as the patient has been progressively more weak. This is a generalized weakness. He can no longer walk without assistance. He has been noted to have a reduced appetite. No significant nausea or vomiting, diarrhea, or abdominal p ain. He has been very swollen all over. He has been mildly short of breath, especially with any kind of exertion. Chest x-rays from admission, showing a moderate left pleural effusion with likely adjacent atelectasis, trace right pleural effusion, and right apical pleural parenchymal scarring. While in the emergency room, he was noted to have acute kidney injury. He was hyperkalemic with a potassium as of 6.4. Tumor lysis syndrome is suspected. Ultrasound of the kidneys, renals, bladder did not show any suspicious abnormalities within the kidneys. There was marked splenomegaly. A follow-up CT of the abdomen and pelvis identified a moderate size pericardial effusion. There was also mild left hydronephrosis, possibly from mass effect of the retroperitoneal lymphadenopathy. There was marked abdominal lymphadenopathy compatible with the patient's history of lymphoma. There were low-density areas within the spleen, which could represent the patient's lymphoma versus infarct change. Third spacing of fluid with moderate left and small right pleural effusion. Small to moderate ascites. Diffuse anasarca noted. And other incidental findings. Patient continues to experience worsening renal function and hyperkalemia. He has received multiple treatments for his hyperkalemia. Also receiving Elitek. Most recent uric acid level 9.7. There was recommendations for hemodialysis. Patient did have a hemodialysis catheter placed by vascular service, and underwent hemodialysis yesterday. No fluid was removed. Patient does have a moderate to large sized pericardial effusion. An echocardiogram is pending. There is a consult to cardiothoracic service, patient may have to undergo a pericardial window. He was evaluated by cardiology, who requested transfer to the intensive care unit. I am seeing this patient in room 262. He appears very debilitated and generally weak. There is gross anasarca. He is just received hemodialysis. No fluid was removed. Blood pressure remains normotensive at this time. Not requiring any vasopressors. Currently normal sinus rhythm, without any significant tachycardia. There is mild JVD. Continues to make urine, approximately 40 MLS per hour. On 4 L/min nasal cannula, in no acute respiratory distress. Patient denies any infectious symptoms such as fever, cough, sputum production, chest pain. No reportable recent viral illnes ses/symptoms of URI. Denies chest pain, lightheadedness, syncopal events. Most recent labs include a WBC count 17.2, hemoglobin 9.6, hematocrit 30.2, platelets 241. BMP following hemodialysis includes: Sodium 129, potassium 4.4, chloride 95, serum bicarb 24, BUN 92, creatinine 3.59, glucose 159. He is being monitored in the intensive care unit. The patient is seen today December 28, 2023 in follow-up in the intensive care unit. He did undergo a subxiphoid pericardial window for the large pericardial effusion and early pericardial tamponade. 450 mL of bloody fluid was returned. Postoperative day #1. Mediastinal chest tube remains in place to wall suction. An additional 350 mL out since yesterday. He is currently sitting up in bed. Awake and alert in no acute distress. He is having some issues with nausea and vomiting. He is requiring oxygen at 5 L/min per nasal cannula. He has normal saline at KVO. X-ray reveals worsening moderate left greater than right pleural effusions with adjacent atelectasis. White count 7.3. Hemoglobin 7.9. Platelets 161. Sodium 133. Potassium 4.0. Bicarb 28. BUN 67. Creatinine 2.40. Glucose 107. He remains on Lovenox for DVT prophylaxis. Continued on Colcrys. The patient is seen today December 29, 2023 in follow-up in the intensive care unit. He is sitting up in bed. Awake and alert in no acute distress. He denies any worsening shortness of breath, cough or congestion. Maintaining O2 saturations in the 90s on 5 L/min per nasal cannula. Chest x-ray shows pericardial drain in place. Previous pneumomediastinum/pneumopericardium shows improvement. Ongoing moderate left and small right pleural effusions with adjacent atelectasis. Right PICC line in place. Follow-up echocardiogram pending. The pericardial tube drained about 100 mL of fluid in the past 24 hours. He is postoperative day #2 of pericardial window. White count 7.1. Hemoglobin 7.9. Platelets 139. Sodium 131. Potassium 3.8. Bicarb 30. BUN 47. Creatinine 1.64. Glucose 113. The plan is to begin R-CHOP today for his mantle cell lymphoma. No plans for hemodialysis today. He received additional Lasix. Progress note dated December 30, 2023. The patient is seen today in room 366. Currently, the patient is on saline at 50 cc an hour. The patient started chemotherapy, yesterday. He is getting oxygen by nasal cannula at 4 L. Current laboratory data includes a white count 5.9, hemoglobin 8.3, hematocrit 26.7, and platelet count which is currently pen ding. Sodium 136, potassium 3.3, chlorides 103, CO2 29, BUN 53, creatinine 1.45. Glucose is 115. Albumin is 2.6. Cardial fluid cultures are currently negative. No chest x-ray today. Objective - Vital Signs Vital signs: Vital Signs Temp 97.7 F 12/30/23 08:00 Pulse 90 12/30/23 08:00 Resp 18 12/30/23 08:00 BP 113/69 12/30/23 08:00 Pulse Ox 94 L 12/30/23 08:18 FiO2 Intake & Output 12/29/23 12/30/23 12/30/23 18:59 06:59 18:59 Intake Total 50 Output Total 570 590 Balance -520 -590 Intake: IV 50 KVO .9 50 Output: Chest Tube Drainage 10 40 Chest Tube Mediastinal 10 40 Urine 560 550 Other: Voiding Method Indwelling Catheter Indwelling Catheter Indwelling Catheter # Bowel Movements 0 ABP, PAP, CO, CI - Last Documented Arterial Blood Pressure 138/54 - Exam No acute distress, oriented 3. No respiratory distress. Currently on 4 L by nasal cannula. HEENT examination is grossly unremarkable. Mucous membranes are moist. No oral lesions. Neck supple. Full range of motion. No adenopathy thyromegaly or neck vein distention. Cardiovascular examination reveals regular rhythm rate. S1-S2 normal. No S3 or S4. No discernible murmur noted. Heart rate is 90 bpm. Lungs reveal clear breath sounds. Breath sounds are equal bilaterally. No adventitious lung sounds including wheezes rhonchi or crackles. 4 L saturation is 98%. Abdomen soft bowel sounds are heard. No masses or tenderness. Extremities are intact. No cyanosis clubbing or edema. Skin is without rash or lesion. Neurologic examination is brief but nonfocal. - Labs CBC & Chem 7: 12/30/23 10:44 12/30/23 10:44 Labs: Abnormal Lab Results - Last 24 Hours (Table) 12/29/23 12/30/23 12/30/23 Range/Units 21:53 06:24 10:44 RBC 3.14 L (4.30-5.90) m/uL Hgb 8.3 L (13.0-17.5) gm/dL Hct 26.7 L (39.0-53.0) % MCHC 30.9 L (31.0-37.0) g/dL RDW 18.9 H (11.5-15.5) % Sodium (137-145) mmol/L Potassium (3.5-5.1) mmol/L BUN (9-20) mg/dL Creatinine (0.66-1.25) mg/dL Glucose (74-99) mg/dL POC Glucose (mg/dL) 121 H 113 H (70-110) mg/dL Uric Acid (3.5-8.5) mg/dL Calcium (8.4-10.2) mg/dL Total Protein (6.3-8.2) g/dL Albumin (3.5-5.0) g/dL 12/30/23 12/30/23 Range/Units 10:44 11:24 RBC (4.30-5.90) m/uL Hgb (13.0-17.5) gm/dL Hct (39.0-53.0) % MCHC (31.0-37.0) g/dL RDW (11.5-15.5) % Sodium 136 L (137-145) mmol/L Potassium 3.3 L (3.5-5.1) mmol/L BUN 53 H (9-20) mg/dL Creatinine 1.45 H (0.66-1.25) mg/dL Glucose 101 H (74-99) mg/dL POC Glucose (mg/dL) 115 H (70-110) mg/dL Uric Acid 8.8 H (3.5-8.5) mg/dL Calcium 6.7 L (8.4-10.2) mg/dL Total Protein 4.5 L (6.3-8.2) g/dL Albumin 2.6 L (3.5-5.0) g/dL Microbiology - Last 24 Hours (Table) 12/27/23 14:00 Anaerobic Culture - Preliminary Pericardial Fluid 12/27/23 14:00 Gram Stain - Preliminary Pericardial Fluid Body Fluid Culture - Preliminary Assessment and Plan Assessment: Mantle cell lymphoma, diagnosed with excisional lymph node biopsy of the the right axilla on 12/07/2023. Moderate to large size pericardial effusion, status post subxiphoid pericardial window December 27, 2023 with mediastinal chest tube remaining in place. Initial 450 mL of bloody fluid returned. Acute kidney injury and suspected tumor lysis syndrome, uric acid level as high as 12.6 and down to 9.7, receiving doses of Elitek. Patient did have an hemodialysis catheter placed, and and received emergent hemodialysis 12/26/2023. Severe hyperkalemia, improved after hemodialysis. Hypervolemic hyponatremia. Hyperphosphatemia. Gross anasarca and fluid overload. Acute hypoxemic respiratory failure, secondary to fluid overload, chest x-ray on admission showing a moderate left pleural effusion with likely adjacent atelectasis, trace right pleural effusion, and right apical pleural parenchymal scarring. Normocytic normochromic anemia, no overt signs of acute blood loss. Mild transaminitis. History of hyperlipidemia. History of hypertension. Former tobacco smoker, quitting approximately 4 weeks ago. Plan: Plan dated December 30, 2023. The patient was moved out of the intensive care unit. The patient did start chemotherapy with Rituxan, cyclophosphamide, Adriamycin, vincristine, and pre dnisone. Currently, the patient is on oxygen by nasal cannula at 4 L. The patient is receiving saline at 50 cc an hour. Labs, x-rays, medications are reviewed. The patient's overall prognosis remains guarded. Will continue to follow the patient, and make recommendations where appropriate. Time with Patient: Less than 30
[2023-12-30 13:44] LABS: Platelet Count 74 k/uL (150-450)
[2023-12-30] MEDS: RASBURICASE 6 MG in SODIUM CHLORIDE 0.9% 46 ML IV ONE (14:04)
[2023-12-30] MEDS: POTASSIUM CHLORIDE ER 20 MEQ TAB.ER PO STA (14:04)
[2023-12-30 16:17] LABS: Glucose,Whole Blood 122 mg/dL (70-110)
--- NOTE | 2023-12-30 18:16 | P.PN ---
Subjective Progress Note Date: 12/30/23 S/p cycle 1 of R-CHOP. Patient was sleeping during today's visit. states overall he tolerated regimen well was able to tolerate some of his breakfast this morning and worked with PT earlier today. She reports he did have some nausea when he became worked up, but denies vomiting. Patient's creatinine has continued to improve, today at 1.45, GFR 47. Nephrology plans to continue dialysis today to help remove additional fluid. Counts are stable, hemoglobin 7.9, WBC 7.1, platelets 139,000. Uric acid elevated at 8.8, will order additional dose of Elitek. Objective - Vital Signs Vital signs: Vital Signs Temp 97.8 F 12/30/23 12:00 Pulse 91 12/30/23 13:30 Resp 18 12/30/23 13:30 BP 119/68 12/30/23 12:00 Pulse Ox 97 12/30/23 12:00 FiO2 Intake & Output 12/29/23 12/30/23 12/30/23 18:59 06:59 18:59 Intake Total 50 Output Total 570 590 Balance -520 -590 Weight 81.6 kg Intake: IV 50 KVO .9 50 Output: Chest Tube Drainage 10 40 Chest Tube Mediastinal 10 40 Urine 560 550 Other: Voiding Method Indwelling Catheter Indwelling Catheter Indwelling Catheter # Bowel Movements 0 ABP, PAP, CO, CI - Last Documented Arterial Blood Pressure 138/54 - Constitutional General appearance: Present: average body habitus, no acute distress - Respiratory Details: breathing is even and unlabored - Cardiovascular Details: well perfused - Integumentary Integumentary: Absent: cyanotic - Labs CBC & Chem 7: 12/30/23 10:44 12/30/23 10:44 Labs: Abnormal Lab Results - Last 24 Hours (Table) 12/29/23 12/30/23 12/30/23 Range/Units 21:53 06: 10:44 RBC 3.14 L (4.30-5.90) m/uL Hgb 8.3 L (13.0-17.5) gm/dL Hct 26.7 L (39.0-53.0) % MCHC 30.9 L (31.0-37.0) g/dL RDW 18.9 H (11.5-15.5) % Plt Count 74 L (150-450) k/uL Lymphocytes # 0.1 L (1.0-4.8) k/uL Sodium (137-145) mmol/L Potassium (3.5-5.1) mmol/L BUN (9-20) mg/dL Creatinine (0.66-1.25) mg/dL Glucose (74-99) mg/dL POC Glucose (mg/dL) 121 H 113 H (70-110) mg/dL Uric Acid (3.5-8.5) mg/dL Calcium (8.4-10.2) mg/dL Total Protein (6.3-8.2) g/dL Albumin (3.5-5.0) g/dL 12/30/23 12/30/23 Range/Units 10:44 11:24 RBC (4.30-5.90) m/uL Hgb (13.0-17.5) gm/dL Hct (39.0-53.0) % MCHC (31.0-37.0) g/dL RDW (11.5-15.5) % Plt Count (150-450) k/uL Lymphocytes # (1.0-4.8) k/uL Sodium 136 L (137-145) mmol/L Potassium 3.3 L (3.5-5.1) mmol/L BUN 53 H (9-20) mg/dL Creatinine 1.45 H (0.66-1.25) mg/dL Glucose 101 H (74-99) mg/dL POC Glucose (mg/dL) 115 H (70-110) mg/dL Uric Acid 8.8 H (3.5-8.5) mg/dL Calcium 6.7 L (8.4-10.2) mg/dL Total Protein 4.5 L (6.3-8.2) g/dL Albumin 2.6 L (3.5-5.0) g/dL Microbiology - Last 24 Hours (Table) 12/27/23 14:00 Anaerobic Culture - Preliminary Pericardial Fluid 12/27/23 14:00 Gram Stain - Preliminary Pericardial Fluid Body Fluid Culture - Preliminary Assessment and Plan (1) Mantle cell lymphoma Current Visit: Yes Status: Acute Priority: High Code(s): C83.10 - MANTLE CELL LYMPHOMA, UNSPECIFIED SITE SNOMED Code(s): 012732275 (2) Hyperkalemia Current Visit: Yes Status: Acute Priority: High Code(s): E87.5 - HYPERKALEMIA SNOMED Code(s): 06873686 (3) Renal failure Current Visit: Yes Status: Acute Priority: High Code(s): N19 - UNSPECIFIED KIDNEY FAILURE SNOMED Code(s): 44052388 (4) Weakness Current Visit: Yes Status: Acute Priority: High Code(s): R53.1 - WEAKNESS SNOMED Code(s): 24619201 Plan: Nausea and vomiting -Symptoms currently controlled on regimen -Cont supportive meds as sched and PRN ARF and TLS -Secondary to Mantle cell lymphoma (pt DOES NOT HAVE lymphoplasmacytic lymphoma- error in documentation) -Orders for RCHOP reviewed. Chemo edu provided to pt and family along with written materials by [facility]. No plans for prophylactic intrathecal chemotherapy at this time. Pt and family aware that TLS could occur at the start of treatment. Pt and labs will be monitored closely for several days. They verbalized understanding -The risk versus benefits of starting treatment while patient is acutely ill were reviewed with pt, and daughter again. Patient and family verbalized understanding. They agree with starting treatment. -ECHO completed -PICC line placed -S/p cycle 1 R-CHOP on 12/28. Patient overall tolerated well -Pulse dose dex was completed 12/27 -Elitek x 2. Today uric acid 8.8, additional dose Elitek ordered -Continue dialysis per Nephrology. Creatinine continues to improve, 1.45 today -TLS, CMP, CBC Labs daily Iron deficient anemia -Patient received 4 doses of parenteral iron around 12/03/2023 -Hemoglobin 8.3 today-stable -Anemia is multifactorial including disease process, renal failure, pericardial fluid is bloody looking but, stable -Transfuse for hemoglobin less than 7 or if patient is symptomatic. Currently, patient is fluid overloaded so, conservative transfusion recommended attests: I have performed H&P and developed impression and plan of care for patient, discussed with dictator. I agree with dictated note, documented as a scribe
[2023-12-30 20:55] LABS: Glucose,Whole Blood 125 mg/dL (70-110)
[2023-12-31 06:19] LABS: Glucose,Whole Blood 123 mg/dL (70-110)
[2023-12-31] MEDS: ENOXAPARIN 40 MG/0.4 ML SYRINGE SQ SCH (08:37)
--- NOTE | 2023-12-31 09:16 | P.PN ---
Subjective Progress Note Date: 12/31/23 Principal diagnosis: Pericardial effusion The patient is a 73-year-old gentleman who never seen by the cardiology service before with a past medical history significant for hypertension and dyslipidemia and presented diagnosis of mantle cell lymphoma presented to the hospital not feeling well. He presented with progressive generalized weakness over the last several days. Beside that and according to his family he has been experiencing progressive shortness of breath with exertion and progressive bilateral lower extremities edema. He underwent further investigation including blood work and that showed renal failure. Beside that his potassium has been severely elevated . His hemoglobin was also low. The patient underwent a CT scan of the abdomen and pelvis and that showed moderate pericardial effusion. Subsequently he underwent an echocardiogram earlier today and that showed large pericardial effusion with concerning tamponade physiology. His pressure has been marginal. Currently he is on Lasix. I am going to stop the Lasix. He underwent a dialysis catheter. He is in process of having dialysis later on today. I had a discussion about his case with the nephrology service and the plan to undergo gentle dialysis later on today with no significant amount of fluid to be taken out and he is also in agreement about stopping the Lasix at this point. He is not on any blood pressure medications at this point. The patient will be transferred to the intensive care unit. He would be seen by the surgical team for the evaluation of pericardial window. The patient currently is not having any chest pain or chest discomfort but on examination he does have severe bilateral lower extremities edema. He does not have any symptoms of any fever or chills or any other cardiac symptoms beside the shortness of breath and the progressive lower extremities edema. No dizziness or lightheadedness and no presyncope or syncope. The examination is remarkable for relatively stable vital signs with marginally low blood pressure and regular rate and rhythm with a soft systolic murmur and diminished breathing sounds bilaterally and severe bilateral lower extremities edema December 27, 2023 The patient was seen and evaluated this morning. He is going to undergo pe ricardial window later on today. He is overall stable. Currently he is not on any hypertension medication and the Lasix was stopped yesterday. The examination is remarkable for regular rhythm with a distant heart sounds and diminished breathing sounds bilaterally and bilateral lower extremities edema noted. December 28, 2023 The patient was seen and evaluated this morning. He underwent pericardial window yesterday with removal of around 450 cc of bloody fluid from the pericardium. The patient was seen this morning. He does have a mild change in mental status but he is able to answer my questions. He is experiencing discomfort in the chest related to the pericardium tube with that being said and with the pericardial effusion I am going to start him on colchicine at 0.6 mg p.o. twice daily. Beside that the kidney function has been trending slightly better but he continues to be on dialysis. Hemoglobin is stable and above 8. We will consider repeating the echo or getting a limited echo on him tomorrow to assess the size of the pericardial effusion. December 29, 2023 The patient was seen and evaluated this morning. He is doing better. The pressure has been better. Creatinine is improving as well. Drainage from the pericardial tube is less. I am going to obtain a limited echo to assess for any residual pericardial effusion meanwhile continue the current medical regimen including the current dose of colchicine. Follow-up with the patient. The examination is remarkable for stable vital signs with regular rate and rhythm and diminished breathing sounds bilaterally. December 31, 2023 The patient was seen and evaluated this morning. He is doing better. The repeated echo showed no pericardial effusion. He still have bilateral lower extremities edema and diminished breathing sounds bilaterally. Hemodynamically he is stable. I am going to give the patient 1 dose of Lasix IV once. Continue monitor the kidney function and electrolytes. His creatinine has been trending in the right direction. The examination is remarkable for regular rhythm with diminished breathing sounds bilaterally and bilateral lower extremities edema Assessment Large pericardial effusion status post pericardial window Recent diagnosis of mantle cell lymphoma Renal failure Heart failure Multiple comorbid conditions including hypertension and dyslipidemia Electrolytes imbalance Anemia Plan Continue the current medical regimen Give the patient 1 dose of Lasix IV Follow-up with the patient Objective - Vital Signs Vital signs: Vital Signs Temp 96.8 F L 12/31/23 04:00 Pulse 85 12/31/23 04:00 Resp 14 12/31/23 04:00 BP 115/69 12/31/23 04:00 Pulse Ox 98 12/31/23 04:00 FiO2 Intake & Output 12/30/23 12/31/23 12/31/23 18:59 06:59 18:59 Intake Total 500 Output Total 4700 325 Balance -4200 -325 Weight 81.6 kg 80.5 kg Intake: Hemodialysis 500 Output: Urine 2200 325 Hemodialysis 2500 Other: Voiding Method Indwelling Catheter Indwelling Catheter ABP, PAP, CO, CI - Last Documented Arterial Blood Pressure 138/54 - Labs CBC & Chem 7: 12/30/23 10:44 12/30/23 10:44 Labs: Abnormal Lab Results - Last 24 Hours (Table) 12/30/23 12/30/23 12/30/23 Range/Units 10:44 10:44 11:24 RBC 3.14 L (4.30-5.90) m/uL Hgb 8.3 L (13.0-17.5) gm/dL Hct 26.7 L (39.0-53.0) % MCHC 30.9 L (31.0-37.0) g/dL RDW 18.9 H (11.5-15.5) % Plt Count 74 L (150-450) k/uL Lymphocytes # 0.1 L (1.0-4.8) k/uL Sodium 136 L (137-145) mmol/L Potassium 3.3 L (3.5-5.1) mmol/L BUN 53 H (9-20) mg/dL Creatinine 1.45 H (0.66-1.25) mg/dL Glucose 101 H (74-99) mg/dL POC Glucose (mg/dL) 115 H (70-110) mg/dL Uric Acid 8.8 H (3.5-8.5) mg/dL Calcium 6.7 L (8.4-10.2) mg/dL Total Protein 4.5 L (6.3-8.2) g/dL Albumin 2.6 L (3.5-5.0) g/dL 12/30/23 12/30/23 12/31/23 Range/Units 16:15 20:52 06:09 RBC (4.30-5.90) m/uL Hgb (13.0-17.5) gm/dL Hct (39.0-53.0) % MCHC (31.0-37.0) g/dL RDW (11.5-15.5) % Plt Count (150-450) k/uL Lymphocytes # (1.0-4.8) k/uL Sodium (137-145) mmol/L Potassium (3.5-5.1) mmol/L BUN (9-20) mg/dL Creatinine (0.66-1.25) mg/dL Glucose (74-99) mg/dL POC Glucose (mg/dL) 122 H 125 H 123 H (70-110) mg/dL Uric Acid (3.5-8.5) mg/dL Calcium (8.4-10.2) mg/dL Total Protein (6.3-8.2) g/dL Albumin (3.5-5.0) g/dL Microbiology - Last 24 Hours (Table) 12/27/23 14:00 Gram Stain - Preliminary Pericardial Fluid Body Fluid Culture - Preliminary 12/27/23 14:00 Anaerobic Culture - Preliminary Pericardial Fluid
[2023-12-31 09:50] LABS: Anisocytosis Slight; Basophils % (A) 0 %; Eosinophils % (A) 0 %; HCT 26.5 % (39.0-53.0); HGB 8.1 gm/dL (13.0-17.5); Hypochromasia Moderate; Lymphocytes # (A) 0.1 k/uL (1.0-4.8); Lymphocytes % (A) 2 %; MCH 25.9 pg (25.0-35.0); MCHC 30.7 g/dL (31.0-37.0); MCV 84.3 fL (80.0-100.0); Mean Platelet Volume 8.5; Monocytes # (A) 0.2 k/uL (0-1.0); Monocytes % (A) 4 %; Neutrophils # (A) 4.4 k/uL (1.3-7.7); Neutrophils % (A) 93 %; RBC 3.14 m/uL (4.30-5.90); RDW 18.6 % (11.5-15.5); WBC 4.7 k/uL (3.8-10.6)
[2023-12-31 09:55] LABS: Platelet Count 60 k/uL (150-450)
[2023-12-31 10:29] LABS: ALT 32 U/L (4-49); AST 34 U/L (17-59); African American GFR (CKD) 69 (>60 ml/min/1.73 sqM); Albumin 2.5 g/dL (3.5-5.0); Alkaline Phosphatase 70 U/L (38-126); Anion Gap 4 mmol/L; Blood Urea Nitrogen 57 mg/dL (9-20); Calcium 6.7 mg/dL (8.4-10.2); Carbon Dioxide 28 mmol/L (22-30); Chloride 104 mmol/L (98-107); Glucose 104 mg/dL (74-99); Non-African American GFR(CKD) 59 (>60 ml/min/1.73 sqM); Phosphorus 3.8 mg/dL (2.5-4.5); Potassium 3.4 mmol/L (3.5-5.1); Sodium 136 mmol/L (137-145); Total Bilirubin 0.5 mg/dL (0.2-1.3); Total Protein 4.3 g/dL (6.3-8.2); Uric Acid 2.8 mg/dL (3.5-8.5)
--- NOTE | 2023-12-31 10:49 | P.PN ---
Subjective Patient is seen in follow-up for acute kidney injury. Started on hemodialysis December 26, 2023. Last hemodialysis December 28, 2023. Underwent UF only yesterday with 2 L removed. Nonoliguric. Denies chest pain or shortness of breath. Status post pericardial window December 27, 2023. Family present at bedside. Vital signs are stable. General: No acute distress. HEENT: Head exam is unremarkable. On nasal cannula. LUNGS: No audible rhonchi or wheezes. HEART: Rate and Rhythm are regular. ABDOMEN: Nontender. EXTREMITITES: 2+ edema. Objective - Vital Signs Vital signs: Vital Signs Temp 96.8 F L 12/31/23 04:00 Pulse 85 12/31/23 04:00 Resp 14 12/31/23 04:00 BP 115/69 12/31/23 04:00 Pulse Ox 98 12/31/23 04:00 FiO2 Intake & Output 12/30/23 12/31/23 12/31/23 18:59 06:59 18:59 Intake Total 500 Output Total 4700 325 1000 Balance -4200 -325 -1000 Weight 81.6 kg 80.5 kg Intake: Hemodialysis 500 Output: Urine 2200 325 1000 Hemodialysis 2500 Other: Voiding Method Indwelling Catheter Indwelling Catheter ABP, PAP, CO, CI - Last Documented Arterial Blood Pressure 138/54 - Labs CBC & Chem 7: 12/31/23 09:01 12/31/23 09:01 Labs: Abnormal Lab Results - Last 24 Hours (Table) 12/30/23 12/30/23 12/30/23 Range/Units 10:44 10:44 11:24 RBC 3.14 L (4.30-5.90) m/uL Hgb 8.3 L (13.0-17.5) gm/dL Hct 26.7 L (39.0-53.0) % MCHC 30.9 L (31.0-37.0) g/dL RDW 18.9 H (11.5-15.5) % Plt Count 74 L (150-450) k/uL Lymphocytes # 0.1 L (1.0-4.8) k/uL Sodium 136 L (137-145) mmol/L Potassium 3.3 L (3.5-5.1) mmol/L BUN 53 H (9-20) mg/dL Creatinine 1.45 H (0.66-1.25) mg/dL Glucose 101 H (74-99) mg/dL POC Glucose (mg/dL) 115 H (70-110) mg/dL Uric Acid 8.8 H (3.5-8.5) mg/dL Calcium 6.7 L (8.4-10.2) mg/dL Total Protein 4.5 L (6.3-8.2) g/dL Albumin 2.6 L (3.5-5.0) g/dL 12/30/23 12/30/23 12/31/23 Range/Units 16:15 20:52 06:09 RBC (4.30-5.90) m/uL Hgb (13.0-17.5) gm/dL Hct (39.0-53.0) % MCHC (31.0-37.0) g/dL RDW (11.5-15.5) % Plt Count (150-450) k/uL Lymphocytes # (1.0-4.8) k/uL Sodium (137-145) mmol/L Potassium (3.5-5.1) mmol/L BUN (9-20) mg/dL Creatinine (0.66-1.25) mg/dL Glucose (74-99) mg/dL POC Glucose (mg/dL) 122 H 125 H 123 H (70-110) mg/dL Uric Acid (3.5-8.5) mg/dL Calcium (8.4-10.2) mg/dL Total Protein (6.3-8.2) g/dL Albumin (3.5-5.0) g/dL 12/31/23 12/31/23 Range/Units 09:01 09:01 RBC 3.14 L (4.30-5.90) m/uL Hgb 8.1 L (13.0-17.5) gm/dL Hct 26.5 L (39.0-53.0) % MCHC 30.7 L (31.0-37.0) g/dL RDW 18.6 H (11.5-15.5) % Plt Count 60 L (150-450) k/uL Lymphocytes # 0.1 L (1.0-4.8) k/uL Sodium 136 L (137-145) mmol/L Potassium 3.4 L (3.5-5.1) mmol/L BUN 57 H (9-20) mg/dL Creatinine (0.66-1.25) mg/dL Glucose 104 H (74-99) mg/dL POC Glucose (mg/dL) (70-110) mg/dL Uric Acid 2.8 L (3.5-8.5) mg/dL Calcium 6.7 L (8.4-10.2) mg/dL Total Protein 4.3 L (6.3-8.2) g/dL Albumin 2.5 L (3.5-5.0) g/dL Microbiology - Last 24 Hours (Table) 12/27/23 14:00 Gram Stain - Preliminary Pericardial Fluid Body Fluid Culture - Preliminary 12/27/23 14:00 Anaerobic Culture - Preliminary Pericardial Fluid Assessment and Plan Plan: Assessment: 1. Acute kidney injury secondary to ATN secondary to tumor lysis syndrome. B aseline creatinine near 1 and up to 4.27 dated December 26, 2023. Started on hemodialysis December 26, 2023. Has temporary dialysis catheter. Mild left hydronephrosis noted on kidney ultrasound. Last dialysis December 28, 2023. Underwent UF only December 30, 2023 with 2 L removed. Creatinine 1.21 today. 2. Volume overload. Improving with diuresis and ultrafiltration. 3. Pericardial effusion. Status post pericardial window December 27, 2023. 4. Mantle cell lymphoma. Oncology following. Started on chemotherapy. 5. Hyperkalemia secondary to acute kidney injury, acidosis and tumor lysis. Improved. Now hypokalemic from diuresis. 6. Hypervolemic hyponatremia. Improved. 7. Metabolic acidosis secondary to acute kidney injury. Improved. 8. Hyperphosphatemia secondary to acute kidney injury and tumor lysis. On PhosLo. Phosphorus level 3.8 dated December 31, 2023. 9. Hyperuricemia secondary to tumor lysis status post rasburicase. Improved. Plan: Add IV Lasix 40 mg twice daily. Hold off on dialysis over the weekend. Preserved EF noted on echo. Avoid nephrotoxins. Continue to monitor renal function and urine output. Continue to assess need for hemodialysis on daily basis. Will discontinue femoral catheter if no further need. Replace potassium.
--- NOTE | 2023-12-31 10:57 | P.PN ---
Subjective Progress Note Date: 12/31/23 Rahul Cruz, Is a 57-year-old male patient who presented to the ER with concerns of increased weakness over the past few days. Patient was discharged from the hospital 2 weeks ago after diagnosed with lymphoma patient reports that he was doing well for couple days but then began not feeling well not wanting to eat over the past few days patient has past medical history of hyperlipidemia hypertension and nicotine dependence.Chest x-ray completed showing development of a moderate left pleural effusion with adjacent atelectasis or consolidation trace effusion on the right. Abdominal ultrasound completed showing no suspicious ultrasound abnormality some mild ascites is present marked splenomegaly small bilateral pleural effusions are present.Patient white blood cell elevated at 11.6, hemoglobin 10.3, sodium 129, potassium 6.4, creatinine 3.6-190 magnesium 2.8 ALT 17 AST 23. Troponin negative. UA negative. Influenza RSV and COVID-19 negative.At this time patient has been started on IV fluid nephrology and cardiology services have been consulted. Repeat labs have been ordered. Current vital signs temp 97.5, heart rate 100, respiratory rate 18, blood pressure 115/78 with a pulse ox of 95% on 2 L On 12/23/2023 patient is alert and oriented 3. Patient reports slight improvement. Family at bedside. Awaiting nephrology and oncology input. Patient denies chest pain or shortness of breath. Patient denies any urinary burning or frequency. Repeat labs pending On 12/24/2023 patient was seen and examined on the medical floor with, he is alert and oriented x 3 in no apparent distress, he is complaining of generalized fatigue and weakness, otherwise he denies any complaints, there is no fever or chills no headache or dizziness no chest pain, no shortness of breath no cough no nausea or vomiting no abdominal pain no diarrhea and no urinary symptoms. Potassium is elevated today at 6.3, he will be given Kayexalate BUN is 92.2 creatinine 3.7 on 12/25/2023 patient's alert and oriented 3. Patient still complain of generalized fatigue and weakness. Per oncology services possible tumor lysis syndrome awaiting repeat labs today for further plan. Nephrology services following. Current vital signs temp 97.4, heart rate 103, respiratory rate 16, blood pressure 121/82 with a pulse ox of 97% on 2 L. Patient remains on sodium bicarbonate drip On 12/26/2023 patient was seen and examined on the telemetry floor, he is alert and oriented x 3 in no apparent distress, he is complaining of generalized weakness, otherwise he denies any complaints at this time, there is no fever or chills no headache or dizziness no chest pain no shortness of breath, no cough no nausea or vomiting no abdominal pain no diarrhea no urinary symptoms. CT scan yesterday revealed evidence of pericardial effusion, patient was transferred to telemetry floor, echocardiogram ordered and cardiology consult requested. Potassium is elevated Kayexalate was ordered. On 12/27/2023 patient remains in the intensive care unit alert and oriented 3. Plans today for pericardial window. Patient did get hemodialysis yesterday no fluid was removed. Plans after pericardial window to receive hemodialysis again. Patient currently not on any vasopressors. Current vital signs temp 97.9, heart rate 86, respiratory rate 18, blood pressure 112/66 with pulse ox 95% on 5 L. Patient also started on dexamethasone per oncology services. Patient seen on sodium bicarb drip On 12/28/2023 patient remains in the intensive care unit alert and oriented 3. Patient having episodes of nausea and vomiting. Will order abdominal x-ray. Discussed case with oncology service is at bedside. Patient underwent per icardial window yesterday. Plans for hemodialysis today.Current vital signs temp 97.7, heart rate 85, respiratory rate 12, blood pressure 120/60 with pulse ox 94% on 5 L On 12/29/2023 patient was seen and examined in the ICU he is alert and oriented x 3 in no apparent distress he is feeling well and denies any complaints at this time there is no fever or chills no headache or dizziness no chest pain no shortness of breath no cough no nausea or vomiting no abdominal pain no diarrhea no urinary symptoms. He was started on chemotherapy today, will continue to follow closely. On 12/30/2023 patient was seen and examined on the medical floor he is alert and oriented x 3 in no apparent distress he is complaining of generalized fatigue otherwise he denies any complaints there is no fever or chills no headache or dizziness no chest pain no shortness of breath or cough no nausea or vomiting no abdominal pain no diarrhea no urinary symptoms, he has very poor appetite, he was started on chemotherapy yesterday. Vital exam today revealed a temperature of 97.7 pulse 90 respiration 18 blood pressure 113/69 pulse ox 98% on 4 L nasal cannula, white blood count 5.9 hemoglobin 8.3 sodium 136 potassium 3.3 BUN 53 creatinine 1.45 patient was started on hemodialysis on December 25, he had pericardial window on December 26 , nephrology, cardiothoracic surgery, oncology and pulmonary are following. On 12/31/2023 patient was seen and examined on the medical floor he is alert and oriented x 3 in no distress he is complaining of generalized fatigue, he is also complaining of increased anxiety and asking for Xanax, and is complaining of nausea, otherwise he denies any complaints there is no fever or chills no headache or dizziness no chest pain no shortness of breath no cough no vomiting no abdominal pain no diarrhea no blood in the stools no burning with urination no frequency or urgency and no hematuria. His vital exam reveals a temperature of 96.8 pulse 85 respiration 14 blood pressure 115/69 and pulse ox of 98% on 2 L nasal cannula white blood count is 4.7 hemoglobin 8.1 platelet count 60,000 BUN 57 creatinine 1.21 Objective - Vital Signs Vital signs: Vital Signs Temp 96.8 F L 12/31/23 04:00 Pulse 85 12/31/23 04:00 Resp 14 12/31/23 04:00 BP 115/69 12/31/23 04:00 Pulse Ox 98 12/31/23 04:00 FiO2 Intake & Output 12/30/23 12/31/23 12/31/23 18:59 06:59 18:59 Intake Total 500 Output Total 4700 325 Balance -4200 -325 Weight 81.6 kg 80.5 kg Intake: Hemodialysis 500 Output: Urine 2200 325 Hemodialysis 2500 Other: Voiding Method Indwelling Catheter Indwelling Catheter ABP, PAP, CO, CI - Last Documented Arterial Blood Pressure 138/54 - Exam Head normocephalic Neck supple Lungs clear to auscultation bilaterally no wheezing or crackles Heart regular rate and rhythm S1-S2, no rub or gallop Abdomen is soft nontender nondistended positive bowel sounds no hepatosplenomegaly Extremities no edema Neuro alert and orientated to 3 - Labs CBC & Chem 7: 12/31/23 09:01 12/31/23 09:01 Labs: Abnormal Lab Results - Last 24 Hours (Table) 12/30/23 12/30/23 12/30/23 Range/Units 10:44 10:44 11:24 RBC 3.14 L (4.30-5.90) m/uL Hgb 8.3 L (13.0-17.5) gm/dL Hct 26.7 L (39.0-53.0) % MCHC 30.9 L (31.0-37.0) g/dL RDW 18.9 H (11.5-15.5) % Plt Count 74 L (150-450) k/uL Lymphocytes # 0.1 L (1.0-4.8) k/uL Sodium 136 L (137-145) mmol/L Potassium 3.3 L (3.5-5.1) mmol/L BUN 53 H (9-20) mg/dL Creatinine 1.45 H (0.66-1.25) mg/dL Glucose 101 H (74-99) mg/dL POC Glucose (mg/dL) 115 H (70-110) mg/dL Uric Acid 8.8 H (3.5-8.5) mg/dL Calcium 6.7 L (8.4-10.2) mg/dL Total Protein 4.5 L (6.3-8.2) g/dL Albumin 2.6 L (3.5-5.0) g/dL 12/30/23 12/30/23 12/31/23 Range/Units 16:15 20:52 06:09 RBC (4.30-5.90) m/uL Hgb (13.0-17.5) gm/dL Hct (39.0-53.0) % MCHC (31.0-37.0) g/dL RDW (11.5-15.5) % Plt Count (150-450) k/uL Lymphocytes # (1.0-4.8) k/uL Sodium (137-145) mmol/L Potassium (3.5-5.1) mmol/L BUN (9-20) mg/dL Creatinine (0.66-1.25) mg/dL Glucose (74-99) mg/dL POC Glucose (mg/dL) 122 H 125 H 123 H (70-110) mg/dL Uric Acid (3.5-8.5) mg/dL Calcium (8.4-10.2) mg/dL Total Protein (6.3-8.2) g/dL Albumin (3.5-5.0) g/dL 12/31/23 Range/Units 09:01 RBC 3.14 L (4.30-5.90) m/uL Hgb 8.1 L (13.0-17.5) gm/dL Hct 26.5 L (39.0-53.0) % MCHC 30.7 L (31.0-37.0) g/dL RDW 18.6 H (11.5-15.5) % Plt Count 60 L (150-450) k/uL Lymphocytes # 0.1 L (1.0-4.8) k/uL Sodium (137-145) mmol/L Potassium (3.5-5.1) mmol/L BUN (9-20) mg/dL Creatinine (0.66-1.25) mg/dL Glucose (74-99) mg/dL POC Glucose (mg/dL) (70-110) mg/dL Uric Acid (3.5-8.5) mg/dL Calcium (8.4-10.2) mg/dL Total Protein (6.3-8.2) g/dL Albumin (3.5-5.0) g/dL Microbiology - Last 24 Hours (Table) 12/27/23 14:00 Gram Stain - Preliminary Pericardial Fluid Body Fluid Culture - Preliminary 12/27/23 14:00 Anaerobic Culture - Preliminary Pericardial Fluid Assessment and Plan Assessment: 1. Acute kidney failureLikely secondary to tumor lysis syndrome. Requiring hemodialysis 2. Recent diagnosis of lymphoma with splenomegaly and extensive lymphadenopathy 3. History of essential hypertension 4. History of hyperlipidemia 5. Increased weakness and general malaise. 6. Electrolyte imbalance with hyperkalemia 7. Moderate to large size pericardial effusion. s/p pericardial window on 12/27/2023 DVT prophylaxis Lovenox. GI prophylaxis Protonix Nephrology, oncology, cardiology and critical care services are following Patient has been transferred to the ICU Patient started on hemodialysis 12/26/2023 Pericardial window scheduled for 12/27/2023 Patient started on IV steroids per oncology service is Maintained on sodium bicarb drip
[2023-12-31 11:45] LABS: Glucose,Whole Blood 109 mg/dL (70-110)
[2023-12-31] MEDS: POTASSIUM CHLORIDE ER 20 MEQ TAB.ER PO STA (12:15)
[2023-12-31] MEDS: FUROSEMIDE 10 MG/ML 2 ML VIAL IV ONE (12:16)
[2023-12-31] MEDS: ALPRAZolam 0.25 MG TAB PO PRN (12:25)
--- NOTE | 2023-12-31 13:19 | P.PN ---
Subjective Progress Note Date: 12/31/23 Principal diagnosis: Pericardial effusion. Patient is a 73-year-old white male with past medical history significant for recent diagnosis of lymphoma. Patient reportedly was noted to have some splenomegaly outpatient, had follow-up CAT scan which showed abdominal lymphadenopathy. Patient did have a lymph node biopsy of the right axilla on 12/07/2023, this was positive for mantle cell lymphoma. He is reportedly recently become established with Dr. Sidhu, not currently undergoing any treatments.. Patient reportedly was scheduled for a PET scan on 12/24/2023, however, he did not make it to his appointment. On December 21 his called 911, as the patient has been progressively more weak. This is a generalized weakness. He can no longer walk without assistance. He has been noted to have a reduced appetite. No significant nausea or vomiting, diarrhea, or abdominal p ain. He has been very swollen all over. He has been mildly short of breath, especially with any kind of exertion. Chest x-rays from admission, showing a moderate left pleural effusion with likely adjacent atelectasis, trace right pleural effusion, and right apical pleural parenchymal scarring. While in the emergency room, he was noted to have acute kidney injury. He was hyperkalemic with a potassium as of 6.4. Tumor lysis syndrome is suspected. Ultrasound of the kidneys, renals, bladder did not show any suspicious abnormalities within the kidneys. There was marked splenomegaly. A follow-up CT of the abdomen and pelvis identified a moderate size pericardial effusion. There was also mild left hydronephrosis, possibly from mass effect of the retroperitoneal lymphadenopathy. There was marked abdominal lymphadenopathy compatible with the patient's history of lymphoma. There were low-density areas within the spleen, which could represent the patient's lymphoma versus infarct change. Third spacing of fluid with moderate left and small right pleural effusion. Small to moderate ascites. Diffuse anasarca noted. And other incidental findings. Patient continues to experience worsening renal function and hyperkalemia. He has received multiple treatments for his hyperkalemia. Also receiving Elitek. Most recent uric acid level 9.7. There was recommendations for hemodialysis. Patient did have a hemodialysis catheter placed by vascular service, and underwent hemodialysis yesterday. No fluid was removed. Patient does have a moderate to large sized pericardial effusion. An echocardiogram is pending. There is a consult to cardiothoracic service, patient may have to undergo a pericardial window. He was evaluated by cardiology, who requested transfer to the intensive care unit. I am seeing this patient in room 262. He appears very debilitated and generally weak. There is gross anasarca. He is just received hemodialysis. No fluid was removed. Blood pressure remains normotensive at this time. Not requiring any vasopressors. Currently normal sinus rhythm, without any significant tachycardia. There is mild JVD. Continues to make urine, approximately 40 MLS per hour. On 4 L/min nasal cannula, in no acute respiratory distress. Patient denies any infectious symptoms such as fever, cough, sputum production, chest pain. No reportable recent viral illnes ses/symptoms of URI. Denies chest pain, lightheadedness, syncopal events. Most recent labs include a WBC count 17.2, hemoglobin 9.6, hematocrit 30.2, platelets 241. BMP following hemodialysis includes: Sodium 129, potassium 4.4, chloride 95, serum bicarb 24, BUN 92, creatinine 3.59, glucose 159. He is being monitored in the intensive care unit. The patient is seen today December 28, 2023 in follow-up in the intensive care unit. He did undergo a subxiphoid pericardial window for the large pericardial effusion and early pericardial tamponade. 450 mL of bloody fluid was returned. Postoperative day #1. Mediastinal chest tube remains in place to wall suction. An additional 350 mL out since yesterday. He is currently sitting up in bed. Awake and alert in no acute distress. He is having some issues with nausea and vomiting. He is requiring oxygen at 5 L/min per nasal cannula. He has normal saline at KVO. X-ray reveals worsening moderate left greater than right pleural effusions with adjacent atelectasis. White count 7.3. Hemoglobin 7.9. Platelets 161. Sodium 133. Potassium 4.0. Bicarb 28. BUN 67. Creatinine 2.40. Glucose 107. He remains on Lovenox for DVT prophylaxis. Continued on Colcrys. The patient is seen today December 29, 2023 in follow-up in the intensive care unit. He is sitting up in bed. Awake and alert in no acute distress. He denies any worsening shortness of breath, cough or congestion. Maintaining O2 saturations in the 90s on 5 L/min per nasal cannula. Chest x-ray shows pericardial drain in place. Previous pneumomediastinum/pneumopericardium shows improvement. Ongoing moderate left and small right pleural effusions with adjacent atelectasis. Right PICC line in place. Follow-up echocardiogram pending. The pericardial tube drained about 100 mL of fluid in the past 24 hours. He is postoperative day #2 of pericardial window. White count 7.1. Hemoglobin 7.9. Platelets 139. Sodium 131. Potassium 3.8. Bicarb 30. BUN 47. Creatinine 1.64. Glucose 113. The plan is to begin R-CHOP today for his mantle cell lymphoma. No plans for hemodialysis today. He received additional Lasix. Progress note dated December 30, 2023. The patient is seen today in room 366. Currently, the patient is on saline at 50 cc an hour. The patient started chemotherapy, yesterday. He is getting oxygen by nasal cannula at 4 L. Current laboratory data includes a white count 5.9, hemoglobin 8.3, hematocrit 26.7, and platelet count which is currently pen ding. Sodium 136, potassium 3.3, chlorides 103, CO2 29, BUN 53, creatinine 1.45. Glucose is 115. Albumin is 2.6. Cardial fluid cultures are currently negative. No chest x-ray today. Progress note dated December 31, 2023. The patient is seen today in room 366. The patient is doing relatively well. He is currently on 2 L of oxygen. He is getting saline at 100 cc an hour. The patient's white count was 4.7, hemoglobin 8.1, hematocrit 26.5, platelet count of 60,000. Sodium 136, potassium 3.4, chlorides 104, CO2 28, BUN 57, and creatinine 1.21. Albumin is 2.5. Objective - Vital Signs Vital signs: Vital Signs Temp 97.5 F L 12/31/23 11:51 Pulse 81 12/31/23 11:51 Resp 20 12/31/23 11:51 BP 129/76 12/31/23 11:51 Pulse Ox 98 12/31/23 11:51 FiO2 Intake & Output 12/30/23 12/31/23 12/31/23 18:59 06:59 18:59 Intake Total 500 Output Total 4700 325 1000 Balance -4200 -325 -1000 Weight 81.6 kg 80.5 kg Intake: Hemodialysis 500 Output: Urine 2200 325 1000 Hemodialysis 2500 Other: Voiding Method Indwelling Catheter Indwelling Catheter Indwelling Catheter ABP, PAP, CO, CI - Last Documented Arterial Blood Pressure 138/54 - Exam No acute distress, oriented 3. No respiratory distress. Currently on 2 L by nasal cannula. HEENT examination is grossly unremarkable. Mucous membranes are moist. No oral lesions. Neck supple. Full range of motion. No adenopathy thyromegaly or neck vein distention. Cardiovascular examination reveals regular rhythm rate. S1-S2 normal. No S3 or S4. No discernible murmur noted. Heart rate is 81 bpm. Lungs reveal clear breath sounds. Breath sounds are equal bilaterally. No adventitious lung sounds including wheezes rhonchi or crackles. 2 L saturation is 98%. Abdomen soft bowel sounds are heard. No masses or tenderness. Extremities are intact. No cyanosis clubbing or edema. Skin is without rash or lesion. Neurologic examination is brief but nonfocal. - Labs CBC & Chem 7: 12/31/23 09:01 12/31/23 09:01 Labs: Abnormal Lab Results - Last 24 Hours (Table) 12/30/23 12/30/23 12/30/23 Range/Units 10:44 10:44 16:15 RBC (4.30-5.90) m/uL Hgb (13.0-17.5) gm/dL Hct (39.0-53.0) % MCHC (31.0-37.0) g/dL RDW (11.5-15.5) % Plt Count 74 L (150-450) k/uL Lymphocytes # 0.1 L (1.0-4.8) k/uL Sodium 136 L (137-145) mmol/L Potassium 3.3 L (3.5-5.1) mmol/L BUN 53 H (9-20) mg/dL Creatinine 1.45 H (0.66-1.25) mg/dL Glucose 101 H (74-99) mg/dL POC Glucose (mg/dL) 122 H (70-110) mg/dL Uric Acid 8.8 H (3.5-8.5) mg/dL Calcium 6.7 L (8.4-10.2) mg/dL Total Protein 4.5 L (6.3-8.2) g/dL Albumin 2.6 L (3.5-5.0) g/dL 06/07/24 06/08/24 06/08/24 Range/Units 20:52 06:09 09:01 RBC 3.14 L (4.30-5.90) m/uL Hgb 8.1 L (13.0-17.5) gm/dL Hct 26.5 L (39.0-53.0) % MCHC 30.7 L (31.0-37.0) g/dL RDW 18.6 H (11.5-15.5) % Plt Count 60 L (150-450) k/uL Lymphocytes # 0.1 L (1.0-4.8) k/uL Sodium (137-145) mmol/L Potassium (3.5-5.1) mmol/L BUN (9-20) mg/dL Creatinine (0.66-1.25) mg/dL Glucose (74-99) mg/dL POC Glucose (mg/dL) 125 H 123 H (70-110) mg/dL Uric Acid (3.5-8.5) mg/dL Calcium (8.4-10.2) mg/dL Total Protein (6.3-8.2) g/dL Albumin (3.5-5.0) g/dL 12/31/23 Range/Units 09:01 RBC (4.30-5.90) m/uL Hgb (13.0-17.5) gm/dL Hct (39.0-53.0) % MCHC (31.0-37.0) g/dL RDW (11.5-15.5) % Plt Count (150-450) k/uL Lymphocytes # (1.0-4.8) k/uL Sodium 136 L (137-145) mmol/L Potassium 3.4 L (3.5-5.1) mmol/L BUN 57 H (9-20) mg/dL Creatinine (0.66-1.25) mg/dL Glucose 104 H (74-99) mg/dL POC Glucose (mg/dL) (70-110) mg/dL Uric Acid 2.8 L (3.5-8.5) mg/dL Calcium 6.7 L (8.4-10.2) mg/dL Total Protein 4.3 L (6.3-8.2) g/dL Albumin 2.5 L (3.5-5.0) g/dL Microbiology - Last 24 Hours (Table) 12/27/23 14:00 Gram Stain - Preliminary Pericardial Fluid Body Fluid Culture - Preliminary 12/27/23 14:00 Anaerobic Culture - Preliminary Pericardial Fluid Assessment and Plan Assessment: Mantle cell lymphoma, diagnosed with excisional lymph node biopsy of the the right axilla on 12/07/2023. Patient received first round of R-CHOP. Moderate to large size pericardial effusion, status post subxiphoid pericardial window December 27, 2023 with mediastinal chest tube remaining in place. Initial 450 mL of bloody fluid returned. Acute kidney injury and suspected tumor lysis syndrome, uric acid level as high as 12.6 and down to 9.7, receiving doses of Elitek. Patient did have an hemod ialysis catheter placed, and and received emergent hemodialysis 12/26/2023. Severe hyperkalemia, improved after hemodialysis. Hypervolemic hyponatremia. Hyperphosphatemia. Gross anasarca and fluid overload. Acute hypoxemic respiratory failure, secondary to fluid overload, chest x-ray on admission showing a moderate left pleural effusion with likely adjacent atelectasis, trace right pleural effusion, and right apical pleural parenchymal scarring. Normocytic normochromic anemia, no overt signs of acute blood loss. Mild transaminitis. History of hyperlipidemia. History of hypertension. Former tobacco smoker, quitting approximately 4 weeks ago. Plan: Plan dated December 30, 2023. The patient was moved out of the intensive care unit. The patient did start chemotherapy with Rituxan, cyclophosphamide, Adriamycin, vincristine, and prednisone. Currently, the patient is on oxygen by nasal cannula at 4 L. The patient is receiving saline at 50 cc an hour. Labs, x-rays, medications are reviewed. The patient's overall prognosis remains guarded. Will continue to follow the patient, and make recommendations where appropriate. Plan dated December 31, 2023. The patient was in the intensive care unit, for a number of days, following the insertion of a subxiphoid pericardial catheter. The patient was seen for a large pericardial effusion. Currently, the patient is out on the general medical floor, room 266. Has been weaned down to 2 L of oxygen. He is continue with saline at 100 cc an hour. The patient has a history of recent diagnosis of mantle cell lymphoma. The patient started on chemotherapy with Rituxan, cyclophosphamide, Adriamycin, vincristine, and prednisone. We will continue to follow make recommendations. Prognosis is guarded. Time with Patient: Less than 30
[2023-12-31 16:32] LABS: Glucose,Whole Blood 103 mg/dL (70-110)
[2023-12-31 20:13] LABS: Glucose,Whole Blood 138 mg/dL (70-110)
[2023-12-31] MEDS: FUROSEMIDE 10 MG/ML 4 ML VIAL IV SCH (20:18)
[2024-01-01 06:16] LABS: Glucose,Whole Blood 106 mg/dL (70-110)
[2024-01-01 08:39] LABS: Anisocytosis Slight; Basophils % (A) 0 %; Eosinophils % (A) 0 %; HGB 8.7 gm/dL (13.0-17.5); Hypochromasia Marked; Lymphocytes # (A) 0.2 k/uL (1.0-4.8); Lymphocytes % (A) 3 %; MCH 26.9 pg (25.0-35.0); MCHC 32.1 g/dL (31.0-37.0); MCV 83.8 fL (80.0-100.0); Mean Platelet Volume 8.5; Monocytes # (A) 0.1 k/uL (0-1.0); Monocytes % (A) 2 %; Neutrophils # (A) 4.9 k/uL (1.3-7.7); Neutrophils % (A) 95 %; RBC 3.22 m/uL (4.30-5.90); RDW 18.4 % (11.5-15.5); WBC 5.1 k/uL (3.8-10.6)
[2024-01-01 09:02] LABS: ALT 27 U/L (4-49); AST 29 U/L (17-59); African American GFR (CKD) 87 (>60 ml/min/1.73 sqM); Albumin 2.5 g/dL (3.5-5.0); Alkaline Phosphatase 67 U/L (38-126); Anion Gap 3 mmol/L; Blood Urea Nitrogen 56 mg/dL (9-20); Calcium 7.3 mg/dL (8.4-10.2); Carbon Dioxide 30 mmol/L (22-30); Chloride 104 mmol/L (98-107); Glucose 90 mg/dL (74-99); Non-African American GFR(CKD) 75 (>60 ml/min/1.73 sqM); Phosphorus 2.8 mg/dL (2.5-4.5); Potassium 3.4 mmol/L (3.5-5.1); Sodium 137 mmol/L (137-145); Total Bilirubin 0.7 mg/dL (0.2-1.3); Total Protein 4.4 g/dL (6.3-8.2); Uric Acid 3.2 mg/dL (3.5-8.5)
[2024-01-01 09:05] LABS: Platelet Count 54 k/uL (150-450)
--- NOTE | 2024-01-01 09:09 | P.PN ---
Subjective Progress Note Date: 01/01/24 Principal diagnosis: Pericardial effusion The patient is a 73-year-old gentleman who never seen by the cardiology service before with a past medical history significant for hypertension and dyslipidemia and presented diagnosis of mantle cell lymphoma presented to the hospital not feeling well. He presented with progressive generalized weakness over the last several days. Beside that and according to his family he has been experiencing progressive shortness of breath with exertion and progressive bilateral lower extremities edema. He underwent further investigation including blood work and that showed renal failure. Beside that his potassium has been severely elevated . His hemoglobin was also low. The patient underwent a CT scan of the abdomen and pelvis and that showed moderate pericardial effusion. Subsequently he underwent an echocardiogram earlier today and that showed large pericardial effusion with concerning tamponade physiology. His pressure has been marginal. Currently he is on Lasix. I am going to stop the Lasix. He underwent a dialysis catheter. He is in process of having dialysis later on today. I had a discussion about his case with the nephrology service and the plan to undergo gentle dialysis later on today with no significant amount of fluid to be taken out and he is also in agreement about stopping the Lasix at this point. He is not on any blood pressure medications at this point. The patient will be transferred to the intensive care unit. He would be seen by the surgical team for the evaluation of pericardial window. The patient currently is not having any chest pain or chest discomfort but on examination he does have severe bilateral lower extremities edema. He does not have any symptoms of any fever or chills or any other cardiac symptoms beside the shortness of breath and the progressive lower extremities edema. No dizziness or lightheadedness and no presyncope or syncope. The examination is remarkable for relatively stable vital signs with marginally low blood pressure and regular rate and rhythm with a soft systolic murmur and diminished breathing sounds bilaterally and severe bilateral lower extremities edema December 27, 2023 The patient was seen and evaluated this morning. He is going to undergo pe ricardial window later on today. He is overall stable. Currently he is not on any hypertension medication and the Lasix was stopped yesterday. The examination is remarkable for regular rhythm with a distant heart sounds and diminished breathing sounds bilaterally and bilateral lower extremities edema noted. December 28, 2023 The patient was seen and evaluated this morning. He underwent pericardial window yesterday with removal of around 450 cc of bloody fluid from the pericardium. The patient was seen this morning. He does have a mild change in mental status but he is able to answer my questions. He is experiencing discomfort in the chest related to the pericardium tube with that being said and with the pericardial effusion I am going to start him on colchicine at 0.6 mg p.o. twice daily. Beside that the kidney function has been trending slightly better but he continues to be on dialysis. Hemoglobin is stable and above 8. We will consider repeating the echo or getting a limited echo on him tomorrow to assess the size of the pericardial effusion. December 29, 2023 The patient was seen and evaluated this morning. He is doing better. The pressure has been better. Creatinine is improving as well. Drainage from the pericardial tube is less. I am going to obtain a limited echo to assess for any residual pericardial effusion meanwhile continue the current medical regimen including the current dose of colchicine. Follow-up with the patient. The examination is remarkable for stable vital signs with regular rate and rhythm and diminished breathing sounds bilaterally. December 31, 2023 The patient was seen and evaluated this morning. He is doing better. The repeated echo showed no pericardial effusion. He still have bilateral lower extremities edema and diminished breathing sounds bilaterally. Hemodynamically he is stable. I am going to give the patient 1 dose of Lasix IV once. Continue monitor the kidney function and electrolytes. His creatinine has been trending in the right direction. The examination is remarkable for regular rhythm with diminished breathing sounds bilaterally and bilateral lower extremities edema January 01, 2024 The patient was seen and evaluated this morning. He is stable from a cardiac standpoint of view. The pressure has been under good control. He was started on Lasix yesterday which I would continue at this point because he still having bilateral lower extremities edema. He is tolerating that very well and diuresing very well on it. No pain in the chest. From the cardiac standpoint of view, I would continue the current medical regimen and the patient potentially can be discharged in next 24 to 48 hours. The examination is remarkable for stable vital signs with diminished breathing sounds bilaterally and moderate bilateral lower extremities edema Assessment Large pericardial effusion status post pericardial window Recent diagnosis of mantle cell lymphoma Renal failure which has improved Heart failure Multiple comorbid conditions including hypertension and dyslipidemia Electrolytes imbalance Anemia Plan Continue the current medical regimen Continue the current dose of Lasix IV Monitor the kidney function and electrolytes and hemoglobin Follow-up with the patient Objective - Vital Signs Vital signs: Vital Signs Temp 98.0 F 01/01/24 00:00 Pulse 90 01/01/24 04:00 Resp 18 01/01/24 04:00 BP 148/82 01/01/24 04:00 Pulse Ox 94 L 01/01/24 04:00 FiO2 Intake & Output 12/31/23 01/01/24 01/01/24 18:59 06:59 18:59 Intake Total 720 Output Total 1575 1750 Balance -855 -1750 Weight 73.5 kg Intake: IV 240 KVO .9 240 Oral 480 Output: Urine 1575 1750 Other: Voiding Method Indwelling Catheter Indwelling Catheter ABP, PAP, CO, CI - Last Documented Arterial Blood Pressure 138/54 - Labs CBC & Chem 7: 01/01/24 07:43 01/01/24 07:43 Labs: Abnormal Lab Results - Last 24 Hours (Table) 12/31/23 12/31/23 12/31/23 Range/Units 09:01 09:01 20:12 RBC 3.14 L (4.30-5.90) m/uL Hgb 8.1 L (13.0-17.5) gm/dL Hct 26.5 L (39.0-53.0) % MCHC 30.7 L (31.0-37.0) g/dL RDW 18.6 H (11.5-15.5) % Plt Count 60 L (150-450) k/uL Lymphocytes # 0.1 L (1.0-4.8) k/uL Sodium 136 L (137-145) mmol/L Potassium 3.4 L (3.5-5.1) mmol/L BUN 57 H (9-20) mg/dL Glucose 104 H (74-99) mg/dL POC Glucose (mg/dL) 138 H (70-110) mg/dL Uric Acid 2.8 L (3.5-8.5) mg/dL Calcium 6.7 L (8.4-10.2) mg/dL Total Protein 4.3 L (6.3-8.2) g/dL Albumin 2.5 L (3.5-5.0) g/dL 01/01/24 01/01/24 Range/Units 07:43 07:43 RBC 3.22 L (4.30-5.90) m/uL Hgb 8.7 L (13.0-17.5) gm/dL Hct 27.0 L (39.0-53.0) % MCHC (31.0-37.0) g/dL RDW 18.4 H (11.5-15.5) % Plt Count 54 L (150-450) k/uL Lymphocytes # 0.2 L (1.0-4.8) k/uL Sodium (137-145) mmol/L Potassium 3.4 L (3.5-5.1) mmol/L BUN 56 H (9-20) mg/dL Glucose (74-99) mg/dL POC Glucose (mg/dL) (70-110) mg/dL Uric Acid 3.2 L (3.5-8.5) mg/dL Calcium 7.3 L (8.4-10.2) mg/dL Total Protein 4.4 L (6.3-8.2) g/dL Albumin 2.5 L (3.5-5.0) g/dL Microbiology - Last 24 Hours (Table) 12/27/23 14:00 Gram Stain - Final Pericardial Fluid Body Fluid Culture - Final
--- NOTE | 2024-01-01 09:46 | P.PN ---
Subjective Progress Note Date: 01/01/24 Rahul Cruz, Is a 57-year-old male patient who presented to the ER with concerns of increased weakness over the past few days. Patient was discharged from the hospital 2 weeks ago after diagnosed with lymphoma patient reports that he was doing well for couple days but then began not feeling well not wanting to eat over the past few days patient has past medical history of hyperlipidemia hypertension and nicotine dependence.Chest x-ray completed showing development of a moderate left pleural effusion with adjacent atelectasis or consolidation trace effusion on the right. Abdominal ultrasound completed showing no suspicious ultrasound abnormality some mild ascites is present marked splenomegaly small bilateral pleural effusions are present.Patient white blood cell elevated at 11.6, hemoglobin 10.3, sodium 129, potassium 6.4, creatinine 3.6-190 magnesium 2.8 ALT 17 AST 23. Troponin negative. UA negative. Influenza RSV and COVID-19 negative.At this time patient has been started on IV fluid nephrology and cardiology services have been consulted. Repeat labs have been ordered. Current vital signs temp 97.5, heart rate 100, respiratory rate 18, blood pressure 115/78 with a pulse ox of 95% on 2 L On 12/23/2023 patient is alert and oriented 3. Patient reports slight improvement. Family at bedside. Awaiting nephrology and oncology input. Patient denies chest pain or shortness of breath. Patient denies any urinary burning or frequency. Repeat labs pending On 12/24/2023 patient was seen and examined on the medical floor with, he is alert and oriented x 3 in no apparent distress, he is complaining of generalized fatigue and weakness, otherwise he denies any complaints, there is no fever or chills no headache or dizziness no chest pain, no shortness of breath no cough no nausea or vomiting no abdominal pain no diarrhea and no urinary symptoms. Potassium is elevated today at 6.3, he will be given Kayexalate BUN is 92.2 creatinine 3.7 on 12/25/2023 patient's alert and oriented 3. Patient still complain of generalized fatigue and weakness. Per oncology services possible tumor lysis syndrome awaiting repeat labs today for further plan. Nephrology services following. Current vital signs temp 97.4, heart rate 103, respiratory rate 16, blood pressure 121/82 with a pulse ox of 97% on 2 L. Patient remains on sodium bicarbonate drip On 12/26/2023 patient was seen and examined on the telemetry floor, he is alert and oriented x 3 in no apparent distress, he is complaining of generalized weakness, otherwise he denies any complaints at this time, there is no fever or chills no headache or dizziness no chest pain no shortness of breath, no cough no nausea or vomiting no abdominal pain no diarrhea no urinary symptoms. CT scan yesterday revealed evidence of pericardial effusion, patient was transferred to telemetry floor, echocardiogram ordered and cardiology consult requested. Potassium is elevated Kayexalate was ordered. On 12/27/2023 patient remains in the intensive care unit alert and oriented 3. Plans today for pericardial window. Patient did get hemodialysis yesterday no fluid was removed. Plans after pericardial window to receive hemodialysis again. Patient currently not on any vasopressors. Current vital signs temp 97.9, heart rate 86, respiratory rate 18, blood pressure 112/66 with pulse ox 95% on 5 L. Patient also started on dexamethasone per oncology services. Patient seen on sodium bicarb drip On 12/28/2023 patient remains in the intensive care unit alert and oriented 3. Patient having episodes of nausea and vomiting. Will order abdominal x-ray. Discussed case with oncology service is at bedside. Patient underwent per icardial window yesterday. Plans for hemodialysis today.Current vital signs temp 97.7, heart rate 85, respiratory rate 12, blood pressure 120/60 with pulse ox 94% on 5 L On 12/29/2023 patient was seen and examined in the ICU he is alert and oriented x 3 in no apparent distress he is feeling well and denies any complaints at this time there is no fever or chills no headache or dizziness no chest pain no shortness of breath no cough no nausea or vomiting no abdominal pain no diarrhea no urinary symptoms. He was started on chemotherapy today, will continue to follow closely. On 12/30/2023 patient was seen and examined on the medical floor he is alert and oriented x 3 in no apparent distress he is complaining of generalized fatigue otherwise he denies any complaints there is no fever or chills no headache or dizziness no chest pain no shortness of breath or cough no nausea or vomiting no abdominal pain no diarrhea no urinary symptoms, he has very poor appetite, he was started on chemotherapy yesterday. Vital exam today revealed a temperature of 97.7 pulse 90 respiration 18 blood pressure 113/69 pulse ox 98% on 4 L nasal cannula, white blood count 5.9 hemoglobin 8.3 sodium 136 potassium 3.3 BUN 53 creatinine 1.45 patient was started on hemodialysis on December 25, he had pericardial window on December 26 , nephrology, cardiothoracic surgery, oncology and pulmonary are following. On 12/31/2023 patient was seen and examined on the medical floor he is alert and oriented x 3 in no distress he is complaining of generalized fatigue, he is also complaining of increased anxiety and asking for Xanax, and is complaining of nausea, otherwise he denies any complaints there is no fever or chills no headache or dizziness no chest pain no shortness of breath no cough no vomiting no abdominal pain no diarrhea no blood in the stools no burning with urination no frequency or urgency and no hematuria. His vital exam reveals a temperature of 96.8 pulse 85 respiration 14 blood pressure 115/69 and pulse ox of 98% on 2 L nasal cannula white blood count is 4.7 hemoglobin 8.1 platelet count 60,000 BUN 57 creatinine 1.21 On 01/01/2024 patient was seen and examined on the medical floor he is alert and oriented x 3 in no apparent distress, he denies any complaints at this time, there is no fever or chills no headache or dizziness no chest pain no shortness of breath no cough no nausea or vomiting no abdominal pain no diarrhea no blood in the stools no burning with urination no frequency or urgency and no hematuria. Vital examination reveals a temperature of 98 pulse 89 respiration 18 blood pressure 141/79 pulse ox 96% on room air his white blood count is 5.1 hemoglobin 8.7 platelet count 54 BUN 56 creatinine 0.99 at this time patient is maintained on Lasix 40 mg IV twice daily, no need for further dialysis per nephrology, will continue to monitor, patient will need his dialysis catheter r emoved, if he continues to be stable possible discharge in the next 2 to 3 days Objective - Vital Signs Vital signs: Vital Signs Temp 98.0 F 01/01/24 00:00 Pulse 90 01/01/24 04:00 Resp 18 01/01/24 04:00 BP 148/82 01/01/24 04:00 Pulse Ox 94 L 01/01/24 04:00 FiO2 Intake & Output 12/31/23 01/01/24 01/01/24 18:59 06:59 18:59 Intake Total 720 Output Total 3187 1750 Balance -855 -1750 Weight 73.5 kg Intake: IV 240 KVO .9 240 Oral 480 Output: Urine 1575 1750 Other: Voiding Method Indwelling Catheter Indwelling Catheter ABP, PAP, CO, CI - Last Documented Arterial Blood Pressure 138/54 - Exam Head normocephalic Neck supple Lungs clear to auscultation bilaterally no wheezing or crackles Heart regular rate and rhythm S1-S2, no rub or gallop Abdomen is soft nontender nondistended positive bowel sounds no hepatosplenom egaly Extremities no edema Neuro alert and orientated to 3 - Labs CBC & Chem 7: 01/01/24 07:43 01/01/24 07:43 Labs: Abnormal Lab Results - Last 24 Hours (Table) 12/31/23 12/31/23 12/31/23 Range/Units 09:01 09:01 20:12 RBC 3.14 L (4.30-5.90) m/uL Hgb 8.1 L (13.0-17.5) gm/dL Hct 26.5 L (39.0-53.0) % MCHC 30.7 L (31.0-37.0) g/dL RDW 18.6 H (11.5-15.5) % Plt Count 60 L (150-450) k/uL Lymphocytes # 0.1 L (1.0-4.8) k/uL Sodium 136 L (137-145) mmol/L Potassium 3.4 L (3.5-5.1) mmol/L BUN 57 H (9-20) mg/dL Glucose 104 H (74-99) mg/dL POC Glucose (mg/dL) 138 H (70-110) mg/dL Uric Acid 2.8 L (3.5-8.5) mg/dL Calcium 6.7 L (8.4-10.2) mg/dL Total Protein 4.3 L (6.3-8.2) g/dL Albumin 2.5 L (3.5-5.0) g/dL 01/01/24 01/01/24 Range/Units 07:43 07:43 RBC 3.22 L (4.30-5.90) m/uL Hgb 8.7 L (13.0-17.5) gm/dL Hct 27.0 L (39.0-53.0) % MCHC (31.0-37.0) g/dL RDW 18.4 H (11.5-15.5) % Plt Count 54 L (150-450) k/uL Lymphocytes # 0.2 L (1.0-4.8) k/uL Sodium (137-145) mmol/L Potassium 3.4 L (3.5-5.1) mmol/L BUN 56 H (9-20) mg/dL Glucose (74-99) mg/dL POC Glucose (mg/dL) (70-110) mg/dL Uric Acid 3.2 L (3.5-8.5) mg/dL Calcium 7.3 L (8.4-10.2) mg/dL Total Protein 4.4 L (6.3-8.2) g/dL Albumin 2.5 L (3.5-5.0) g/dL Microbiology - Last 24 Hours (Table) 12/27/23 14:00 Gram Stain - Final Pericardial Fluid Body Fluid Culture - Final Assessment and Plan Assessment: 1. Acute kidney failureLikely secondary to tumor lysis syndrome. Requiring he modialysis 2. Recent diagnosis of lymphoma with splenomegaly and extensive lymphadenopathy 3. History of essential hypertension 4. History of hyperlipidemia 5. Increased weakness and general malaise. 6. Electrolyte imbalance with hyperkalemia 7. Moderate to large size pericardial effusion. s/p pericardial window on 12/27/2023 DVT prophylaxis Lovenox. GI prophylaxis Protonix Nephrology, oncology, cardiology and critical care services are following Patient has been transferred to the ICU Patient started on hemodialysis 12/26/2023 Pericardial window scheduled for 12/27/2023 Patient started on IV steroids per oncology service is Maintained on sodium bicarb drip
--- NOTE | 2024-01-01 10:40 | P.PN ---
Subjective Patient is seen in follow-up for acute kidney injury. Started on hemodialysis December 26, 2023. Last hemodialysis December 28, 2023. Underwent UF only December 30, 2023 with 2 L removed. On IV Lasix. Nonoliguric. Denies chest pain or shortness of breath. Status post pericardial window December 27, 2023. Family present at bedside. Vital signs are stable. General: No acute distress. HEENT: Head exam is unremarkable. On nasal cannula. LUNGS: No audible rhonchi or wheezes. HEART: Rate and Rhythm are regular. ABDOMEN: Nontender. EXTREMITITES: 2+ edema. Objective - Vital Signs Vital signs: Vital Signs Temp 97.9 F 01/01/24 08:00 Pulse 89 01/01/24 08:00 Resp 20 01/01/24 08:00 BP 139/75 01/01/24 08:00 Pulse Ox 94 L 01/01/24 08:00 FiO2 Intake & Output 12/31/23 01/01/24 01/01/24 18:59 06:59 18:59 Intake Total 720 Output Total 1575 1750 Balance -855 -1750 Weight 73.5 kg Intake: IV 240 KVO .9 240 Oral 480 Output: Urine 1575 1750 Other: Voiding Method Indwelling Catheter Indwelling Catheter Indwelling Catheter ABP, PAP, CO, CI - Last Documented Arterial Blood Pressure 138/54 - Labs CBC & Chem 7: 01/01/24 07:43 01/01/24 07:43 Labs: Abnormal Lab Results - Last 24 Hours (Table) 12/31/23 01/01/24 01/01/24 Range/Units 20:12 07:43 07:43 RBC 3.22 L (4.30-5.90) m/uL Hgb 8.7 L (13.0-17.5) gm/dL Hct 27.0 L (39.0-53.0) % RDW 18.4 H (11.5-15.5) % Plt Count 54 L (150-450) k/uL Lymphocytes # 0.2 L (1.0-4.8) k/uL Potassium 3.4 L (3.5-5.1) mmol/L BUN 56 H (9-20) mg/dL POC Glucose (mg/dL) 138 H (70-110) mg/dL Uric Acid 3.2 L (3.5-8.5) mg/dL Calcium 7.3 L (8.4-10.2) mg/dL Total Protein 4.4 L (6.3-8.2) g/dL Albumin 2.5 L (3.5-5.0) g/dL Microbiology - Last 24 Hours (Table) 12/27/23 14:00 Gram Stain - Final Pericardial Fluid Body Fluid Culture - Final Assessment and Plan Plan: Assessment: 1. Acute kidney injury secondary to ATN secondary to tumor lysis syndrome. Baseline creatinine near 1 and up to 4.27 dated December 26, 2023. Started on hemodialysis December 26, 2023. Has temporary dialysis catheter. Mild left hydronephrosis noted on kidney ultrasound. Last dialysis December 28, 2023. Underwent UF only December 30, 2023 with 2 L removed. Creatinine 0.99 today. 2. Volume overload. Improving with diuresis and ultrafiltration. 3. Pericardial effusion. Status post pericardial window December 27, 2023. 4. Mantle cell lymphoma. Oncology following. Started on chemotherapy. 5. Hyperkalemia secondary to acute kidney injury, acidosis and tumor lysis. Improved. Now hypokalemic from diuresis. 6. Hypervolemic hyponatremia. Improved. 7. Metabolic acidosis secondary to acute kidney injury. Improved. 8. Hyperphosphatemia secondary to acute kidney injury and tumor lysis. Phosphorus level 2.8 today. On PhosLo. 9. Hyperuricemia secondary to tumor lysis status post rasburicase. Improved. Plan: Maintain IV Lasix. Continue to hold off on hemodialysis. DC hemodialysis catheter. Preserved EF noted on echo. Avoid nephrotoxins. Continue to monitor renal function and urine output. Replace potassium. Stop PhosLo.
[2024-01-01 11:25] LABS: Glucose,Whole Blood 115 mg/dL (70-110)
[2024-01-01] MEDS: POTASSIUM CHLORIDE ER 20 MEQ TAB.ER PO STA (12:23)
--- NOTE | 2024-01-01 12:52 | P.PN ---
Subjective Progress Note Date: 01/01/24 S/p cycle 1 of R-CHOP. Patient reports feeling improved. Patient kidney function has continued to improve, creatinine 0.99, GFR 75. Uric acid 3.2. Dialysis has been stopped. Patient producing urine. Blood count stable, WBC 5.1, hemoglobin 8.7, platelets 54,000. Patient denies any episodes of acute b leeding. Patient is afebrile. Objective - Vital Signs Vital signs: Vital Signs Temp 97.9 F 01/01/24 08:00 Pulse 89 01/01/24 08:00 Resp 20 01/01/24 08:00 BP 139/75 01/01/24 08:00 Pulse Ox 94 L 01/01/24 08:00 FiO2 Intake & Output 12/31/23 01/01/24 01/01/24 18:59 06:59 18:59 Intake Total 720 Output Total 1575 1750 Balance -855 -1750 Weight 73.5 kg Intake: IV 240 KVO .9 240 Oral 480 Output: Urine 1575 1750 Other: Voiding Method Indwelling Catheter Indwelling Catheter Indwelling Catheter ABP, PAP, CO, CI - Last Documented Arterial Blood Pressure 138/54 - Constitutional General appearance: Present: average body habitus, no acute distress - EENT Eyes: Present: anicteric sclerae, EOMI ENT: Present: hearing grossly normal - Respiratory Details: breathing is even and unlabored - Cardiovascular Details: well perfused - Integumentary Integumentary: Absent: cyanotic, jaundiced - Musculoskeletal Musculoskeletal: Present: generalized weakness - Psychiatric Psychiatric: Present: A&O x's 3 - Labs CBC & Chem 7: 01/01/24 07:43 01/01/24 07:43 Labs: Abnormal Lab Results - Last 24 Hours (Table) 12/31/23 01/01/24 01/01/24 Range/Units 20:12 07:43 07:43 RBC 3.22 L (4.30-5.90) m/uL Hgb 8.7 L (13.0-17.5) gm/dL Hct 27.0 L (39.0-53.0) % RDW 18.4 H (11.5-15.5) % Plt Count 54 L (150-450) k/uL Lymphocytes # 0.2 L (1.0-4.8) k/uL Potassium 3.4 L (3.5-5.1) mmol/L BUN 56 H (9-20) mg/dL POC Glucose (mg/dL) 138 H (70-110) mg/dL Uric Acid 3.2 L (3.5-8.5) mg/dL Calcium 7.3 L (8.4-10.2) mg/dL Total Protein 4.4 L (6.3-8.2) g/dL Albumin 2.5 L (3.5-5.0) g/dL Microbiology - Last 24 Hours (Table) 12/27/23 14:00 Gram Stain - Final Pericardial Fluid Body Fluid Culture - Final Assessment and Plan (1) Mantle cell lymphoma Current Visit: Yes Status: Acute Priority: High Code(s): C83.10 - MANTLE CELL LYMPHOMA, UNSPECIFIED SITE SNOMED Code(s): 022558813 (2) Hyperkalemia Current Visit: Yes Status: Acute Priority: High Code(s): E87.5 - HYPERKALEMIA SNOMED Code(s): 93917014 (3) Renal failure Current Visit: Yes Status: Acute Priority: High Code(s): N19 - UNSPECIFIED KIDNEY FAILURE SNOMED Code(s): 70809316 (4) Weakness Current Visit: Yes Status: Acute Priority: High Code(s): R53.1 - WEAKNESS SNOMED Code(s): 51891232 Plan: Nausea and vomiting -Symptoms currently controlled on regimen -Cont supportive meds as sched and PRN Mantle cell lymphoma, ARF and TLS -Secondary to Mantle cell lymphoma (pt DOES NOT HAVE lymphoplasmacytic lymphoma- error in documentation) -Orders for R[facility] reviewed. Chemo edu provided to pt and family along with written materials by AUDIOMETRIC TECHNICIAN. No plans for prophylactic intrathecal chemotherapy at this time. Pt and family aware that TLS could occur at the start of treatment. Pt and labs will be monitored closely for several days. They verbalized understanding -The risk versus benefits of starting treatment while patient is acutely ill were reviewed with pt, and daughter again. Patient and family verbalized understanding. They agree with starting treatment. -ECHO completed -PICC line placed -S/p cycle 1 R-CHOP on 12/28. Patient overall tolerated well -Pulse dose dex was completed 12/27 -[employer] x 3. Today uric acid 3.2 -Creatinine continues to improve, 0.99 today, GFR 75. Dialysis has been d/c -Plts 54,000, continue to monitor. Patient currently on Lovenox and ASA. If continues on AC, please transfuse for plts less than 50,000, or if ok from cardiac standpoint hold aspirin and lovenox, and place SCDs for DVT prophylaxis -TLS, CMP, CBC Labs daily Iron deficient anemia -Patient received 4 doses of parenteral iron around 12/03/2023 -Hemoglobin 8.7 today-stable -Anemia is multifactorial including disease process, renal failure, pericardial fluid is bloody looking but, stable -Transfuse for hemoglobin less than 7 or if patient is symptomatic. Currently, patient is fluid overloaded so, conservative transfusion recommended
--- NOTE | 2024-01-01 12:54 | P.PN ---
Subjective Progress Note Date: 01/01/24 Principal diagnosis: Pericardial effusion. Patient is a 73-year-old white male with past medical history significant for recent diagnosis of lymphoma. Patient reportedly was noted to have some splenomegaly outpatient, had follow-up CAT scan which showed abdominal lymphadenopathy. Patient did have a lymph node biopsy of the right axilla on 12/07/2023, this was positive for mantle cell lymphoma. He is reportedly recently become established with Dr. Sidhu, not currently undergoing any treatments.. Patient reportedly was scheduled for a PET scan on 12/24/2023, however, he did not make it to his appointment. On December 21 his called 911, as the patient has been progressively more weak. This is a generalized weakness. He can no longer walk without assistance. He has been noted to have a reduced appetite. No significant nausea or vomiting, diarrhea, or abdominal p ain. He has been very swollen all over. He has been mildly short of breath, especially with any kind of exertion. Chest x-rays from admission, showing a moderate left pleural effusion with likely adjacent atelectasis, trace right pleural effusion, and right apical pleural parenchymal scarring. While in the emergency room, he was noted to have acute kidney injury. He was hyperkalemic with a potassium as of 6.4. Tumor lysis syndrome is suspected. Ultrasound of the kidneys, renals, bladder did not show any suspicious abnormalities within the kidneys. There was marked splenomegaly. A follow-up CT of the abdomen and pelvis identified a moderate size pericardial effusion. There was also mild left hydronephrosis, possibly from mass effect of the retroperitoneal lymphadenopathy. There was marked abdominal lymphadenopathy compatible with the patient's history of lymphoma. There were low-density areas within the spleen, which could represent the patient's lymphoma versus infarct change. Third spacing of fluid with moderate left and small right pleural effusion. Small to moderate ascites. Diffuse anasarca noted. And other incidental findings. Patient continues to experience worsening renal function and hyperkalemia. He has received multiple treatments for his hyperkalemia. Also receiving Elitek. Most recent uric acid level 9.7. There was recommendations for hemodialysis. Patient did have a hemodialysis catheter placed by vascular service, and underwent hemodialysis yesterday. No fluid was removed. Patient does have a moderate to large sized pericardial effusion. An echocardiogram is pending. There is a consult to cardiothoracic service, patient may have to undergo a pericardial window. He was evaluated by cardiology, who requested transfer to the intensive care unit. I am seeing this patient in room 262. He appears very debilitated and generally weak. There is gross anasarca. He is just received hemodialysis. No fluid was removed. Blood pressure remains normotensive at this time. Not requiring any vasopressors. Currently normal sinus rhythm, without any significant tachycardia. There is mild JVD. Continues to make urine, approximately 40 MLS per hour. On 4 L/min nasal cannula, in no acute respiratory distress. Patient denies any infectious symptoms such as fever, cough, sputum production, chest pain. No reportable recent viral illnes ses/symptoms of URI. Denies chest pain, lightheadedness, syncopal events. Most recent labs include a WBC count 17.2, hemoglobin 9.6, hematocrit 30.2, platelets 241. BMP following hemodialysis includes: Sodium 129, potassium 4.4, chloride 95, serum bicarb 24, BUN 92, creatinine 3.59, glucose 159. He is being monitored in the intensive care unit. The patient is seen today December 28, 2023 in follow-up in the intensive care unit. He did undergo a subxiphoid pericardial window for the large pericardial effusion and early pericardial tamponade. 450 mL of bloody fluid was returned. Postoperative day #1. Mediastinal chest tube remains in place to wall suction. An additional 350 mL out since yesterday. He is currently sitting up in bed. Awake and alert in no acute distress. He is having some issues with nausea and vomiting. He is requiring oxygen at 5 L/min per nasal cannula. He has normal saline at KVO. X-ray reveals worsening moderate left greater than right pleural effusions with adjacent atelectasis. White count 7.3. Hemoglobin 7.9. Platelets 161. Sodium 133. Potassium 4.0. Bicarb 28. BUN 67. Creatinine 2.40. Glucose 107. He remains on Lovenox for DVT prophylaxis. Continued on Colcrys. The patient is seen today December 29, 2023 in follow-up in the intensive care unit. He is sitting up in bed. Awake and alert in no acute distress. He denies any worsening shortness of breath, cough or congestion. Maintaining O2 saturations in the 90s on 5 L/min per nasal cannula. Chest x-ray shows pericardial drain in place. Previous pneumomediastinum/pneumopericardium shows improvement. Ongoing moderate left and small right pleural effusions with adjacent atelectasis. Right PICC line in place. Follow-up echocardiogram pending. The pericardial tube drained about 100 mL of fluid in the past 24 hours. He is postoperative day #2 of pericardial window. White count 7.1. Hemoglobin 7.9. Platelets 139. Sodium 131. Potassium 3.8. Bicarb 30. BUN 47. Creatinine 1.64. Glucose 113. The plan is to begin R-CHOP today for his mantle cell lymphoma. No plans for hemodialysis today. He received additional Lasix. Progress note dated December 30, 2023. The patient is seen today in room 366. Currently, the patient is on saline at 50 cc an hour. The patient started chemotherapy, yesterday. He is getting oxygen by nasal cannula at 4 L. Current laboratory data includes a white count 5.9, hemoglobin 8.3, hematocrit 26.7, and platelet count which is currently pen ding. Sodium 136, potassium 3.3, chlorides 103, CO2 29, BUN 53, creatinine 1.45. Glucose is 115. Albumin is 2.6. Cardial fluid cultures are currently negative. No chest x-ray today. Progress note dated December 31, 2023. The patient is seen today in room 366. The patient is doing relatively well. He is currently on 2 L of oxygen. He is getting saline at 100 cc an hour. The patient's white count was 4.7, hemoglobin 8.1, hematocrit 26.5, platelet count of 60,000. Sodium 136, potassium 3.4, chlorides 104, CO2 28, BUN 57, and creatinine 1.21. Albumin is 2.5. Progress note dated January 01, 2024. The patient is seen today in room 366. Family members are at the bedside. The patient has been weaned off of oxygen. He is currently on room air. No IV fluids. The subxiphoid pericardial catheter has been discontinued. The patient is doing much better. He did complete his first round of chemotherapy, with R- CHOP. Current labs include a white count 5.1, hemoglobin 8.7, hematocrit 27, p latelet count 54,000. Sodium 137, potassium 3.4, chlorides 104, CO2 30, BUN 56, and creatinine 0.99. Glucose is 115. Uric acid was 3.2. Calcium 7.3. Albumin 2.5. Objective - Vital Signs Vital signs: Vital Signs Temp 96.6 F L 01/01/24 11:34 Pulse 94 01/01/24 11:34 Resp 20 01/01/24 11:34 BP 129/72 01/01/24 11:34 Pulse Ox 94 L 01/01/24 11:34 FiO2 Intake & Output 12/31/23 01/01/24 01/01/24 18:59 06:59 18:59 Intake Total 720 Output Total 1575 1750 1600 Balance -855 -1750 -1600 Weight 73.5 kg Intake: IV 240 KVO .9 240 Oral 480 Output: Urine 1575 1750 1600 Other: Voiding Method Indwelling Catheter Indwelling Catheter Indwelling Catheter ABP, PAP, CO, CI - Last Documented Arterial Blood Pressure 138/54 - Exam No acute distress, oriented 3. No respiratory distress. Currently on room air. Saturations are 94%. HEENT examination is grossly unremarkable. Mucous membranes are moist. No oral lesions. Neck supple. Full range of motion. No adenopathy thyromegaly or neck vein distention. Cardiovascular examination reveals regular rhythm rate. S1-S2 normal. No S3 or S4. No discernible murmur noted. Heart rate is 94 bpm. Lungs reveal clear breath sounds. Breath sounds are equal bilaterally. No adventitious lung sounds including wheezes rhonchi or crackles. Room air saturation is 94 %. Abdomen soft bowel sounds are heard. No masses or tenderness. Extremities are intact. No cyanosis clubbing or edema. Skin is without rash or lesion. Neurologic examination is brief but nonfocal. - Labs CBC & Chem 7: 01/01/24 07:43 01/01/24 07:43 Labs: Abnormal Lab Results - Last 24 Hours (Table) 12/31/23 01/01/24 01/01/24 Range/Units 20:12 07:43 07:43 RBC 3.22 L (4.30-5.90) m/uL Hgb 8.7 L (13.0-17.5) gm/dL Hct 27.0 L (39.0-53.0) % RDW 18.4 H (11.5-15.5) % Plt Count 54 L (150-450) k/uL Lymphocytes # 0.2 L (1.0-4.8) k/uL Potassium 3.4 L (3.5-5.1) mmol/L BUN 56 H (9-20) mg/dL POC Glucose (mg/dL) 138 H (70-110) mg/dL Uric Acid 3.2 L (3.5-8.5) mg/dL Calcium 7.3 L (8.4-10.2) mg/dL Total Protein 4.4 L (6.3-8.2) g/dL Albumin 2.5 L (3.5-5.0) g/dL 01/01/24 Range/Units 11:21 RBC (4.30-5.90) m/uL Hgb (13.0-17.5) gm/dL Hct (39.0-53.0) % RDW (11.5-15.5) % Plt Count (150-450) k/uL Lymphocytes # (1.0-4.8) k/uL Potassium (3.5-5.1) mmol/L BUN (9-20) mg/dL POC Glucose (mg/dL) 115 H (70-110) mg/dL Uric Acid (3.5-8.5) mg/dL Calcium (8.4-10.2) mg/dL Total Protein (6.3-8.2) g/dL Albumin (3.5-5.0) g/dL Microbiology - Last 24 Hours (Table) 12/27/23 14:00 Gram Stain - Final Pericardial Fluid Body Fluid Culture - Final Assessment and Plan Assessment: Mantle cell lymphoma, diagnosed with excisional lymph node biopsy of the the right axilla on 12/07/2023. Patient received first round of R-CHOP. Moderate to large size pericardial effusion, status post subxiphoid pericardial window December 27, 2023 with mediastinal chest tube remaining in place. Initial 450 mL of bloody fluid returned. Acute kidney injury and suspected tumor lysis syndrome, uric acid level as high as 12.6 and down to 9.7, receiving doses of Elitek. Patient did have an hemodial ysis catheter placed, and and received emergent hemodialysis 12/26/2023. Severe hyperkalemia, improved after hemodialysis. Hypervolemic hyponatremia. Hyperphosphatemia. Gross anasarca and fluid overload. Acute hypoxemic respiratory failure, secondary to fluid overload, chest x-ray on admission showing a moderate left pleural effusion with likely adjacent atelectasis, trace right pleural effusion, and right apical pleural parenchymal scarring. Normocytic normochromic anemia, no overt signs of acute blood loss. Mild transaminitis. History of hyperlipidemia. History of hypertension. Former tobacco smoker, quitting approximately 4 weeks ago. Plan: Plan dated December 30, 2023. The patient was moved out of the intensive care unit. The patient did start chemotherapy with Rituxan, cyclophosphamide, Adriamycin, vincristine, and prednisone. Currently, the patient is on oxygen by nasal cannula at 4 L. The patient is receiving saline at 50 cc an hour. Labs, x-rays, medications are reviewed. The patient's overall prognosis remains guarded. Will continue to follow the patient, and make recommendations where appropriate. Plan dated December 31, 2023. The patient was in the intensive care unit, for a number of days, following the insertion of a subxiphoid pericardial catheter. The patient was seen for a large pericardial effusion. Currently, the patient is out on the general medical floor, room 266. Has been weaned down to 2 L of oxygen. He is continue with saline at 100 cc an hour. The patient has a history of recent diagnosis of mantle cell lymphoma. The patient started on chemotherapy with Rituxan, cyclophosphamide, Adriamycin, vincristine, and prednisone. We will continue to follow make recommendations. Prognosis is guarded. Plan dated January 01, 2024. The patient is seen today in room 366. The patient has been weaned off of oxygen therapy. He is not receiving any IV fluids. The patient continues to do well. Labs, x-rays, medications are reviewed. The patient's subxiphoid pericardial catheter has been removed. We will continue to follow the patient, and make recommendations. The patient has gotten through his first round of chemotherapy for mantle cell lymphoma. Prognosis is guarded. Time with Patient: Less than 30
[2024-01-01 16:22] LABS: Glucose,Whole Blood 101 mg/dL (70-110)
[2024-01-01 20:08] LABS: Glucose,Whole Blood 131 mg/dL (70-110)
[2024-01-02 05:54] LABS: Glucose,Whole Blood 108 mg/dL (70-110)
[2024-01-02 08:11] VITALS: PULSE 105; TEMP 97.9
[2024-01-02 08:57] LABS: Anisocytosis Slight; Basophils % (A) 0 %; Eosinophils % (A) 0 %; HCT 28.7 % (39.0-53.0); HGB 8.8 gm/dL (13.0-17.5); Hypochromasia Moderate; Lymphocytes # (A) 0.2 k/uL (1.0-4.8); Lymphocytes % (A) 4 %; MCH 25.8 pg (25.0-35.0); MCHC 30.8 g/dL (31.0-37.0); MCV 83.7 fL (80.0-100.0); Mean Platelet Volume 8.4; Monocytes # (A) 0.1 k/uL (0-1.0); Monocytes % (A) 2 %; Neutrophils # (A) 3.9 k/uL (1.3-7.7); Neutrophils % (A) 94 %; RBC 3.43 m/uL (4.30-5.90); RDW 18.4 % (11.5-15.5); WBC 4.2 k/uL (3.8-10.6)
[2024-01-02 09:05] LABS: Platelet Count 53 k/uL (150-450)
[2024-01-02 09:10] LABS: ALT 26 U/L (4-49); AST 28 U/L (17-59); African American GFR (CKD) >90 (>60 ml/min/1.73 sqM); Albumin 2.7 g/dL (3.5-5.0); Alkaline Phosphatase 64 U/L (38-126); Anion Gap 2 mmol/L; Blood Urea Nitrogen 54 mg/dL (9-20); Calcium 7.6 mg/dL (8.4-10.2); Carbon Dioxide 30 mmol/L (22-30); Chloride 104 mmol/L (98-107); Glucose 92 mg/dL (74-99); Non-African American GFR(CKD) 80 (>60 ml/min/1.73 sqM); Potassium 3.5 mmol/L (3.5-5.1); Sodium 136 mmol/L (137-145); Total Bilirubin 0.7 mg/dL (0.2-1.3); Total Protein 4.6 g/dL (6.3-8.2)
[2024-01-02 09:12] LABS: Phosphorus 2.7 mg/dL (2.5-4.5); Uric Acid 4.4 mg/dL (3.5-8.5)
[2024-01-02 11:54] LABS: Glucose,Whole Blood 103 mg/dL (70-110)
[2024-01-02] MEDS ORDERED: LORazepam 2 MG/ML INJ IV PRN (11:55)
[2024-01-02 11:58] VITALS: BMI 15.3
--- NOTE | 2024-01-02 12:00 | P.PN ---
Subjective HISTORY OF PRESENT ILLNESS: The patient is a 73-year-old gentleman who never seen by the cardiology service before with a past medical history significant for hypertension and dyslipidemia and presented diagnosis of mantle cell lymphoma presented to the hospital not feeling well. He presented with progressive generalized weakness over the last several days. Beside that and according to his family he has been experiencing progressive shortness of breath with exertion and progressive bilateral lower extremities edema. He underwent further investigation including blood work and that showed renal failure. Beside that his potassium has been severely elevated. His hemoglobin was also low. The patient underwent a CT scan of the abdomen and pelvis and that showed moderate pericardial effusion. Subsequently he underwent an echocardiogram earlier today and that showed large pericardial effusion with concerning tamponade physiology. His pressure has been marginal. Currently he is on Lasix. I am going to stop the Lasix. He underwent a dialysis catheter. He is in process of having dialysis later on today. I had a discussion about his case with the nephrology service and the plan to undergo gentle dialysis later on today with no significant amount of fluid to be taken out and he is also in agreement about stopping the Lasix at this point. He is not on any blood pressure medications at this point. The patient will be trans ferred to the intensive care unit. He would be seen by the surgical team for the evaluation of pericardial window. The patient currently is not having any chest pain or chest discomfort but on examination he does have severe bilateral lower extremities edema. He does not have any symptoms of any fever or chills or any other cardiac symptoms beside the shortness of breath and the progressive lower extremities edema. No dizziness or lightheadedness and no presyncope or syncope. The examination is remarkable for relatively stable vital signs with marginally low blood pressure and regular rate and rhythm with a soft systolic murmur and diminished breathing sounds bilaterally and severe bilateral lower extremities edema December 27, 2023 The patient was seen and evaluated this morning. He is going to undergo pericardial window later on today. He is overall stable. Currently he is not on any hypertension medication and the Lasix was stopped yesterday. The examination is remarkable for regular rhythm with a distant heart sounds and diminished breathing sounds bilaterally and bilateral lower extremities edema noted. December 28, 2023 The patient was seen and evaluated this morning. He underwent pericardial window yesterday with removal of around 450 cc of bloody fluid from the pericard ium. The patient was seen this morning. He does have a mild change in mental status but he is able to answer my questions. He is experiencing discomfort in the chest related to the pericardium tube with that being said and with the pericardial effusion I am going to start him on colchicine at 0.6 mg p.o. twice daily. Beside that the kidney function has been trending slightly better but he continues to be on dialysis. Hemoglobin is stable and above 8. We will consider repeating the echo or getting a limited echo on him tomorrow to assess the size of the pericardial effusion. December 29, 2023 The patient was seen and evaluated this morning. He is doing better. The pressure has been better. Creatinine is improving as well. Drainage from the pericardial tube is less. I am going to obtain a limited echo to assess for any residual pericardial effusion meanwhile continue the current medical regimen including the current dose of colchicine. Follow-up with the patient. The examination is remarkable for stable vital signs with regular rate and rhythm and diminished breathing sounds bilaterally. December 31, 2023 The patient was seen and evaluated this morning. He is doing better. The repeated echo showed no pericardial effusion. He still have bilateral lower extremities edema and diminished breathing sounds bilaterally. Hemodynamically he is stable. I am going to give the patient 1 dose of Lasix IV once. Continue monitor the kidney function and electrolytes. His creatinine has been trending in the right direction. The examination is remarkable for regular rhythm with diminished breathing sounds bilaterally and bilateral lower extremities edema January 01, 2024 The patient was seen and evaluated this morning. He is stable from a cardiac standpoint of view. The pressure has been under good control. He was started on Lasix yesterday which I would continue at this point because he still having bilateral lower extremities edema. He is tolerating that very well and d iuresing very well on it. No pain in the chest. From the cardiac standpoint of view, I would continue the current medical regimen and the patient potentially can be discharged in next 24 to 48 hours. The examination is remarkable for stable vital signs with diminished breathing sounds bilaterally and moderate bilateral lower extremities edema 01/02/2024 Patient examined this morning at the bedside. Patient currently denies any chest pain or pressure. He denies shortness of breath. He does report nausea this morning after taking his morning medications. Patient remains on IV Lasix. Vital signs are stable. PHYSICAL EXAM: VITAL SIGNS: Reviewed. GENERAL: Well-developed in no acute distress. NECK: Supple. No JVD or thyromegaly LUNGS: Respirations even and unlabored. Lungs essentially clear to auscultation bilaterally. HEART: Regular rate and rhythm. S1 and S2 heard. EXTREMITIES: Normal range of motion. No clubbing or cyanosis. Peripheral pulses intact. No lower extremity edema ASSESSMENT: Large pericardial effusion status post pericardial window Recent diagnosis of mantle cell lymphoma, status post 1 treatment of chemotherapy Acute kidney injury, resolved Severe hyperkalemia, resolved Acute on chronic heart failure with preserved EF, 55 to 60% Hypertension Hyperlipidemia Bicytopenia, anemia and thrombocytopenia Former nicotine dependence, patient quit smoking 1 month ago PLAN: Continue current cardiac medications Discontinue IV Lasix Begin Demadex 20 mg daily Add Aldactone 12.5 mg daily Patient is currently stable from a cardiac perspective Further recommendations pending patient course Nurse practitioner note has been reviewed by physician. Signing provider agrees with the documented findings, assessment, and plan of care documented by SERVICE CONSULTANT as a scribe. Objective - Vital Signs Vital signs: Vital Signs Temp 97.9 F 01/02/24 08:10 Pulse 105 H 01/02/24 08:10 Resp 16 01/02/24 08:10 BP 127/72 01/02/24 08:10 Pulse Ox 92 L 01/02/24 08:10 FiO2 Intake & Output 01/01/24 01/02/24 01/02/24 18:59 06:59 18:59 Intake Total 118 Output Total 0 1999 Balance -2031 Weight 44.5 kg Intake: Oral 118 Output: Urine 2149 1999 Other: Voiding Method Indwelling Catheter Indwelling Catheter Indwelling Catheter # Bowel Movements 1 ABP, PAP, CO, CI - Last Documented Arterial Blood Pressure 138/54 - Labs CBC & Chem 7: 01/02/24 08:53 01/02/24 08:53 Labs: Abnormal Lab Results - Last 24 Hours (Table) 01/01/24 01/02/24 01/02/24 Range/Units 20:06 08:53 08:53 RBC 3.43 L (4.30-5.90) m/uL Hgb 8.8 L (13.0-17.5) gm/dL Hct 28.7 L (39.0-53.0) % MCHC 30.8 L (31.0-37.0) g/dL RDW 18.4 H (11.5-15.5) % Plt Count 53 L (150-450) k/uL Lymphocytes # 0.2 L (1.0-4.8) k/uL Sodium 136 L (137-145) mmol/L BUN 54 H (9-20) mg/dL POC Glucose (mg/dL) 131 H (70-110) mg/dL Calcium 7.6 L (8.4-10.2) mg/dL Total Protein 4.6 L (6.3-8.2) g/dL Albumin 2.7 L (3.5-5.0) g/dL Microbiology - Last 24 Hours (Table) 12/27/23 14:00 Gram Stain - Final Pericardial Fluid Body Fluid Culture - Final
[2024-01-02 12:09] VITALS: BP 115/69; RESP 18
[2024-01-02] MEDS: SPIRONOLACTONE 25 MG TAB PO SCH (12:09)
[2024-01-02] MEDS: TORSEMIDE 20 MG TAB PO SCH (12:09)
--- NOTE | 2024-01-02 12:35 | P.PCN ---
Description of Procedure: Preop diagnosis renal failure Procedure removal of dialysis catheter right femoral approach right groin was prepped patient has a temporary dialysis catheter stitches were removed catheter was removed under pressure was held pressure dressing applied patient tolerated procedure well bedrest for 2 hours
--- NOTE | 2024-01-02 14:15 | P.PN ---
Subjective Patient is seen in follow-up for acute kidney injury. Started on hemodialysis December 26, 2023. Last hemodialysis December 28, 2023. Underwent UF only December 30, 2023 with 2 L removed. Nonoliguric. Denies chest pain or shortness of breath. Status post pericardial window December 27, 2023. Family present at bedside. plans for possible discharge today. Objective - Vital Signs Vital signs: Vital Signs Temp 97.9 F 01/02/24 08:10 Pulse 105 H 01/02/24 12:08 Resp 18 01/02/24 12:08 BP 115/69 01/02/24 12:08 Pulse Ox 91 L 01/02/24 12:08 FiO2 Intake & Output 01/01/24 01/02/24 01/02/24 18:59 06:59 18:59 Intake Total 118 Output Total 2149 1999 1835 Balance -2031 Weight 44.5 kg 44.5 kg Intake: Oral 118 Output: Urine 2149 1999 1599 Post Void Residual 236 Other: Voiding Method Indwelling Catheter Indwelling Catheter Indwelling Catheter # Bowel Movements 1 ABP, PAP, CO, CI - Last Documented Arterial Blood Pressure 138/54 - Exam patient is awake, comfortable, no acute distress. 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 Acute kidney injury secondary to ATN secondary to tumor lysis syndrome. Baseline creatinine near 1 and up to 4.27 dated December 26, 2023. Started on hemodialysis December 26, 2023. Has temporary dialysis catheter. Mild left hydronephrosis noted on kidney ultrasound. Last dialysis December 28, 2023. Underwent UF only December 30, 2023 with 2 L removed. Creatinine 0.99 today. 2. Volume overload. Improving with diuresis and ultrafiltration. 3. Pericardial effusion. Status post pericardial window December 27, 2023. 4. Mantle cell lymphoma. Oncology following. Started on chemotherapy. 5. Hyperkalemia secondary to acute kidney injury, acidosis and tumor lysis. Improved. Now hypokalemic from diuresis. 6. Hypervolemic hyponatremia. Improved. 7. Metabolic acidosis secondary to acute kidney injury. Improved. 8. Hyperphosphatemia secondary to acute kidney injury and tumor lysis. Phosphorus level 2.8 and now off of PhosLo. 9. Hyperuricemia secondary to tumor lysis status post rasburicase. Improved. Plan: DC dialysis catheter. Can remove Alvarez catheter as well and try voiding trial. Okay to discharge patient from nephrology standpoint. Follow-up as outpatient in 1-2 weeks. continue with torsemide.
--- NOTE | 2024-01-02 14:28 | P.PN ---
Subjective Progress Note Date: 01/02/24 Principal diagnosis: TLS, ARF. Mantle cell lymphoma In f/u today patient very anxious to go home. He is tolerating liquids, protein drinks, not much solid food. He did have some nausea yesterday, vomiting x 1, stool has been loose, watery at times, some intermittent stomach cramping but, no pain like he was having previously. No recent fevers, he is noting diaphoresis at times. The swelling he has been having is stable, not worse. Objective - Vital Signs Vital signs: Vital Signs Temp 97.9 F 01/02/24 08:10 Pulse 105 H 01/02/24 08:10 Resp 16 01/02/24 08:10 BP 127/72 01/02/24 08:10 Pulse Ox 92 L 01/02/24 08:10 FiO2 Intake & Output 01/01/24 01/02/24 01/02/24 18:59 06:59 18:59 Intake Total 118 Output Total 0 1999 Balance -2031 Weight 44.5 kg Intake: Oral 118 Output: Urine 2149 1999 Other: Voiding Method Indwelling Catheter Indwelling Catheter Indwelling Catheter # Bowel Movements 1 ABP, PAP, CO, CI - Last Documented Arterial Blood Pressure 138/54 - Constitutional General appearance: Present: average body habitus, cooperative, no acute distress - EENT Eyes: Present: anicteric sclerae, EOMI ENT: Present: hearing grossly normal, normal oropharynx - Respiratory Respiratory: bilateral: CTA - Cardiovascular Details: anasarca Rhythm: regular Heart sounds: normal: S1, S2 Abnormal Heart Sounds: Absent: systolic murmur, diastolic murmur, rub, S3 Gallop , S4 Gallop, click, other - Peripheral edema leg Peripheral Edema: bilateral: 3+, Pitting - Gastrointestinal General gastrointestinal: Present: normal bowel sounds, soft. Absent: absent bowel sounds, decreased bowel sounds, distended, hepatomegaly, hyperactive bowel sounds, organomegaly, rigid, scaphoid, splenomegaly, tenderness, umbilical hernia, ventral hernia - Integumentary Integumentary: Present: pale - Neurologic Neurologic: Present: CNII-XII intact - Musculoskeletal Musculoskeletal: Present: generalized weakness, strength equal bilaterally - Psychiatric Psychiatric: Present: A&O x's 3, appropriate affect, intact judgment & insight - Labs CBC & Chem 7: 01/02/24 08:53 01/02/24 08:53 Labs: Abnormal Lab Results - Last 24 Hours (Table) 01/01/24 01/02/24 01/02/24 Range/Units 20:06 08:53 08:53 RBC 3.43 L (4.30-5.90) m/uL Hgb 8.8 L (13.0-17.5) gm/dL Hct 28.7 L (39.0-53.0) % MCHC 30.8 L (31.0-37.0) g/dL RDW 18.4 H (11.5-15.5) % Plt Count 53 L (150-450) k/uL Lymphocytes # 0.2 L (1.0-4.8) k/uL Sodium 136 L (137-145) mmol/L BUN 54 H (9-20) mg/dL POC Glucose (mg/dL) 131 H (70-110) mg/dL Calcium 7.6 L (8.4-10.2) mg/dL Total Protein 4.6 L (6.3-8.2) g/dL Albumin 2.7 L (3.5-5.0) g/dL Microbiology - Last 24 Hours (Table) 12/27/23 14:00 Gram Stain - Final Pericardial Fluid Body Fluid Culture - Final Assessment and Plan (1) Nausea & vomiting Current Visit: Yes Status: Acute Priority: High Code(s): R11.2 - NAUSEA WITH VOMITING, UNSPECIFIED SNOMED Code(s): 46224605 (2) Tumor lysis syndrome Current Visit: Yes Status: Acute Priority: High Code(s): E88.3 - TUMOR LYSIS SYNDROME SNOMED Code(s): 106021921 (3) Renal failure Current Visit: Yes Status: Acute Priority: High Code(s): N19 - UNSPECIFIED KIDNEY FAILURE SNOMED Code(s): 53591100 (4) Mantle cell lymphoma Current Visit: Yes Status: Acute Priority: High Code(s): C83.10 - MANTLE CELL LYMPHOMA, UNSPECIFIED SITE SNOMED Code(s): 107626912 (5) Iron (Fe) deficiency anemia Current Visit: No Status: Acute Priority: Medium Code(s): D50.9 - IRON DEFICIENCY ANEMIA, UNSPECIFIED SNOMED Code(s): 22256015 Plan: Nausea and vomiting -Secondary to chemotherapy and disease process. Currently managed on medications -cont supportive meds ARF and TLS -secondary to Mantle cell lymphoma (pt DOES NOT HAVE lymphoplasmacytic lymphoma- error in documentation) -Patient has completed first cycle of RCHOP. He completes his fifth day of prednisone today. -Tumor lysis labs have been monitored, they have remained stable. -Completed pulse dose dex 12/27 -Renal function is normal today. DFialysis cath has been removed. Alvarez removed-pt making significant amt of urine -TLS are neg -CMP WNL - CBC as expected post treatment. No transfusions needed at this time. -Labs will cont to be monitored outpt Iron deficient anemia -Patient received 4 doses of parenteral iron around 12/03/2023 -Hemoglobin 8.8 today-stable -Anemia is multifactorial including disease process, recent renal failure (now resolved), pericardial fluid was bloody but that tube has been removed. Hgb stable -Transfuse for hemoglobin less than 7 or if patient is symptomatic. Currently, patient is fluid overloaded so, conservative transfusion recommended. Pending path on pericardium and pericardial fluid. Pt ok from Hem/Onc to be discharged once cleared by Attending and consulting MDs Zofran and xanax have been sent to pt preferred pharmacy Diarrhea stool was sent for [id number]. Ok to use antidiarrheals Reviewed self care with pt and family Doctor attests: I performed a history and physical examination of this patient, developed impression and plan of care. Discussed with dictator. I agree with dictators note, documented as a scribe.
--- NOTE | 2024-01-02 15:04 | P.DS ---
Providers Date of admission: 12/22/23 13:15 Expected date of discharge: 01/02/24 Attending physician: Ernst Kerr Consults: 12/22/23 13:30 Consult Physician Urgent Consulting Provider: Shannan Wyatt Consult Reason/Comments: Hyperkalemia, renal failure Do you want consulting provider notified?: Yes 12/23/23 09:14 Consult Physician Routine Consulting Provider: Walker Sidhu Consult Reason/Comments: recent diagnosis lymphoma Do you want consulting provider notified?: Yes 12/25/23 17:37 Consult Physician Urgent Consulting Provider: Miko Lui Consult Reason/Comments: moderate pericardial effusion, concern for cardiac tamponade Do you want consulting provider notified?: Yes 12/26/23 10:33 Consult Physician Routine Consulting Provider: Awais Reynoso Consult Reason/Comments: hemodialysis catheter palcment Do you want consulting provider notified?: Yes 12/26/23 17:41 Consult Physician Routine Consulting Provider: Rufino Llamas Consult Reason/Comments: Large pericardial effusion. Pt needs window Do you want consulting provider notified?: Already Contacted 12/26/23 17:52 Consult Physician Urgent Consulting Provider: Dariel Rhodes Consult Reason/Comments: ICU management Do you want consulting provider notified?: Already Contacted Primary care physician: Maria Del Carmen Fitzgerald Hospital Course: Diagnosis on discharge: 1. Acute kidney failureLikely secondary to tumor lysis syndrome. Requiring hemodialysis 2. Recent diagnosis of lymphoma with splenomegaly and extensive lymphadenopathy 3. History of essential hypertension 4. History of hyperlipidemia 5. Increased weakness and general malaise. 6. Electrolyte imbalance with hyperkalemia 7. Moderate to large size pericardial effusion. s/p pericardial window on 12/27/2023 Hospital course: Rahul Cruz, Is a 57-year-old male patient who presented to the ER with concerns of increased weakness over the past few days. Patient was discharged from the hospital 2 weeks ago after diagnosed with lymphoma patient reports that he was doing well for couple days but then began not feeling well not wanting to eat over the past few days patient has past medical history of hyperlipidemia hypertension and nicotine dependence.Chest x-ray completed showing development of a moderate left pleural effusion with adjacent atelectasis or consolidation trace effusion on the right. Abdominal ultrasound completed showing no suspicious ultrasound abnormality some mild ascites is present marked splenomegaly small bilateral pleural effusions are present.Patient white blood cell elevated at 11.6, hemoglobin 10.3, sodium 129, potassium 6.4, creatinine 3.6-190 magnesium 2.8 ALT 17 AST 23. Troponin negative. UA negative. Influenza RSV and COVID-19 negative.At this time patient has been started on IV fluid nephrology and cardiology services have been consulted. Repeat labs have been ordered. Current vital signs temp 97.5, heart rate 100, respiratory rate 18, blood pressure 115/78 with a pulse ox of 95% on 2 L On 12/23/2023 patient is alert and oriented 3. Patient reports slight improvement. Family at bedside. Awaiting nephrology and oncology input. Patient denies chest pain or shortness of breath. Patient denies any urinary burning or frequency. Repeat labs pending On 12/24/2023 patient was seen and examined on the medical floor with, he is alert and oriented x 3 in no apparent distress, he is complaining of generalized fatigue and weakness, otherwise he denies any complaints, there is no fever or chills no headache or dizziness no chest pain, no shortness of breath no cough no nausea or vomiting no abdominal pain no diarrhea and no urinary symptoms. Potassium is elevated today at 6.3, he will be given Kayexalate BUN is 92.2 creatinine 3.7 on 12/25/2023 patient's alert and oriented 3. Patient still complain of generalized fatigue and weakness. Per oncology services possible tumor lysis syndrome awaiting repeat labs today for further plan. Nephrology services following. Current vital signs temp 97.4, heart rate 103, respiratory rate 16, blood pressure 121/82 with a pulse ox of 97% on 2 L. Patient remains on sodium bicarbonate drip On 12/26/2023 patient was seen and examined on the telemetry floor, he is alert and oriented x 3 in no apparent distress, he is complaining of generalized weakness, otherwise he denies any complaints at this time, there is no fever or chills no headache or dizziness no chest pain no shortness of breath, no cough no nausea or vomiting no abdominal pain no diarrhea no urinary symptoms. CT scan yesterday revealed evidence of pericardial effusion, patient was transferred to telemetry floor, echocardiogram ordered and cardiology consult requested. Potassium is elevated Kayexalate was ordered. On 12/27/2023 patient remains in the intensive care unit alert and oriented 3. Plans today for pericardial window. Patient did get hemodialysis yesterday no fluid was removed. Plans after pericardial window to receive hemodialysis again. Patient currently not on any vasopressors. Current vital signs temp 97.9, heart rate 86, respiratory rate 18, blood pressure 112/66 with pulse ox 95% on 5 L. Patient also started on dexamethasone per oncology services. Patient seen on sodium bicarb drip On 12/28/2023 patient remains in the intensive care unit alert and oriented 3. Patient having episodes of nausea and vomiting. Will order abdominal x-ray. Discussed case with oncology service is at bedside. Patient underwent pericardial window yesterday. Plans for hemodialysis today.Current vital signs temp 97.7, heart rate 85, respiratory rate 12, blood pressure 120/60 with pulse ox 94% on 5 L On 12/29/2023 patient was seen and examined in the ICU he is alert and oriented x 3 in no apparent distress he is feeling well and denies any complaints at this time there is no fever or chills no headache or dizziness no chest pain no shortness of breath no cough no nausea or vomiting no abdominal pain no diarrhea no urinary symptoms. He was started on chemotherapy today, will continue to follow closely. On 12/30/2023 patient was seen and examined on the medical floor he is alert and oriented x 3 in no apparent distress he is complaining of generalized fatigue otherwise he denies any complaints there is no fever or chills no headache or dizziness no chest pain no shortness of breath or cough no nausea or vomiting no abdominal pain no diarrhea no urinary symptoms, he has very poor appetite, he was started on chemotherapy yesterday. Vital exam today revealed a temperature of 97.7 pulse 90 respiration 18 blood pressure 113/69 pulse ox 98% on 4 L nasal cannula, white blood count 5.9 hemoglobin 8.3 sodium 136 potassium 3.3 BUN 53 creatinine 1.45 patient was started on hemodialysis on December 25, he had pericardial window on December 26 , nephrology, cardiothoracic surgery, oncology and pulmonary are following. On 12/31/2023 patient was seen and examined on the medical floor he is alert and oriented x 3 in no distress he is complaining of generalized fatigue, he is also complaining of increased anxiety and asking for Xanax, and is complaining of nausea, otherwise he denies any complaints there is no fever or chills no headache or dizziness no chest pain no shortness of breath no cough no vomiting no abdominal pain no diarrhea no blood in the stools no burning with urination no frequency or urgency and no hematuria. His vital exam reveals a temperature of 96.8 pulse 85 respiration 14 blood pressure 115/69 and pulse ox of 98% on 2 L nasal cannula white blood count is 4.7 hemoglobin 8.1 platelet count 60,000 BUN 57 creatinine 1.21 On 01/01/2024 patient was seen and examined on the medical floor he is alert and oriented x 3 in no apparent distress, he denies any complaints at this time, there is no fever or chills no headache or dizziness no chest pain no shortness of breath no cough no nausea or vomiting no abdominal pain no diarrhea no blood in the stools no burning with urination no frequency or urgency and no hematuria. Vital examination reveals a temperature of 98 pulse 89 respiration 18 blood pressure 141/79 pulse ox 96% on room air his white blood count is 5.1 hemoglobin 8.7 platelet count 54 BUN 56 creatinine 0.99 at this time patient is maintained on Lasix 40 mg IV twice daily, no need for further dialysis per nephrology, will continue to monitor, patient will need his dialysis catheter removed, if he continues to be stable possible discharge in the next 2 to 3 days On 01/02/2024 patient was seen and examined on the medical floor he is alert and oriented x 3 in no distress, there is no fever or chills no headache or dizziness no chest pain no shortness of breath no cough no nausea or vomiting no abdominal pain no diarrhea no urinary symptoms. His dialysis catheter was removed today by Dr. Reynoso, he cleared him for discharge home after 2 hours. Patient was also cleared for discharge by cardiology, nephrology, and oncology. He will be discharged to home today, patient needs follow-up with cardiology nephrology and oncology in the next 1 to 2 weeks Plan - Discharge Summary New Discharge Prescriptions: New Pantoprazole [Protonix] 40 mg PO AC-BRKFST 30 Days #30 tab ALPRAZolam [Xanax] 0.25 mg PO Q6HR PRN 3 Days #12 tab PRN Reason: Anxiety Spironolactone [Aldactone] 12.5 mg PO DAILY 30 Days #30 tab Sucralfate [Carafate] 1 gm PO AC-BID 30 Days #60 tab Torsemide [Demadex] 20 mg PO DAILY 30 Days #30 tab Sodium Bicarbonate Tab 650 mg PO BID 30 Days #60 tab Calcium Carbonate [Tums] 1,000 mg PO TID PRN 30 Days #90 tab PRN Reason: Heartburn Continue Multivitamins, Thera [Multivitamin (formulary)] 1 tab PO DAILY@1200 Cetirizine HCl [Zyrtec] 10 mg PO DAILY Simvastatin [Zocor] 20 mg PO DAILY@1200 Aspirin EC [Ecotrin Low Dose] 81 mg PO DAILY Cholecalciferol (Vitamin D3) [Vitamin D3 (125 MCG = 5,000 IU)] 125 mcg PO DAILY@1200 Changed Ondansetron Odt [Zofran Odt] 4 mg PO Q4H PRN #45 tab PRN Reason: Nausea Discontinued Enalapril [Vasotec] 10 mg PO DAILY@1200 PRN PRN Reason: high bp Discharge Medication List Cetirizine HCl [Zyrtec] 10 mg PO DAILY 12/02/23 [History] Cholecalciferol (Vitamin D3) [Vitamin D3 (125 MCG = 5,000 IU)] 125 mcg PO DAILY@1200 12/02/23 [History] Multivitamins, Thera [Multivitamin (formulary)] 1 tab PO DAILY@1200 12/02/23 [History] Simvastatin [Zocor] 20 mg PO DAILY@1200 12/02/23 [History] Aspirin EC [Ecotrin Low Dose] 81 mg PO DAILY 12/22/23 [History] ALPRAZolam [Xanax] 0.25 mg PO Q6HR PRN 3 Days #12 tab 01/02/24 [Rx] Calcium Carbonate [Tums] 1,000 mg PO TID PRN 30 Days #90 tab 01/02/24 [Rx] Ondansetron Odt [Zofran Odt] 4 mg PO Q4H PRN #45 tab 01/02/24 [Rx] Pantoprazole [Protonix] 40 mg PO AC-BRKFST 30 Days #30 tab 01/02/24 [Rx] Sodium Bicarbonate Tab 650 mg PO BID 30 Days #60 tab 01/02/24 [Rx] Spironolactone [Aldactone] 12.5 mg PO DAILY 30 Days #30 tab 01/02/24 [Rx] Sucralfate [Carafate] 1 gm PO AC-BID 30 Days #60 tab 01/02/24 [Rx] Torsemide [Demadex] 20 mg PO DAILY 30 Days #30 tab 01/02/24 [Rx] Follow up Appointment(s)/Referral(s): Michaela Duckworth, NPC [Nurse Practitioner] - 1 Week (You will be seen in the surgeon's office behind the hospital in [facility], [address] Office phone number is . Please call for appointment upon discharge for incision check only) Maria Del Carmen Fitzgerald MD [Primary Care Provider] - 1-2 days Bharat Candelario MD [STAFF PHYSICIAN] - 01/03/24 3:30 pm Activity/Diet/Wound Care/Special Instructions: Dressing from chest tube site can be removed after 48 hours, patient may shower daily Please call surgery office for any fever greater than 101F, or purulent/infected looking drainage from chest tube site Avoid heavy lifting for 2 weeks Clubb fluid intake Advance diet slowly Oral care 2-3 times a day Use antidiarrheal medications if needed Antianxiety and antiemetics sent to [facility]
--- NOTE | 2024-01-02 16:03 | XR ---
EXAMINATION TYPE: XR chest 1V portable DATE OF EXAM: 01/02/2024 3:53 PM CLINICAL INDICATION:Male, 73 years old with history of eval effusions; COMPARISON: Chest radiographs from 12/29/2023. TECHNIQUE: XR chest 1V portable Frontal view of the chest. FINDINGS: Lungs/Pleura: Small left pleural effusion. Possible trace right pleural effusion. There is no evidenc e of focal consolidation, or pneumothorax. Pulmonary vascularity: Unremarkable. Heart/mediastinum: Cardiomediastinal silhouette is unremarkable. Musculoskeletal: No acute osseous pathology. Other findings: None Lines/Tubes: Right-sided PICC line with distal tip at the cavoatrial junction. IMPRESSION: 1. Right PICC in appropriate position. 2. Left small pleural fusion. No evidence for pneumothorax.
--- NOTE | 2024-01-02 17:17 | P.PN ---
Subjective Progress Note Date: 01/02/24 Patient is a 73-year-old white male with past medical history significant for recent diagnosis of lymphoma. Patient reportedly was noted to have some splenomegaly outpatient, had follow-up CAT scan which showed abdominal lymphadenopathy. Patient did have a lymph node biopsy of the right axilla on 12/07/2023, this was positive for mantle cell lymphoma. He is reportedly recently become established with Dr. Sidhu, not currently undergoing any treatments.. Patient reportedly was scheduled for a PET scan on 12/24/2023, however, he did not make it to his appointment. On December 21 his called 911, as the patient has been progressively more weak. This is a generalized weakness. He can no longer walk without assistance. He has been noted to have a reduced appetite. No significant nausea or vomiting, diarrhea, or abdominal pain. He has been very swollen all over. He has been mildly short of breath, especially with any kind of exertion. Chest x-rays from admission, showing a moderate left pleural effusion with likely adjacent atelectasis, trace right pleural effusion, and right apical pleural parenchymal scarring. While in the emergency room, he was noted to have acute kidney injury. He was hyperkalemic with a potassium as of 6.4. Tumor lysis syndrome is suspected. Ultrasound of the kidneys, renals, bladder did not show any suspicious abnormalities within the kidneys. There was marked splenomegaly. A follow-up CT of the abdomen and pelvis identified a moderate size pericardial effusion. There was also mild left hydronephrosis, possibly from mass effect of the retroperitoneal lymphadenopathy. There was marked abdominal lymphadenopathy compatible with the patient's history of lymphoma. There were low-density areas within the spleen, which could represent the patient's lymphoma versus infarct change. Third spacing of fluid with moderate left and small right pleural effusion. Small to moderate ascites. Diffuse anasarca noted. And other incidental findings. Jeri banegas continues to experience worsening renal function and hyperkalemia. He has received multiple treatments for his hyperkalemia. Also receiving Elitek. Most recent uric acid level 9.7. There was recommendations for hemodialysis. Patient did have a hemodialysis catheter placed by vascular service, and underwent hemodialysis yesterday. No fluid was removed. Patient does have a moderate to large sized pericardial effusion. An echocardiogram is pending. There is a consult to cardiothoracic service, patient may have to undergo a pericardial window. He was evaluated by cardiology, who requested transfer to the intensive care unit. I am seeing this patient in room 262. He appears very debilitated and generally weak. There is gross anasarca. He is just received hemodialysis. No fluid was removed. Blood pressure remains normotensive at this time. Not requiring any vasopressors. Currently normal sinus rhythm, without any significant tachycardia. There is mild JVD. Continues to make urine, approximately 40 MLS per hour. On 4 L/min nasal cannula, in no acute respiratory distress. Patient denies any infectious symptoms such as fever, cough, sputum production, chest pain. No reportable recent viral illnesses/symptoms of URI. Denies chest pain, lightheadedness, syncopal events. Most recent labs include a WBC count 17.2, hemoglobin 9.6, hematocrit 30.2, platelets 241. BMP following hemodialysis includes: Sodium 129, potassium 4.4, chloride 95, serum bicarb 24, BUN 92, creatinine 3.59, glucose 159. He is being monitored in the intensive care unit. The patient is seen today December 28, 2023 in follow-up in the intensive care unit. He did undergo a subxiphoid pericardial window for the large pericardial effusion and early pericardial tamponade. 450 mL of bloody fluid was returned. Postoperative day #1. Mediastinal chest tube remains in place to wall suction. An additional 350 mL out since yesterday. He is currently sitting up in bed. Awake and alert in no acute distress. He is having some issues with nausea and vomiting. He is requiring oxygen at 5 L/min per nasal cannula. He has normal saline at KVO. X-ray reveals worsening moderate left greater than right pleural effusions with adjacent atelectasis. White count 7.3. Hemoglobin 7.9. Platelets 161. Sodium 133. Potassium 4.0. Bicarb 28. BUN 67. Creatinine 2.40. Glucose 107. He remains on Lovenox for DVT prophylaxis. Continued on Colcrys. The patient is seen today December 29, 2023 in follow-up in the intensive care unit. He is sitting up in bed. Awake and alert in no acute distress. He denies any worsening shortness of breath, cough or congestion. Maintaining O2 saturations in the 90s on 5 L/min per nasal cannula. Chest x-ray shows pericardial drain in place. Previous pneumomediastinum/pneumopericardium shows improvement. Ongoing moderate left and small right pleural effusions with adjacent atelectasis. Right PICC line in place. Follow-up echocardiogram pending. The pericardial tube drained about 100 mL of fluid in the past 24 hours. He is postoperative day #2 of pericardial window. White count 7.1. Hemoglobin 7.9. Platelets 139. Sodium 131. Potassium 3.8. Bicarb 30. BUN 47. Creatinine 1.64. Glucose 113. The plan is to begin R-CHOP today for his mantle cell lymphoma. No plans for hemodialysis today. He received additional Lasix. Progress note dated December 30, 2023. The patient is seen today in room 366. Currently, the patient is on saline at 50 cc an hour. The patient started chemotherapy, yesterday. He is getting oxygen by nasal cannula at 4 L. Current laboratory data includes a white count 5.9, hemoglobin 8.3, hematocrit 26.7, and platelet count which is currently pending. Sodium 136, potassium 3.3, chlorides 103, CO2 29, BUN 53, creatinine 1.45. Glucose is 115. Albumin is 2.6. Cardial fluid cultures are currently negative. No chest x-ray today. Progress note dated December 31, 2023. The patient is seen today in room 366. The patient is doing relatively well. He is currently on 2 L of oxygen. He is getting saline at 100 cc an hour. The patient's white count was 4.7, hemoglobin 8.1, hematocrit 26.5, platelet count of 60,000. Sodium 136, potassium 3.4, chlorides 104, CO2 28, BUN 57, and creatinine 1.21. Albumin is 2.5. Progress note dated January 01, 2024. The patient is seen today in room 366. Family members are at the bedside. The patient has been weaned off of oxygen. He is currently on room air. No IV fluids. The subxiphoid pericardial catheter has been discontinued. The patient is doing much better. He did complete his first round of chemotherapy, with R- CHOP. Current labs include a white count 5.1, hemoglobin 8.7, hematocrit 27, platelet count 54,000. Sodium 137, potassium 3.4, chlorides 104, CO2 30, BUN 56, and creatinine 0.99. Glucose is 115. Uric acid was 3.2. Calcium 7.3. Albumin 2.5. Review of the lites remain in the CDU better 12/02/2023, the patient is doing well. No specific complaints. No respiratory difficulties. He continues to have extensive edema in lower extremities bilaterally which is essentially improving according to him. Repeat chest x-ray was done and shows a smaller left-sided pleural effusion. No evidence of any pneumothorax. The patient is currently on room air oxygen. Pulse ox is ranging between 91 and 94%. Clinically stable. Hemodynamically stable. His white cell count 4.2 with a hemoglobin 8.8 and a platelet count of 53. BUN is 54 with a creatinine of 0.9 and a sodium levels of 136. The patient recovered from an acute kidney injury. He does have a history of mantle cell lymphoma with extensive lymphadenopathy splenomegaly. He is status post pericardial window that was performed on 12/27/2023. Objective - Vital Signs Vital signs: Vital Signs Temp 97.9 F 01/02/24 08:10 Pulse 105 H 01/02/24 08:10 Resp 16 01/02/24 08:10 BP 127/72 01/02/24 08:10 Pulse Ox 92 L 01/02/24 08:10 FiO2 Intake & Output 01/01/24 01/02/24 01/02/24 18:59 06:59 18:59 Intake Total 118 Output Total 2149 1999 Balance -2031 -1999 Weight 44.5 kg Intake: Oral 118 Output: Urine 2149 1999 Other: Voiding Method Indwelling Catheter Indwelling Catheter Indwelling Catheter # Bowel Movements 1 ABP, PAP, CO, CI - Last Documented Arterial Blood Pressure 138/54 - Exam No acute distress, oriented 3. No respiratory distress. Currently on room air. Saturations are 94%. HEENT examination is grossly unremarkable. Mucous membranes are moist. No oral lesions. Neck supple. Full range of motion. No adenopathy thyromegaly or neck vein distention. Cardiovascular examination reveals regular rhythm rate. S1-S2 normal. No S3 or S4. No discernible murmur noted. Lungs reveal clear breath sounds. Breath sounds are equal bilaterally. No adventitious lung sounds including wheezes rhonchi or crackles. Room air saturation is 94 %. Abdomen soft bowel sounds are heard. No masses or tenderness. Extremities are intact. No cyanosis clubbing or edema. Skin is without rash or lesion. Neurologic examination is brief but nonfocal. - Labs CBC & Chem 7: 01/02/24 08:53 01/02/24 08:53 Labs: Abnormal Lab Results - Last 24 Hours (Table) 01/01/24 01/02/24 01/02/24 Range/Units 20:06 08:53 08:53 RBC 3.43 L (4.30-5.90) m/uL Hgb 8.8 L (13.0-17.5) gm/dL Hct 28.7 L (39.0-53.0) % MCHC 30.8 L (31.0-37.0) g/dL RDW 18.4 H (11.5-15.5) % Plt Count 53 L (150-450) k/uL Lymphocytes # 0.2 L (1.0-4.8) k/uL Sodium 136 L (137-145) mmol/L BUN 54 H (9-20) mg/dL POC Glucose (mg/dL) 131 H (70-110) mg/dL Calcium 7.6 L (8.4-10.2) mg/dL Total Protein 4.6 L (6.3-8.2) g/dL Albumin 2.7 L (3.5-5.0) g/dL Microbiology - Last 24 Hours (Table) 12/27/23 14:00 Gram Stain - Final Pericardial Fluid Body Fluid Culture - Final Assessment and Plan Plan: Mantle cell lymphoma, diagnosed with excisional lymph node biopsy of the the right axilla on 12/07/2023. Patient received first round of R-CHOP. Moderate to large size pericardial effusion, status post subxiphoid pericardial window December 27, 2023 with mediastinal chest tube was removed. Cultures positive for strep group C. Acute kidney injury and suspected tumor lysis syndrome, uric acid level as high as 12.6 and down to 9.7, receiving doses of Elitek. Patient did have an hemodialysis catheter placed, and and received emergent hemodialysis 12/26/2023. Renal function has improved and hemodialysis catheter to be removed Severe hyperkalemia, improved after hemodialysis Small left-sided pleural effusion Chronic lower extremity edema Hypervolemic hyponatremia. Hyperphosphatemia. Gross anasarca and fluid overload. Acute hypoxemic respiratory failure, secondary to fluid overload, chest x-ray on admission showing a moderate left pleural effusion with likely adjacent atelectasis, trace right pleural effusion, and right apical pleural parenchymal scarring. Repeat chest x-ray from today shows a small residual left-sided pleural effusion. Normocytic normochromic anemia, no overt signs of acute blood loss. Mild transaminitis. History of hypertension. Former tobacco smoker, quitting approximately 4 weeks ago. Plan: Suggested a course of Augmentin 875 mg p.o. twice daily for the next 10 to 14 days as the patient's pleural fluid culture was positive for strep group C. Clinically stable, hemodynamically stable, the patient's dialysis catheter was removed. The patient is to be discharged home today on a combination of torsemide and Aldactone. Follow-up with medical oncology. Follow-up with cardiology.
== END 2024-01-02 17:02 | disposition home or self-care (01) | DRG 981 ==
LOC: EC 11:13 → 5NMEDONC 13:15 → 3SCARD 12-25 21:14 → 2SICU 12-26 18:40 → 3SCARD 12-29 22:55
PROVIDERS: ADMIT Internal Medicine; ATTEND Internal Medicine
PROC: 5A1D70Z Performance of Urinary Filtration, Intermittent, Less than 6 Hours Per Day (ICD-10-PCS; 2023-12-26 12:30)
PROC: B246ZZ4 Ultrasonography of Right and Left Heart, Transesophageal (ICD-10-PCS; 2023-12-27)
PROC: 0W9D0ZZ Drainage of Pericardial Cavity, Open Approach (ICD-10-PCS; principal; 2023-12-27 07:30)
PROC: 02HV33Z Insertion of Infusion Device into Superior Vena Cava, Percutaneous Approach (ICD-10-PCS; 2023-12-28)
PROC: B5181ZA Fluoroscopy of Superior Vena Cava using Low Osmolar Contrast, Guidance (ICD-10-PCS; 2023-12-28)
PROC: B548ZZA Ultrasonography of Superior Vena Cava, Guidance (ICD-10-PCS; 2023-12-28)
PROC: 04PYX3Z Removal of Infusion Device from Lower Artery, External Approach (ICD-10-PCS; 2024-01-02)
DX: E88.3 Tumor lysis syndrome (principal); I50.33 Acute on chronic diastolic (congestive) heart failure; J96.01 Acute respiratory failure with hypoxia; I31.39 Other pericardial effusion (noninflammatory); C83.10 Mantle cell lymphoma, unspecified site; E87.1 Hypo-osmolality and hyponatremia; E87.20 Acidosis, unspecified; R18.8 Other ascites; I31.4 Cardiac tamponade; N17.0 Acute kidney failure with tubular necrosis; R53.1 Weakness; E87.5 Hyperkalemia; E87.6 Hypokalemia; E83.39 Other disorders of phosphorus metabolism; D50.9 Iron deficiency anemia, unspecified; D53.9 Nutritional anemia, unspecified; D69.6 Thrombocytopenia, unspecified; E78.5 Hyperlipidemia, unspecified; R16.1 Splenomegaly, not elsewhere classified; G47.33 Obstructive sleep apnea (adult) (pediatric); J44.9 Chronic obstructive pulmonary disease, unspecified; N40.0 Benign prostatic hyperplasia without lower urinary tract symptoms; Z79.82 Long term (current) use of aspirin; Z79.52 Long term (current) use of systemic steroids; Z79.899 Other long term (current) drug therapy; Z82.49 Family history of ischemic heart disease and other diseases of the circulatory system; Z86.11 Personal history of tuberculosis; Z99.2 Dependence on renal dialysis; Z87.442 Personal history of urinary calculi
CPT/HCPCS: 36410; 36415; 36556; 36573; 71045; 71046; 74018; 74176; 76770; 76937; 80048; 80053; 81003; 82945; 83605; 83615; 83735; 83880; 84100; 84132; 84145; 84157; 84484; 84550; 85025; 85610; 85730; 86706; 86850; 86900; 86901; 87070; 87075; 87205; 87324; 87340; 87496; 87498; 87529; 87636; 87798; 88108; 88305; 88341; 88342; 89050; 90935; 93005; 93306; 93308; 94640; 94760; 96361; 96374; 96375; 99285

== ENCOUNTER 2024-01-05 15:34 | Inpatient (IN) | payer MEDICARE, OTHER ==
--- NOTE | 2024-01-05 16:03 | ED ---
Recheck HPI - General Chief Complaint: Chest Pain Stated Complaint: CHEST PAIN/ABN LABS Time Seen by Provider: 01/05/24 15:37 Source: patient, EMS, RN notes reviewed, old records reviewed Mode of arrival: EMS Limitations: no limitations - History of Present Illness Initial Comments: This is a 73-year-old male to the ER for evaluation today. Patient is presenting for evaluation of chemotherapy and possible lab testing changes for chemotherapy, current findings low hemoglobin with anemia and worsening symptoms here in the ER. Patient accepted in transfer MD Complaint: abnormal lab -: days(s) Returns Today for: Called Because of Abnormal Lab/Test, persistent/worsening pain related to initial visit Symptoms Since Prior Visit: worsening pain Context: planned re-check, called for abnormal lab result Associated Symptoms: none Treatments Prior to Arrival: other (0) - Related Data Home Medications Medication Instructions Recorded Confirmed Cetirizine HCl [Zyrtec] 10 mg PO DAILY 12/02/23 01/05/24 Cholecalciferol (Vitamin D3) 125 mcg PO DAILY@1200 12/02/23 01/05/24 [Vitamin D3 (125 MCG = 5,000 IU)] Multivitamins, Thera [Multivitamin 1 tab PO DAILY@1200 12/02/23 01/05/24 (formulary)] Simvastatin [Zocor] 20 mg PO DAILY@1200 12/02/23 01/05/24 Aspirin EC [Ecotrin Low Dose] 81 mg PO DAILY 12/22/23 01/05/24 Ondansetron Odt [Zofran ODT] 4 - 8 mg PO Q4H PRN 01/05/24 01/05/24 Previous Rx's Medication Instructions Recorded ALPRAZolam [Xanax] 0.25 mg PO Q6HR PRN 3 Days #12 tab 01/02/24 Calcium Carbonate [Tums] 1,000 mg PO TID PRN 30 Days #90 tab 01/02/24 Pantoprazole [Protonix] 40 mg PO AC-BRKFST 30 Days #30 tab 01/02/24 Sodium Bicarbonate Tab 650 mg PO BID 30 Days #60 tab 01/02/24 Spironolactone [Aldactone] 12.5 mg PO DAILY 30 Days #30 tab 01/02/24 Sucralfate [Carafate] 1 gm PO AC-BID 30 Days #60 tab 01/02/24 Torsemide [Demadex] 20 mg PO DAILY 30 Days #30 tab 01/02/24 Potassium Chloride ER [K-Dur 20] 20 meq PO DAILY 30 Days #30 tab 01/09/24 cefUROXime axetiL [Cefuroxime] 500 mg PO BID 7 Days #14 tab 01/09/24 Allergies Allergy/AdvReac Type Severity Reaction Status Date / Time No Known Allergies Allergy Verified 01/05/24 17:02 Review of Systems ROS Statement: Those systems with pertinent positive or pertinent negative responses have been documented in the HPI. ROS Other: All systems not noted in ROS Statement are negative. Past Medical History Past Medical History: Cancer, Hyperlipidemia, Hypertension Additional Past Medical History / Comment(s): History of tuberculosis at age 18, history of kidney stones History of Any Multi-Drug Resistant Organisms: None Reported Past Surgical History: Hernia Repair, Tonsillectomy Additional Past Surgical History / Comment(s): Axillary lymph node biopsy right side on December 07, 2023 Past Anesthesia/Blood Transfusion Reactions: No Reported Reaction Past Psychological History: No Psychological Hx Reported Smoking Status: Current every day smoker Past Alcohol Use History: None Reported Past Drug Use History: None Reported - Past Family History Mother Family Medical History: Coronary Artery Disease (CAD) Additional Family Medical History / Comment(s): History of CABG Father Additional Family Medical History / Comment(s): History of permanent pacemaker placement General Exam Limitations: altered mental status General appearance: alert, in no apparent distress, anxious, in distress Head exam: Present: atraumatic, normocephalic, normal inspection Eye exam: Present: normal appearance, PERRL, EOMI. Absent: scleral icterus, conjunctival injection, periorbital swelling ENT exam: Present: normal exam, mucous membranes moist Neck exam: Present: normal inspection. Absent: tenderness, meningismus, lymphadenopathy Respiratory exam: Present: normal lung sounds bilaterally. Absent: respiratory distress, wheezes, rales, rhonchi, stridor Cardiovascular Exam: Present: regular rate, normal rhythm, normal heart sounds. Absent: systolic murmur, diastolic murmur, rubs, gallop, clicks GI/Abdominal exam: Present: soft, normal bowel sounds. Absent: distended, tenderness, guarding, rebound, rigid Extremities exam: Present: normal inspection, full ROM, normal capillary refill. Absent: tenderness, pedal edema, joint swelling, calf tenderness Back exam: Present: normal inspection Neurological exam: Present: alert, oriented X3, CN II-XII intact Psychiatric exam: Present: normal affect, normal mood Skin exam: Present: warm, dry, intact, normal color. Absent: rash Course Vital Signs 01/05/24 01/05/24 01/05/24 15:36 15:39 16:02 Temperature 97.8 F Pulse Rate 87 78 84 Respiratory 20 20 18 Rate Blood Pressure 132/88 177/103 122/61 O2 Sat by Pulse 96 94 L Oximetry 01/05/24 01/05/24 01/05/24 17:00 18:11 19:00 Temperature Pulse Rate 84 84 73 Respiratory 18 18 14 Rate Blood Pressure 134/65 126/67 101/53 O2 Sat by Pulse 94 L 97 Oximetry 01/05/24 01/05/24 01/06/24 22:00 23:30 01:50 Temperature Pulse Rate 79 76 77 Respiratory 10 L 11 L 12 Rate Blood Pressure 104/58 143/78 126/59 O2 Sat by Pulse 94 L 95 95 Oximetry - Reevaluation(s) Reevaluation #1: 01/05/24 17:11 Records reviewed Reevaluation #2: 01/05/24 17:11 Patient symptoms unchanged here in the ER he does feel mildly improved after receiving transfusion Reevaluation #3: 01/05/24 17:11 Patient informed of results questions answered Reevaluation #4: Was pt. sent in by a medical professional or institution (, PA, ADON, urgent care, hospital, or halfway...) When possible be specific @ -no Did you speak to anyone other than the patient for history (EMS, parent, family, police, friend...)? What history was obtained from this source @ -no Did you review nursing and triage notes (agree or disagree)? Why? @ -agree Are old charts reviewed (outside hosp., previous admission, EMS record, old EKG, old radiological studies, urgent care reports/EKG's, halfway records)? Report findings @ -yes Differential Diagnosis (chest pain, altered mental status, abdominal pain women, abdominal pain men, vaginal bleeding, weakness, fever, dyspnea, syncope, headache, dizziness, GI bleed, back pain, seizure, CVA, palpatations, mental health, musculoskeletal)? @ -prior EKG interpreted by me (3pts min.). @ -yes X-rays interpreted by me (1pt min.). @ -no CT interpreted by me (1pt min.). @ -Yes negative for acute disease U/S interpreted by me (1pt. min.). @ -no What testing was considered but not performed or refused? (CT, X-rays, U/S, labs)? Why? @ -none What meds were considered but not given or refused? Why? @ -none Did you discuss the management of the patient with other professionals (professionals i.e. , PA, ADON, lab, RT, psych nurse, social problems specialist, room service waiter/waitress, teacher, chief security and safety officer, case filler)? Give summary @ -no Was smoking cessation discussed for >3mins.? @ -no Was critical care preformed (if so, how long)? @ -no Were there social determinants of health that impacted care today? How? (Homelessness, low income, unemployed, alcoholism, drug addiction, transportation, low edu. Level, literacy, decrease access to med. care, fci, rehab)? @ -none Was there de-escalation of care discussed even if they declined (Discuss DNR or withdrawal of care, Hospice)? DNR status @ -no What co-morbidities impacted this encounter? (DM, HTN, Smoking, COPD, CAD, Cancer, CVA, ARF, Chemo, Hep., AIDS, mental health diagnosis, sleep apnea, morbid obesity)? @ -none Was patient admitted / discharged? Hospital course, mention meds given and route, prescriptions, significant lab abnormalities, going to OR and other [facility] [place] info. @ - 73 male to ER for evaluation patient will be admitted for continued evaluation of pancytopenia more specifically with symptomatic anemia. Admitted Undiagnosed new problem with uncertain prognosis? @ -no Drug Therapy requiring intensive monitoring for toxicity (Heparin, Nitro, Insuli n, Cardizem)? @ -no Were any procedures done? @ -no Diagnosis/symptom? @ - Acute, or Chronic, or Acute on Chronic? @ -Acute Uncomplicated (without systemic symptoms) or Complicated (systemic symptoms)? @ -Complicated Side effects of treatment? @ -no Exacerbation, Progression, or Severe Exacerbation? @ -exacerbation Poses a threat to life or bodily function? How? (Chest pain, USA, UT, pneumonia, PE, COPD, DKA, ARF, appy, cholecystitis, CVA, Diverticulitis, Homicidal, Suicidal, threat to staff... and all critical care pts) @ -yes with extremes of age Reevaluation #5: Differential weakness differential Weakness: Hypoglycemia, shock, sepsis, hyponatremia, anemia, infection, UT, ETOH, adverse medicine reaction, overdose, stroke, this is not meant to be an all-inclusive list. - Consultations Consultation #1: With Dr. Kerr who accept this patient as an admission Medical Decision Making - Medical Decision Making 73 male to ER for evaluation patient will be admitted for continued evaluation of pancytopenia, also with significant electrode abnormalities, more s pecifically with symptomatic anemia. - Lab Data Result diagrams: 01/09/24 10:50 01/09/24 10:50 Lab Results 01/05/24 01/05/24 01/05/24 Range/Units 15:38 15:38 15:38 WBC 0.6 L* (3.8-10.6) k/uL RBC 3.19 L (4.30-5.90) m/uL Hgb 8.4 L (13.0-17.5) gm/dL Hct 26.6 L (39.0-53.0) % MCV 83.3 (80.0-100.0) fL MCH 26.4 (25.0-35.0) pg MCHC 31.7 (31.0-37.0) g/dL RDW 17.7 H (11.5-15.5) % Plt Count 24 L D (150-450) k/uL MPV 9.2 Neutrophils # ADON Manual Slide Review Performed Hypochromasia Slight Anisocytosis Slight PT 12.7 H (10.0-12.5) sec INR 1.2 H (<1.2) APTT 23.7 (22.0-30.0) sec Sodium 134 L (137-145) mmol/L Potassium 2.4 L* (3.5-5.1) mmol/L Chloride 100 (98-107) mmol/L Carbon Dioxide 34 H (22-30) mmol/L Anion Gap 0 mmol/L BUN 28 H (9-20) mg/dL Creatinine 0.81 (0.66-1.25) mg/dL Est GFR (CKD-EPI)AfAm >90 (>60 ml/min/1.73 sqM) Est GFR (CKD-EPI)NonAf 88 (>60 ml/min/1.73 sqM) Glucose 92 (74-99) mg/dL Calcium 7.6 L (8.4-10.2) mg/dL Phosphorus 2.1 L (2.5-4.5) mg/dL Magnesium 1.5 L (1.6-2.3) mg/dL Total Bilirubin 0.8 (0.2-1.3) mg/dL AST 23 (17-59) U/L ALT 27 (4-49) U/L Alkaline Phosphatase 50 (38-126) U/L Troponin I (0.000-0.034) ng/mL Total Protein 4.3 L (6.3-8.2) g/dL Albumin 2.5 L (3.5-5.0) g/dL Urine Color Urine Appearance (Clear) Urine pH (5.0-8.0) Ur Specific Franklin (1.001-1.035) Urine Protein (Negative) Urine Glucose (UA) (Negative) Urine Ketones (Negative) Urine Blood (Negative) Urine Nitrite (Negative) Urine Bilirubin (Negative) Urine Urobilinogen (<2.0) mg/dL Ur Leukocyte Esterase (Negative) Urine RBC (0-5) /hpf Urine WBC (0-5) /hpf Urine Mucus (None) /hpf 01/05/24 01/05/24 Range/Units 15:38 15:42 WBC (3.8-10.6) k/uL RBC (4.30-5.90) m/uL Hgb (13.0-17.5) gm/dL Hct (39.0-53.0) % MCV (80.0-100.0) fL MCH (25.0-35.0) pg MCHC (31.0-37.0) g/dL RDW (11.5-15.5) % Plt Count (150-450) k/uL MPV Neutrophils # Manual Slide Review Hypochromasia Anisocytosis PT (10.0-12.5) sec INR (<1.2) APTT (22.0-30.0) sec Sodium (137-145) mmol/L Potassium (3.5-5.1) mmol/L Chloride (98-107) mmol/L Carbon Dioxide (22-30) mmol/L Anion Gap mmol/L BUN (9-20) mg/dL Creatinine (0.66-1.25) mg/dL Est GFR (CKD-EPI)AfAm (>60 ml/min/1.73 sqM) Est GFR (CKD-EPI)NonAf (>60 ml/min/1.73 sqM) Glucose (74-99) mg/dL Calcium (8.4-10.2) mg/dL Phosphorus (2.5-4.5) mg/dL Magnesium (1.6-2.3) mg/dL Total Bilirubin (0.2-1.3) mg/dL AST (17-59) U/L ALT (4-49) U/L Alkaline Phosphatase (38-126) U/L Troponin I <0.012 (0.000-0.034) ng/mL Total Protein (6.3-8.2) g/dL Albumin (3.5-5.0) g/dL Urine Color Colorless Urine Appearance Clear (Clear) Urine pH 7.0 (5.0-8.0) Ur Specific Franklin 1.006 (1.001-1.035) Urine Protein Negative (Negative) Urine Glucose (UA) Negative (Negative) Urine Ketones Negative (Negative) Urine Blood Negative (Negative) Urine Nitrite Negative (Negative) Urine Bilirubin Negative (Negative) Urine Urobilinogen <2.0 (<2.0) mg/dL Ur Leukocyte Esterase Trace H (Negative) Urine RBC <1 (0-5) /hpf Urine WBC 2 (0-5) /hpf Urine Mucus Rare H (None) /hpf - EKG Data -: EKG Interpreted by Me (EKG is sinus 87 RI 152 QRS 82 QTc 419) - Radiology Data Radiology results: report reviewed (Chest is negative for acute disease), image reviewed Critical Care Time Critical Care Time: Yes Total Critical Care Time: 31 Disposition Clinical Impression: Renal failure, Weakness, Nausea & vomiting, Pancytopenia, Hypokalemia, Hypomagnesemia Disposition: ADMITTED IP TO THIS [facility] Condition: Serious Is patient prescribed a controlled substance at d/c from ED?: No Time of Disposition: 17:00
[2024-01-05 16:16] LABS: Anisocytosis Slight; HCT 26.6 % (39.0-53.0); HGB 8.4 gm/dL (13.0-17.5); Hypochromasia Slight; MCH 26.4 pg (25.0-35.0); MCHC 31.7 g/dL (31.0-37.0); MCV 83.3 fL (80.0-100.0); Mean Platelet Volume 9.2; RBC 3.19 m/uL (4.30-5.90); RDW 17.7 % (11.5-15.5)
[2024-01-05] MEDS: SODIUM CHLORIDE 0.9% 1,000 ML IV STA (16:16)
[2024-01-05 16:30] LABS: ALT 27 U/L (4-49); AST 23 U/L (17-59); African American GFR (CKD) >90 (>60 ml/min/1.73 sqM); Albumin 2.5 g/dL (3.5-5.0); Alkaline Phosphatase 50 U/L (38-126); Anion Gap 0 mmol/L; Blood Urea Nitrogen 28 mg/dL (9-20); Calcium 7.6 mg/dL (8.4-10.2); Carbon Dioxide 34 mmol/L (22-30); Chloride 100 mmol/L (98-107); Glucose 92 mg/dL (74-99); Magnesium 1.5 mg/dL (1.6-2.3); Non-African American GFR(CKD) 88 (>60 ml/min/1.73 sqM); Phosphorus 2.1 mg/dL (2.5-4.5); Sodium 134 mmol/L (137-145); Total Bilirubin 0.8 mg/dL (0.2-1.3); Total Protein 4.3 g/dL (6.3-8.2)
[2024-01-05 16:33] LABS: Appearance,Urine Clear (Clear); Bilirubin,Urine Negative (Negative); Blood,Urine Negative (Negative); Color,Urine Colorless; Glucose,Urine (UA) Negative (Negative); Ketones,Urine Negative (Negative); Leukocyte Esterase,Urine Trace (Negative); Mucus,Urine Rare /hpf; Nitrite,Urine Negative (Negative); Protein,Urine Negative (Negative); RBC,Urine <1 /hpf (0-5); Specific Gravity,Urine 1.006 (1.001-1.035); Urobilinogen,Urine <2.0 mg/dL (<2.0); WBC,Urine 2 /hpf (0-5)
[2024-01-05 16:34] LABS: INR 1.2 (<1.2); Partial Thromboplastin Time 23.7 sec (22.0-30.0); Prothrombin Time 12.7 sec (10.0-12.5)
[2024-01-05 16:48] LABS: Potassium 2.4 mmol/L (3.5-5.1)
[2024-01-05 17:12] LABS: WBC 0.6 k/uL (3.8-10.6)
[2024-01-05 17:13] LABS: Platelet Count 24 k/uL (150-450)
[2024-01-05] MEDS ORDERED: NALOXONE 0.4 MG/ML 1 ML VIAL IV PRN (17:14)
[2024-01-05] MEDS ORDERED: RX INFO: IV CONTRAST WAS GIVEN 1 EACH MISC MISCELLANE PRN (17:42)
[2024-01-05] MEDS: ONDANSETRON 4 MG/2 ML VIAL IVP PRN (17:58)
[2024-01-05] MEDS: MORPHINE SULFATE 4 MG/ML SYRINGE IV PRN (18:01)
[2024-01-05] MEDS: MAGNESIUM SULFATE-D5W PMX 1 GM in DEXTROSE/WATER 1 100ML.BAG IVPB SCH (18:05)
[2024-01-05] MEDS: POTASSIUM CHLORIDE 20 MEQ in WATER FOR INJECTION 1 100ML.BAG IVPB STA (18:07)
[2024-01-05] MEDS: SODIUM CHLORIDE 0.9% 1,000 ML IV SCH (18:08)
[2024-01-05] MEDS: MAGNESIUM OXIDE 400 MG TAB PO STA (18:09)
--- NOTE | 2024-01-05 20:11 | CT ---
Examination Type: CT chest w con Date Of Exam: 01/05/2024 History: Pericardial effusion - patient states he had 1 liter of fluids removed from lungs 4-5 days a go. Technique: CT scan of the thorax is performed following with IV Contrast, patient injected with 100 m l mL of Isovue 300. Automated Exposure Control for Dose Reduction was Utilized. CT DLP: 247.9 mGycm. Comparison: CT Chest 12/06/2023 FINDINGS / IMPRESSION: PLEURAL SPACES: Moderate left-sided pleural effusion, slightly greater than on 12/06/2023. Associated passive partial atelectasis of the left lower lobe and lingula; concurrent pneumonia can only be excl uded on clinical grounds. Scant right-sided pleural effusion, unchanged since 12/06/2023. LUNGS: Biapical pleural parenchymal scarring redemonstrated. Irregular density at the right apex is l arger at 3.3 x 1.3 cm versus 2.1 x 0.7 cm, previously. Similarly, irregular opacity at the left apex is also enlarged. MEDIASTINUM: Minimal pericardial effusion on the present examination. There is no cardiomegaly but th ere are severe and extensive left and right coronary calcifications. There are no greater than 1 cm s hort axis lymph nodes in the bryanna or mediastinum, and the right axillary adenopathy is less conspicuo us than on 12/06/2023. VISUALIZED UPPER ABDOMEN: The peritoneal fluid and the multifocal splenic findings are unchanged when compared with the CT abdomen 01/12/2024. There are no renal 1 cm short axis lymph nodes in the upper abdomen presently.
[2024-01-05] MEDS: PROCHLORPERAZINE INJ 10 MG/2 ML VIAL IVP PRN (22:05)
[2024-01-05] MEDS: POTASSIUM BICARBONATE/CIT AC 20 MEQ TABLET.EFF PO ONE (23:45)
[2024-01-06] MEDS ORDERED: Potassium Replacement Protocol 1 EACH MISC MISCELLANE PRN ×2 (01:22→21:36)
[2024-01-06] MEDS: POTASSIUM CHLORIDE 10 MEQ in WATER FOR INJECTION 1 100ML.BAG IVPB SCH ×2 (01:43→23:17)
--- NOTE | 2024-01-06 05:12 | P.CNPUL ---
History of Present Illness Consult date: 01/06/24 Requesting physician: Vinay Mccurdy Reason for consult: other Chief complaint: Since hospital discharge increased weakness, reduced appetite, diarrhea History of present illness: Patient was transferred from [facility], noted to be anemic with a hemoglobin of 6.6 g/dL reportedly status post PRBC transfusion, and transferred to [facility] on department ER. Patient is a 73-year-old white male with past medical history significant for recent diagnosis of mantle cell lymp celso. Of note, patient was recently discharged from the hospital on January 01. He had a complicated hospital stay, suspected of having tumor lysis syndrome and acute kidney injury/failure with temporary hemodialysis. He did have a brief ICU stay for a large pericardial effusion with tamponade features status/post window. Pericardial fluid analysis positive for beta-hemolytic strep group C. He was discharged with oral antibiotics, family is unsure of antibiotic name. During the stay he also received an initial cycle of R-CHOP directed by inpatient oncology. On my evaluation, patient remains in the emergency department, family is at bedside. He has been increasingly weak since his hosp ital discharge just a few days ago. His appetite has been reduced. No significant nausea or vomiting. He has had frequent bouts of loose stools, described as dark. He is pale. No significant abdominal pain. He is pancytopenic, WBC count 0.6, hemoglobin 8.4, hematocrit 26.6, platelets 24,000. Most recent BMP sodium 134, potassium 2.4, chloride 100, serum bicarb 34, BUN 28, creatinine 0.81, glucose 92. LFTs not elevated. Magnesium also low at 1.5. Saline infusing at 75 mL/h. Electrolytes are being replaced. Troponin less than 0.012. Urinalysis not particularly remarkable for UTI. C. difficile negative. He was started on IV Rocephin. CT of the chest demonstrates some minimal pericardial effusion. There is bilateral pleural effusions, greater on the left, which is moderate in size. Minimally larger from prior imaging. Associated compressive atelectasis suspected. Other incidental findings were noted. Patient does occasionally become short of breath with exertion. No f wendy, coughing, sputum production, hemoptysis. He did report some substernal chest pain earlier, nothing currently. EKG on arrival showed normal sinus rhythm. Low amplitude T waves consistent with hypokalemia and nonspecific T wave inversions. Troponin less than 0.012. He is on room air. SpO2 96%. Vital signs are all stable. Review of Systems REVIEW OF SYSTEMS: CONSTITUTIONAL: Admits previous 15 pound weight loss over the last few months, more recently lower extremity swelling and weight gain. EYES: Denies change in vision. EARS, NOSE, MOUTH, THROAT: Denies headaches, denies sore throat. CARDIOVASCULAR: Denies current chest pain, palpitations or syncopal episodes. Endorses persistent lower extremity swelling RESPIRATORY: see HPI GASTROINTESTINAL: See HPI GENITOURINARY: Denies hematuria, denies infections. MUSKULOSKELETAL: Denies pain, denies joint swelling. INTEGUMENTARY: Denies rash, denies eczema. NEUROLOGICAL: Denies recent memory loss, no recent seizure activity. PSYCHIATRIC: Denies anxiety, denies depression. HEMATOLOGIC/LYMPHATIC: Denies anemia, denies enlarged lymph node Past Medical History Past Medical History: Cancer, Chest Pain / Angina, Hyperlipidemia, Hypertension Additional Past Medical History / Comment(s): History of tuberculosis at age 18, history of kidney stones History of Any Multi-Drug Resistant Organisms: None Reported Past Surgical History: Hernia Repair, Tonsillectomy Additional Past Surgical History / Comment(s): Axillary lymph node biopsy right side on December 07, 2023, pericardial window, cancer treatment last week Past Anesthesia/Blood Transfusion Reactions: No Reported Reaction Past Psychological History: No Psychological Hx Reported Smoking Status: Current every day smoker Past Alcohol Use History: None Reported Past Drug Use History: None Reported - Past Family History Mother Family Medical History: Coronary Artery Disease (CAD) Additional Family Medical History / Comment(s): History of CABG Father Additional Family Medical History / Comment(s): History of permanent pacemaker placement Medications and Allergies Home Medications Medication Instructions Recorded Confirmed Type Cetirizine HCl [Zyrtec] 10 mg PO DAILY 12/02/23 01/05/24 History Cholecalciferol (Vitamin D3) 125 mcg PO DAILY@119912/02/23 01/05/24 History [Vitamin D3 (125 MCG = 5,000 IU)] Multivitamins, Thera [Multivitamin 1 tab PO DAILY@119912/02/23 01/05/24 History (formulary)] Simvastatin [Zocor] 20 mg PO DAILY@119912/02/23 01/05/24 History Aspirin EC [Ecotrin Low Dose] 81 mg PO DAILY 12/22/23 01/05/24 History ALPRAZolam [Xanax] 0.25 mg PO Q6HR PRN 3 Days #12 tab 01/02/24 01/05/24 Rx Calcium Carbonate [Tums] 1,000 mg PO TID PRN 30 Days #90 tab 01/02/24 01/05/24 Rx Pantoprazole [Protonix] 40 mg PO AC-BRKFST 30 Days #30 tab 01/02/24 01/05/24 Rx Sodium Bicarbonate Tab 650 mg PO BID 30 Days #60 tab 01/02/24 01/05/24 Rx Spironolactone [Aldactone] 12.5 mg PO DAILY 30 Days #30 tab 01/02/24 01/05/24 Rx Sucralfate [Carafate] 1 gm PO AC-BID 30 Days #60 tab 01/02/24 01/05/24 Rx Torsemide [Demadex] 20 mg PO DAILY 30 Days #30 tab 01/02/24 01/05/24 Rx Ondansetron Odt [Zofran Odt] 4 - 8 mg PO Q4H PRN 01/05/24 01/05/24 History Allergies Allergy/AdvReac Type Severity Reaction Status Date / Time No Known Allergies Allergy Verified 01/05/24 17:02 Physical Exam Vitals: Vital Signs Temp Pulse Pulse Resp BP BP Pulse Ox 01/06/24 03:13 97.7 F 79 146/73 96 01/06/24 01:50 77 12 126/59 95 01/05/24 23:30 76 11 L 143/78 95 01/05/24 22:00 79 10 L 104/58 94 L 01/05/24 19:00 73 14 101/53 97 01/05/24 18:11 84 18 126/67 94 L 01/05/24 17:00 84 18 134/65 01/05/24 16:02 84 18 122/61 01/05/24 15:39 78 20 177/103 94 L 01/05/24 15:36 97.8 F 87 20 132/88 96 Intake and Output 01/05/24 01/05/24 01/06/24 14:59 22:59 06:59 Other: Weight 73.482 kg 73.482 kg GENERAL EXAM: Alert, 73-year-old white male, generalized pallor, fairly comfortable in no apparent distress. HEAD: Normocephalic and atraumatic EYES: Normal reaction of pupils, equal size. NOSE: Clear with pink turbinates. THROAT: No erythema or exudates. Dry mucous membranes NECK: No masses, no JVD. CHEST: No chest wall deformity. Subxiphoid vertical incision approximated with glue, minimal erythema, no drainage. LUNGS: Equal air entry with diminished bibasilar lung sounds. No crackles, wheeze, rhonchi. On room air. No conversational dyspnea or accessory muscle use.. CVS: S1 and S2 normal with soft grade 1 systolic murmur, regular rhythm. No muffled heart sounds or pericardial friction rub. ABDOMEN: No hepatosplenomegaly, active bowel sounds, no guarding or rigidity. SPINE: No scoliosis or deformity SKIN: No rashes CENTRAL NERVOUS SYSTEM: No focal deficits, tone is normal in all 4 extremities. EXTREMITIES: 3+ bilateral lower extremity pitting edema. Clubbing, or cyanosis. Peripheral pulses are intact. Results - Laboratory Findings CBC and BMP: 01/06/24 06:18 01/06/24 17:36 PT/INR, D-dimer PT 12.7 sec (10.0-12.5) H 01/05/24 15:38 INR 1.2 (<1.2) H 01/05/24 15:38 Abnormal lab findings: Abnormal Labs 01/05/24 01/05/24 01/05/24 15:38 15:38 15:38 WBC 0.6 L* RBC 3.19 L Hgb 8.4 L Hct 26.6 L RDW 17.7 H Plt Count 24 L D PT 12.7 H INR 1.2 H Sodium 134 L Potassium 2.4 L* Carbon Dioxide 34 H BUN 28 H Calcium 7.6 L Phosphorus 2.1 L Magnesium 1.5 L Total Protein 4.3 L Albumin 2.5 L Ur Leukocyte Esterase Urine Mucus 01/05/24 01/06/24 15:42 00:30 WBC RBC Hgb Hct RDW Plt Count PT INR Sodium Potassium 2.4 L* Carbon Dioxide BUN Calcium Phosphorus Magnesium Total Protein Albumin Ur Leukocyte Esterase Trace H Urine Mucus Rare H - Diagnostic Findings Chest x-ray: image reviewed CT scan - chest: image reviewed Assessment and Plan Assessment: Mantle cell lymphoma, diagnosed with excisional lymph node biopsy of the the right axilla on 12/07/2023. Patient received first round of R-CHOP during his previous hospital hospitalization History of moderate to large size pericardial effusion, status post subxiphoid pericardial window December 27, 2023 with mediastinal chest tube was removed. Cultures positive for strep group C. Most recent follow-up chest CT shows a minimal residual pericardial effusion. Bilateral small to moderate in size pleural effusions, greater on the left, no significant interval change on recent imaging. No plan for thoracentesis Pancytopenia, recently started on systemic treatment for mantle cell lymphoma. Symptomatic anemia, with a recorded hemoglobin of 6.6 g/dL at outside facility status post 1 unit PRBC transfusion most recent follow-up hemoglobin is 8.4 g/dL. History of CLINTON and possible tumor lysis syndrome requiring temporary hemodialysis catheter with subsequent removal. CL[place] has resolved. Severe hypokalemia, being replaced Hypomagnesemia, being replaced Chronic lower extremity edema History of hypertension. Former tobacco smoker, recently quitting little bit over a month ago Plan: Patient's medications, labs, imaging reviewed Currently on room air. Patient does have persistent small to moderate bilateral, no plans for thoracentesis. Resume torsemide and spironolactone Started on IV Rocephin in the emergency department Patient reports frequent dark, almost black stools outpatient. Check fecal occult. Monitor for overt signs of bleeding. Monitor hemoglobin. Replace electrolytes per protocol Medical oncology is consulted. Appears hemodynamically stable. Will be monitored on the oncology unit. We will continue to follow I have personally seen and examined the patient, performed the documentation and the assessment and plan as written. Number of minutes spent on the visit:20 This is a joint evaluation that was done along with the nurse practitioner. This evaluation was done in more than 30 minutes. Patient is currently being seen on the medical floor. The patient has developed pancytopenia related to systemic chemotherapy as well as massive for mantle cell lymphoma. He is status post pericardial window for a moderate to large pericardial effusion. The cultures were positive for strep pneumo. The patient is presenting with generalized weakness, anemia with a hemoglobin of 6.6 and the patient is already being given a unit of packed RBC with subsequent hemoglobin coming at 8 point 4 in the morning hemoglobin dropped down to 7.2. He remains neutropenic. He remains thrombocytopenic with a platelet count of 18. Nevertheless, no issues with bleeding. CAT scan of the chest was also noted. The patient has chronic apical scarring primary discharge to tuberculosis. He also has no evidence of any pericardial effusion. His small left-sided pleural effusion was noted. Respiratory status is stable. Asymptomatic. No significant shortness of breath. Patient is currently on room air oxygen. No other complaints for now. Cultures have been sent and the patient remains on IV Rocephin. Consulted with medical oncology. Will continue to follow this patient along with the rest of the consultants. Hemodynamically stable. No signs of any infection or sepsis at this point in time. Time with Patient: Greater than 30
[2024-01-06] MEDS: TORSEMIDE 20 MG TAB PO SCH (08:56)
[2024-01-06] MEDS: SPIRONOLACTONE 25 MG TAB PO SCH (08:56)
--- NOTE | 2024-01-06 09:56 | P.HPIM ---
History of Present Illness H&P Date: 01/05/24 Rahul Cruz, is a 73-year-old male who presented to [facility] with a chief complaint of chest pain, he has a complex medical history, including recent pericardial effusion, with pericardial window placement at [facility], he was evaluated at [facility] and transferred to [facility] emergency room. He was evaluated in the emergency room vital examination on presentation revealed a temperature of 97.8 pulse 87 respiration 20 blood pressure 132/88 pulse ox 96% on room air Laboratory data revealed a white blood count of 0.6 hemoglobin 8.4 platelet count 24,000 sodium 134 potassium 2.4 troponin less than 0.012 magnesium 1.5 Testing in the emergency room revealed EKG revealed sinus rhythm with moderate T wave abnormality, CT scan of the chest revealed bilateral pleural effusion, and minimal residual pericardial effusion. Patient was admitted to medical floor for further evaluation and treatment Past Medical History Past Medical History: Cancer, Hyperlipidemia, Hypertension Additional Past Medical History / Comment(s): History of tuberculosis at age 18, history of kidney stones History of Any Multi-Drug Resistant Organisms: None Reported Past Surgical History: Hernia Repair, Tonsillectomy Additional Past Surgical History / Comment(s): Axillary lymph node biopsy right side on December 07, 2023 Past Anesthesia/Blood Transfusion Reactions: No Reported Reaction Past Psychological History: No Psychological Hx Reported Smoking Status: Current every day smoker Past Alcohol Use History: None Reported Past Drug Use History: None Reported - Past Family History Mother Family Medical History: Coronary Artery Disease (CAD) Additional Family Medical History / Comment(s): History of CABG Father Additional Family Medical History / Comment(s): History of permanent pacemaker placement Medications and Allergies Home Medications Medication Instructions Recorded Confirmed Type Cetirizine HCl [Zyrtec] 10 mg PO DAILY 12/02/23 01/05/24 History Cholecalciferol (Vitamin D3) 125 mcg PO DAILY@119912/02/23 01/05/24 History [Vitamin D3 (125 MCG = 5,000 IU)] Multivitamins, Thera [Multivitamin 1 tab PO DAILY@119912/02/23 01/05/24 History (formulary)] Simvastatin [Zocor] 20 mg PO DAILY@119912/02/23 01/05/24 History Aspirin EC [Ecotrin Low Dose] 81 mg PO DAILY 12/22/23 01/05/24 History ALPRAZolam [Xanax] 0.25 mg PO Q6HR PRN 3 Days #12 tab 01/02/24 01/05/24 Rx Calcium Carbonate [Tums] 1,000 mg PO TID PRN 30 Days #90 tab 01/02/24 01/05/24 Rx Pantoprazole [Protonix] 40 mg PO AC-BRKFST 30 Days #30 tab 01/02/24 01/05/24 Rx Sodium Bicarbonate Tab 650 mg PO BID 30 Days #60 tab 01/02/24 01/05/24 Rx Spironolactone [Aldactone] 12.5 mg PO DAILY 30 Days #30 tab 01/02/24 01/05/24 Rx Sucralfate [Carafate] 1 gm PO AC-BID 30 Days #60 tab 01/02/24 01/05/24 Rx Torsemide [Demadex] 20 mg PO DAILY 30 Days #30 tab 01/02/24 01/05/24 Rx Ondansetron Odt [Zofran Odt] 4 - 8 mg PO Q4H PRN 01/05/24 01/05/24 History Allergies Allergy/AdvReac Type Severity Reaction Status Date / Time No Known Allergies Allergy Verified 01/05/24 17:02 Physical Exam Vitals: Vital Signs Temp Pulse Resp BP Pulse Ox 01/05/24 17:00 84 18 134/65 01/05/24 16:02 84 18 122/61 01/05/24 15:39 78 20 177/103 94 L 01/05/24 15:36 97.8 F 87 20 132/88 96 Intake and Output 01/05/24 01/05/24 01/05/24 06:59 14:59 22:59 Other: Weight 73.482 kg In general patient is alert and oriented x 3 in no distress HEENT head normocephalic and atraumatic Neck is supple no JVD no goiter no lymphadenopathy no carotid bruit Chest examination is clear to auscultation no crackles no wheezing Cardiac exam reveals regular heart sounds S1 and S2 no gallops no murmurs Abdomen is soft nontender no organomegaly with normal bowel sounds Extremity exam reveals no edema no cyanosis or clubbing Neurological examination reveals no gross focal deficits Results CBC & Chem 7: 01/05/24 15:38 06/14/24 00:30 Labs: Abnormal Lab Results - Last 24 Hours (Table) 01/05/24 01/05/24 01/05/24 Range/Units 15:38 15:38 15:38 WBC 0.6 L* (3.8-10.6) k/uL RBC 3.19 L (4.30-5.90) m/uL Hgb 8.4 L (13.0-17.5) gm/dL Hct 26.6 L (39.0-53.0) % RDW 17.7 H (11.5-15.5) % Plt Count 24 L D (150-450) k/uL PT 12.7 H (10.0-12.5) sec INR 1.2 H (<1.2) Sodium 134 L (137-145) mmol/L Potassium 2.4 L* (3.5-5.1) mmol/L Carbon Dioxide 34 H (22-30) mmol/L BUN 28 H (9-20) mg/dL Calcium 7.6 L (8.4-10.2) mg/dL Phosphorus 2.1 L (2.5-4.5) mg/dL Magnesium 1.5 L (1.6-2.3) mg/dL Total Protein 4.3 L (6.3-8.2) g/dL Albumin 2.5 L (3.5-5.0) g/dL Ur Leukocyte Esterase (Negative) Urine Mucus (None) /hpf 01/05/24 Range/Units 15:42 WBC (3.8-10.6) k/uL RBC (4.30-5.90) m/uL Hgb (13.0-17.5) gm/dL Hct (39.0-53.0) % RDW (11.5-15.5) % Plt Count (150-450) k/uL PT (10.0-12.5) sec INR (<1.2) Sodium (137-145) mmol/L Potassium (3.5-5.1) mmol/L Carbon Dioxide (22-30) mmol/L BUN (9-20) mg/dL Calcium (8.4-10.2) mg/dL Phosphorus (2.5-4.5) mg/dL Magnesium (1.6-2.3) mg/dL Total Protein (6.3-8.2) g/dL Albumin (3.5-5.0) g/dL Ur Leukocyte Esterase Trace H (Negative) Urine Mucus Rare H (None) /hpf Assessment and Plan Plan: Mantle cell lymphoma, diagnosed 3 weeks ago, recently started on chemotherapy Recent history of pericardial effusion, with pericardial window on December 27, 2023 Positive culture of pericardial fluid for Streptococcus pneumonia, given a course of Augmentin on discharge, currently on IV Rocephin Bilateral pleural effusions, greater on the left, pulmonary consultation requested Pancytopenia, recently started on systemic treatment for mantle cell lymphoma. Symptomatic anemia, with a recorded hemoglobin of 6.6 g/dL at outside facility status post 1 unit PRBC transfusion most recent follow-up hemoglobin is 8.4 g/dL. Recent history of acute kidney injury requiring short-term hemodialysis Severe hypokalemia, correcting Hypomagnesemia, correcting Underlying history of hypertension At this time patient was seen and examined Home medications reviewed and reordered Electrolyte replacement IV ceftriaxone Consultation for oncology and pulmonary Will follow closely
--- NOTE | 2024-01-06 09:59 | P.PN ---
Subjective Progress Note Date: 01/06/24 Rahul Cruz, is a 73-year-old male who presented to [facility] with a chief complaint of chest pain, he has a complex medical history, including recent pericardial effusion, with pericardial window placement at [facility], he was evaluated at [facility] and transferred to [facility] emergency room. He was evaluated in the emergency room vital examination on presentation revealed a temperature of 97.8 pulse 87 respiration 20 blood pressure 132/88 pulse ox 96% on room air Laboratory data revealed a white blood count of 0.6 hemoglobin 8.4 platelet cou nt 24,000 sodium 134 potassium 2.4 troponin less than 0.012 magnesium 1.5 Testing in the emergency room revealed EKG revealed sinus rhythm with moderate T wave abnormality, CT scan of the chest revealed bilateral pleural effusion, and minimal residual pericardial effusion. Patient was admitted to medical floor for further evaluation and treatment On 01/06/2024 patient was seen and examined on the medical floor he is alert and oriented x 3 in no apparent distress there is no fever or chills no headache or dizziness no chest pain no shortness of breath no cough no nausea or vomiting no abdominal pain no diarrhea no urinary symptoms. Vital examination reveals a temperature of 97.8 pulse 87 respirations 20 blood pressure 132/88 pulse ox 96% on room air Objective - Vital Signs Vital signs: Vital Signs Temp 98.2 F 01/06/24 08:00 Pulse 88 01/06/24 08:00 Resp 17 01/06/24 08:00 BP 133/68 01/06/24 08:00 Pulse Ox 96 01/06/24 08:00 FiO2 Intake & Output 01/05/24 01/06/24 01/06/24 18:59 06:59 18:59 Weight 73.482 kg 73.482 kg Other: # Voids 1 - Exam In general patient is alert and oriented x 3 in no distress HEENT head normocephalic and atraumatic Neck is supple no JVD no goiter no lymphadenopathy no carotid bruit Chest examination is clear to auscultation no crackles no wheezing Cardiac exam reveals regular heart sounds S1 and S2 no gallops no murmurs Abdomen is soft nontender no organomegaly with normal bowel sounds Extremity exam reveals no edema no cyanosis or clubbing Neurological examination reveals no gross focal deficits - Labs CBC & Chem 7: 01/05/24 15:38 01/06/24 00:30 Labs: Abnormal Lab Results - Last 24 Hours (Table) 01/05/24 01/05/24 01/05/24 Range/Units 15:38 15:38 15:38 WBC 0.6 L* (3.8-10.6) k/uL RBC 3.19 L (4.30-5.90) m/uL Hgb 8.4 L (13.0-17.5) gm/dL Hct 26.6 L (39.0-53.0) % RDW 17.7 H (11.5-15.5) % Plt Count 24 L D (150-450) k/uL PT 12.7 H (10.0-12.5) sec INR 1.2 H (<1.2) Sodium 134 L (137-145) mmol/L Potassium 2.4 L* (3.5-5.1) mmol/L Carbon Dioxide 34 H (22-30) mmol/L BUN 28 H (9-20) mg/dL Calcium 7.6 L (8.4-10.2) mg/dL Phosphorus 2.1 L (2.5-4.5) mg/dL Magnesium 1.5 L (1.6-2.3) mg/dL Total Protein 4.3 L (6.3-8.2) g/dL Albumin 2.5 L (3.5-5.0) g/dL Ur Leukocyte Esterase (Negative) Urine Mucus (None) /hpf 01/05/24 01/06/24 Range/Units 15:42 00:30 WBC (3.8-10.6) k/uL RBC (4.30-5.90) m/uL Hgb (13.0-17.5) gm/dL Hct (39.0-53.0) % RDW (11.5-15.5) % Plt Count (150-450) k/uL PT (10.0-12.5) sec INR (<1.2) Sodium (137-145) mmol/L Potassium 2.4 L* (3.5-5.1) mmol/L Carbon Dioxide (22-30) mmol/L BUN (9-20) mg/dL Calcium (8.4-10.2) mg/dL Phosphorus (2.5-4.5) mg/dL Magnesium (1.6-2.3) mg/dL Total Protein (6.3-8.2) g/dL Albumin (3.5-5.0) g/dL Ur Leukocyte Esterase Trace H (Negative) Urine Mucus Rare H (None) /hpf Assessment and Plan Plan: Mantle cell lymphoma, diagnosed 3 weeks ago, recently started on chemotherapy Recent history of pericardial effusion, with pericardial window on December 27, 2023 Positive culture of pericardial fluid for Streptococcus pneumonia, given a course of Augmentin on discharge, currently on IV Rocephin Bilateral pleural effusions, greater on the left, pulmonary consultation requested Pancytopenia, recently started on systemic treatment for mantle cell lymphoma. Symptomatic anemia, with a recorded hemoglobin of 6.6 g/dL at outside facility status post 1 unit PRBC transfusion most recent follow-up hemoglobin is 8.4 g/dL. Recent history of acute kidney injury requiring short-term hemodialysis Severe hypokalemia, correcting Hypomagnesemia, correcting Underlying history of hypertension At this time patient was seen and examined Home medications reviewed and reordered Electrolyte replacement IV ceftriaxone Consultation for oncology and pulmonary Will follow closely
[2024-01-06 10:33] LABS: Magnesium 1.8 mg/dL (1.5-2.4); Phosphorus 1.7 mg/dL (2.4-5.1)
--- NOTE | 2024-01-06 10:51 | P.CRDCN ---
History of Present Illness History of present illness: This is Dr. Lui dictating a consult on this patient The patient was interviewed and examined IMPRESSION / ASSESSMENT: Recent pericardial effusion status post pericardial window, successful Follow-up CT scan shows trace pericardial effusion Known coronary artery disease, calcific atherosclerosis PLAN: Simvastatin 20 mg p.o. daily to continue Continue baby aspirin No further cardiac workup at this point Will sign off HPI 73-year-old male patient presented with low hemoglobin tiredness fatigue and shortness of [id number] He recently underwent pericardial window for pericardial effusion His first twelve-lead EKG showed T wave abnormality fairly diffusely CT of the chest showed minimal pericardial effusion Coronary calcifications noted ROS: No fever chills or rigors, no cough, phlegm or expectoration, no nausea, vomiting or diarrhea, no hematuria, dysuria, no musculoskeletal complaints, no strokes or seizures, no skin lesions. EXAMINATION: Blood pressure 126/59 mmHg pulse rate in the 70s Heart sounds S1-S2 soft Breath sounds are reduced bilaterally no rhonchi REVIEW OF LABS, ECG & MEDICAL DATA Normal troponin Low potassium Low WBC count Past Medical History Past Medical History: Cancer, Hyperlipidemia, Hypertension Additional Past Medical History / Comment(s): History of tuberculosis at age 18, history of kidney stones History of Any Multi-Drug Resistant Organisms: None Reported Past Surgical History: Hernia Repair, Tonsillectomy Additional Past Surgical History / Comment(s): Axillary lymph node biopsy right side on December 07, 2023 Past Anesthesia/Blood Transfusion Reactions: No Reported Reaction Past Psychological History: No Psychological Hx Reported Smoking Status: Current every day smoker Past Alcohol Use History: None Reported Past Drug Use History: None Reported - Past Family History Mother Family Medical History: Coronary Artery Disease (CAD) Additional Family Medical History / Comment(s): History of CABG Father Additional Family Medical History / Comment(s): History of permanent pacemaker placement Medications and Allergies Home Medications Medication Instructions Recorded Confirmed Type Cetirizine HCl [Zyrtec] 10 mg PO DAILY 12/02/23 01/05/24 History Cholecalciferol (Vitamin D3) 125 mcg PO DAILY@1200 12/02/23 01/05/24 History [Vitamin D3 (125 MCG = 5,000 IU)] Multivitamins, Thera [Multivitamin 1 tab PO DAILY@1200 12/02/23 01/05/24 History (formulary)] Simvastatin [Zocor] 20 mg PO DAILY@1200 12/02/23 01/05/24 History Aspirin EC [Ecotrin Low Dose] 81 mg PO DAILY 12/22/23 01/05/24 History ALPRAZolam [Xanax] 0.25 mg PO Q6HR PRN 3 Days #12 tab 01/02/24 01/05/24 Rx Calcium Carbonate [Tums] 1,000 mg PO TID PRN 30 Days #90 tab 01/02/24 01/05/24 Rx Pantoprazole [Protonix] 40 mg PO AC-BRKFST 30 Days #30 tab 01/02/24 01/05/24 Rx Sodium Bicarbonate Tab 650 mg PO BID 30 Days #60 tab 01/02/24 01/05/24 Rx Spironolactone [Aldactone] 12.5 mg PO DAILY 30 Days #30 tab 01/02/24 01/05/24 Rx Sucralfate [Carafate] 1 gm PO AC-BID 30 Days #60 tab 01/02/24 01/05/24 Rx Torsemide [Demadex] 20 mg PO DAILY 30 Days #30 tab 01/02/24 01/05/24 Rx Ondansetron Odt [Zofran Odt] 4 - 8 mg PO Q4H PRN 01/05/24 01/05/24 History Allergies Allergy/AdvReac Type Severity Reaction Status Date / Time No Known Allergies Allergy Verified 01/05/24 17:02 Physical Exam Vitals: Vital Signs Temp Pulse Pulse Resp BP BP Pulse Ox 01/06/24 08:00 98.2 F 88 17 133/68 96 01/06/24 03:13 97.7 F 79 146/73 96 01/06/24 01:50 77 12 126/59 95 01/05/24 23:30 76 11 L 143/78 95 01/05/24 22:00 79 10 L 104/58 94 L 01/05/24 19:00 73 14 101/53 97 01/05/24 18:11 84 18 126/67 94 L 01/05/24 17:00 84 18 134/65 01/05/24 16:02 84 18 122/61 01/05/24 15:39 78 20 177/103 94 L 01/05/24 15:36 97.8 F 87 20 132/88 96 Intake and Output 01/05/24 01/06/24 01/06/24 22:59 06:59 14:59 Other: # Voids 1 Weight 73.482 kg 73.482 kg Results 01/05/24 15:38 01/06/24 00:30 Cardiac Enzymes 01/05/24 01/05/24 Range/Units 15:38 15:38 AST 23 (17-59) U/L Troponin I <0.012 (0.000-0.034) ng/mL Coagulation 01/05/24 Range/Units 15:38 PT 12.7 H (10.0-12.5) sec APTT 23.7 (22.0-30.0) sec CBC 01/05/24 Range/Units 15:38 WBC 0.6 L* (3.8-10.6) k/uL RBC 3.19 L (4.30-5.90) m/uL Hgb 8.4 L (13.0-17.5) gm/dL Hct 26.6 L (39.0-53.0) % Plt Count 24 L D (150-450) k/uL Comprehensive Metabolic Panel 01/05/24 01/06/24 Range/Units 15:38 00:30 Sodium 134 L (137-145) mmol/L Potassium 2.4 L* 2.4 L* (3.5-5.1) mmol/L Chloride 100 (98-107) mmol/L Carbon Dioxide 34 H (22-30) mmol/L BUN 28 H (9-20) mg/dL Creatinine 0.81 (0.66-1.25) mg/dL Glucose 92 (74-99) mg/dL Calcium 7.6 L (8.4-10.2) mg/dL AST 23 (17-59) U/L ALT 27 (4-49) U/L Alkaline Phosphatase 50 (38-126) U/L Total Protein 4.3 L (6.3-8.2) g/dL Albumin 2.5 L (3.5-5.0) g/dL Current Medications Generic Name Dose Route Start Last Admin Trade Name Freq PRN Reason Stop Dose Admin Sodium Chloride 1,000 mls @ 75 mls/hr 01/05/24 17:15 01/06/24 09:00 Saline 0.9% IV Not Given .[id number] MIKAELA Ceftriaxone Sodium 2 gm/ 50 mls @ 100 mls/hr 01/05/24 17:45 01/06/24 08:55 Sodium Chloride IVPB 100 mls/hr Q24HR MIKAELA Administration Protocol Miscellaneous Information 1 each 01/05/24 17:42 Rx Info: Iv Contrast Was Given 1 Each Misc MISCELLANE 01/07/24 17:43 DAILY PRN Per Protocol Miscellaneous Information 1 each 01/06/24 01:22 Potassium Replacement Protocol 1 Each Misc MISCELLANE DAILY PRN Per Protocol Protocol Morphine Sulfate 4 mg 01/05/24 17:14 01/05/24 18:01 Morphine Sulfate 4 Mg/Ml Syringe IV 4 mg Q4HR PRN Administration Severe Pain (Scale 7 to 10) Naloxone HCl 0.2 mg 01/05/24 17:14 Naloxone 0.4 Mg/Ml 1 Ml Vial IV Q2M PRN Opioid Reversal Ondansetron HCl 4 mg 01/05/24 17:14 01/05/24 17:58 Ondansetron 4 Mg/2 Ml Vial IVP 4 mg Q8HR PRN Administration Nausea And Vomiting Prochlorperazine Edisylate 5 mg 01/05/24 21:41 01/06/24 06:22 Prochlorperazine Inj 10 Mg/2 Ml Vial IVP 5 mg Q6HR PRN Administration Nausea And Vomiting Spironolactone 12.5 mg 01/06/24 09:00 01/06/24 08:56 Spironolactone 25 Mg Tab PO 12.5 mg DAILY MIKAELA Administration Torsemide 20 mg 01/06/24 09:00 01/06/24 08:56 Torsemide 20 Mg Tab PO 20 mg DAILY MIKALEA Administration Intake and Output 01/05/24 01/06/24 01/06/24 22:59 06:59 14:59 Other: # Voids 1 Weight 73.482 kg 73.482 kg 01/05/24 15:38 01/06/24 00:30
[2024-01-06 11:14] LABS: ALT 24 U/L (10-49); AST 19 U/L (14-35); Albumin 2.7 g/dL (3.8-4.9); Albumin/Globulin Ratio 2.25 Ratio (1.60-3.17); Alkaline Phosphatase 42 U/L (41-126); BUN/Creat Ratio 27.25 Ratio (12.00-20.00); Blood Urea Nitrogen 21.8 mg/dL (9.0-27.0); Calcium 7.2 mg/dL (8.7-10.3); Carbon Dioxide 29.1 mmol/L (21.6-31.8); Chloride 103 mmol/L (96-109); Globulin 1.2 g/dL (1.6-3.3); Glucose 85 mg/dL (70-110); Potassium 2.6 mmol/L (3.5-5.5); Sodium 143 mmol/L (135-145); Total Bilirubin 0.5 mg/dL (0.3-1.2); Total Protein 3.9 g/dL (6.2-8.2)
[2024-01-06 11:46] LABS: Basophils # (A) 0 X 10*3/uL (0.00-0.10); Basophils % (A) 0 %; Eosinophils # (A) 0.04 X 10*3/uL (0.04-0.35); Eosinophils % (A) 11.4 %; HCT 22.8 % (39.6-50.0); HGB 7.2 g/dL (13.0-17.0); Hypochromasia (M) 2+; Immature Grans, Automated 0 %; Immature Platelet Fraction 3.7 % (1.1-6.1); Lymphocytes % (A) 57.1 %; MCH 26.1 pg (27.0-32.0); MCHC 31.6 g/dL (32.0-37.0); MCV 82.6 FL (80.0-97.0); Microcytosis (M) 2+; Monocytes # (A) 0.01 X 10*3/uL (0.20-1.00); Monocytes % (A) 2.9 %; NRBC Per 100 WBC 0 X 10*3/uL (0.00-0.01); Neutrophils % (A) 28.6 %; Platelet Count 18 X 10*3/uL (140-440); RBC 2.76 X 10*6/uL (4.40-5.60); RDW 18.3 % (11.5-14.5); WBC 0.35 X 10*3/uL (4.50-10.00)
[2024-01-06] MEDS: POTASSIUM CHLORIDE ER 20 MEQ TAB.ER PO SCH ×2 (13:43→21:43)
[2024-01-06] MEDS: FILGRASTIM-SNDZ 480 MCG/0.8 ML SYRINGE SQ SCH (13:43)
--- NOTE | 2024-01-06 13:48 | CDI ---
Documentation Clarification Form Date: 01/06/2024 01:19:00 PM From: May Lopez RN CCDS Phone: [phone] Admit Date: 01/05/2024 05:18:00 PM Patient Name: Rahul Cruz Visit Number: [id number] Discharge Date: ATTENTION: The Clinical Documentation Specialists (CDI) and [facility] Coding Staff appreciate your assistance in clarifying documentation. Please respond to the clarification below the line at the bottom and electronically sign. The CDI & [facility] Coding staff will review the response and follow-up if needed. Please note: Queries are made part of the Legal Health Record. If you have any questions, please contact the author of this message via ITS. Dr. Ernst Kerr Pancytopenia is documented 01/04, HP. Additional clarification regarding the etiology of pancytopenia is requested. History/Risk factors: 73-year-old male presents to the ED as transfer from [facility] with chest pain. Medical History: Recent pericardial effusion with pericardial window. Mantle cell lymphoma, Chemotherapy and HTN. 01/04 HP Clinical indicators: Labs, 01/04: Wbc 0.6; Rbc 3.19; Platelets 24 01/04, HP: Pancytopenia, recently started on systemic treatment for mantle cell lymphoma. 01/05, Pulmonology: Patient reports frequent dark, almost black stools outpatient. Treatment: Monitor daily CBC, Monitor for overt signs of bleeding, Check fecal occult blood. Started on IV Rocephin, Consult Medical Oncology Please clarify the etiology of pancytopenia, if known: [ ] Pancytopenia due to chemotherapy [ ] Other condition, please specify ____ [ ] Unable to determine Documented 01/[address] Turner The patient has developed pancytopenia related to systemic chemotherapy as well as massive for mantle cell lymphoma. (Template Last Revised: September 2020) MTDD
[2024-01-06 14:05] VITALS: BMI 25.3
[2024-01-06] MEDS: ACETAMINOPHEN TAB 325 MG TAB PO PRN (21:50)
[2024-01-06] MEDS ORDERED: Magnesium Replacement Protocol 1 EACH MISC MISCELLANE PRN (23:19)
[2024-01-07] MEDS: MAGNESIUM SULFATE-D5W PMX 1 GM in DEXTROSE/WATER 1 100ML.BAG IVPB ONE ×2 (00:46→16:02)
--- NOTE | 2024-01-07 00:55 | P.CONS ---
History of Present Illness - Reason for Consult Consult date: 01/06/24 mantle cell lymphoma Requesting physician: Vinay Mccurdy - Chief Complaint chest pain - History of Present Illness Patient is a 73-year-old male witha history of recently diganosed mantle cell lymphoma. He initially presented to [facility] with complaints of persisting abdominal pain, he was subsequently transferred to [facility] for further management, after abnormal CT findings. Consult was placed for CT findings of extensive intra abdominal/pelvic lymphadenopathy. Patient reports he began having left lower back pain approximately 1 month ago that began to radiate to left lower quadrant and midline and to left groin. Also reports intermittent nausea and constipation. Denies diarrhea and vomiting. He states for the the week prior he had been noticing black stools. Of note patient had tooth extraction 1 month ago and was using Motrin frequently for 10 days. Patient is on no blood thinners. He denies personal and family history of cancer. Has had a approximate 15 pound weight loss over the last [address] abdomen pelvis with oral and IV contrast was obtained at [facility], scan revealed extensive intra-abdominal/pelvic lymphadenopathy. Massive splenomegaly measuring 20 cm. With small perisplenic fluid collection. May be subcapsular or related to splenic injury or infarction measuring 3.2 cm. Small pericardial and left pleural effusion. Diverticulosis with wall thickening, underlying mucosal lesion not excluded. Bladder wall enhances and is thickened, correlate for cystitis. Prostate gland enlarged. Patient underwent biopsy of right axillary lymph node and was subsequently discharged home. 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 Patient was recently admitted for weakness, ARF, TLS, and pericardial effusion and underwent pericardial window. Pericardial fluid showed fibroadipose tissue involved by Mantle cell lymphoma He received first cycle of R-CHOP inpatient on 12/29/23. Patient represented to the emergency room at [facility] with complaints of chest pain and N/V. He was also found to have abnormal labs with hypokalemia and pancytopenia. He was thus transferred to [facility] for further management. On admission CT chest with contrast showed moderate left-sided pleural effusion slightly greater than on 12/06/2023. Associated passive partial atelectasis of the left lower lobe and lingula. Scant right sided pleural effusion. Biapical pleural parenchymal scarring redemonstrated. Irregular density at the right apex is large at 3.3 x 1.3 cm versus 2.1 x 0.7 cm previously. Minimal pericardial effusion. Pulmonology and cardiology has been consulted. No plan for thoracentesis or further intervention by cardiology at this time. Upon admis allyson CBC revealed WBC 0.6, hemoglobin 8.4, platelets 24,000. Creatinine 0.81, GFR > 90. Potassium 2.4, calcium 7.6, phosphate 2.1, magnesium 1.5. LFTs and bilirubin WNL. Troponin negative. Today WBC 0.35, hemoglobin 7.2, platelets 18,000. Patient denies any episodes of acute bleeding. Patient is afebrile and hemodynamically stable. At today's visit patient is reporting chest pain and nausea and vomiting has improved. Past Medical History Past Medical History: Cancer, Hyperlipidemia, Hypertension Additional Past Medical History / Comment(s): History of tuberculosis at age 18, history of kidney stones History of Any Multi-Drug Resistant Organisms: None Reported Past Surgical History: Hernia Repair, Tonsillectomy Additional Past Surgical History / Comment(s): Axillary lymph node biopsy right side on December 07, 2023 Past Anesthesia/Blood Transfusion Reactions: No Reported Reaction Past Psychological History: No Psychological Hx Reported Smoking Status: Current every day smoker Past Alcohol Use History: None Reported Past Drug Use History: None Reported - Past Family History Mother Family Medical History: Coronary Artery Disease (CAD) Additional Family Medical History / Comment(s): History of CABG Father Additional Family Medical History / Comment(s): History of permanent pacemaker placement Medications and Allergies Home Medications Medication Instructions Recorded Confirmed Type Cetirizine HCl [Zyrtec] 10 mg PO DAILY 12/02/23 01/05/24 History Cholecalciferol (Vitamin D3) 125 mcg PO DAILY@119912/02/23 01/05/24 History [Vitamin D3 (125 MCG = 5,000 IU)] Multivitamins, Thera [Multivitamin 1 tab PO DAILY@119912/02/23 01/05/24 History (formulary)] Simvastatin [Zocor] 20 mg PO DAILY@119912/02/23 01/05/24 History Aspirin EC [Ecotrin Low Dose] 81 mg PO DAILY 12/22/23 01/05/24 History ALPRAZolam [Xanax] 0.25 mg PO Q6HR PRN 3 Days #12 tab 01/02/24 01/05/24 Rx Calcium Carbonate [Tums] 1,000 mg PO TID PRN 30 Days #90 tab 01/02/24 01/05/24 Rx Pantoprazole [Protonix] 40 mg PO AC-BRKFST 30 Days #30 tab 01/02/24 01/05/24 Rx Sodium Bicarbonate Tab 650 mg PO BID 30 Days #60 tab 01/02/24 01/05/24 Rx Spironolactone [Aldactone] 12.5 mg PO DAILY 30 Days #30 tab 01/02/24 01/05/24 Rx Sucralfate [Carafate] 1 gm PO AC-BID 30 Days #60 tab 01/02/24 01/05/24 Rx Torsemide [Demadex] 20 mg PO DAILY 30 Days #30 tab 01/02/24 01/05/24 Rx Ondansetron Odt [Zofran Odt] 4 - 8 mg PO Q4H PRN 01/05/24 01/05/24 History Allergies Allergy/AdvReac Type Severity Reaction Status Date / Time No Known Allergies Allergy Verified 01/05/24 17:02 Physical Exam Vitals: Vital Signs Temp Pulse Pulse Resp BP BP Pulse Ox 01/06/24 08:00 98.2 F 88 17 133/68 96 01/06/24 03:13 97.7 F 79 146/73 96 01/06/24 01:50 77 12 126/59 95 01/05/24 23:30 76 11 L 143/78 95 01/05/24 22:00 79 10 L 104/58 94 L 01/05/24 19:00 73 14 101/53 97 01/05/24 18:11 84 18 126/67 94 L 01/05/24 17:00 84 18 134/65 01/05/24 16:02 84 18 122/61 01/05/24 15:39 78 20 177/103 94 L 01/05/24 15:36 97.8 F 87 20 132/88 96 Intake and Output 01/05/24 01/06/24 01/06/24 22:59 06:59 14:59 Other: # Voids 1 Weight 73.482 kg 73.482 kg Results CBC & Chem 7: 01/06/24 06:18 01/06/24 17:36 Labs: Abnormal Lab Results - Last 24 Hours (Table) 01/05/24 01/05/24 01/05/24 Range/Units 15:38 15:38 15:38 WBC 0.6 L* (3.8-10.6) k/uL RBC 3.19 L (4.30-5.90) m/uL Hgb 8.4 L (13.0-17.5) gm/dL Hct 26.6 L (39.0-53.0) % RDW 17.7 H (11.5-15.5) % Plt Count 24 L D (150-450) k/uL PT 12.7 H (10.0-12.5) sec INR 1.2 H (<1.2) Sodium 134 L (137-145) mmol/L Potassium 2.4 L* (3.5-5.1) mmol/L Carbon Dioxide 34 H (22-30) mmol/L BUN 28 H (9-20) mg/dL Calcium 7.6 L (8.4-10.2) mg/dL Phosphorus 2.1 L (2.5-4.5) mg/dL Magnesium 1.5 L (1.6-2.3) mg/dL Total Protein 4.3 L (6.3-8.2) g/dL Albumin 2.5 L (3.5-5.0) g/dL Ur Leukocyte Esterase (Negative) Urine Mucus (None) /hpf 01/05/24 01/06/24 01/06/24 Range/Units 15:42 00:30 06:18 WBC (3.8-10.6) k/uL RBC (4.30-5.90) m/uL Hgb (13.0-17.5) gm/dL Hct (39.0-53.0) % RDW (11.5-15.5) % Plt Count (150-450) k/uL PT (10.0-12.5) sec INR (<1.2) Sodium (137-145) mmol/L Potassium 2.4 L* (3.5-5.1) mmol/L Carbon Dioxide (22-30) mmol/L BUN (9-20) mg/dL Calcium (8.4-10.2) mg/dL Phosphorus 1.7 L (2.5-4.5) mg/dL Magnesium (1.6-2.3) mg/dL Total Protein (6.3-8.2) g/dL Albumin (3.5-5.0) g/dL Ur Leukocyte Esterase Trace H (Negative) Urine Mucus Rare H (None) /hpf Assessment and Plan (1) Hypokalemia Current Visit: Yes Status: Acute Code(s): E87.6 - HYPOKALEMIA SNOMED Code(s): 82271515 (2) Pancytopenia Current Visit: Yes Status: Acute Code(s): D61.818 - OTHER PANCYTOPENIA SNOMED Code(s): 388861572 (3) Mantle cell lymphoma Current Visit: No Status: Acute Priority: High Code(s): C83.10 - MANTLE CELL LYMPHOMA, UNSPECIFIED SITE SNOMED Code(s): 604203689 Plan: Nausea and vomiting -Secondary to chemotherapy and disease process. Anti-emetics ordered -Continue supportive meds Pancytopenia: -WBC 0.35, ANC 100, hemoglobin 7.2, platelets 18,000 -G-CSF ordered daily until ANC > 1,000 -Anemia is multifactorial including disease process/treatment, superimposed by recent renal failure (now resolved), and pericardial effusion -Transfuse for hemoglobin less than 7 or if patient is symptomatic Mantle Cell Lymphoma -Full history in HPI, recent diagnosis -Completed cycle 1 R-CHOP on 12/29/23 -Once acutely recovered will plan for clinic f/u and to continue on treatment -Continue to monitor CBC and TLS labs Doctor attests: I performed a history and physical examination of this patient, developed impression and plan of care. Discussed with dictator. I agree with dictators note, documented as a scribe.
[2024-01-07] MEDS: POTASSIUM CHLORIDE 20 MEQ in WATER FOR INJECTION 1 100ML.BAG IVPB ONE (02:34)
--- NOTE | 2024-01-07 10:03 | P.PN ---
Subjective Progress Note Date: 01/07/24 Rahul Cruz, is a 73-year-old male who presented to [facility] with a chief complaint of chest pain, he has a complex medical history, including recent pericardial effusion, with pericardial window placement at [facility], he was evaluated at [facility] and transferred to [facility] emergency room. He was evaluated in the emergency room vital examination on presentation revealed a temperature of 97.8 pulse 87 respiration 20 blood pressure 132/88 pulse ox 96% on room air Laboratory data revealed a white blood count of 0.6 hemoglobin 8.4 platelet cou nt 24,000 sodium 134 potassium 2.4 troponin less than 0.012 magnesium 1.5 Testing in the emergency room revealed EKG revealed sinus rhythm with moderate T wave abnormality, CT scan of the chest revealed bilateral pleural effusion, and minimal residual pericardial effusion. Patient was admitted to medical floor for further evaluation and treatment On 01/06/2024 patient was seen and examined on the medical floor he is alert and oriented x 3 in no apparent distress there is no fever or chills no headache or dizziness no chest pain no shortness of breath no cough no nausea or vomiting no abdominal pain no diarrhea no urinary symptoms. Vital examination reveals a temperature of 97.8 pulse 87 respirations 20 blood pressure 132/88 pulse ox 96% on room air On 01/07/2024 patient's alert and oriented 3. Patient denies chest pain or shortness breath. Patient denies nausea vomiting or diarrhea. Patient denies any urinary burning or frequency. Current vital signs temp 98.4, heart rate 80, respiratory rate 18, blood pressure 129/69 with pulse ox 96% on room air. Potassium remains low continue on potassium replacement protocol Objective - Vital Signs Vital signs: Vital Signs Temp 98.4 F 01/07/24 06:59 Pulse 80 01/07/24 06:59 Resp 18 01/07/24 06:59 BP 129/69 01/07/24 06:59 Pulse Ox 96 01/07/24 06:59 FiO2 Intake & Output 01/06/24 01/07/24 01/07/24 18:59 06:59 18:59 Weight 73.482 kg - Exam In general patient is alert and oriented x 3 in no distress HEENT head normocephalic and atraumatic Neck is supple no JVD no goiter no lymphadenopathy no carotid bruit Chest examination is clear to auscultation no crackles no wheezing Cardiac exam reveals regular heart sounds S1 and S2 no gallops no murmurs Abdomen is soft nontender no organomegaly with normal bowel sounds Extremity exam reveals no edema no cyanosis or clubbing Neurological examination reveals no gross focal deficits - Labs CBC & Chem 7: 01/06/24 06:18 01/06/24 17:36 Labs: Abnormal Lab Results - Last 24 Hours (Table) 01/06/24 01/06/24 01/06/24 Range/Units 06:18 06:18 17:36 WBC 0.35 A* (4.50-10.00) X 10*3/uL RBC 2.76 L (4.40-5.60) X 10*6/uL Hgb 7.2 L (13.0-17.0) g/dL Hct 22.8 L (39.6-50.0) % MCH 26.1 L (27.0-32.0) pg MCHC 31.6 L (32.0-37.0) g/dL RDW 18.3 H (11.5-14.5) % Plt Count 18 A* (140-440) X 10*3/uL Neutrophils # 0.10 A* (1.80-7.70) X 10*3/uL Lymphocytes # 0.20 L (0.90-5.00) X 10*3/uL Monocytes # 0.01 L (0.20-1.00) X 10*3/uL Hypochromasia (manual) 2+ A Microcytosis (manual) 2+ A Potassium 2.6 A* 2.6 L* (3.5-5.5) mmol/L BUN/Creatinine Ratio 27.25 H (12.00-20.00) Ratio Calcium 7.2 L (8.7-10.3) mg/dL Phosphorus 1.7 L (2.4-5.1) mg/dL Total Protein 3.9 L (6.2-8.2) g/dL Albumin 2.7 L (3.8-4.9) g/dL Globulin 1.2 L (1.6-3.3) g/dL Assessment and Plan Plan: Mantle cell lymphoma, diagnosed 3 weeks ago, recently started on chemotherapy Recent history of pericardial effusion, with pericardial window on December 27, 2023 Positive culture of pericardial fluid for Streptococcus pneumonia, given a course of Augmentin on discharge, currently on IV Rocephin Bilateral pleural effusions, greater on the left, pulmonary consultation requested Pancytopenia, recently started on systemic treatment for mantle cell lymphoma. Symptomatic anemia, with a recorded hemoglobin of 6.6 g/dL at outside facility status post 1 unit PRBC transfusion most recent follow-up hemoglobin is 8.4 g/dL. Recent history of acute kidney injury requiring short-term hemodialysis Severe hypokalemia, correcting Hypomagnesemia, correcting Underlying history of hypertension At this time patient was seen and examined Home medications reviewed and reordered Electrolyte replacement IV ceftriaxone Consultation for oncology and pulmonary Will follow closely
[2024-01-07 15:29] LABS: ALT 23 U/L (4-49); AST 19 U/L (17-59); African American GFR (CKD) >90 (>60 ml/min/1.73 sqM); Albumin 2.4 g/dL (3.5-5.0); Albumin/Globulin Ratio 1.4; Alkaline Phosphatase 52 U/L (38-126); Anion Gap 0 mmol/L; Blood Urea Nitrogen 14 mg/dL (9-20); Calcium 7.2 mg/dL (8.4-10.2); Carbon Dioxide 31 mmol/L (22-30); Chloride 104 mmol/L (98-107); Globulin 1.7 g/dL; Glucose 106 mg/dL (74-99); Magnesium 1.7 mg/dL (1.6-2.3); Non-African American GFR(CKD) >90 (>60 ml/min/1.73 sqM); Phosphorus 1.2 mg/dL (2.5-4.5); Potassium 2.9 mmol/L (3.5-5.1); Sodium 135 mmol/L (137-145); Total Bilirubin 0.4 mg/dL (0.2-1.3); Total Protein 4.1 g/dL (6.3-8.2); Uric Acid 5.4 mg/dL (3.5-8.5)
[2024-01-07 15:31] LABS: Anisocytosis Slight; HCT 23.9 % (39.0-53.0); HGB 7.7 gm/dL (13.0-17.5); Hypochromasia Slight; MCH 26.5 pg (25.0-35.0); MCHC 32.1 g/dL (31.0-37.0); MCV 82.7 fL (80.0-100.0); Mean Platelet Volume 10.1; Poikilocytosis Slight; RBC 2.89 m/uL (4.30-5.90); RDW 17.4 % (11.5-15.5)
[2024-01-07 15:38] LABS: WBC 0.3 k/uL (3.8-10.6)
[2024-01-07] MEDS: POTASSIUM CHLORIDE 20 MEQ in WATER FOR INJECTION 1 100ML.BAG IVPB STA (15:49)
[2024-01-07] MEDS: POTASSIUM CHLORIDE ER 20 MEQ TAB.ER PO SCH ×2 (15:56→22:25)
[2024-01-07 16:14] LABS: Anisocytosis (M) Present; Poikilocytosis (M) Present
[2024-01-07 16:15] LABS: Platelet Count 20 k/uL (150-450)
--- NOTE | 2024-01-07 20:07 | P.PN ---
Subjective Progress Note Date: 01/07/24 Patient was transferred from [facility], noted to be anemic with a hemog lobin of 6.6 g/dL reportedly status post PRBC transfusion, and transferred to [facility] on department ER. Patient is a 73-year-old white male with past medical history significant for recent diagnosis of mantle cell lymphoma. Of note, patient was recently discharged from the hospital on January 01. He had a complicated hospital stay, suspected of having tumor lysis syndrome and acute kidney injury/failure with temporary hemodialysis. He did have a brief ICU stay for a large pericardial effusion with tamponade features status/post window. Pericardial fluid analysis positive for beta-hemolytic strep group C. He was discharged with oral antibiotics, family is unsure of antibiotic name. During the stay he also received an initial cycle of R-CHOP directed by inpatient oncology. On my evaluation, patient remains in the emergency department, family is at bedside. He has been increasingly weak since his hospital discharge just a few days ago. His appetite has been reduced. No significant nausea or vomiting. He has had frequent bouts of loose stools, described as dark. He is pale. No significant abdominal pain. He is pancytopenic, WBC count 0.6, hemoglobin 8.4, hematocrit 26.6, platelets 24,000. Most recent BMP sodium 134, potassium 2.4, chloride 100, serum bicarb 34, BUN 28, creatinine 0.81, glucose 92. LFTs not elevated. Magnesium also low at 1.5. Saline infusing at 75 mL/h. Electrolytes are being replaced. Troponin less than 0.012. Urinalysis not particularly remarkable for UTI. C. difficile negative. He was started on IV Rocephin. CT of the chest demonstrates some minimal pericardial effusion. There is bilateral pleural effusions, greater on the left, which is moderate in size. Minimally larger from prior imaging. Associated compressive atelectasis suspected. Other incidental findings were noted. Patient does occasionally become short of breath with exertion. No fevers, coughing, sputum production, hemoptysis. He did report some substernal chest pain earlier, nothing currently. EKG on arrival showed normal sinus rhythm. Low amplitude T waves consistent with hypokalemia and nonspecific T wave inversions. Troponin less than 0.012. He is on room air. SpO2 96%. Vital signs are all stable. On today's evaluation of 01/08/2024, the patient is being seen for a follow-up. Resting comfortably in bed. Afebrile. Hemodynamically stable. Remains neutropenic with a white cell count of 0.3 with a hemoglobin 7.7 and a platelet count of 20. No evidence of any bleeding. No evidence of any septicemia. Room air pulse ox is in order of 95%. Remains on IV Rocephin. No other significant complaints otherwise for now. Overall, the patient is feeling well. Objective - Vital Signs Vital signs: Vital Signs Temp 98.4 F 01/07/24 06:59 Pulse 80 01/07/24 06:59 Resp 18 01/07/24 06:59 BP 129/69 01/07/24 06:59 Pulse Ox 96 01/07/24 06:59 FiO2 Intake & Output 01/06/24 01/07/24 01/07/24 18:59 06:59 18:59 Weight 73.482 kg - Exam GENERAL EXAM: Alert, 73-year-old white male, generalized pallor, fairly comfortable in no apparent distress. HEAD: Normocephalic and atraumatic EYES: Normal reaction of pupils, equal size. NOSE: Clear with pink turbinates. THROAT: No erythema or exudates. Dry mucous membranes NECK: No masses, no JVD. CHEST: No chest wall deformity. Subxiphoid vertical incision approximated with glue, minimal erythema, no drainage. LUNGS: Equal air entry with diminished bibasilar lung sounds. No crackles, wheeze, rhonchi. On room air. No conversational dyspnea or accessory muscle use.. CVS: S1 and S2 normal with soft grade 1 systolic murmur, regular rhythm. No muffled heart sounds or pericardial friction rub. ABDOMEN: No hepatosplenomegaly, active bowel sounds, no guarding or rigidity. SPINE: No scoliosis or deformity SKIN: No rashes CENTRAL NERVOUS SYSTEM: No focal deficits, tone is normal in all 4 extremities. EXTREMITIES: 3+ bilateral lower extremity pitting edema. Clubbing, or cyanosis. Peripheral pulses are intact. - Labs CBC & Chem 7: 01/07/24 14:25 01/07/24 14:25 Labs: Abnormal Lab Results - Last 24 Hours (Table) 01/06/24 Range/Units 17:36 Potassium 2.6 L* (3.5-5.1) mmol/L Assessment and Plan Assessment: Mantle cell lymphoma, diagnosed with excisional lymph node biopsy of the the right axilla on 12/07/2023. Patient received first round of R-CHOP during his previous hospital hospitalization, the patient remains neutropenic. No evidence of fever. No evidence of any septicemia at this point in time. History of moderate to large size pericardial effusion, status post subxiphoid pericardial window December 27, 2023 with mediastinal chest tube was removed. Cultures positive for strep group C. Most recent follow-up chest CT shows a minimal residual pericardial effusion. Bilateral small to moderate in size pleural effusions, greater on the left, no significant interval change on recent imaging. No plan for thoracentesis Pancytopenia, recently started on systemic treatment for mantle cell lymphoma. Symptomatic anemia, hemoglobin is currently at 7.7. History of CLINTON and possible tumor lysis syndrome requiring temporary hemodialysis catheter with subsequent removal. CLINTON has resolved. Severe hypokalemia, being replaced Hypomagnesemia, being replaced Chronic lower extremity edema History of hypertension. Former tobacco smoker, recently quitting little bit over a month ago Plan: Clinically stable Monitor hematologic profile Watch for any signs of septicemia Continue IV Rocephin Currently on room air. Patient does have persistent small to moderate bilateral, no plans for thoracentesis. Resume torsemide and spironolactone Appears hemodynamically stable. Will be monitored on the oncology unit. We will continue to follow
[2024-01-07] MEDS: ALPRAZolam 0.25 MG TAB PO PRN (20:16)
[2024-01-07] MEDS ORDERED: MAGNESIUM SULFATE-D5W PMX 1 GM in DEXTROSE/WATER 1 100ML.BAG IVPB ONE (21:00)
[2024-01-07] MEDS ORDERED: Potassium Replacement Protocol 1 EACH MISC MISCELLANE PRN (22:10)
[2024-01-08] MEDS: POTASSIUM CHLORIDE ER 20 MEQ TAB.ER PO SCH (04:51)
[2024-01-08 06:37] LABS: ALT 20 U/L (4-49); AST 15 U/L (17-59); African American GFR (CKD) >90 (>60 ml/min/1.73 sqM); Albumin 2.2 g/dL (3.5-5.0); Albumin/Globulin Ratio 1.2; Alkaline Phosphatase 51 U/L (38-126); Anion Gap -1 mmol/L; Blood Urea Nitrogen 12 mg/dL (9-20); Carbon Dioxide 27 mmol/L (22-30); Chloride 108 mmol/L (98-107); Globulin 1.8 g/dL; Glucose 93 mg/dL (74-99); Magnesium 1.8 mg/dL (1.6-2.3); Non-African American GFR(CKD) >90 (>60 ml/min/1.73 sqM); Potassium 3.9 mmol/L (3.5-5.1); Sodium 134 mmol/L (137-145); Total Bilirubin 0.4 mg/dL (0.2-1.3); Uric Acid 4.5 mg/dL (3.5-8.5)
[2024-01-08 06:43] LABS: Phosphorus 0.9 mg/dL (2.5-4.5)
[2024-01-08 08:14] LABS: Anisocytosis Slight; HCT 23.4 % (39.0-53.0); HGB 7.4 gm/dL (13.0-17.5); Hypochromasia Slight; MCH 26.1 pg (25.0-35.0); MCHC 31.6 g/dL (31.0-37.0); MCV 82.6 fL (80.0-100.0); Mean Platelet Volume 8.7; RBC 2.84 m/uL (4.30-5.90); RDW 17.7 % (11.5-15.5)
[2024-01-08 08:23] LABS: Platelet Count 21 k/uL (150-450)
[2024-01-08 08:24] LABS: WBC 0.2 k/uL (3.8-10.6)
[2024-01-08] MEDS: POTASSIUM CHLORIDE ER 20 MEQ TAB.ER PO ONE (08:29)
[2024-01-08] MEDS: MAGNESIUM SULFATE-D5W PMX 1 GM in DEXTROSE/WATER 1 100ML.BAG IVPB ONE (08:30)
[2024-01-08] MEDS ORDERED: Phosphorus Replacement Protoco 1 EACH MISC MISCELLANE PRN (11:15)
--- NOTE | 2024-01-08 12:14 | P.PN ---
Subjective Progress Note Date: 01/08/24 Rahul Cruz, is a 73-year-old male who presented to [facility] with a chief complaint of chest pain, he has a complex medical history, including recent pericardial effusion, with pericardial window placement at [facility], he was evaluated at [facility] and transferred to [facility] emergency room. He was evaluated in the emergency room vital examination on presentation revealed a temperature of 97.8 pulse 87 respiration 20 blood pressure 132/88 pulse ox 96% on room air Laboratory data revealed a white blood count of 0.6 hemoglobin 8.4 platelet cou nt 24,000 sodium 134 potassium 2.4 troponin less than 0.012 magnesium 1.5 Testing in the emergency room revealed EKG revealed sinus rhythm with moderate T wave abnormality, CT scan of the chest revealed bilateral pleural effusion, and minimal residual pericardial effusion. Patient was admitted to medical floor for further evaluation and treatment On 01/06/2024 patient was seen and examined on the medical floor he is alert and oriented x 3 in no apparent distress there is no fever or chills no headache or dizziness no chest pain no shortness of breath no cough no nausea or vomiting no abdominal pain no diarrhea no urinary symptoms. Vital examination reveals a temperature of 97.8 pulse 87 respirations 20 blood pressure 132/88 pulse ox 96% on room air On 01/07/2024 patient's alert and oriented 3. Patient denies chest pain or shortness breath. Patient denies nausea vomiting or diarrhea. Patient denies any urinary burning or frequency. Current vital signs temp 98.4, heart rate 80, respiratory rate 18, blood pressure 129/69 with pulse ox 96% on room air. Potassium remains low continue on potassium replacement protocol On 01/08/2024 patient was seen and examined on the medical floor he is alert and oriented x 3 in no apparent distress there is no fever or chills no headache or dizziness no chest pain no shortness of breath no cough no nausea or vomiting no abdominal pain no diarrhea no urinary symptoms. Patient has a low phosphorus level today, and will be corrected, potassium is up to normal range. Objective - Vital Signs Vital signs: Vital Signs Temp 97.3 F L 01/08/24 08:04 Pulse 87 01/08/24 08:04 Resp 19 01/08/24 08:04 BP 148/78 01/08/24 08:04 Pulse Ox 95 01/08/24 09:25 FiO2 21 01/08/24 09:25 Intake & Output 01/07/24 01/08/24 01/08/24 18:59 06:59 18:59 Output Total 500 400 Balance -500 -400 Output: Urine 500 400 - Exam In general patient is alert and oriented x 3 in no distress HEENT head normocephalic and atraumatic Neck is supple no JVD no goiter no lymphadenopathy no carotid bruit Chest examination is clear to auscultation no crackles no wheezing Cardiac exam reveals regular heart sounds S1 and S2 no gallops no murmurs Abdomen is soft nontender no organomegaly with normal bowel sounds Extremity exam reveals no edema no cyanosis or clubbing Neurological examination reveals no gross focal deficits - Labs CBC & Chem 7: 01/08/24 05:33 01/08/24 06:04 Labs: Abnormal Lab Results - Last 24 Hours (Table) 01/07/24 01/07/24 01/07/24 Range/Units 09:00 14:25 14:25 WBC 0.3 L* (3.8-10.6) k/uL RBC 2.89 L (4.30-5.90) m/uL Hgb 7.7 L (13.0-17.5) gm/dL Hct 23.9 L (39.0-53.0) % RDW 17.4 H (11.5-15.5) % Plt Count 20 L (150-450) k/uL Sodium 135 L (137-145) mmol/L Potassium 3.0 L 2.9 L (3.5-5.1) mmol/L Chloride (98-107) mmol/L Carbon Dioxide 31 H (22-30) mmol/L Creatinine (0.66-1.25) mg/dL Glucose 106 H (74-99) mg/dL Calcium 7.2 L (8.4-10.2) mg/dL Phosphorus 1.2 L (2.5-4.5) mg/dL AST (17-59) U/L Total Protein 4.1 L (6.3-8.2) g/dL Albumin 2.4 L (3.5-5.0) g/dL 01/08/24 01/08/24 Range/Units 05:33 06:04 WBC 0.2 L* (3.8-10.6) k/uL RBC 2.84 L (4.30-5.90) m/uL Hgb 7.4 L (13.0-17.5) gm/dL Hct 23.4 L (39.0-53.0) % RDW 17.7 H (11.5-15.5) % Plt Count 21 L (150-450) k/uL Sodium 134 L (137-145) mmol/L Potassium (3.5-5.1) mmol/L Chloride 108 H (98-107) mmol/L Carbon Dioxide (22-30) mmol/L Creatinine 0.60 L (0.66-1.25) mg/dL Glucose (74-99) mg/dL Calcium 7.0 L (8.4-10.2) mg/dL Phosphorus 0.9 L* (2.5-4.5) mg/dL AST 15 L (17-59) U/L Total Protein 4.0 L (6.3-8.2) g/dL Albumin 2.2 L (3.5-5.0) g/dL Assessment and Plan Plan: Mantle cell lymphoma, diagnosed 3 weeks ago, recently started on chemotherapy Recent history of pericardial effusion, with pericardial window on December 27, 2023 Positive culture of pericardial fluid for Streptococcus pneumonia, given a course of Augmentin on discharge, currently on IV Rocephin Bilateral pleural effusions, greater on the left, pulmonary consultation requested Pancytopenia, recently started on systemic treatment for mantle cell lymphoma. Symptomatic anemia, with a recorded hemoglobin of 6.6 g/dL at outside facility status post 1 unit PRBC transfusion most recent follow-up hemoglobin is 8.4 g/dL. Recent history of acute kidney injury requiring short-term hemodialysis Severe hypokalemia, correcting Hypomagnesemia, correcting Underlying history of hypertension At this time patient was seen and examined Home medications reviewed and reordered Electrolyte replacement IV ceftriaxone Consultation for oncology and pulmonary Will follow closely
[2024-01-08] MEDS: SODIUM PHOSPHATE 30 MMOL in DEXTROSE 5% IN WATER 250 ML IVPB ONE (12:24)
--- NOTE | 2024-01-08 13:01 | P.PN ---
Subjective Progress Note Date: 01/08/24 Patient was transferred from [facility], noted to be anemic with a hemog lobin of 6.6 g/dL reportedly status post PRBC transfusion, and transferred to [facility] on department ER. Patient is a 73-year-old white male with past medical history significant for recent diagnosis of mantle cell lymphoma. Of note, patient was recently discharged from the hospital on January 01. He had a complicated hospital stay, suspected of having tumor lysis syndrome and acute kidney injury/failure with temporary hemodialysis. He did have a brief ICU stay for a large pericardial effusion with tamponade features status/post window. Pericardial fluid analysis positive for beta-hemolytic strep group C. He was discharged with oral antibiotics, family is unsure of antibiotic name. During the stay he also received an initial cycle of R-CHOP directed by inpatient oncology. On my evaluation, patient remains in the emergency department, family is at bedside. He has been increasingly weak since his hospital discharge just a few days ago. His appetite has been reduced. No significant nausea or vomiting. He has had frequent bouts of loose stools, described as dark. He is pale. No significant abdominal pain. He is pancytopenic, WBC count 0.6, hemoglobin 8.4, hematocrit 26.6, platelets 24,000. Most recent BMP sodium 134, potassium 2.4, chloride 100, serum bicarb 34, BUN 28, creatinine 0.81, glucose 92. LFTs not elevated. Magnesium also low at 1.5. Saline infusing at 75 mL/h. Electrolytes are being replaced. Troponin less than 0.012. Urinalysis not particularly remarkable for UTI. C. difficile negative. He was started on IV Rocephin. CT of the chest demonstrates some minimal pericardial effusion. There is bilateral pleural effusions, greater on the left, which is moderate in size. Minimally larger from prior imaging. Associated compressive atelectasis suspected. Other incidental findings were noted. Patient does occasionally become short of breath with exertion. No fevers, coughing, sputum production, hemoptysis. He did report some substernal chest pain earlier, nothing currently. EKG on arrival showed normal sinus rhythm. Low amplitude T waves consistent with hypokalemia and nonspecific T wave inversions. Troponin less than 0.012. He is on room air. SpO2 96%. Vital signs are all stable. On today's evaluation of 01/08/2024, the patient is being seen for a follow-up. Resting comfortably in bed. Afebrile. Hemodynamically stable. Remains neutropenic with a white cell count of 0.3 with a hemoglobin 7.7 and a platelet count of 20. No evidence of any bleeding. No evidence of any septicemia. Room air pulse ox is in order of 95%. Remains on IV Rocephin. No other significant complaints otherwise for now. Overall, the patient is feeling well. On 01/08/2024, I am seeing the patient for a follow-up. The patient is awake alert and communicating. The white cell count today is at 0.2 edema of 7.4 and the platelet count of 21. Electrolytes are all stable. Denies having any specific complaints. Remains on empiric antibiotic coverage with IV Rocephin. Afebrile. No nausea or vomiting. Pulse ox on room air is 95%. Objective - Vital Signs Vital signs: Vital Signs Temp 97.3 F L 01/08/24 08:04 Pulse 87 01/08/24 08:04 Resp 19 01/08/24 08:04 BP 148/78 01/08/24 08:04 Pulse Ox 95 01/08/24 09:25 FiO2 21 01/08/24 09:25 Intake & Output 01/07/24 01/08/24 01/08/24 18:59 06:59 18:59 Output Total 500 400 Balance -500 -400 Output: Urine 500 400 - Exam GENERAL EXAM: Alert, 73-year-old white male, generalized pallor, fairly comfortable in no apparent distress. HEAD: Normocephalic and atraumatic EYES: Normal reaction of pupils, equal size. NOSE: Clear with pink turbinates. THROAT: No erythema or exudates. Dry mucous membranes NECK: No masses, no JVD. CHEST: No chest wall deformity. Subxiphoid vertical incision approximated with glue, minimal erythema, no drainage. LUNGS: Equal air entry with diminished bibasilar lung sounds. No crackles, wheeze, rhonchi. On room air. No conversational dyspnea or accessory muscle use.. CVS: S1 and S2 normal with soft grade 1 systolic murmur, regular rhythm. No muffled heart sounds or pericardial friction rub. ABDOMEN: No hepatosplenomegaly, active bowel sounds, no guarding or rigidity. SPINE: No scoliosis or deformity SKIN: No rashes CENTRAL NERVOUS SYSTEM: No focal deficits, tone is normal in all 4 extremities. EXTREMITIES: 3+ bilateral lower extremity pitting edema. Clubbing, or cyanosis. Peripheral pulses are intact. - Labs CBC & Chem 7: 01/08/24 05:33 01/08/24 06:04 Labs: Abnormal Lab Results - Last 24 Hours (Table) 01/07/24 01/07/24 01/07/24 Range/Units 09:00 14:25 14:25 WBC 0.3 L* (3.8-10.6) k/uL RBC 2.89 L (4.30-5.90) m/uL Hgb 7.7 L (13.0-17.5) gm/dL Hct 23.9 L (39.0-53.0) % RDW 17.4 H (11.5-15.5) % Plt Count 20 L (150-450) k/uL Sodium 135 L (137-145) mmol/L Potassium 3.0 L 2.9 L (3.5-5.1) mmol/L Chloride (98-107) mmol/L Carbon Dioxide 31 H (22-30) mmol/L Creatinine (0.66-1.25) mg/dL Glucose 106 H (74-99) mg/dL Calcium 7.2 L (8.4-10.2) mg/dL Phosphorus 1.2 L (2.5-4.5) mg/dL AST (17-59) U/L Total Protein 4.1 L (6.3-8.2) g/dL Albumin 2.4 L (3.5-5.0) g/dL 01/08/24 01/08/24 Range/Units 05:33 06:04 WBC 0.2 L* (3.8-10.6) k/uL RBC 2.84 L (4.30-5.90) m/uL Hgb 7.4 L (13.0-17.5) gm/dL Hct 23.4 L (39.0-53.0) % RDW 17.7 H (11.5-15.5) % Plt Count 21 L (150-450) k/uL Sodium 134 L (137-145) mmol/L Potassium (3.5-5.1) mmol/L Chloride 108 H (98-107) mmol/L Carbon Dioxide (22-30) mmol/L Creatinine 0.60 L (0.66-1.25) mg/dL Glucose (74-99) mg/dL Calcium 7.0 L (8.4-10.2) mg/dL Phosphorus 0.9 L* (2.5-4.5) mg/dL AST 15 L (17-59) U/L Total Protein 4.0 L (6.3-8.2) g/dL Albumin 2.2 L (3.5-5.0) g/dL Assessment and Plan Assessment: Mantle cell lymphoma, diagnosed with excisional lymph node biopsy of the the right axilla on 12/07/2023. Patient received first round of R-CHOP during his previous hospital hospitalization, the patient remains neutropenic. No evidence of fever. No evidence of any septicemia at this point in time. History of moderate to large size pericardial effusion, status post subxiphoid pericardial window December 27, 2023 with mediastinal chest tube was removed. Cultures positive for strep group C. Most recent follow-up chest CT shows a minimal residual pericardial effusion. Bilateral small to moderate in size pleural effusions, greater on the left, no significant interval change on recent imaging. No plan for thoracentesis Pancytopenia, recently started on systemic treatment for mantle cell lymphoma. Symptomatic anemia, hemoglobin is currently at 7.7. History of CLINT[place] and possible tumor lysis syndrome requiring temporary hemodialysis catheter with subsequent removal. CL[place] has resolved. Severe hypokalemia, being replaced Hypomagnesemia, being replaced Chronic lower extremity edema History of hypertension. Former tobacco smoker, recently quitting little bit over a month ago Plan: The patient continues to be neutropenic No signs of any septicemia No fever Clinically stable Monitor hematologic profile Watch for any signs of septicemia Continue IV Rocephin Currently on room air. Patient does have persistent small to moderate bilateral, no plans for thoracentesis. Resume torsemide and spironolactone Appears hemodynamically stable. Will be monitored on the oncology unit. We will continue to follow
[2024-01-09 06:06] LABS: Magnesium 1.7 mg/dL (1.6-2.3); Potassium 3.5 mmol/L (3.5-5.1)
[2024-01-09] MEDS: POTASSIUM CHLORIDE ER 20 MEQ TAB.ER PO SCH ×2 (06:37→12:47)
[2024-01-09] MEDS: MAGNESIUM SULFATE-D5W PMX 1 GM in DEXTROSE/WATER 1 100ML.BAG IVPB ONE (06:38)
[2024-01-09 08:02] VITALS: BP 123/68; PULSE 83; RESP 16; TEMP 98.5
[2024-01-09 12:05] LABS: Anisocytosis Slight; HCT 23.6 % (39.0-53.0); HGB 7.5 gm/dL (13.0-17.5); Hypochromasia Slight; MCH 26.3 pg (25.0-35.0); MCHC 31.7 g/dL (31.0-37.0); MCV 82.7 fL (80.0-100.0); Mean Platelet Volume 8.6; RBC 2.85 m/uL (4.30-5.90); RDW 17.8 % (11.5-15.5)
[2024-01-09 12:12] LABS: WBC 0.2 k/uL (3.8-10.6)
[2024-01-09 12:13] LABS: Platelet Count 32 k/uL (150-450)
--- NOTE | 2024-01-09 12:29 | P.PN ---
Subjective Progress Note Date: 01/09/24 Patient was transferred from [facility], noted to be anemic with a hemoglobin of 6.6 g/dL reportedly status post PRBC transfusion, and transferred to [facility] on department ER. Patient is a 73-year-old white male with past medical history significant for recent diagnosis of mantle cell l ymphoma. Of note, patient was recently discharged from the hospital on January 01. He had a complicated hospital stay, suspected of having tumor lysis syndrome and acute kidney injury/failure with temporary hemodialysis. He did have a brief ICU stay for a large pericardial effusion with tamponade features status/post window. Pericardial fluid analysis positive for beta-hemolytic strep group C. He was discharged with oral antibiotics, family is unsure of antibiotic name. During the stay he also received an initial cycle of R-CHOP directed by inpatient oncology. On my evaluation, patient remains in the emergency department, family is at bedside. He has been increasingly weak since his hospital discharge just a few days ago. His appetite has been reduced. No significant nausea or vomiting. He has had frequent bouts of loose stools, described as dark. He is pale. No significant abdominal pain. He is pancytopenic, WBC count 0.6, hemoglobin 8.4, hematocrit 26.6, platelets 24,000. Most recent BMP sodium 134, potassium 2.4, chloride 100, serum bicarb 34, BUN 28, creatinine 0.81, glucose 92. LFTs not elevated. Magnesium also low at 1.5. Saline infusing at 75 mL/h. Electrolytes are being replaced. Troponin less than 0.012. Urinalysis not particularly remarkable for UTI. C. difficile negative. He was started on IV Rocephin. CT of the chest demonstrates some minimal pericardial effusion. There is bilateral pleural effusions, greater on the left, which is moderate in size. Minimally larger from prior imaging. Associated compressive atelectasis suspected. Other incidental findings were noted. Patient does occasionally become short of breath with exertion. No fevers, coughing, sputum production, hemoptysis. He did report some substernal chest pain earlier, nothing currently. EKG on arrival showed normal sinus rhythm. Low amplitude T waves consistent with hypokalemia and nonspecific T wave inversions. Troponin less than 0.012. He is on room air. SpO2 96%. Vital signs are all stable. On today's evaluation of 01/08/2024, the patient is being seen for a follow-up. Resting comfortably in bed. Afebrile. Hemodynamically stable. Remains neutropenic with a white cell count of 0.3 with a hemoglobin 7.7 and a platelet count of 20. No evidence of any bleeding. No evidence of any septicemia. Room air pulse ox is in order of 95%. Remains on IV Rocephin. No other significant complaints otherwise for now. Overall, the patient is feeling well. On 01/08/2024, I am seeing the patient for a follow-up. The patient is awake alert and communicating. The white cell count today is at 0.2 edema of 7.4 and the platelet count of 21. Electrolytes are all stable. Denies having any specific complaints. Remains on empiric antibiotic coverage with IV Rocephin. Afebrile. No nausea or vomiting. Pulse ox on room air is 95%. The patient is seen today January 09, 2024 in follow-up on the regular medical floor. He is currently sitting up in bed. Awake and alert in no acute distress. He denies any worsening shortness of breath, cough or congestion. He is maintaining good O2 saturation in the mid 90s on room air. He has been afebrile. Hemodynamically stable. White count 0.2. Hemoglobin 7.5. Platelets 32,000. Potassium 3.3. He remains on ceftriaxone. Continued on Zarxio. Remains on normal saline at KVO. He is also continued on Demadex and Aldactone. Objective - Vital Signs Vital signs: Vital Signs Temp 98.5 F 01/09/24 06:45 Pulse 83 01/09/24 08:21 Resp 16 01/09/24 06:45 BP 123/68 01/09/24 06:45 Pulse Ox 95 01/09/24 06:45 FiO2 21 01/08/24 09:25 Intake & Output 01/08/24 01/09/24 01/09/24 18:59 06:59 18:59 Output Total 350 Balance -350 Output: Urine 350 Other: # Voids 3 2 - Exam GENERAL EXAM: Alert, very pleasant 73-year-old male, sitting up in bed, on room air, comfortable in no apparent distress. HEAD: Normocephalic. EYES: Normal reaction of pupils, equal size. NOSE: Clear with pink turbinates. THROAT: No erythema or exudates. NECK: No masses, no JVD. CHEST: No chest wall deformity. LUNGS: Equal air entry with no crackles, wheeze, rhonchi or dullness. CVS: S1 and S2 normal with no audible murmur, regular rhythm. ABDOMEN: No hepatosplenomegaly, normal bowel sounds, no guarding or rigidity. SPINE: No scoliosis or deformity SKIN: No rashes CENTRAL NERVOUS SYSTEM: No focal deficits, tone is normal in all 4 extremities. EXTREMITIES: There is no peripheral edema. No clubbing, no cyanosis. Peripheral pulses are intact. - Labs CBC & Chem 7: 01/09/24 10:50 01/09/24 10:50 Labs: Abnormal Lab Results - Last 24 Hours (Table) 01/09/24 01/09/24 Range/Units 10:50 10:50 WBC 0.2 L* (3.8-10.6) k/uL RBC 2.85 L (4.30-5.90) m/uL Hgb 7.5 L (13.0-17.5) gm/dL Hct 23.6 L (39.0-53.0) % RDW 17.8 H (11.5-15.5) % Plt Count 32 L D (150-450) k/uL Potassium 3.3 L (3.5-5.1) mmol/L Assessment and Plan Assessment: Mantle cell lymphoma, diagnosed with excisional lymph node biopsy of the the right axilla on 12/07/2023. Patient received first round of R-CHOP during his previous hospital hospitalization, the patient remains neutropenic. No evidence of fever. No evidence of any septicemia at this point in time. Due for a second round of R-CHOP on 01/19/2024 History of moderate to large size pericardial effusion, status post subxiphoid pericardial window December 27, 2023 with mediastinal chest tube was removed. Cultures positive for strep group C. Most recent follow-up chest CT shows a minimal residual pericardial effusion. Bilateral small to moderate in size pleural effusions, greater on the left, no significant interval change on recent imaging. No plan for thoracentesis Pancytopenia, recently started on systemic treatment for mantle cell lymphoma. Symptomatic anemia, hemoglobin is currently at 7.7. History of CLINTON and possible tumor lysis syndrome requiring temporary hemodialysis catheter with subsequent removal. CLINT[place] has resolved. Severe hypokalemia, being replaced Hypomagnesemia, being replaced Chronic lower extremity edema History of hypertension. Former tobacco smoker, recently quitting little bit over a month ago Plan: The patient was seen and evaluated Labs and medications reviewed Continued on Zarxio Remains on diuretics Stable and on room air No need for thoracentesis this admission Home once cleared by oncology This patient was seen independently by the pulmonary nurse practitioner addressing pulmonary issues I have personally seen and examined the patient, performed the documentation and the assessment and plan as written. Number of minutes spent on the visit: 24.
[2024-01-09] MEDS ORDERED: POTASSIUM CHLORIDE ER 20 MEQ TAB.ER PO SCH (14:00)
[2024-01-09] MEDS: ALTEPLASE 2 MG VIAL (CATHFLO) IV STA (17:09)
--- NOTE | 2024-01-09 17:54 | P.DS ---
Providers Date of admission: 01/05/24 17:18 Expected date of discharge: 01/09/24 Attending physician: Ernst Kerr Consults: 01/05/24 17:14 Consult Physician Routine Consulting Provider: Walker Sidhu Consult Reason/Comments: known Do you want consulting provider notified?: Yes 01/05/24 17:40 Consult Physician Routine Consulting Provider: Alberto Turner Consult Reason/Comments: Chest pain, recent pericardial effusion Do you want consulting provider notified?: Yes Primary care physician: [facility] Course: Diagnosis on discharge: Mantle cell lymphoma, diagnosed 3 weeks ago, recently started on chemotherapy Recent history of pericardial effusion, with pericardial window on December 27, 2023 Positive culture of pericardial fluid for Streptococcus pneumonia, given a course of Augmentin on discharge, currently on IV Rocephin Bilateral pleural effusions, greater on the left, pulmonary consultation requested Pancytopenia, recently started on systemic treatment for mantle cell lymphoma. Symptomatic anemia, with a recorded hemoglobin of 6.6 g/dL at outside facility status post 1 unit PRBC transfusion most recent follow-up hemoglobin is 8.4 g/dL. Recent history of acute kidney injury requiring short-term hemodialysis Severe hypokalemia, correcting Hypomagnesemia, correcting Underlying history of hypertension Hospital course: Rahul Cruz, is a 73-year-old male who presented to [facility] with a chief complaint of chest pain, he has a complex medical history, including rec ent pericardial effusion, with pericardial window placement at [facility], he was evaluated at [facility] and transferred to [facility] emergency room. He was evaluated in the emergency room vital examination on presentation revealed a temperature of 97.8 pulse 87 respiration 20 blood pressure 132/88 pulse ox 96% on room air Laboratory data revealed a white blood count of 0.6 hemoglobin 8.4 platelet count 24,000 sodium 134 potassium 2.4 troponin less than 0.012 magnesium 1.5 Testing in the emergency room revealed EKG revealed sinus rhythm with moderate T wave abnormality, CT scan of the chest revealed bilateral pleural effusion, and minimal residual pericardial effusion. Patient was admitted to medical floor for further evaluation and treatment On 01/06/2024 patient was seen and examined on the medical floor he is alert and oriented x 3 in no apparent distress there is no fever or chills no headache or dizziness no chest pain no shortness of breath no cough no nausea or vomiting no abdominal pain no diarrhea no urinary symptoms. Vital examination reveals a temperature of 97.8 pulse 87 respirations 20 blood pressure 132/88 pulse ox 96% on room air On 01/07/2024 patient's alert and oriented 3. Patient denies chest pain or shortness breath. Patient denies nausea vomiting or diarrhea. Patient denies any urinary burning or frequency. Current vital signs temp 98.4, heart rate 80, respiratory rate 18, blood pressure 129/69 with pulse ox 96% on room air. Potassium remains low continue on potassium replacement protocol On 01/08/2024 patient was seen and examined on the medical floor he is alert and oriented x 3 in no apparent distress there is no fever or chills no headache or dizziness no chest pain no shortness of breath no cough no nausea or vomiting no abdominal pain no diarrhea no urinary symptoms. Patient has a low phosphorus level today, and will be corrected, potassium is up to normal range. On 01/09/2024 patient was seen and examined on the medical floor he is alert and oriented x 3 in no apparent distress he is feeling better there is no fever or chills no headache or dizziness no chest pain no shortness of breath no cough no nausea or vomiting no abdominal pain no diarrhea no urinary symptoms, he was cleared for discharge by pulmonary and oncology, patient will be discharged to home today. Patient Condition at Discharge: Serious Plan - Discharge Summary Discharge Rx Participant: No New Discharge Prescriptions: New cefUROXime axetiL [Cefuroxime] 500 mg PO BID 7 Days #14 tab Potassium Chloride ER [K-Dur 20] 20 meq PO DAILY 30 Days #30 tab Continue Multivitamins, Thera [Multivitamin (formulary)] 1 tab PO DAILY@1200 Cetirizine HCl [Zyrtec] 10 mg PO DAILY Simvastatin [Zocor] 20 mg PO DAILY@1200 Aspirin EC [Ecotrin Low Dose] 81 mg PO DAILY Pantoprazole [Protonix] 40 mg PO AC-BRKFST 30 Days #30 tab Ondansetron Odt [Zofran ODT] 4 - 8 mg PO Q4H PRN PRN Reason: Nausea Cholecalciferol (Vitamin D3) [Vitamin D3 (125 MCG = 5,000 IU)] 125 mcg PO DAILY@1200 ALPRAZolam [Xanax] 0.25 mg PO Q6HR PRN 3 Days #12 tab PRN Reason: Anxiety Spironolactone [Aldactone] 12.5 mg PO DAILY 30 Days #30 tab Sucralfate [Carafate] 1 gm PO AC-BID 30 Days #60 tab Torsemide [Demadex] 20 mg PO DAILY 30 Days #30 tab Sodium Bicarbonate Tab 650 mg PO BID 30 Days #60 tab Calcium Carbonate [Tums] 1,000 mg PO TID PRN 30 Days #90 tab PRN Reason: Heartburn Discharge Medication List Cetirizine HCl [Zyrtec] 10 mg PO DAILY 12/02/23 [History] Cholecalciferol (Vitamin D3) [Vitamin D3 (125 MCG = 5,000 IU)] 125 mcg PO DAILY@1200 12/02/23 [History] Multivitamins, Thera [Multivitamin (formulary)] 1 tab PO DAILY@1200 12/02/23 [History] Simvastatin [Zocor] 20 mg PO DAILY@1200 12/02/23 [History] Aspirin EC [Ecotrin Low Dose] 81 mg PO DAILY 12/22/23 [History] ALPRAZolam [Xanax] 0.25 mg PO Q6HR PRN 3 Days #12 tab 01/02/24 [Rx] Calcium Carbonate [Tums] 1,000 mg PO TID PRN 30 Days #90 tab 01/02/24 [Rx] Pantoprazole [Protonix] 40 mg PO AC-BRKFST 30 Days #30 tab 01/02/24 [Rx] Sodium Bicarbonate Tab 650 mg PO BID 30 Days #60 tab 01/02/24 [Rx] Spironolactone [Aldactone] 12.5 mg PO DAILY 30 Days #30 tab 01/02/24 [Rx] Sucralfate [Carafate] 1 gm PO AC-BID 30 Days #60 tab 01/02/24 [Rx] Torsemide [Demadex] 20 mg PO DAILY 30 Days #30 tab 01/02/24 [Rx] Ondansetron Odt [Zofran ODT] 4 - 8 mg PO Q4H PRN 01/05/24 [History] Potassium Chloride ER [K-Dur 20] 20 meq PO DAILY 30 Days #30 tab 01/09/24 [Rx] cefUROXime axetiL [Cefuroxime] 500 mg PO BID 7 Days #14 tab 01/09/24 [Rx] Follow up Appointment(s)/Referral(s): Maria Del Carmen Fitzgerald MD [Primary Care Provider] - 01/11/24 11:00 am Patient Instructions/Handouts: Pancytopenia (DC)
--- NOTE | 2024-01-12 11:09 | CDI ---
Documentation Clarification Form Date: 01/12/2024 10:27:54 AM From: May Lopez RN CCDS Phone: [phone] Admit Date: 01/05/2024 05:18:00 PM Patient Name: Rahul Cruz Visit Number: [id number] Discharge Date: 01/09/2024 05:57:00 PM ATTENTION: The Clinical Documentation Specialists (CDI) and [facility] Coding Staff appreciate your assistance in clarifying documentation. Please respond to the clarification below the line at the bottom and electronically sign. The CDI & [facility] Coding staff will review the response and follow-up if needed. Please note: Queries are made part of the Legal Health Record. If you have any questions, please contact the author of this message via ITS. Dr. Ernst Kerr The patients principal diagnosis the diagnosis that was chiefly responsible for the admission - has not been clearly identified and clarification is requested. The patient presented with the following chest pain from [facility]. History/Risk factors: 73-year-old male medical history: Recent pericardial effusion, with pericardial window placement. Mantle cell lymphoma with chemotherapy, HTN and HLD. 6/ Clinical Indicators: VSS, 01/04: B/P 132/88, HR 87, Temp 97.8F Oral, RR 20, SpO2 96% room air Labs, 01/04: Wbc 0.6; Hgb 8.4 Platelet count 24; PT 12.7, INR 1.2, NA 134, K 2.4, carbon dioxide 34, BUN 28, Cr 0.81, GFR 88, Calcium 7.6; Phosphorus 2.1 Magnesium 1.5 Total protein 4.3; Albumin 2.5 CTA 01/04: Pleural Spaces: Moderate left sided pleural effusion, slightly greater than on 12/05. Associated passive partial atelectasis of the left lower lobe and lingual; concurrent pneumonia can only be excluded on clinical grounds. Scant right sided pleural effusion. Unchanged since 12/05. Lungs: Biapical pleural parenchymal scarring remonstrated. Irregular density at the right apex is large at 3.3 x 1.3cm vs 2.1 x 0.7cm, previously. Similarly, irregular opacity at the left apex is also enlarged. Mediastinum: Minimal pericardial effusion on the present examination. There is no cardiomegaly but there are severe and extensive left and right coronary calcifications. There are no greater than 1 cm short axis lymph nodes in the bryanna or mediastinum, and the right axillary adenopathy is less conspicuous than on 12/06/2023. Visualized upper abdomen: The peritoneal fluid and the multifocal splenic findings are unchanged when compared with the CT abdomen 01/12/2024.There are no renal 1 cm short axis lymph nodes in the upper abdomen presently. Cardiology consult, 01/05: Recent pericardial effusion status post pericardial window, successful Follow-up CT scan shows trace pericardial effusion Known coronary artery disease, calcific atherosclerosis Pulmonary Consult, 01/05: History of moderate to large sizepericardial effusion,status postsubxiphoid pericardial windowJune 2023 with mediastinalchest tube was removed. Cultures positive forstrepgroup C. Most recentfollow-upchestCTshows a minimalresidualpericardial effusion. Bilateral small to moderate in size pleural effusions, greater on the left, no significant interval change on recent imaging.No plan for thoracentesis DCS, 01/08: Positive culture of pericardial fluid for Streptococcus pneumonia, given a course of Augmentin on discharge, currently on IV Rocephin Treatment: 01/04 01/08 Ceftriaxone IVPB Q24H, Fluids: 01/04 0.9NS 1L IV x 1; Consults: In your professional opinion, can you please clarify which diagnosis, after study, was the reason chiefly responsible for the admission? [ xxx ] Pneumonia [ ] Infected pericardial effusion [ ] Other, please specify [ ] Unable to determine (Template Last Revised: September 2020) MTDD
== END 2024-01-09 17:57 | disposition home or self-care (01) | DRG 193 ==
LOC: EC 15:34 → 5NMEDONC 17:18 → 4SSUR 22:54
PROVIDERS: ADMIT Internal Medicine; ATTEND Internal Medicine
DX: J15.4 Pneumonia due to other streptococci (principal); D61.810 Antineoplastic chemotherapy induced pancytopenia; I30.1 Infective pericarditis; C83.14 Mantle cell lymphoma, lymph nodes of axilla and upper limb; J98.11 Atelectasis; J90 Pleural effusion, not elsewhere classified; I10 Essential (primary) hypertension; B95.3 Streptococcus pneumoniae as the cause of diseases classified elsewhere; T45.1X5A Adverse effect of antineoplastic and immunosuppressive drugs, initial encounter; E78.5 Hyperlipidemia, unspecified; E83.42 Hypomagnesemia; E87.6 Hypokalemia; I25.10 Atherosclerotic heart disease of native coronary artery without angina pectoris; N40.0 Benign prostatic hyperplasia without lower urinary tract symptoms; K59.00 Constipation, unspecified; M54.50 Low back pain, unspecified; R16.1 Splenomegaly, not elsewhere classified; R59.0 Localized enlarged lymph nodes; I25.84 Coronary atherosclerosis due to calcified coronary lesion; Z71.6 Tobacco abuse counseling; Z79.82 Long term (current) use of aspirin; Z79.899 Other long term (current) drug therapy; Z87.891 Personal history of nicotine dependence
CPT/HCPCS: 36415; 71260; 80053; 81001; 83735; 84100; 84132; 84484; 84550; 85025; 85610; 85730; 93005; 94760; 96361; 96365; 96366; 96368; 96375; 99285

== ENCOUNTER 2024-01-19 08:50 | Inpatient (IN) | payer MEDICARE, OTHER ==
[2024-01-19 10:57] LABS: ALT 24 U/L (4-49); AST 22 U/L (17-59); African American GFR (CKD) >90 (>60 ml/min/1.73 sqM); Albumin/Globulin Ratio 1.4; Alkaline Phosphatase 59 U/L (38-126); Anion Gap 7 mmol/L; Blood Urea Nitrogen 29 mg/dL (9-20); Calcium 9.2 mg/dL (8.4-10.2); Carbon Dioxide 25 mmol/L (22-30); Chloride 102 mmol/L (98-107); Globulin 2.1 g/dL; Glucose 162 mg/dL (74-99); Non-African American GFR(CKD) 88 (>60 ml/min/1.73 sqM); Sodium 134 mmol/L (137-145); Total Bilirubin 0.2 mg/dL (0.2-1.3); Total Protein 5.1 g/dL (6.3-8.2); Uric Acid 7.2 mg/dL (3.5-8.5)
[2024-01-19 11:01] LABS: Phosphorus 0.8 mg/dL (2.5-4.5)
[2024-01-19 11:04] LABS: Anisocytosis Slight; Basophils % (A) 0 %; Eosinophils % (A) 0 %; HCT 23.2 % (39.0-53.0); HGB 7.5 gm/dL (13.0-17.5); Hypochromasia Moderate; Lymphocytes # (A) 0.5 k/uL (1.0-4.8); Lymphocytes % (A) 4 %; MCH 26.9 pg (25.0-35.0); MCHC 32.4 g/dL (31.0-37.0); MCV 82.9 fL (80.0-100.0); Mean Platelet Volume 7.7; Monocytes # (A) 0.5 k/uL (0-1.0); Monocytes % (A) 3 %; Neutrophils # (A) 12.5 k/uL (1.3-7.7); Neutrophils % (A) 93 %; Poikilocytosis Slight; WBC 13.5 k/uL (3.8-10.6)
[2024-01-19 11:06] LABS: Platelet Count 561 k/uL (150-450)
[2024-01-19] MEDS: prednisoLONE ACETATE 1% OPHTH DROPS 5 ML BTL BOTH EYES SCH (11:16)
[2024-01-19] MEDS ORDERED: LOPERAMIDE 2 MG CAP PO PRN (11:46)
[2024-01-19] MEDS ORDERED: DOCUSATE 100 MG CAP PO PRN (11:49)
[2024-01-19] MEDS ORDERED: Phosphorus Replacement Protoco 1 EACH MISC MISCELLANE PRN (12:18)
[2024-01-19] MEDS: SODIUM CHLORIDE 0.9% 1,000 ML IV SCH (12:42)
[2024-01-19] MEDS: FAMOTIDINE 20 MG/2 ML VIAL IV ONE (13:04)
[2024-01-19] MEDS: ONDANSETRON 16 MG in SODIUM CHLORIDE 0.9% 50 ML IVPB ONE (13:04)
[2024-01-19] MEDS: dexAMETHasone 4 MG TAB PO SCH (13:04)
[2024-01-19] MEDS ORDERED: CALCIUM CARBONATE 500 MG CHEWABLE PO PRN (15:17)
[2024-01-19] MEDS ORDERED: Magnesium Replacement Protocol 1 EACH MISC MISCELLANE PRN (15:17)
[2024-01-19] MEDS ORDERED: Potassium Replacement Protocol 1 EACH MISC MISCELLANE PRN (15:17)
[2024-01-19] MEDS: POTAS-SOD-PHOS 278-164-250 MG 1 EACH PACKET PO SCH (16:14)
[2024-01-19] MEDS: SALT AND SODA MOUTHWASH 1,000 ML PO SCH (16:18)
[2024-01-19] MEDS: SUCRALFATE 1 GM TAB PO SCH (17:23)
[2024-01-19] MEDS: ALPRAZolam 0.25 MG TAB PO PRN (20:04)
[2024-01-19] MEDS: SODIUM BICARBONATE TAB 650 MG TAB PO SCH (20:09)
--- NOTE | 2024-01-19 21:10 | CONS ---
CONSULTATION REASON FOR CONSULTATION: Advice regarding hypertension and other medical issues requested by Oncology. HISTORY OF PRESENT ILLNESS: This is a 73-year-old gentleman with a past medical history of hypertension, hyperlipidemia, remote history of tuberculosis, was admitted with mantle cell lymphoma. There is no history of chest pain or palpitations. No history of headache or loss of consciousness. The patient is complaining of some weakness. The patient was found to have hypophosphatemia with 0.8 phosphorus. PAST MEDICAL HISTORY: Hypertension, history of mantle cell lymphoma, rest of the history and rest of the chart is also reviewed. HOME MEDICATIONS: Reviewed include Demadex, dose and rest of medications reviewed. ALLERGIES: None. FAMILY HISTORY: History of CAD, CABG. SOCIAL HISTORY: History of smoking. REVIEW OF SYSTEMS: A 14-point review of systems is negative except as mentioned earlier. PHYSICAL EXAMINATION: VITAL SIGNS: Pulse 87, blood pressure 101/60, respirations 16. CHEST: Clear to auscultation. CARDIOVASCULAR: S1, S2. ABDOMEN: Soft, nontender. No mass palpable. LEGS: No edema, no swelling. NERVOUS SYSTEM: Nonfocal. SKIN: No ulcer, rash, bleeding. LABORATORY DATA: Reviewed, WBC is 13.5, hemoglobin 7.5. ASSESSMENT: 1. Mantle cell lymphoma. 2. Hypophosphatemia. 3. Hypertension. 4. Hyperlipidemia. 5. Remote history of tuberculosis. 6. Continue ongoing nicotine dependence. 7. Bilateral pleural effusion. 8. History of recent pericardial effusion with Staph pneumonia. 9. History of pancytopenia. 10.Multiple medical issues. RECOMMENDATIONS: Recommended to continue current management, continue symptomatic treatment. Otherwise resume the home medications once they are confirmed. Other than that, I would also recommend phosphorus supplementation, repeat phosphorus. We will continue to monitor. Rest of the recommendations per oncology, DVT prophylaxis. Further recommendations to follow. MMODL / IJN: [id number] /
[2024-01-20] MEDS: ONDANSETRON 4 MG/2 ML VIAL IVP PRN (04:08)
--- NOTE | 2024-01-20 08:01 | P.HPIM ---
History of Present Illness H&P Date: 01/19/24 Chief Complaint: Inpatient chemo Patient is a 73-year-old male witha history of recently diganosed mantle cell lymphoma. He initially presented to [facility] with complaints of persisting abdominal pain, he was subsequently transferred to [facility] for further management, after abnormal CT findings. Consult was placed for CT findings of extensive intra abdominal/pelvic lymphadenopathy. Patient reports he began having left lower back pain approximately 1 month ago that began to radiate to left lower quadrant and midline and to left groin. Also reports intermittent nausea and constipation. Denies diarrhea and vomiting. He states for the the week prior he had been noticing black stools. Of note patient had tooth extraction 1 month ago and was using Motrin frequently for 10 days. Patient is on no blood thinners. He denies personal and family history of cancer. Has had a approximate 15 pound weight loss over the last [address] abdomen pelvis with oral and IV contrast was obtained at [facility], scan revealed extensive intra-abdominal/pelvic lymphadenopathy. Massive splenomegaly measuring 20 cm. With small perisplenic fluid collection. May be subcapsular or related to splenic injury or infarction measuring 3.2 cm. Small pericardial and left pleural effusion. Diverticulosis with wall thickening, underlying mucosal lesion not excluded. Bladder wall enhances and is thickened, correlate for cystitis. Prostate gland enlarged. Patient underwent biopsy of right axillary lymph node and was subsequently discharged home. 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 Patient was recently admitted for weakness, ARF, TLS, and pericardial effusion and underwent pericardial window. Pericardial fluid showed fibroadipose tissue involved by Mantle cell lymphoma. He received first cycle of R-CHOP inpatient on 12/29/23. He was recommended treatment with R-CHOP alternating with R-DHAP for 6 cycles. He received cycle 1 R-CHOP inpatient on 12/28 and cycle 2, day 1 of R-DHAP on 01/17, and is admitted for day 2, for cytarabine infusion. Patient reports feeling much improved since his last admission, both mentally and physically. Oral intake is improving, no reported complaints at todays visit. Review of Systems 10 point ROS is negative except as stated in the HPI Past Medical History Past Medical History: Cancer, Hyperlipidemia, Hypertension Additional Past Medical History / Comment(s): History of tuberculosis at age 18, history of kidney stones History of Any Multi-Drug Resistant Organisms: None Reported Past Surgical History: Hernia Repair, Tonsillectomy Additional Past Surgical History / Comment(s): Axillary lymph node biopsy right side on December 07, 2023 Past Anesthesia/Blood Transfusion Reactions: No Reported Reaction Past Psychological History: No Psychological Hx Reported Smoking Status: Current every day smoker Past Alcohol Use History: None Reported Past Drug Use History: None Reported - Past Family History Mother Family Medical History: Coronary Artery Disease (CAD) Additional Family Medical History / Comment(s): History of CABG Father Additional Family Medical History / Comment(s): History of permanent pacemaker placement Medications and Allergies Home Medications Medication Instructions Recorded Confirmed Type Cetirizine HCl [Zyrtec] 10 mg PO DAILY 12/02/23 01/19/24 History Cholecalciferol (Vitamin D3) 125 mcg PO DAILY@1200 12/02/23 01/19/24 History [Vitamin D3 (125 MCG = 5,000 IU)] Multivitamins, Thera [Multivitamin 1 tab PO DAILY@1200 12/02/23 01/19/24 History (formulary)] Simvastatin [Zocor] 20 mg PO DAILY@1200 12/02/23 01/19/24 History Aspirin EC [Ecotrin Low Dose] 81 mg PO DAILY 12/22/23 01/19/24 History ALPRAZolam [Xanax] 0.25 mg PO Q6HR PRN 3 Days #12 tab 01/02/24 01/19/24 Rx Calcium Carbonate [Tums] 1,000 mg PO TID PRN 30 Days #90 tab 01/02/24 01/19/24 Rx Pantoprazole [Protonix] 40 mg PO AC-BRKFST 30 Days #30 tab 01/02/24 01/19/24 Rx Sodium Bicarbonate Tab 650 mg PO BID 30 Days #60 tab 01/02/24 01/19/24 Rx Spironolactone [Aldactone] 12.5 mg PO DAILY 30 Days #30 tab 01/02/24 01/19/24 Rx Sucralfate [Carafate] 1 gm PO AC-BID 30 Days #60 tab 01/02/24 01/19/24 Rx Torsemide [Demadex] 20 mg PO DAILY 30 Days #30 tab 01/02/24 01/19/24 Rx Ondansetron Odt [Zofran ODT] 4 - 8 mg PO Q4H PRN 01/05/24 01/19/24 History Potassium Chloride ER [K-Dur 20] 20 meq PO DAILY 30 Days #30 tab 01/09/24 01/19/24 Rx Allergies Allergy/AdvReac Type Severity Reaction Status Date / Time No Known Allergies Allergy Verified 01/05/24 17:02 Physical Exam - Constitutional General appearance: no acute distress, thin - EENT Eyes: anicteric sclerae, EOMI ENT: hearing grossly normal - Respiratory Respiratory: bilateral: CTA - Cardiovascular Rhythm: regular Heart sounds: normal: S1, S2 - Gastrointestinal General gastrointestinal: soft, no tenderness - Integumentary Integumentary: no cyanotic, pale - Neurologic Neurologic: CNII-XII intact - Musculoskeletal Musculoskeletal: strength equal bilaterally - Psychiatric Psychiatric: A&O x's 3 Results CBC & Chem 7: 01/19/24 10:18 01/19/24 10:18 Assessment and Plan (1) Mantle cell lymphoma Current Visit: Yes Status: Acute Priority: High Code(s): C83.10 - MANTLE CELL LYMPHOMA, UNSPECIFIED SITE SNOMED Code(s): 432872677 Plan: Mantle Cell Lymphoma -Full history in HPI, recent diagnosis -He was recommended treatment with R-CHOP alternating with R-DHAP for 6 cycles. He received cycle 1 R-CHOP inpatient on 12/28 and cycle 2, day 1 of R-DHAP on 01/17, and is admitted for day 2, for cytarabine infusion -Chemo orders and supportive medications ordered -CBC, CMP, TLS labs ordered for the morning -Phosphorus was low at 0.8, supplementation ordered. Will recheck in the morning -IM consulted for medical management
[2024-01-20 08:41] LABS: ALT 43 U/L (10-49); AST 29 U/L (14-35); Alkaline Phosphatase 51 U/L (41-126); BUN/Creat Ratio 35.44 Ratio (12.00-20.00); Blood Urea Nitrogen 31.9 mg/dL (9.0-27.0); Calcium 7.7 mg/dL (8.7-10.3); Carbon Dioxide 22.4 mmol/L (21.6-31.8); Chloride 106 mmol/L (96-109); Globulin 1.5 g/dL (1.6-3.3); Glucose 121 mg/dL (70-110); Magnesium 1.3 mg/dL (1.5-2.4); Phosphorus 2.7 mg/dL (2.4-5.1); Potassium 3.8 mmol/L (3.5-5.5); Sodium 140 mmol/L (135-145); Total Bilirubin <0.2 mg/dL (0.3-1.2); Total Protein 4.5 g/dL (6.2-8.2); Uric Acid 6.9 mg/dL (3.7-8.7)
[2024-01-20 08:58] LABS: Basophils # (A) 0.01 X 10*3/uL (0.00-0.10); Basophils % (A) 0.1 %; Eosinophils # (A) 0 X 10*3/uL (0.04-0.35); Eosinophils % (A) 0 %; HGB 6.4 g/dL (13.0-17.0); Lymphocytes # (A) 0.26 X 10*3/uL (0.90-5.00); Lymphocytes % (A) 1.8 %; MCH 25.4 pg (27.0-32.0); MCHC 30.5 g/dL (32.0-37.0); MCV 83.3 FL (80.0-97.0); Mean Platelet Volume 8.9 FL (9.5-12.2); Monocytes # (A) 0.42 X 10*3/uL (0.20-1.00); NRBC Per 100 WBC 0 X 10*3/uL (0.00-0.01); Neutrophils # (A) 13.29 X 10*3/uL (1.80-7.70); Neutrophils % (A) 93.4 %; Platelet Count 484 X 10*3/uL (140-440); RBC 2.52 X 10*6/uL (4.40-5.60); RDW 18.9 % (11.5-14.5); WBC 14.22 X 10*3/uL (4.50-10.00)
[2024-01-20] MEDS: PANTOPRAZOLE 40 MG TABLET PO SCH (09:06)
[2024-01-20] MEDS: SPIRONOLACTONE 25 MG TAB PO SCH (09:06)
[2024-01-20] MEDS: ASPIRIN 81 MG PO SCH (09:07)
[2024-01-20] MEDS: TORSEMIDE 20 MG TAB PO SCH (09:07)
[2024-01-20] MEDS: FAMOTIDINE 20 MG TAB PO SCH (09:07)
[2024-01-20] MEDS: POTASSIUM CHLORIDE ER 20 MEQ TAB.ER PO SCH (09:07)
[2024-01-20] MEDS: LORATADINE 10 MG TAB PO SCH (09:08)
[2024-01-20] MEDS: MAGNESIUM SULFATE-D5W PMX 1 GM in DEXTROSE/WATER 1 100ML.BAG IVPB SCH (10:20)
[2024-01-20] MEDS: CHOLECALCIFEROL 125 MCG (5000 IU) TABLET PO SCH (11:47)
[2024-01-20] MEDS: ATORVASTATIN 10 MG TAB PO SCH (11:47)
[2024-01-20] MEDS: MULTIVITAMINS, THERA 1 EACH TAB PO SCH (12:05)
--- NOTE | 2024-01-20 13:34 | PN ---
PROGRESS NOTE DATE OF SERVICE: 01/20/2024 SUBJECTIVE: This 73-year-old gentleman admitted with mantle cell lymphoma, had multiple medical issues including abdominal pain, lymphadenopathy, biopsy, subsequently pericardial effusion, pericardial window, not undergoing chemo at this time. The patient also had a hypophosphatemia. No chest pain, no palpitation. OBJECTIVE: VITAL SIGNS: Pulse is 85, blood pressure 130/60, respirations 18. CHEST: Clear to auscultation. CARDIOVASCULAR: S1, S2. ABDOMEN: Soft. NERVOUS SYSTEM: Nonfocal. LABORATORY DATA: Hemoglobin 6.4, phosphorus improved to 2.7. ASSESSMENT: 1. Mantle cell lymphoma, on chemotherapy. 2. Pericardial effusion history with pericardial window. 3. Hypophosphatemia. 4. Anemia, possibly secondary to chemotherapy. 5. Hypertension. 6. Hyperlipidemia. 7. History of tuberculosis. 8. Continued ongoing nicotine dependence. 9. Bilateral pleural effusion. 10.History of pancytopenia. 11.Multiple medical issues. RECOMMENDATIONS: Recommended to continue current medications, continue symptomatic treatment, otherwise transfusion. Repeat labs. Guarded prognosis. Further recommendations to follow. See orders for details. MMODL / IJN: [id number] /
[2024-01-20 14:08] VITALS: BMI 19.0
--- NOTE | 2024-01-20 15:57 | P.PN ---
Subjective Progress Note Date: 01/20/24 At today's visit patient is resting comfortably in bed eating lunch. Patient reports overall feeling well. Tolerated treatment well with no reported symptoms. Denies nausea vomiting diarrhea. Denies pain. Hemoglobin noted at 6.4 today, 1 unit PRBCs ordered. TLS labs negative. Phosphorus 2.7 after replacement. Magnesium 1.3, supplementation has been ordered. Patient is afebrile, hemodynamically stable. Objective - Vital Signs Vital signs: Vital Signs Temp 97.4 F L 01/20/24 15:07 Pulse 72 01/20/24 15:07 Resp 16 01/20/24 15:07 BP 94/51 01/20/24 15:07 Pulse Ox 98 01/20/24 15:07 FiO2 Intake & Output 01/19/24 01/20/24 01/20/24 18:59 06:59 18:59 Intake Total 0 Balance 0 Weight 55.1 kg 55.1 kg Intake: Blood Product 0 Unit 0 Other: Voiding Method Toilet Toilet # Voids 1 2 # Bowel Movements 1 - Constitutional General appearance: Present: average body habitus, no acute distress - EENT Eyes: Present: anicteric sclerae, EOMI ENT: Present: hearing grossly normal - Respiratory Details: breathing is even and unlabored - Cardiovascular Details: well perfused - Gastrointestinal General gastrointestinal: Present: soft. Absent: tenderness - Integumentary Integumentary: Present: pale - Musculoskeletal Musculoskeletal: Present: strength equal bilaterally - Psychiatric Psychiatric: Present: A&O x's 3 - Labs CBC & Chem 7: 01/20/24 05:20 01/20/24 05:20 Labs: Abnormal Lab Results - Last 24 Hours (Table) 01/20/24 01/20/24 01/20/24 Range/Units 05:20 05:20 10:35 WBC 14.22 H (4.50-10.00) X 10*3/uL RBC 2.52 L (4.40-5.60) X 10*6/uL Hgb 6.4 A* (13.0-17.0) g/dL Hct 21.0 L (39.6-50.0) % MCH 25.4 L (27.0-32.0) pg MCHC 30.5 L (32.0-37.0) g/dL RDW 18.9 H (11.5-14.5) % Plt Count 484 H (140-440) X 10*3/uL MPV 8.9 L (9.5-12.2) FL Immature Gran # 0.24 H (0.00-0.04) X 10*3/uL Neutrophils # 13.29 H (1.80-7.70) X 10*3/uL Lymphocytes # 0.26 L (0.90-5.00) X 10*3/uL Eosinophils # 0 L (0.04-0.35) X 10*3/uL BUN 31.9 H (9.0-27.0) mg/dL BUN/Creatinine Ratio 35.44 H (12.00-20.00) Ratio Glucose 121 H (70-110) mg/dL Calcium 7.7 L (8.7-10.3) mg/dL Magnesium 1.3 L (1.5-2.4) mg/dL Total Bilirubin <0.2 L (0.3-1.2) mg/dL Total Protein 4.5 L (6.2-8.2) g/dL Albumin 3.0 L (3.8-4.9) g/dL Globulin 1.5 L (1.6-3.3) g/dL Crossmatch See Detail Assessment and Plan (1) Mantle cell lymphoma Current Visit: Yes Status: Acute Priority: High Code(s): C83.10 - MANTLE CELL LYMPHOMA, UNSPECIFIED SITE SNOMED Code(s): 087829944 Plan: Mantle Cell Lymphoma -Full history in consult HPI, recent diagnosis -He was recommended treatment with R-CHOP alternating with R-DHAP for 6 cycles. He received cycle 1 R-CHOP inpatient on 12/28 and cycle 2, day 1 of R-DHAP on 01/17, and is admitted for day 2, for cytarabine infusion -Chemo orders and supportive medications ordered -CBC, CMP, TLS labs ordered for the morning -IM consulted for medical management -Phosphorus was low at 0.8, supplementation ordered. Today phosphorus 2.7. Magnesium 1.3, supplementation ordered -Hgb 6.4, 1 unit irradiated PRBCs ordered -Tolerated treatment well, with no reported complaints -Repeat labs in the AM. If stable will plan for discharge Pt scheduled for G-CSF Tuesday with CBC recheck, pt and family updated on appt attests: I have seen and examined patient, performed H&P, developed impression and plan of care. Discussed with dictator. Agree with documentation, dictated as a scribe.
[2024-01-21 07:49] VITALS: BP 139/68; PULSE 69; RESP 16; TEMP 97.6
[2024-01-21 09:22] LABS: Basophils # (A) 0.01 X 10*3/uL (0.00-0.10); Basophils % (A) 0.1 %; Eosinophils # (A) 0 X 10*3/uL (0.04-0.35); Eosinophils % (A) 0 %; HCT 26.4 % (39.6-50.0); HGB 8.4 g/dL (13.0-17.0); Lymphocytes # (A) 0.14 X 10*3/uL (0.90-5.00); Lymphocytes % (A) 1.3 %; MCH 25.9 pg (27.0-32.0); MCHC 31.8 g/dL (32.0-37.0); MCV 81.5 FL (80.0-97.0); Mean Platelet Volume 8.6 FL (9.5-12.2); Monocytes # (A) 0.44 X 10*3/uL (0.20-1.00); Monocytes % (A) 4.2 %; NRBC Per 100 WBC 0 X 10*3/uL (0.00-0.01); Neutrophils # (A) 9.75 X 10*3/uL (1.80-7.70); Neutrophils % (A) 93.6 %; Platelet Count 468 X 10*3/uL (140-440); RBC 3.24 X 10*6/uL (4.40-5.60); WBC 10.42 X 10*3/uL (4.50-10.00)
[2024-01-21 12:21] LABS: ALT 39 U/L (10-49); AST 25 U/L (14-35); Albumin 3.2 g/dL (3.8-4.9); Albumin/Globulin Ratio 2.13 Ratio (1.60-3.17); Alkaline Phosphatase 56 U/L (41-126); Blood Urea Nitrogen 31.2 mg/dL (9.0-27.0); Calcium 8.3 mg/dL (8.7-10.3); Carbon Dioxide 23.5 mmol/L (21.6-31.8); Chloride 102 mmol/L (96-109); Globulin 1.5 g/dL (1.6-3.3); Glucose 122 mg/dL (70-110); Phosphorus 3.8 mg/dL (2.4-5.1); Potassium 4.2 mmol/L (3.5-5.5); Sodium 138 mmol/L (135-145); Total Bilirubin 0.2 mg/dL (0.3-1.2); Total Protein 4.7 g/dL (6.2-8.2); Uric Acid 7.2 mg/dL (3.7-8.7)
[2024-01-21 12:35] LABS: Magnesium 2.2 mg/dL (1.5-2.4)
--- NOTE | 2024-01-21 12:44 | P.DS ---
Providers Date of admission: 01/19/24 08:50 Expected date of discharge: 01/21/24 Attending physician: Bharat Candelario MD Consults: 01/19/24 11:42 Consult Physician Routine Consulting Provider: Adrian Harris Consult Reason/Comments: medical management, admitted for inpt chemo Do you want consulting provider notified?: Yes Primary care physician: Maria Del Carmen Fitzgerald - Discharge Diagnosis(es) (1) Mantle cell lymphoma Patient admitted for inpatient high-dose chemotherapy, that is cytarabine. He completed regimen per protocol, with good tolerance subjectively. He was m onitored with labs, and exams. He received supportive care per protocol. Current Visit: Yes Status: Acute Priority: High (2) Anemia aplastic aregenerative Due to underlying disease, as well as effect of chemotherapy. He received a unit of blood during his hospitalization, with appropriate response. Current Visit: Yes Status: Acute Hospital Course: As above. After completion of the prescribed treatment it was decided to discharge him home. Procedures: High-dose chemotherapy Blood transfusion Patient Condition at Discharge: Fair Plan - Discharge Summary Discharge Rx Participant: No New Discharge Prescriptions: No Action Multivitamins, Thera [Multivitamin (formulary)] 1 tab PO DAILY@1200 Cetirizine HCl [Zyrtec] 10 mg PO DAILY Simvastatin [Zocor] 20 mg PO DAILY@1200 Aspirin EC [Ecotrin Low Dose] 81 mg PO DAILY Pantoprazole [Protonix] 40 mg PO AC-BRKFST 30 Days #30 tab Ondansetron Odt [Zofran ODT] 4 - 8 mg PO Q4H PRN PRN Reason: Nausea Cholecalciferol (Vitamin D3) [Vitamin D3 (125 MCG = 5,000 IU)] 125 mcg PO DAILY@1200 ALPRAZolam [Xanax] 0.25 mg PO Q6HR PRN 3 Days #12 tab PRN Reason: Anxiety Spironolactone [Aldactone] 12.5 mg PO DAILY 30 Days #30 tab Sucralfate [Carafate] 1 gm PO AC-BID 30 Days #60 tab Torsemide [Demadex] 20 mg PO DAILY 30 Days #30 tab Sodium Bicarbonate Tab 650 mg PO BID 30 Days #60 tab Calcium Carbonate [Tums] 1,000 mg PO TID PRN 30 Days #90 tab PRN Reason: Heartburn Potassium Chloride ER [K-Dur 20] 20 meq PO DAILY 30 Days #30 tab Discharge Medication List Cetirizine HCl [Zyrtec] 10 mg PO DAILY 12/02/23 [History] Cholecalciferol (Vitamin D3) [Vitamin D3 (125 MCG = 5,000 IU)] 125 mcg PO DAILY@1200 12/02/23 [History] Multivitamins, Thera [Multivitamin (formulary)] 1 tab PO DAILY@1200 12/02/23 [History] Simvastatin [Zocor] 20 mg PO DAILY@1200 12/02/23 [History] Aspirin EC [Ecotrin Low Dose] 81 mg PO DAILY 12/22/23 [History] ALPRAZolam [Xanax] 0.25 mg PO Q6HR PRN 3 Days #12 tab 01/02/24 [Rx] Calcium Carbonate [Tums] 1,000 mg PO TID PRN 30 Days #90 tab 01/02/24 [Rx] Pantoprazole [Protonix] 40 mg PO AC-BRKFST 30 Days #30 tab 01/02/24 [Rx] Sodium Bicarbonate Tab 650 mg PO BID 30 Days #60 tab 01/02/24 [Rx] Spironolactone [Aldactone] 12.5 mg PO DAILY 30 Days #30 tab 01/02/24 [Rx] Sucralfate [Carafate] 1 gm PO AC-BID 30 Days #60 tab 01/02/24 [Rx] Torsemide [Demadex] 20 mg PO DAILY 30 Days #30 tab 01/02/24 [Rx] Ondansetron Odt [Zofran ODT] 4 - 8 mg PO Q4H PRN 01/05/24 [History] Potassium Chloride ER [K-Dur 20] 20 meq PO DAILY 30 Days #30 tab 01/09/24 [Rx] Follow up Appointment(s)/Referral(s): Bharat Candelario MD [STAFF PHYSICIAN] - As Needed (According to previously scheduled appointment To go for lab draw to office on 01/23/2024) Discharge Disposition: HOME SELF-CARE
--- NOTE | 2024-01-21 20:58 | PN ---
PROGRESS NOTE DATE OF SERVICE: 01/21/2024 SUBJECTIVE: This 73-year-old gentleman admitted to manage lymphoma, is improving, no chest pain. No palpitation. Hemoglobin today is 8.4. EXAM: VITAL SIGNS: Pulse is 69, blood pressure 113/60, respirations 16. CHEST: Clear to auscultation. CARDIOVASCULAR: S1, S2. ABDOMEN: Soft. NERVOUS SYSTEM: Nonfocal. LABORATORY DATA: Reviewed. ASSESSMENT: 1. Mantle cell lymphoma on chemotherapy. 2. Anemia. 3. Pericardial effusion with history of pericardial window. 4. Hypophosphatemia. 5. Multiple medical issues. RECOMMENDATION: Recommend to continue current management and treatment and resume the home medications. Also recommend Hematology/Oncology. MMODL / IJN: [id number] /
--- NOTE | 2024-01-24 19:59 | CDI ---
Documentation Clarification Form Date: 01/24/2024 07:48:33 PM From: Hedy Farias Phone: Admit Date: 01/19/2024 08:50:00 AM Patient Name: Rahul Cruz Visit Number: [id number] Discharge Date: 01/21/2024 01:52:00 PM ATTENTION: The Clinical Documentation Specialists (CDI) and [facility] Coding Staff appreciate your assistance in clarifying documentation. Please respond to the clarification below the line at the bottom and electronically sign. The CDI & [facility] Coding staff will review the response and follow-up if needed. Please note: Queries are made part of the Legal Health Record. If you have any questions, please contact the author of this message via ITS. Dr. Adrian Harris Patient has a documented BMI of 19.0. Additional clarification is requested. History/Risk Factors: 73yo M, Mantle celllymphoma, hypophosphatemia, black stools, diverticulosis, HTN, HLD, Hx TB, RASHIDA pleural effusion, pancytopenia, BPH, smoker Clinical Indicators: Patients weight: 55.1 kg Patients height: 57 strength equal bilaterally; appr 15 pound weight loss over the last 1 month Treatments: At today's visit patient is resting comfortably in bed eating lunch. Patient reports overall feeling well per Progress Note 01/19 Please clarify, is there is an additional diagnosis that is clinically appropriate for this patient? [ ] Cachexia [ ] Underweight [ ] Malnutrition, (please specify severity and type) [ ] No additional diagnosis/not clinically significant [ ] Other, please specify [ ] Unable to determine (Template Last Revised: August 2020) MTDD
--- NOTE | 2024-03-21 15:25 | CDI ---
Documentation Clarification Form Date: 03/21/2024 03:20:27 PM From: Hedy Farias Phone: Admit Date: 01/19/2024 08:50:00 AM Patient Name: Rahul Cruz Visit Number: [id number] Discharge Date: 01/21/2024 01:52:00 PM ATTENTION: The Clinical Documentation Specialists (CDI) and [facility] Coding Staff appreciate your assistance in clarifying documentation. Please respond to the clarification below the line at the bottom and electronically sign. The CDI & [facility] Coding staff will review the response and follow-up if needed. Please note: Queries are made part of the Legal Health Record. If you have any questions, please contact the author of this message via ITS. Doctor/Provider: Adrian Harris Patient has a documentedBMI of 19.0. Additional clarification is requested. History/Risk Factors: 73yo M, Mantle celllymphoma,hypophosphatemia, black stools,diverticulosis,HTN,HLD, HxTB, BILpleural effusion,pancytopenia, BPH,smoker Clinical Indicators: Patients weight: 55.1 kg Patients height: 57 strength equal bilaterally; appr 15 poundweight lossover the last 1 month Treatments: At today's visit patient is resting comfortably in bed eating lunch. Patient reports overall feeling well per Progress Note 01/19 Nutrition Assessment: 01/19 eating 25-50% of meals; chronic, severe malnutrition d/t Cx and ongoing chemo; weight loss of 19% in 6 months, <75% of EEN intake in >3 months Please clarify, is there is an additional diagnosis that is clinically appropriate for this patient? [ ] Moderate Protein-Calorie Malnutrition [ ] Severe Protein-Calorie Malnutrition [ ] Other condition, please specify [ ] Unable to Determine (Template Last Revised: January 2023) Unable to Determine MTDD
== END 2024-01-21 13:52 | disposition home or self-care (01) | DRG 846 ==
LOC: 5NMEDONC 08:50
PROVIDERS: ADMIT Internal Medicine; ATTEND Internal Medicine
PROC: XW033B3 Introduction of Cytarabine and Daunorubicin Liposome Antineoplastic into Peripheral Vein, Percutaneous Approach, New Technology Group 3 (ICD-10-PCS; 2024-01-19)
PROC: 30233N1 Transfusion of Nonautologous Red Blood Cells into Peripheral Vein, Percutaneous Approach (ICD-10-PCS; principal; 2024-01-20)
DX: Z51.11 Encounter for antineoplastic chemotherapy (principal); D61.1 Drug-induced aplastic anemia; D61.818 Other pancytopenia; C83.10 Mantle cell lymphoma, unspecified site; I31.39 Other pericardial effusion (noninflammatory); J90 Pleural effusion, not elsewhere classified; Z68.1 Body mass index [BMI] 19.9 or less, adult; E83.39 Other disorders of phosphorus metabolism; D63.8 Anemia in other chronic diseases classified elsewhere; I10 Essential (primary) hypertension; R63.4 Abnormal weight loss; R19.5 Other fecal abnormalities; K57.90 Diverticulosis of intestine, part unspecified, without perforation or abscess without bleeding; N40.0 Benign prostatic hyperplasia without lower urinary tract symptoms; E78.5 Hyperlipidemia, unspecified; D64.81 Anemia due to antineoplastic chemotherapy; T45.1X5A Adverse effect of antineoplastic and immunosuppressive drugs, initial encounter; F17.210 Nicotine dependence, cigarettes, uncomplicated; K59.00 Constipation, unspecified; R16.1 Splenomegaly, not elsewhere classified; Z86.11 Personal history of tuberculosis; Z79.82 Long term (current) use of aspirin; Z79.899 Other long term (current) drug therapy
CPT/HCPCS: 80053; 83735; 84100; 84550; 85025; 86850; 86900; 86901; 86920

== ENCOUNTER → 2024-02-16 | Outpatient (CLI) | payer MEDICARE, OTHER ==
--- NOTE | 2024-02-22 11:24 | PE ---
EXAMINATION TYPE: PET CT fusion skull to thigh DATE OF EXAM: 02/16/2024 CLINICAL INDICATION:Male, 73 years old with history of C83.17 MANTLE CELL LYMPHOMA SPLEEN; TECHNIQUE: Following the intravenous administration of 12.16 mCi of F-18 FDG, whole body images are performed from the skull base to the midthigh. Images are reviewed on the computer in the coronal, axial, and sagittal planes. Reconstructed rotating images are created on independent workstation and reviewed on the computer. A non-contrast CT is performed in conjunction with the PET scan. Glucose level 110 mg/dL CT DLP: 232 mGycm, Automated exposure control for dose reduction was used. COMPARISON: CT 01/05/2024, PET/CT 09/16/2019, MRI: None FINDINGS: Mediastinal SUV mean is 1.7. Hepatic parenchyma SUV mean is 2.. SKULL BASE AND NECK: No suspicious radiotracer activity. CHEST, MEDIASTINUM, AND HILAR REGION: * Lymph node in the prevascular space measuring 6 mm in short axis max SUV 3.4 previously 1.9 * Right pulmonary hilum lymph node max SUV 2.9 previously 1.5. ABDOMEN AND PELVIS: No suspicious radiotracer activity. MUSCULOSKELETAL STRUCTURES: No suspicious radiotracer activity. Diffuse bone marrow uptake. No suspicious focal lesions. OTHER CT: Atherosclerosis of the arterial vasculature. Right chest wall [id number] tip terminating in the superior vena cava. Arthrosis course of the coronary arteries. Colonic diverticulosis. Apical scarring in the right upper lung. Paraseptal emphysema changes and centrilobular emphysema changes IMPRESSION: 1. Mild uptake within a right pulmonary hilum and right prevascular space lymph node which is indete rminate on one exam. Findings could be reactive. Attention on follow up imaging. No other suspicious FDG avid lesions definitively visualized. Findings favor reactive lymph nodes at this time. 2. Diffuse bone marrow uptake compatible with medicine/ colony stimulating factor use.
== END | disposition home or self-care (01) ==
LOC: RADPETMAIN 12:30
PROVIDERS: ATTEND Internal Medicine
DX: C83.17 Mantle cell lymphoma, spleen (principal); R59.9 Enlarged lymph nodes, unspecified; I10 Essential (primary) hypertension; C78.5 Secondary malignant neoplasm of large intestine and rectum
CPT/HCPCS: 78815; A9552

== ENCOUNTER 2024-03-02 09:40 | Inpatient (IN) | payer MEDICARE, OTHER ==
[2024-03-02] MEDS ORDERED: ONDANSETRON 2 MG/1 ML 20 ML (MDV) VIAL ONE (13:00)
[2024-03-02] MEDS ORDERED: SODIUM CHLORIDE 0.9% 250 ML BAG ONE (13:00)
[2024-03-02] MEDS ORDERED: SODIUM CHLORIDE 0.9% 50 ML BAG ONE (13:00)
[2024-03-02] MEDS ORDERED: prednisoLONE ACETATE 1% OPHTH DROPS 5 ML BTL ONE (13:00)
[2024-03-02] MEDS ORDERED: dexAMETHasone 4 MG TAB ONE (13:00)
[2024-03-02] MEDS ORDERED: SODIUM CHLORIDE 0.9% 1,000 ML BAG ONE (13:00)
[2024-03-02] MEDS ORDERED: SODIUM BICARBONATE TAB 650 MG TAB ONE (13:00)
[2024-03-02] MEDS ORDERED: FAMOTIDINE 20 MG/2 ML VIAL ONE (17:07)
[2024-03-02] MEDS ORDERED: allopurinoL 300 MG TAB PO ONE (18:11)
[2024-03-02] MEDS ORDERED: PIPERACILLIN-TAZOBACTAM 3.375 GM VIAL ONE (20:02)
[2024-03-02] MEDS ORDERED: SUCRALFATE 1 GM TAB ONE (21:24)
[2024-03-03] MEDS ORDERED: ALPRAZolam 0.25 MG TAB ONE (03:01)
[2024-03-03] MEDS ORDERED: SUCRALFATE 1 GM TAB ONE (05:35)
[2024-03-03] MEDS ORDERED: SODIUM BICARBONATE TAB 650 MG TAB ONE (05:35)
[2024-03-03] MEDS ORDERED: SODIUM CHLORIDE 0.9% 1,000 ML BAG ONE (05:35)
[2024-03-03] MEDS ORDERED: SODIUM CHLORIDE 0.9% 250 ML BAG ONE (05:35)
[2024-03-03] MEDS ORDERED: allopurinoL 100 MG TAB ONE (08:29)
[2024-03-03] MEDS ORDERED: PANTOPRAZOLE 40 MG TABLET PO ONE (08:30)
[2024-03-03] MEDS ORDERED: SPIRONOLACTONE 25 MG TAB ONE (08:30)
[2024-03-03] MEDS ORDERED: POTASSIUM CHLORIDE ER 20 MEQ TAB.ER PO ONE (08:31)
== END 2024-03-03 13:19 | disposition home or self-care (01) | DRG 847 ==
LOC: DISRECOVER 09:40 → 5NMEDONC 16:10 → UNDOADMIN 16:10 → UNDODISIN 03-03 13:19
PROVIDERS: ADMIT Internal Medicine; ATTEND Internal Medicine
PROC: XW043B3 Introduction of Cytarabine and Daunorubicin Liposome Antineoplastic into Central Vein, Percutaneous Approach, New Technology Group 3 (ICD-10-PCS; principal; 2024-03-02)
DX: Z51.11 Encounter for antineoplastic chemotherapy (principal); C83.10 Mantle cell lymphoma, unspecified site

== ENCOUNTER → 2024-04-10 | Outpatient (CLI) | payer MEDICARE, OTHER ==
--- NOTE | 2024-04-10 15:14 | XR ---
EXAMINATION TYPE: XR chest 2V DATE OF EXAM: 04/10/2024 COMPARISON: 01/02/2024, 01/05/2024 INDICATION: Chemotherapy exposure TECHNIQUE: Frontal and lateral views of the chest are obtained. FINDINGS: The heart size is normal. The pulmonary vasculature is normal. There appears to be some bullous formation at the right apex. This is better visualized on the curren t exam. If there are changing symptoms, close follow-up with CT chest may be warranted. No focal con solidations are evident. IMPRESSION: 1. Right apical bulla that are visualized on current examination. 2. No suspicious pulmonary fibrosis identified. [facility], , 04/10/2024 3:12 PM
--- NOTE | 2024-04-11 10:49 | CA ---
Transthoracic Echo Report Name: Rahul Cruz Age: 73 Gender: M : 1950 Exam Date: 04/10/2024 14:24 Exam Location: [facility] Ht (in): 67 Wt (lb): 150 Ordering Physician: Bharat Candelario MD Attending/Referring Phys: Hand Polisher Paloma Damon RDCS Procedure CPT: Indications: Z01.818 Chemo exposure Cardiac Hx: Technical Quality: Good Contrast 1: Total Dose (mL): Contrast 2: Total Dose (mL): MEASUREMENTS (Male / Female) Normal Values 2D ECHO LV Diastolic Diameter PLAX 4.6 cm 4.2 - 5.9 / 3.9 - 5.3 cm LV Systolic Diameter PLAX 3.3 cm IVS Diastolic Thickness 0.7 cm 0.6 - 1.0 / 0.6 - 0.9 cm LVPW Diastolic Thickness 0.8 cm 0.6 - 1.0 / 0.6 - 0.9 cm LV Relative Wall Thickness 0.3 LV Diastolic Volume MOD BP 85.5 cm??? 67 - 155 / 56 - 104 cm??? LV Systolic Volume MOD BP 35.1 cm??? 22 - 58 / 19 - 49 cm??? LV Ejection Fraction MOD BP 59.0 % >= 55 % LV Cardiac Index MOD BP 2609.8 cm???/min???m??? LV Diastolic Volume MOD 4C 83.4 cm??? LV Systolic Volume MOD 4C 33.6 cm??? LV Ejection Fraction MOD 4C 59.7 % LV Cardiac Index MOD 4C 2574.6 cm???/min???m??? LV Diastolic Length 4C 7.2 cm LV Systolic Length 4C 6.4 cm LV Diastolic Volume MOD 2C 83.6 cm??? LV Systolic Volume MOD 2C 35.2 cm??? LV Ejection Fraction MOD 2C 57.9 % LV Cardiac Index MOD 2C 2504.7 cm???/min???m??? LV Diastolic Length 2C 7.6 cm LV Systolic Length 2C 6.7 cm DOPPLER PV Peak Velocity 83.2 cm/s PV Peak Gradient 2.8 mmHg FINDINGS Left Ventricle Left ventricular ejection fraction is estimated at 55-60 %. Left ventricular cavity size normal. Left ventricular wall thickness normal. No obvious regional wall motion abnormalities. Abnormal average global longitudinal strain of the left ventricle with a value of -14%. Right Ventricle Normal right ventricular size and function. Right Atrium Right atrium not assessed. Left Atrium Left atrium not assessed. Mitral Valve Structurally normal mitral valve. No mitral stenosis, regurgitation or prolapse. Aortic Valve Trileaflet aortic valve. No aortic valve stenosis or regurgitation. Tricuspid Valve Structurally normal tricuspid valve. No tricuspid stenosis. No tricuspid regurgitation. Pulmonic Valve Structurally normal pulmonic valve. No pulmonic stenosis. No pulmonic regurgitation. Pericardium No pericardial effusion. Aorta Aortic root and proximal ascending aorta not asessed. CONCLUSIONS Diagnosis: Evaluate for cardiomyopathy, patient on chemotherapeutic agent Normal LV size and function ejection fraction 55% Previewed by: Dr. Miko Lui MD (Electronically Signed) Final Date: 11 April 2024 10:48
== END | disposition home or self-care (01) ==
LOC: RADECHMAIN 14:24
PROVIDERS: ATTEND Internal Medicine
DX: Z01.818 Encounter for other preprocedural examination
CPT/HCPCS: 71046; 93308

== ENCOUNTER 2024-04-12 08:45 | Inpatient (IN) | payer MEDICARE, OTHER ==
[2024-04-12 09:48] LABS: Anisocytosis Slight; Basophils % (A) 0 %; Eosinophils % (A) 0 %; HCT 29.2 % (39.0-53.0); HGB 9.5 gm/dL (13.0-17.5); Lymphocytes # (A) 0.6 k/uL (1.0-4.8); Lymphocytes % (A) 3 %; MCH 29.2 pg (25.0-35.0); MCHC 32.5 g/dL (31.0-37.0); MCV 89.8 fL (80.0-100.0); Monocytes # (A) 1.2 k/uL (0-1.0); Monocytes % (A) 7 %; Neutrophils # (A) 14.9 k/uL (1.3-7.7); Neutrophils % (A) 89 %; Platelet Count 215 k/uL (150-450); RBC 3.25 m/uL (4.30-5.90); RDW 18.8 % (11.5-15.5); WBC 16.8 k/uL (3.8-10.6)
[2024-04-12 09:59] LABS: ALT 15 U/L (4-49); AST 20 U/L (17-59); African American GFR (CKD) 85 (>60 ml/min/1.73 sqM); Albumin 3.7 g/dL (3.5-5.0); Albumin/Globulin Ratio 1.8; Alkaline Phosphatase 42 U/L (38-126); Anion Gap 6 mmol/L; Blood Urea Nitrogen 28 mg/dL (9-20); Carbon Dioxide 27 mmol/L (22-30); Chloride 103 mmol/L (98-107); Globulin 2.1 g/dL; Glucose 148 mg/dL (74-99); Non-African American GFR(CKD) 74 (>60 ml/min/1.73 sqM); Potassium 3.9 mmol/L (3.5-5.1); Sodium 136 mmol/L (137-145); Total Bilirubin 0.2 mg/dL (0.2-1.3); Total Protein 5.8 g/dL (6.3-8.2)
[2024-04-12] MEDS ORDERED: ONDANSETRON 4 MG/2 ML VIAL IVP PRN (11:04)
[2024-04-12] MEDS ORDERED: DOCUSATE 100 MG CAP PO PRN (11:04)
[2024-04-12] MEDS ORDERED: LOPERAMIDE 2 MG CAP PO PRN (11:04)
[2024-04-12] MEDS: prednisoLONE ACETATE 1% OPHTH DROPS 5 ML BTL BOTH EYES SCH (11:17)
[2024-04-12] MEDS: FAMOTIDINE 20 MG/2 ML VIAL IV ONE (11:21)
[2024-04-12] MEDS: DEXAMETHASONE SOD PHOSPHATE 10 MG/ML 1 ML VIAL IV SCH (11:24)
[2024-04-12] MEDS: ONDANSETRON 16 MG in SODIUM CHLORIDE 0.9% 50 ML IVPB ONE (11:26)
[2024-04-12] MEDS: MULTIVITAMINS, THERA 1 EACH TAB PO SCH (11:27)
[2024-04-12] MEDS ORDERED: ATORVASTATIN 10 MG TAB PO SCH (12:00)
[2024-04-12] MEDS: SODIUM CHLORIDE 0.9% IV SCH (12:02)
[2024-04-12] MEDS: CYTARABINE IV SCH (12:02)
[2024-04-12] MEDS: CHOLECALCIFEROL 125 MCG (5000 IU) TABLET PO SCH (13:07)
[2024-04-12 14:02] LABS: Phosphorus 3.5 mg/dL (2.5-4.5); Uric Acid 8.5 mg/dL (3.5-8.5)
--- NOTE | 2024-04-12 15:04 | P.HPIM ---
History of Present Illness H&P Date: 04/12/24 Chief Complaint: inpt chemo, mantle cell lymphoma Patient is a 73-year-old male witha history of recently diganosed mantle cell lymphoma. He initially presented to [facility] with complaints of persisting abdominal pain, he was subsequently transferred to [facility] for further management, after abnormal CT findings. Consult was placed for CT findings of extensive intra abdominal/pelvic lymphadenopathy. Patient reports he began having left lower back pain approximately 1 month ago that began to radiate to left lower quadrant and midline and to left groin. Also reports intermittent nausea and constipation. Denies diarrhea and vomiting. He states for the the week prior he had been noticing black stools. Of note patient had tooth extraction 1 month ago and was using Motrin frequently for 10 days. Patient is on no blood thinners. He denies personal and family history of cancer. Has had a approximate 15 pound weight loss over the last [address] abdomen pelvis with oral and IV contrast was obtained at [facility], scan revealed extensive intra-abdominal/pelvic lymphadenopathy. Massive splenomegaly measuring 20 cm. With small perisplenic fluid collection. May be subcapsular or related to splenic injury or infarction measuring 3.2 cm. Small pericardial and left pleural effusion. Diverticulosis with wall thickening, underlying mucosal lesion not excluded. Bladder wall enhances and is thickened, correlate for cystitis. Prostate gland enlarged. Patient underwent biopsy of right axillary lymph node and was subsequently discharged home. 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 Patient was then admitted for weakness, ARF, TLS, and pericardial effusion and underwent pericardial window. Pericardial fluid showed fibroadipose tissue involved by Mantle cell lymphoma. He received first cycle of R-CHOP inpatient on 12/29/23. He was recommended treatment with R- CHOP alternating with R-DHAP for 6 cycles. He is admitted for cycle 6 of R-DHAP. Patient reports feeling well, no reported complaints at todays visit Review of Systems 10 point ROS is negative except as stated in the HPI Past Medical History Past Medical History: Cancer, Hyperlipidemia, Hypertension Additional Past Medical History / Comment(s): Mantle cell lymphoma/spleen diagnosed November 2023,History of tuberculosis at age 18, history of kidney stones, had hemodialysis for one week in November 2023 History of Any Multi-Drug Resistant Organisms: None Reported Past Surgical History: Hernia Repair, Tonsillectomy Additional Past Surgical History / Comment(s): Axillary lymph node biopsy right side on 12/07/23, pericardial window 2023 Past Anesthesia/Blood Transfusion Reactions: No Reported Reaction Smoking Status: Former smoker - Past Family History Mother Family Medical History: Coronary Artery Disease (CAD) Additional Family Medical History / Comment(s): History of CABG Father Additional Family Medical History / Comment(s): History of permanent pacemaker placement Medications and Allergies Home Medications Medication Instructions Recorded Confirmed Type Cetirizine HCl [Zyrtec] 10 mg PO DAILY 12/02/23 04/12/24 History Cholecalciferol (Vitamin D3) 125 mcg PO DAILY@1200 12/02/23 04/12/24 History [Vitamin D3 (125 MCG = 5,000 IU)] Multivitamins, Thera [Multivitamin 1 tab PO DAILY@1200 12/02/23 04/12/24 History (formulary)] Simvastatin [Zocor] 20 mg PO DAILY@1200 12/02/23 04/12/24 History ALPRAZolam [Xanax] 0.25 mg PO Q6HR PRN 3 Days #12 tab 01/02/24 04/12/24 Rx Pantoprazole [Protonix] 40 mg PO AC-BRKFST 30 Days #30 tab 01/02/24 04/12/24 Rx Sodium Bicarbonate Tab 650 mg PO BID 30 Days #60 tab 01/02/24 04/12/24 Rx Spironolactone [Aldactone] 12.5 mg PO DAILY 30 Days #30 tab 01/02/24 04/12/24 Rx Sucralfate [Carafate] 1 gm PO AC-BID 30 Days #60 tab 01/02/24 04/12/24 Rx Torsemide [Demadex] 20 mg PO DAILY 30 Days #30 tab 01/02/24 04/12/24 Rx Potassium Chloride ER [K-Dur 20] 20 meq PO DAILY 30 Days #30 tab 01/09/24 04/12/24 Rx Allergies Allergy/AdvReac Type Severity Reaction Status Date / Time No Known Allergies Allergy Verified 04/12/24 10:22 Physical Exam Vitals: Vital Signs Temp Pulse Resp BP Pulse Ox 04/12/24 09:25 98.0 F 91 17 138/67 97 Intake and Output 04/11/24 04/12/24 04/12/24 22:59 06:59 14:59 Other: Weight 68.5 kg - Constitutional General appearance: average body habitus, no acute distress - EENT Eyes: anicteric sclerae, EOMI ENT: hearing grossly normal - Respiratory breathing is even and unlabored - Cardiovascular skin warm and dry - Gastrointestinal General gastrointestinal: soft, no tenderness - Integumentary Integumentary: no cyanotic, no jaundiced - Neurologic Neurologic: CNII-XII intact - Musculoskeletal Musculoskeletal: strength equal bilaterally - Psychiatric Psychiatric: A&O x's 3 Results CBC & Chem 7: 04/12/24 09:45 04/12/24 09:45 Labs: Abnormal Lab Results - Last 24 Hours (Table) 04/12/24 04/12/24 Range/Units 09:45 09:45 WBC 16.8 H (3.8-10.6) k/uL RBC 3.25 L (4.30-5.90) m/uL Hgb 9.5 L (13.0-17.5) gm/dL Hct 29.2 L (39.0-53.0) % RDW 18.8 H (11.5-15.5) % Neutrophils # 14.9 H (1.3-7.7) k/uL Lymphocytes # 0.6 L (1.0-4.8) k/uL Monocytes # 1.2 H (0-1.0) k/uL Sodium 136 L (137-145) mmol/L BUN 28 H (9-20) mg/dL Glucose 148 H (74-99) mg/dL Total Protein 5.8 L (6.3-8.2) g/dL Thrombosis Risk Factor Assmnt - DVT/VTE Prophylaxis DVT/VTE Prophylaxis: Pharmacologic Prophylaxis ordered - Choose All That Apply Any of the Below Risk Factors Present?: No Other Risk Factors: Yes Each Risk Factor Represents 2 Points: Age 61-74 years, Malignancy Other congenital or acquired thrombophilia - If yes, enter type in comment: No Thrombosis Risk Factor Assessment Total Risk Factor Score: 4 Thrombosis Risk Factor Assessment Level: Moderate Risk Assessment and Plan (1) Mantle cell lymphoma Current Visit: Yes Status: Acute Priority: High Code(s): C83.10 - MANTLE CELL LYMPHOMA, UNSPECIFIED SITE SNOMED Code(s): 510949466 Plan: Mantle Cell Lymphoma -Oncology history and plan as dictated in HPI -Admitted for cycle 6 of R-DHAP -Chemo orders and supportive medications ordered -Labs reviewed and stable -CBC, CMP, TLS labs daily -IM consulted for medical management
[2024-04-12] MEDS: SODIUM CHLORIDE 0.9% 1,000 ML IV SCH (16:29)
[2024-04-12] MEDS: SALT AND SODA MOUTHWASH 1,000 ML PO SCH (16:29)
[2024-04-12] MEDS: SUCRALFATE 1 GM TAB PO SCH (17:31)
--- NOTE | 2024-04-12 18:28 | P.HPIM ---
History of Present Illness H&P Date: 04/12/24 Rahul Cruz, is a 73-year-old male who was recently diagnosed with mantle cell lymphoma he was admitted by oncology for chemotherapy. Patient initially presented with abdominal pain low back pain and weight loss he underwent a CT scan of the abdomen and pelvis that revealed extensive intra-abdominal and pelvic lymphadenopathy with splenomegaly and small pericardial and left pleural effusion he underwent biopsy of right axillary lymph node which was positive for mantle cell lymphoma he was started on chemotherapy. His past medical history is significant for hypertension, hyperlipidemia, kidney stones, and history of acute kidney injury requiring hemodialysis for 1 week in November 2023 Past Medical History Past Medical History: Cancer, Hyperlipidemia, Hypertension Additional Past Medical History / Comment(s): Mantle cell lymphoma/spleen diagnosed November 2023,History of tuberculosis at age 18, history of kidney stones, had hemodialysis for one week in November 2023 History of Any Multi-Drug Resistant Organisms: None Reported Past Surgical History: Hernia Repair, Tonsillectomy Additional Past Surgical History / Comment(s): Axillary lymph node biopsy right side on 12/07/23, pericardial window 2023 Past Anesthesia/Blood Transfusion Reactions: No Reported Reaction Smoking Status: Former smoker - Past Family History Mother Family Medical History: Coronary Artery Disease (CAD) Additional Family Medical History / Comment(s): History of CABG Father Additional Family Medical History / Comment(s): History of permanent pacemaker placement Medications and Allergies Home Medications Medication Instructions Recorded Confirmed Type Cetirizine HCl [Zyrtec] 10 mg PO DAILY 12/02/23 04/12/24 History Cholecalciferol (Vitamin D3) 125 mcg PO DAILY@1200 12/02/23 04/12/24 History [Vitamin D3 (125 MCG = 5,000 IU)] Multivitamins, Thera [Multivitamin 1 tab PO DAILY@119912/02/23 04/12/24 History (formulary)] Simvastatin [Zocor] 20 mg PO DAILY@119912/02/23 04/12/24 History ALPRAZolam [Xanax] 0.25 mg PO Q6HR PRN 3 Days #12 tab 01/02/24 04/12/24 Rx Pantoprazole [Protonix] 40 mg PO AC-BRKFST 30 Days #30 tab 01/02/24 04/12/24 Rx Sodium Bicarbonate Tab 650 mg PO BID 30 Days #60 tab 01/02/24 04/12/24 Rx Spironolactone [Aldactone] 12.5 mg PO DAILY 30 Days #30 tab 01/02/24 04/12/24 Rx Sucralfate [Carafate] 1 gm PO AC-BID 30 Days #60 tab 01/02/24 04/12/24 Rx Torsemide [Demadex] 20 mg PO DAILY 30 Days #30 tab 01/02/24 04/12/24 Rx Potassium Chloride ER [K-Dur 20] 20 meq PO DAILY 30 Days #30 tab 01/09/24 04/12/24 Rx Allergies Allergy/AdvReac Type Severity Reaction Status Date / Time No Known Allergies Allergy Verified 04/12/24 10:22 Physical Exam Vitals: Vital Signs Temp Pulse Resp BP Pulse Ox 04/12/24 09:25 98.0 F 91 17 138/67 97 Intake and Output 04/11/24 04/12/24 04/12/24 22:59 06:59 14:59 Other: Weight 68.5 kg In general patient is alert and oriented x 3 in no distress HEENT head normocephalic and atraumatic Neck is supple no JVD no goiter no lymphadenopathy no carotid bruit Chest examination is clear to auscultation no crackles no wheezing Cardiac exam reveals regular heart sounds S1 and S2 no gallops no murmurs Abdomen is soft nontender no organomegaly with normal bowel sounds Extremity exam reveals no edema no cyanosis or clubbing Neurological examination reveals no gross focal deficits Results CBC & Chem 7: 04/12/24 09:45 04/12/24 09:45 Labs: Abnormal Lab Results - Last 24 Hours (Table) 04/12/24 04/12/24 Range/Units 09:45 09:45 WBC 16.8 H (3.8-10.6) k/uL RBC 3.25 L (4.30-5.90) m/uL Hgb 9.5 L (13.0-17.5) gm/dL Hct 29.2 L (39.0-53.0) % RDW 18.8 H (11.5-15.5) % Neutrophils # 14.9 H (1.3-7.7) k/uL Lymphocytes # 0.6 L (1.0-4.8) k/uL Monocytes # 1.2 H (0-1.0) k/uL Sodium 136 L (137-145) mmol/L BUN 28 H (9-20) mg/dL Glucose 148 H (74-99) mg/dL Total Protein 5.8 L (6.3-8.2) g/dL Thrombosis Risk Factor Assmnt - Choose All That Apply Any of the Below Risk Factors Present?: No Other Risk Factors: Yes Each Risk Factor Represents 2 Points: Age 61-74 years, Malignancy Other congenital or acquired thrombophilia - If yes, enter type in comment: No Thrombosis Risk Factor Assessment Total Risk Factor Score: 4 Thrombosis Risk Factor Assessment Level: Moderate Risk Assessment and Plan Plan: Mantle cell lymphoma Underlying history of hypertension Underlying history of hyperlipidemia Previous history of acute kidney injury At this time patient is admitted to medical floor oncology consultation for chemotherapy was initiated will follow closely
[2024-04-12] MEDS: ALPRAZolam 0.25 MG TAB PO PRN (22:07)
[2024-04-12] MEDS: ATORVASTATIN 10 MG TAB PO SCH (22:08)
[2024-04-12] MEDS: SODIUM BICARBONATE TAB 650 MG TAB PO SCH (22:08)
[2024-04-13 07:32] VITALS: RESP 16
[2024-04-13] MEDS: PANTOPRAZOLE 40 MG TABLET PO SCH (08:15)
[2024-04-13] MEDS: ENOXAPARIN 40 MG/0.4 ML SYRINGE SQ SCH (08:15)
[2024-04-13] MEDS: SPIRONOLACTONE 25 MG TAB PO SCH (08:16)
[2024-04-13] MEDS: TORSEMIDE 20 MG TAB PO SCH (08:16)
[2024-04-13] MEDS: POTASSIUM CHLORIDE ER 20 MEQ TAB.ER PO SCH (08:16)
[2024-04-13] MEDS: LORATADINE 10 MG TAB PO SCH (08:16)
[2024-04-13 08:56] LABS: Basophils # (A) 0.03 X 10*3/uL (0.00-0.10); Basophils % (A) 0.2 %; Eosinophils # (A) 0 X 10*3/uL (0.04-0.35); Eosinophils % (A) 0 %; HCT 27.6 % (39.6-50.0); HGB 9.1 g/dL (13.0-17.0); Lymphocytes # (A) 0.51 X 10*3/uL (0.90-5.00); Lymphocytes % (A) 2.8 %; MCH 29.9 pg (27.0-32.0); MCV 90.8 FL (80.0-97.0); Mean Platelet Volume 9.3 FL (9.5-12.2); Monocytes # (A) 0.82 X 10*3/uL (0.20-1.00); Monocytes % (A) 4.6 %; NRBC Per 100 WBC 0 X 10*3/uL (0.00-0.01); Neutrophils # (A) 16.26 X 10*3/uL (1.80-7.70); Neutrophils % (A) 90.7 %; Platelet Count 192 X 10*3/uL (140-440); RBC 3.04 X 10*6/uL (4.40-5.60); WBC 17.92 X 10*3/uL (4.50-10.00)
[2024-04-13] MEDS ORDERED: FAMOTIDINE 20 MG/2 ML VIAL IV SCH (09:00)
--- NOTE | 2024-04-13 09:11 | P.PN ---
Subjective Progress Note Date: 04/13/24 Rahul Cruz, is a 73-year-old male who was recently diagnosed with mantle cell lymphoma he was admitted by oncology for chemotherapy. Patient initially presented with abdominal pain low back pain and weight loss he underwent a CT scan of the abdomen and pelvis that revealed extensive intra- abdominal and pelvic lymphadenopathy with splenomegaly and small pericardial and left pleural effusion he underwent biopsy of right axillary lymph node which was positive for mantle cell lymphoma he was started on chemotherapy. His past medical history is significant for hypertension, hyperlipidemia, kidney stones, and history of acute kidney injury requiring hemodialysis for 1 week in November 2023 On 04/13/2024 patient is alert and oriented x 3. Patient will likely be DC'd home per oncology services today. Patient has completed treatment. Patient will follow-up with PET scan per oncology services. Patient denies any chest pain or shortness of breath. Patient denies nausea vomiting or diarrhea. Patient denies any urinary burning or frequency. Current vital signs temp 97.6, heart rate 70, respiratory rate 16, blood pressure 133/74 with pulse ox of 97% on room air Objective - Vital Signs Vital signs: Vital Signs Temp 97.6 F 04/13/24 07:15 Pulse 70 04/13/24 07:15 Resp 16 04/13/24 07:15 BP 133/74 04/13/24 07:15 Pulse Ox 97 04/13/24 07:15 FiO2 Intake & Output 04/12/24 04/13/24 04/13/24 18:59 06:59 18:59 Intake Total 393 240 Balance 393 240 Weight 68.5 kg Intake: Intake, IV Titration 393 Amount Cytarabine/Pf 1,750 mg In 268 Sodium Chloride 0.9% 250 ml @ 133.75 mls/hr IV Q12H [facility] Rx#:[id number] Ondansetron 16 mg In 50 Sodium Chloride 0.9% 50 ml @ 232 mls/hr IVPB ONCE ONE Rx#:[id number] Sodium Chloride 0.9% 1, 75 000 ml @ 50 mls/hr IV . Q20H [facility] Rx#:[id number] Oral 240 - Exam In general patient is alert and oriented x 3 in no distress HEENT head normocephalic and atraumatic Neck is supple no JVD no goiter no lymphadenopathy no carotid bruit Chest examination is clear to auscultation no crackles no wheezing Cardiac exam reveals regular heart sounds S1 and S2 no gallops no murmurs Abdomen is soft nontender no organomegaly with normal bowel sounds Extremity exam reveals no edema no cyanosis or clubbing Neurological examination reveals no gross focal deficits - Labs CBC & Chem 7: 04/13/24 05:00 04/12/24 09:45 Labs: Abnormal Lab Results - Last 24 Hours (Table) 04/12/24 04/12/24 04/13/24 Range/Units 09:45 09:45 05:00 WBC 16.8 H 17.92 H (3.8-10.6) k/uL RBC 3.25 L 3.04 L (4.30-5.90) m/uL Hgb 9.5 L 9.1 L (13.0-17.5) gm/dL Hct 29.2 L 27.6 L (39.0-53.0) % RDW 18.8 H 19.0 H (11.5-15.5) % MPV 9.3 L (9.5-12.2) FL Immature Gran # 0.30 H (0.00-0.04) X 10*3/uL Neutrophils # 14.9 H 16.26 H (1.3-7.7) k/uL Lymphocytes # 0.6 L 0.51 L (1.0-4.8) k/uL Monocytes # 1.2 H (0-1.0) k/uL Eosinophils # 0 L (0.04-0.35) X 10*3/uL Sodium 136 L (137-145) mmol/L BUN 28 H (9-20) mg/dL Glucose 148 H (74-99) mg/dL Total Protein 5.8 L (6.3-8.2) g/dL Assessment and Plan Assessment: Mantle cell lymphoma Underlying history of hypertension Underlying history of hyperlipidemia Previous history of acute kidney injury At this time patient is admitted to medical floor oncology consultation for chemotherapy was initiated will follow closely
[2024-04-13 09:19] LABS: ALT 14 U/L (10-49); AST 14 U/L (14-35); Albumin 3.8 g/dL (3.8-4.9); Albumin/Globulin Ratio 2.24 Ratio (1.60-3.17); Alkaline Phosphatase 46 U/L (41-126); BUN/Creat Ratio 25.91 Ratio (12.00-20.00); Blood Urea Nitrogen 28.5 mg/dL (9.0-27.0); Calcium 9.4 mg/dL (8.7-10.3); Carbon Dioxide 24.4 mmol/L (21.6-31.8); Chloride 103 mmol/L (96-109); Globulin 1.7 g/dL (1.6-3.3); Glucose 130 mg/dL (70-110); Potassium 4.1 mmol/L (3.5-5.5); Sodium 139 mmol/L (135-145); Total Bilirubin <0.2 mg/dL (0.3-1.2); Total Protein 5.5 g/dL (6.2-8.2); Uric Acid 8.7 mg/dL (3.7-8.7)
[2024-04-13] MEDS: allopurinoL 300 MG TAB PO SCH (13:01)
[2024-04-13 13:45] VITALS: BP 158/77; PULSE 76; TEMP 97.8
--- NOTE | 2024-04-13 14:14 | P.DS ---
Providers Date of admission: 04/12/24 08:45 Expected date of discharge: 04/13/24 Attending physician: Bharat Candelario MD Consults: 04/12/24 12:15 Consult Physician Routine Consulting Provider: Walker Sidhu Consult Reason/Comments: Lymphoma Do you want consulting provider notified?: Yes Primary care physician: Maria Del Carmen Fitzgerald - Discharge Diagnosis(es) (1) Mantle cell lymphoma Current Visit: Yes Status: Acute Priority: High Hospital Course: No acute events. Tolerated treatment well Assessment: Patient tolerated treatment well. No reported complaints. Denies n/v/d. Tolerating oral intake Labs stable. Mild increase in uric acid, no evience of [place], negative TLS. Start allopurinol Scripts for allopurinol and dexamethasone sent from clinic Clinic f/u scheduled for 04-16. Will recheck labs at that time Patient Condition at Discharge: Good Plan - Discharge Summary Discharge Rx Participant: Yes New Discharge Prescriptions: No Action Multivitamins, Thera [Multivitamin (formulary)] 1 tab PO DAILY@1200 Cetirizine HCl [Zyrtec] 10 mg PO DAILY Simvastatin [Zocor] 20 mg PO DAILY@1200 Pantoprazole [Protonix] 40 mg PO AC-BRKFST 30 Days #30 tab Cholecalciferol (Vitamin D3) [Vitamin D3 (125 MCG = 5,000 IU)] 125 mcg PO DAILY@1200 ALPRAZolam [Xanax] 0.25 mg PO Q6HR PRN 3 Days #12 tab PRN Reason: Anxiety Spironolactone [Aldactone] 12.5 mg PO DAILY 30 Days #30 tab Sucralfate [Carafate] 1 gm PO AC-BID 30 Days #60 tab Torsemide [Demadex] 20 mg PO DAILY 30 Days #30 tab Sodium Bicarbonate Tab 650 mg PO BID 30 Days #60 tab Potassium Chloride ER [K-Dur 20] 20 meq PO DAILY 30 Days #30 tab Discharge Medication List Cetirizine HCl [Zyrtec] 10 mg PO DAILY 12/02/23 [History] Cholecalciferol (Vitamin D3) [Vitamin D3 (125 MCG = 5,000 IU)] 125 mcg PO DAILY@1200 12/02/23 [History] Multivitamins, Thera [Multivitamin (formulary)] 1 tab PO DAILY@1200 12/02/23 [History] Simvastatin [Zocor] 20 mg PO DAILY@1200 12/02/23 [History] ALPRAZolam [Xanax] 0.25 mg PO Q6HR PRN 3 Days #12 tab 01/02/24 [Rx] Pantoprazole [Protonix] 40 mg PO AC-BRKFST 30 Days #30 tab 01/02/24 [Rx] Sodium Bicarbonate Tab 650 mg PO BID 30 Days #60 tab 01/02/24 [Rx] Spironolactone [Aldactone] 12.5 mg PO DAILY 30 Days #30 tab 01/02/24 [Rx] Sucralfate [Carafate] 1 gm PO AC-BID 30 Days #60 tab 01/02/24 [Rx] Torsemide [Demadex] 20 mg PO DAILY 30 Days #30 tab 01/02/24 [Rx] Potassium Chloride ER [K-Dur 20] 20 meq PO DAILY 30 Days #30 tab 01/09/24 [Rx] Patient Instructions/Handouts: Non-Hodgkin Lymphoma (GEN), Eating During Cancer Treatment (DC), Chemo Induced Nausea and Vomiting (DC), Intravenous Chemotherapy (GEN) Discharge Disposition: HOME SELF-CARE Care Plan Goals (MU): Patient tolerated treatment. No reported complaints. Denies n/v/d. Tolerating oral intake Labs stable. Mild increase in uric acid, no evience of [place], negative TLS. Start allopurinol Scripts for allopurinol and dexamethasone sent from clinic Clinic f/u scheduled for 04-16. Will recheck labs at that time
== END 2024-04-13 14:32 | disposition home or self-care (01) | DRG 847 ==
LOC: 5NMEDONC 08:45
PROVIDERS: ADMIT Internal Medicine; ATTEND Internal Medicine
PROC: XW033B3 Introduction of Cytarabine and Daunorubicin Liposome Antineoplastic into Peripheral Vein, Percutaneous Approach, New Technology Group 3 (ICD-10-PCS; principal; 2024-04-12)
DX: Z51.11 Encounter for antineoplastic chemotherapy (principal); C83.17 Mantle cell lymphoma, spleen; I10 Essential (primary) hypertension; R63.4 Abnormal weight loss; E78.5 Hyperlipidemia, unspecified; N40.0 Benign prostatic hyperplasia without lower urinary tract symptoms; R19.5 Other fecal abnormalities; K59.00 Constipation, unspecified; Z87.891 Personal history of nicotine dependence; Z86.11 Personal history of tuberculosis; Z79.899 Other long term (current) drug therapy
CPT/HCPCS: 80053; 84100; 84550; 85025

== ENCOUNTER → 2024-04-19 | Outpatient (CLI) | payer MEDICARE, OTHER ==
--- NOTE | 2024-04-21 00:27 | PE ---
EXAMINATION TYPE: PET CT fusion skull to thigh DATE OF EXAM: 04/19/2024 CLINICAL INDICATION:Male, 73 years old with history of C83.17 lymphoma; TECHNIQUE: Following the intravenous administration of 13.22 mCi of F-18 FDG, whole body images are performed from the skull base to the midthigh. Images are reviewed on the computer in the coronal, axial, and sagittal planes. Reconstructed rotating images are created on independent workstation and reviewed on the computer. A non-contrast CT is performed in conjunction with the PET scan. Glucose level 93 mg/dL CT DLP: 405.46 mGycm, Automated exposure control for dose reduction was used. COMPARISON: CT 01/05/2024, 12/25/2023, 12/06/2023, PET/CT 02/16/2024, 09/14/2019, MRI: None FINDINGS: Mediastinal SUV mean is 2.2. Hepatic parenchyma SUV mean is 2.8. SKULL BASE AND NECK: No suspicious radiotracer activity. CHEST, MEDIASTINUM, AND HILAR REGION: * Lymph node in the prevascular space stable size measuring 7 mm in short axis with max SUV 4.1, pre viously 3.4, 1.9. * Right pulmonary hilum lymph node max SUV 4.7, previously 2.9, 1.5. * No new FDG avid lymphadenopathy within the chest. ABDOMEN AND PELVIS: Multiple periaortic retroperitoneal subcentimeter lymph nodes identified. None greater than 1 cm shor t axis. No suspicious radiotracer activity. No suspicious uptake above background within the enlarged spleen. MUSCULOSKELETAL STRUCTURES: No suspicious radiotracer activity. Diffuse bone marrow uptake again. No suspicious focal lesions. OTHER CT: Atherosclerosis of the arterial vasculature. Right PICC line with tip terminating in the christina perior cavoatrial junction. Atherosclerosis of the coronary arteries. Colonic diverticulosis. Apical scarring in the right upper lung. Paraseptal and centrilobular emphysematous changes. Distal colonic diverticulosis. The sclerosis with hypoplasia of the right mastoid air cells redemonstrated. Possible soft tissue within the right middle ear again. IMPRESSION: 1. Slightly increased mild radiotracer uptake within a right pulmonary hilum and right prevascular s pace lymph nodes. Suspicious for residual disease. No new sites of focal FDG activity identified. 2. Previously treated retroperitoneal periaortic lymphadenopathy measures less than 1 cm short axis without suspicious FDG activity. Consistent with treated disease. 3. Diffuse bone marrow uptake compatible with medicine/colony stimulating factor use. 4. Similar abnormal appearance of the right internal auditory canal/mastoid air cells which may be se quelae of chronic infection however underlying cholesteatoma is not excluded. Stable dating back to . Consider further evaluation with CT IAC as clinically indicated. [facility], , 04/21/2024 12:25 AM
== END | disposition home or self-care (01) ==
LOC: RADPETMAIN 12:59
PROVIDERS: ATTEND Internal Medicine
DX: C83.17 Mantle cell lymphoma, spleen
CPT/HCPCS: 78815